=== PATIENT | male | born 1940 | race Caucasian/White ===

== ENCOUNTER → 2020-01-23 09:13 | Outpatient (BNVA) | payer MEDICARE, MEDICAID, SELFPAY | PROVIDERS: PCP Internal Medicine; Referring Provider Internal Medicine; Visit Provider Hospitalist | DX: J44.9 Chronic obstructive pulmonary disease, unspecified (principal); J96.11 Chronic respiratory failure with hypoxia; Z79.899 Other long term (current) drug therapy | CPT/HCPCS: 99214 ==

== ENCOUNTER 2020-01-27 10:12 | Outpatient (REF) | payer MEDICARE, MEDICAID, SELFPAY ==
[2020-01-27 11:28] LABS: MANUAL DIFF FLAG NO
[2020-01-27 11:49] LABS: Basophils Percent Auto 0.4 % (0-2); Eosinophils Absolute Auto 0.1 X10*3/uL (0.0-0.4); Eosinophils Percent Auto 2.2 % (0-4); Hematocrit 43.7 % (42-52); Hemoglobin 14.1 g/dl (14.0-18.0); Imm Gran Abs Auto 0.01 X10*3/uL (0.00-0.03); Imm Gran Pct Auto 0.2 % (0.0-0.4); Lymphocytes Absolute Auto 1.4 X10*3/uL (1.2-4.9); Lymphocytes Percent Auto 31.7 % (20-40); Mean Corpuscular HGB Conc 32.3 g/dl (31.0-36.0); Mean Corpuscular Hemoglobin 30.3 pg (27.0-33.0); Mean Corpuscular Volume 93.8 fL (80-98); Mean Platelet Volume 9.8 fL (9.4-12.4); Monocytes Absolute Auto 0.4 X10*3/uL (0.1-1.2); Monocytes Percent Auto 8.8 % (2-11); Neutrophils Absolute Auto 2.6 X10*3/uL (2.0-8.3); Neutrophils Percent Auto 56.7 % (45-73); Platelet Count 148 X10*3/uL (160-400); Red Blood Count 4.66 X10*6/uL (4.60-5.80); Red Cell Distribution Width 13.1 % (11.0-16.0); White Blood Count 4.5 X10*3/uL (4.8-10.8)
[2020-01-27 11:58] LABS: Glucose Urine UA NEG (NEG); Leukocyte Esterase Urine NEG (NEG); Nitrite Urine NEG (NEG); Specific Gravity - Urine 1.025 (1.005-1.025); Urine Blood NEG (NEG); Urine Ketones NEG (NEG); Urine Protein NEG (NEG-TRACE)
[2020-01-27 12:02] LABS: Appearance Urine CLEAR; Color Urine YELLOW
[2020-01-27 12:05] LABS: Alanine Aminotransferase 20 U/L (0-40); Albumin Level 4.1 g/dL (3.5-5.0); Alkaline Phosphatase 68 U/L (39-117); Anion Gap 10 (12-20); Aspartate Amino Transferase 17 U/L (5-37); Bilirubin Total 0.9 mg/dL (0.0-1.0); Blood Urea Nitrogen 11 mg/dL (9-16); Calcium 8.7 mg/dL (8.4-10.2); Carbon Dioxide 26 mmol/L (22-29); Chloride 108 mmol/L (96-108); Cholesterol 137 mg/dL; Estimated Glomerular Filt Rate > 60; Glucose Fasting 100 mg/dL (60-99); HDL Cholesterol 44 mg/dL; LDL Cholesterol Calculated 65 mg/dl; Potassium 4.4 mmol/l (3.3-5.1); Sodium 140 mmol/L (135-145); Total Protein 6.2 g/dL (6.5-8.0); Triglycerides 141 mg/dL
[2020-01-27 12:14] LABS: TSH reflex Free T4 1.62 mIU/mL (0.32-4.0); Vitamin D 25-OH Total 28.6 ng/mL (>30)
[2020-01-27 12:38] LABS: RBC Urine 0 /HPF (0); Squamous Epithelial Cell Urine 1+ /LPF; WBC Urine 0-2 /HPF (0-4)
[2020-01-27 13:51] LABS: Folate 5.9 ng/mL (> or = 4.0); Vitamin B12 416 pg/mL (200-900)
== END 2020-01-27 10:13 | disposition home or self-care (01) ==
LOC: HO.LAB 10:12
PROVIDERS: Visit Provider Internal Medicine
DX: R73.01 Impaired fasting glucose (principal); E78.5 Hyperlipidemia, unspecified; I12.9 Hypertensive chronic kidney disease with stage 1 through stage 4 chronic kidney disease, or unspecified chronic kidney disease; N18.9 Chronic kidney disease, unspecified; I25.10 Atherosclerotic heart disease of native coronary artery without angina pectoris; E53.8 Deficiency of other specified B group vitamins; G62.9 Polyneuropathy, unspecified; K21.9 Gastro-esophageal reflux disease without esophagitis; E55.9 Vitamin D deficiency, unspecified; E66.9 Obesity, unspecified
CPT/HCPCS: 36415; 80053; 80061; 81003; 81015; 82306; 82607; 82746; 84443; 85025

== ENCOUNTER → 2020-01-29 13:51 | Outpatient (BNVA) | payer MEDICARE, MEDICAID, SELFPAY | PROVIDERS: PCP Internal Medicine; Referring Provider Internal Medicine; Visit Provider Surgery Vascular Surgery | DX: I71.4 Abdominal aortic aneurysm, without rupture (principal) | CPT/HCPCS: 99213 ==

== ENCOUNTER 2020-04-28 08:02 | Outpatient (REF) | payer MEDICARE, MEDICAID, SELFPAY ==
[2020-04-28 09:10] LABS: Hematocrit 43.8 % (42-52); Imm Gran Abs Auto 0.01 X10*3/uL (0.00-0.03); Imm Gran Pct Auto 0.2 % (0.0-0.4); MANUAL DIFF FLAG SCAN; PLT CLUMP 1; SCAN SMEAR FLAG 1
[2020-04-28 09:12] LABS: Basophils Percent Auto 0.2 % (0-2); Eosinophils Absolute Auto 0.2 X10*3/uL (0.0-0.4); Eosinophils Percent Auto 2.8 % (0-4); Hemoglobin 14.3 g/dl (14.0-18.0); Lymphocytes Absolute Auto 1.6 X10*3/uL (1.2-4.9); Lymphocytes Percent Auto 29.8 % (20-40); Mean Corpuscular HGB Conc 32.6 g/dl (31.0-36.0); Mean Corpuscular Hemoglobin 30.3 pg (27.0-33.0); Mean Corpuscular Volume 92.8 fL (80-98); Mean Platelet Volume 9.8 fL (9.4-12.4); Monocytes Absolute Auto 0.5 X10*3/uL (0.1-1.2); Monocytes Percent Auto 9.9 % (2-11); Neutrophils Absolute Auto 3.1 X10*3/uL (2.0-8.3); Neutrophils Percent Auto 57.1 % (45-73); Platelet Count 137 X10*3/uL (160-400); Red Blood Count 4.72 X10*6/uL (4.60-5.80); Red Cell Distribution Width 12.7 % (11.0-16.0); White Blood Count 5.4 X10*3/uL (4.8-10.8)
[2020-04-28 09:16] LABS: Glucose Urine UA NEG (NEG); Leukocyte Esterase Urine NEG (NEG); Nitrite Urine NEG (NEG); PH 5.5 (5.0-8.0); Specific Gravity - Urine 1.025 (1.005-1.025); Urine Blood NEG (NEG); Urine Ketones NEG (NEG); Urine Protein NEG (NEG-TRACE)
[2020-04-28 09:20] LABS: Appearance Urine CLEAR; Color Urine YELLOW
[2020-04-28 09:36] LABS: Alanine Aminotransferase 23 U/L (0-40); Albumin Level 4.1 g/dL (3.5-5.0); Alkaline Phosphatase 77 U/L (39-117); Anion Gap 13 (12-20); Aspartate Amino Transferase 16 U/L (5-37); Bilirubin Total 0.7 mg/dL (0.0-1.0); Blood Urea Nitrogen 13 mg/dL (9-16); Calcium 8.7 mg/dL (8.4-10.2); Carbon Dioxide 29 mmol/L (22-29); Chloride 107 mmol/L (96-108); Cholesterol 116 mg/dL; Estimated Glomerular Filt Rate > 60; Glucose Fasting 97 mg/dL (60-99); HDL Cholesterol 38 mg/dL; LDL Cholesterol Calculated 59 mg/dl; Potassium 4.5 mmol/l (3.3-5.1); Sodium 144 mmol/L (135-145); Total Protein 6.3 g/dL (6.5-8.0); Triglycerides 96 mg/dL
[2020-04-28 10:00] LABS: TSH reflex Free T4 1.63 mIU/mL (0.32-4.0); Vitamin D 25-OH Total 31.8 ng/mL (>30)
[2020-04-28 10:07] LABS: Folate 9.4 ng/mL (> or = 4.0); Vitamin B12 352 pg/mL (200-900)
== END 2020-04-28 08:03 | disposition home or self-care (01) ==
LOC: HO.LAB 08:02
PROVIDERS: PCP Internal Medicine; Visit Provider Internal Medicine
DX: I12.9 Hypertensive chronic kidney disease with stage 1 through stage 4 chronic kidney disease, or unspecified chronic kidney disease (principal); N18.2 Chronic kidney disease, stage 2 (mild); E78.00 Pure hypercholesterolemia, unspecified; R73.01 Impaired fasting glucose; I25.10 Atherosclerotic heart disease of native coronary artery without angina pectoris; E66.9 Obesity, unspecified; E53.8 Deficiency of other specified B group vitamins; K21.9 Gastro-esophageal reflux disease without esophagitis; E55.9 Vitamin D deficiency, unspecified
CPT/HCPCS: 36415; 80053; 80061; 81003; 82306; 82607; 82746; 84443; 85025

== ENCOUNTER 2020-05-17 10:28 | Day surgery (SDC) | payer MEDICARE, MEDICAID, SELFPAY ==
[2020-04-07 11:34] VITALS: BMI 32.4
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
[2020-05-17 11:01] VITALS: BP 141/82; PULSE 74; RESP 18; TEMP 36.8; O2SAT 97
[2020-05-17] MEDS: Lactated Ringers 1,000 ML 50 ML IVCONT (11:32)
[2020-05-17 13:40] VITALS: BP 101/73; PULSE 53; RESP 16; TEMP 36.2; O2SAT 97
--- NOTE | 2020-05-17 13:47 | PM.OP ---
Brief Operative Note Date of Service: 05/17/20 Pre-op diagnosis: Screening, History of colon polyps Post-op diagnosis: other (Colon polyps) Procedure: Colonoscopy to cecum with snare polypectomy and placement of Resolution clips Surgeon: Presley Bai Anesthesia: MAC Estimated blood loss (mL): 5.0 Pathology: other (A. Cecal polyp B. Ascending colon polyps C. Transverse colon polyps D. Polyps at 60cm) Condition: stable Disposition: PACU
[2020-05-17 13:55] VITALS: BP 126/72; PULSE 60; RESP 16; TEMP 36.2; O2SAT 96
--- NOTE | 2020-05-17 14:33 | OP_ITS ---
SURGEON: Presley Bai MD PREOPERATIVE DIAGNOSIS: POSTOPERATIVE DIAGNOSIS: PROCEDURE PERFORMED: Colonoscopy to the cecum with multiple snare polypectomies and placement of multiple resolution clips. Full consent has been obtained from him for this, including risks of bleeding and perforation. ESTIMATED BLOOD LOSS: COMPLICATIONS: ANESTHESIA: Monitored anesthesia care. ASSISTANTS: SPECIMENS: PREOPERATIVE DIAGNOSES: Colorectal cancer screening and personal history of colon polyps. POSTOPERATIVE DIAGNOSES: Colorectal cancer screening, personal history of colon polyps, colon polyps, diverticulosis, and internal hemorrhoids. DESCRIPTION OF PROCEDURE: The patient was placed in the left lateral decubitus position. The digital rectal exam revealed no abnormalities. The Olympus video pediatric colonoscope was entered into the rectum and advanced easily to the cecum. Once in the cecum, I did identify cecal pouch with appendiceal orifice and a normal-appearing ileocecal valve. The entire cecum was well visualized. In the cecum was an approximately 10 mm grossly adenomatous polyp which was snared and recovered by suction. Two clips were placed on the polypectomy site for hemostasis given that he had to go back on his aspirin therapy. There was good deployment and good hemostasis. The remainder of the cecum appeared normal. The scope was then slowly withdrawn assessing all mucosal surfaces carefully. Preparation was excellent after his two-day bowel prep. Multiple polyps were visualized in the ascending colon, transverse colon, and at 60 cm. These were all between 10 and 12 mm in size and appeared to be grossly adenomatous as well. These were all snared and recovered by suction. All the polypectomy sites appeared clean, without any sign of residual polyp nor bleeding; however, I did place resolution clips on all but two of them in the transverse colon. There was good deployment and good hemostasis. The other two polypectomy sites, I did not place clip on also appeared very good without any residual polyp nor bleeding. There were other polyps of approximately 5 mm in diameter in the sigmoid colon, descending colon, and ascending colon that were not removed given the length of today's procedure. There was a moderate amount of sigmoid diverticulosis. In the rectum, scope was retroflexed visualizing internal hemorrhoids, but no other pathology. The rectal mucosa appeared normal. The scope was straightened and withdrawn from the patient. He tolerated the procedure well and was returned to recovery area in stable condition. IMPRESSION: 1. Multiple colon polyps, status post snare polypectomy and placement of resolution clips. 2. Diverticulosis. 3. Internal hemorrhoids. PLAN: The results of the pathology will be checked. I would theoretically recommend another colonoscopy within 1-2 years, although he is approaching age 82 and we would need to take his clinical condition to account. He was advised to resume his aspirin within the next 24-48 hours. He will see me in the interim on a p.r.n. basis. This has been discussed with his family. MD MADI Miles/TAVO / [phone]
== END 2020-05-17 14:15 | disposition home or self-care (01) ==
PROVIDERS: PCP Internal Medicine; Visit Provider Internal Medicine
PROC: 0DJD8ZZ Inspection of Lower Intestinal Tract, Via Natural or Artificial Opening Endoscopic (ICD-10-PCS; CPT 45378; principal; 2020-05-17 12:20)
DX: Z12.11 Encounter for screening for malignant neoplasm of colon (principal); Z86.010 Personal history of colon polyps; D12.0 Benign neoplasm of cecum; D12.2 Benign neoplasm of ascending colon; D12.3 Benign neoplasm of transverse colon; D12.4 Benign neoplasm of descending colon; K57.30 Diverticulosis of large intestine without perforation or abscess without bleeding; K64.8 Other hemorrhoids; K21.9 Gastro-esophageal reflux disease without esophagitis; I12.9 Hypertensive chronic kidney disease with stage 1 through stage 4 chronic kidney disease, or unspecified chronic kidney disease; N18.9 Chronic kidney disease, unspecified; G62.9 Polyneuropathy, unspecified; J44.9 Chronic obstructive pulmonary disease, unspecified; I25.10 Atherosclerotic heart disease of native coronary artery without angina pectoris; Z98.61 Coronary angioplasty status; E55.9 Vitamin D deficiency, unspecified; E53.8 Deficiency of other specified B group vitamins; R73.01 Impaired fasting glucose; Z79.82 Long term (current) use of aspirin; Z79.51 Long term (current) use of inhaled steroids; Z79.899 Other long term (current) drug therapy; Z87.891 Personal history of nicotine dependence; Z88.8 Allergy status to other drugs, medicaments and biological substances; Z88.1 Allergy status to other antibiotic agents
CPT/HCPCS: 45385; 88305; J3010

== ENCOUNTER → 2020-07-19 09:37 | Outpatient (BNVA) | payer MEDICARE, MEDICAID, SELFPAY | PROVIDERS: PCP Internal Medicine; Visit Provider Hospitalist | DX: K21.9 Gastro-esophageal reflux disease without esophagitis (principal); J96.11 Chronic respiratory failure with hypoxia; J41.1 Mucopurulent chronic bronchitis | CPT/HCPCS: 99212 ==

== ENCOUNTER 2020-07-26 11:54 | Outpatient (REF) | payer MEDICARE, MEDICAID, SELFPAY ==
--- NOTE | ~2020-07-26 | XR_ITS ---
EXAMINATION: XR CHEST CLINICAL INFORMATION: Mucopurulent chronic bronchitis COMPARISON: Chest 12/12/2018 TECHNIQUE: 2 views of the chest were obtained. FINDINGS: The lungs are hyperinflated but clear. The heart size and pulmonary vascularity is normal. No gross bony abnormality seen. XR/XR chest 2V IMPRESSION: Unremarkable chest exam.
[2020-07-26 15:39] LABS: Eosinophils Absolute Auto 0.1 X10*3/uL (0.0-0.4); Hemoglobin 13.8 g/dl (14.0-18.0); MANUAL DIFF FLAG SCAN; PLT CLUMP 1; Red Cell Distribution Width 13.2 % (11.0-16.0); SCAN SMEAR FLAG 1
[2020-07-26 15:41] LABS: Basophils Percent Auto 0.4 % (0-2); Eosinophils Percent Auto 2.5 % (0-4); Hematocrit 42.5 % (42-52); Imm Gran Abs Auto 0.01 X10*3/uL (0.00-0.03); Imm Gran Pct Auto 0.2 % (0.0-0.4); Lymphocytes Absolute Auto 1.8 X10*3/uL (1.2-4.9); Lymphocytes Percent Auto 35.4 % (20-40); Mean Corpuscular HGB Conc 32.5 g/dl (31.0-36.0); Mean Corpuscular Hemoglobin 31.2 pg (27.0-33.0); Mean Corpuscular Volume 95.9 fL (80-98); Mean Platelet Volume 10.9 fL (9.4-12.4); Monocytes Absolute Auto 0.5 X10*3/uL (0.1-1.2); Monocytes Percent Auto 9.7 % (2-11); Neutrophils Absolute Auto 2.7 X10*3/uL (2.0-8.3); Neutrophils Percent Auto 51.8 % (45-73); Platelet Count 119 X10*3/uL (160-400); Red Blood Count 4.43 X10*6/uL (4.60-5.80); White Blood Count 5.1 X10*3/uL (4.8-10.8)
[2020-07-26 16:02] LABS: Alanine Aminotransferase 23 U/L (0-40); Albumin Level 4.2 g/dL (3.5-5.0); Alkaline Phosphatase 72 U/L (39-117); Anion Gap 12 (12-20); Aspartate Amino Transferase 16 U/L (5-37); Bilirubin Total 0.9 mg/dL (0.0-1.0); Blood Urea Nitrogen 12 mg/dL (9-16); Calcium 8.7 mg/dL (8.4-10.2); Carbon Dioxide 30 mmol/L (22-29); Chloride 107 mmol/L (96-108); Cholesterol 129 mg/dL; Estimated Glomerular Filt Rate > 60; Glucose Fasting 90 mg/dL (60-99); HDL Cholesterol 44 mg/dL; LDL Cholesterol Calculated 53 mg/dl; Potassium 4.5 mmol/L (3.3-5.1); Sodium 144 mmol/L (135-145); Total Protein 6.6 g/dL (6.5-8.0); Triglycerides 163 mg/dL
[2020-07-26 16:24] LABS: Glucose Urine UA NEG (NEG); Leukocyte Esterase Urine NEG (NEG); Nitrite Urine NEG (NEG); PH 5.5 (5.0-8.0); Specific Gravity - Urine >= 1.030 (1.005-1.025); Urine Blood TRACE (NEG); Urine Ketones NEG (NEG); Urine Protein NEG (NEG-TRACE)
[2020-07-26 16:26] LABS: SLIDE REVIEW VERIFIED; TSH reflex Free T4 2.21 uIU/mL (0.32-4.0); Vitamin D 25-OH Total 31.3 ng/mL (>30)
[2020-07-26 16:27] LABS: Erythrocyte Sedimentation Rate 3 MM/HR (0-15)
[2020-07-26 16:30] LABS: Appearance Urine CLEAR; Color Urine YELLOW
[2020-07-26 16:39] LABS: Folate 9.7 ng/mL (> or = 4.0); Vitamin B12 497 pg/mL (200-900)
[2020-07-26 17:03] LABS: RBC Urine 0-2 /HPF (0); Squamous Epithelial Cell Urine 1+ /LPF; WBC Urine 0 /HPF (0-4)
[2020-07-27 11:12] LABS: Immunoglobulin E 18 kU/L (<OR=114)
[2020-07-27 14:21] LABS: IgA 210 mg/dL (70-320); IgG 918 mg/dL (600-1540); IgM 65 mg/dL (50-300)
== END 2020-07-26 11:55 | disposition home or self-care (01) ==
LOC: HO.XRAY 11:54
PROVIDERS: Absent Provider Internal Medicine; PCP Internal Medicine; Visit Provider Hospitalist
DX: J41.1 Mucopurulent chronic bronchitis (principal); E55.9 Vitamin D deficiency, unspecified; E53.8 Deficiency of other specified B group vitamins; G31.84 Mild cognitive impairment of uncertain or unknown etiology; G62.9 Polyneuropathy, unspecified; E66.9 Obesity, unspecified; E78.00 Pure hypercholesterolemia, unspecified; R73.01 Impaired fasting glucose; I10 Essential (primary) hypertension
CPT/HCPCS: 36415; 71046; 80053; 80061; 81001; 82306; 82607; 82746; 82784; 82785; 84443; 85025; 85652

== ENCOUNTER 2020-09-10 08:57 | Outpatient (REF) | payer MEDICARE, MEDICAID, SELFPAY ==
[2020-09-10 11:00] LABS: Prostate Specific Antigen 1.76 ng/mL (<0.05-4.0)
== END 2020-09-10 08:58 | disposition home or self-care (01) ==
LOC: HO.LAB 08:57
PROVIDERS: PCP Internal Medicine; Visit Provider Urology
DX: R35.1 Nocturia (principal); Z12.5 Encounter for screening for malignant neoplasm of prostate
CPT/HCPCS: 36415; 84153

== ENCOUNTER → 2020-09-14 13:37 | Outpatient (BNVA) | payer MEDICARE, MEDICAID, SELFPAY | PROVIDERS: PCP Internal Medicine; Visit Provider Urology | DX: Z13.89 Encounter for screening for other disorder (principal) | CPT/HCPCS: 99212 ==

== ENCOUNTER 2020-09-21 13:59 | Outpatient (REF) | payer MEDICARE, MEDICAID, SELFPAY ==
--- NOTE | ~2020-09-21 | US_ITS ---
EXAMINATION: US VENOUS ULTRASOUND WITH DOPPLER LOWER EXTREMITY, LEFT CLINICAL INFORMATION: Pain COMPARISON: None TECHNIQUE: Ultrasound of the deep veins is performed from the hip to the calf with compression sonography and color and pulse Doppler assessment. Spectral analysis with color-flow imaging is performed. FINDINGS: There is normal venous compression and respiratory variation and augmented flow. The visualized common femoral vein, superficial femoral vein, profunda femoral vein, popliteal vein, and the trifurcation region shows no evidence of deep venous thrombosis. There is no popliteal fossa cyst. US/US venous duplex LE LT IMPRESSION: No DVT demonstrated in the left lower extremity.
== END 2020-09-21 14:00 | disposition home or self-care (01) ==
LOC: HO.US 13:59
PROVIDERS: PCP Internal Medicine; Visit Provider Internal Medicine
DX: J41.1 Mucopurulent chronic bronchitis (principal); J96.11 Chronic respiratory failure with hypoxia; M79.605 Pain in left leg; M79.89 Other specified soft tissue disorders; K21.9 Gastro-esophageal reflux disease without esophagitis; Z79.899 Other long term (current) drug therapy; Z99.81 Dependence on supplemental oxygen
CPT/HCPCS: 93971; 99212

== ENCOUNTER 2020-10-11 14:09 | Outpatient (REF) | payer MEDICARE, MEDICAID, SELFPAY ==
--- NOTE | ~2020-10-11 | US_ITS ---
EXAMINATION: US RETROPERITONEAL LIMITED (AORTA) CLINICAL INFORMATION: Abdominal aortic aneurysm without rupture. COMPARISON: Abdominal aorta ultrasounds dated 11/05/2019 and 10/08/2018 TECHNIQUE: Girard-scale, color Doppler and spectral Doppler evaluation of the abdominal aorta. FINDINGS: The measurements of the aorta in maximum AP and transverse dimensions respectively are as follows: Proximal: 3.4 x 2.8 cm. Mid: 2.6 x 2.6 cm. Distal: 3.2 x 3.3 cm. PSV: 71.6 cm/sec The measurements of the common iliac arteries in maximum dimensions are as follows: Right: AP: 2.0 cm. TRV: 1.3 cm. Left: AP: 1.7 cm. TRV: 1.4 cm. US/US abdominal aortic aneurysm IMPRESSION: Aneurysmal dilatation of distal abdominal aorta measuring 3.2 x 3.3 cm. On previous ultrasound 11/05/2019, it measured 2.6 x 3.1 cm.
== END 2020-10-11 14:10 | disposition home or self-care (01) ==
LOC: HO.US 14:09
PROVIDERS: Visit Provider Surgery Vascular Surgery
DX: I71.4 Abdominal aortic aneurysm, without rupture (principal)
CPT/HCPCS: 76706

== ENCOUNTER → 2020-10-14 10:38 | Outpatient (BNVA) | payer MEDICARE, MEDICAID, SELFPAY | PROVIDERS: PCP Internal Medicine; Visit Provider Surgery Vascular Surgery | DX: I71.4 Abdominal aortic aneurysm, without rupture (principal); M79.605 Pain in left leg; M79.89 Other specified soft tissue disorders | CPT/HCPCS: 99212 ==

== ENCOUNTER 2020-10-29 06:04 | Outpatient (REF) | payer MEDICARE, MEDICAID, SELFPAY ==
[2020-10-29 06:43] LABS: MANUAL DIFF FLAG NO
[2020-10-29 06:50] LABS: Basophils Percent Auto 0.6 % (0-2); Eosinophils Absolute Auto 0.2 X10*3/uL (0.0-0.4); Eosinophils Percent Auto 3.9 % (0-4); Hematocrit 45.5 % (42-52); Hemoglobin 14.8 g/dl (14.0-18.0); Imm Gran Abs Auto 0.01 X10*3/uL (0.00-0.03); Imm Gran Pct Auto 0.2 % (0.0-0.4); Lymphocytes Percent Auto 41.1 % (20-40); Mean Corpuscular HGB Conc 32.5 g/dl (31.0-36.0); Mean Corpuscular Hemoglobin 30.8 pg (27.0-33.0); Mean Corpuscular Volume 94.8 fL (80-98); Mean Platelet Volume 9.7 fL (9.4-12.4); Monocytes Absolute Auto 0.5 X10*3/uL (0.1-1.2); Monocytes Percent Auto 9.8 % (2-11); Neutrophils Absolute Auto 2.2 X10*3/uL (2.0-8.3); Neutrophils Percent Auto 44.4 % (45-73); Platelet Count 141 X10*3/uL (160-400); White Blood Count 4.9 X10*3/uL (4.8-10.8)
[2020-10-29 07:35] LABS: Erythrocyte Sedimentation Rate 2 MM/HR (0-15)
[2020-11-01 13:06] LABS: Immunoglobulin G Subclass 1 478 mg/dL (382-929); Immunoglobulin G Subclass 2 185 mg/dL (241-700); Immunoglobulin G Subclass 3 69 mg/dL (22-178); Immunoglobulin G Subclass 4 7.6 mg/dL (4-86); Immunoglobulin G Total 758 mg/dL (600-1540)
[2020-11-02 06:46] LABS: Immunoglobulin E 21 kU/L (<OR=114)
== END 2020-10-29 06:05 | disposition home or self-care (01) ==
LOC: HO.LAB 06:04
PROVIDERS: Hospitalist; Visit Provider Internal Medicine
DX: J41.1 Mucopurulent chronic bronchitis (principal)
CPT/HCPCS: 36415; 82784; 82785; 85025; 85652

== ENCOUNTER → 2020-11-04 14:14 | Outpatient (BNVA) | payer MEDICARE, MEDICAID, SELFPAY | PROVIDERS: PCP Internal Medicine; Referring Provider Internal Medicine; Visit Provider Internal Medicine Cardiovascular Disease | DX: I10 Essential (primary) hypertension (principal); I25.10 Atherosclerotic heart disease of native coronary artery without angina pectoris; Z79.899 Other long term (current) drug therapy | CPT/HCPCS: 93005; 99212 ==

== ENCOUNTER → 2020-12-24 09:49 | Outpatient (BNVA) | payer MEDICARE, MEDICAID, SELFPAY | PROVIDERS: PCP Internal Medicine; Visit Provider Hospitalist | DX: J41.1 Mucopurulent chronic bronchitis (principal); J96.11 Chronic respiratory failure with hypoxia; K21.9 Gastro-esophageal reflux disease without esophagitis | CPT/HCPCS: 99212 ==

== ENCOUNTER 2020-12-30 06:02 | Day surgery (SDC) | payer MEDICARE, MEDICAID, SELFPAY ==
[2020-12-29 09:38] VITALS: BMI 31.6
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
[2020-12-30] VITALS (11 sets, daily range): BP systolic 97–122; BP diastolic 48–76; PULSE 58–70; RESP 16–22; TEMP 36.3–36.5; O2SAT 93–98; BMI 33.3
[2020-12-30] MEDS: Lactated Ringers 1,000 ML 50 ML IVCONT (07:10)
--- NOTE | 2020-12-30 07:27 | PC.NURSE ---
patient extremely anxious and repetitive. patient states he took his oxycodone around 2am/3am. awaiting for to sign consent
--- NOTE | 2020-12-30 07:56 | MHC.SHP ---
Pre-Procedural Eval Section A Date of Service: 12/30/20 The patient is an INPATIENT: No Changes since office visit: Yes Patient answered all questions; No Cold of Flu in the past 2 weeks, No New Medical Problems and No Changes in Medication Section B Chief Complaint: brochitis Allergies: Allergies Allergy/AdvReac Type Severity Reaction Status Date / Time celecoxib [From Celebrex] Allergy Severe Redness Verified 12/24/20 10:09 ciprofloxacin Allergy Intermediate Itching Verified 12/24/20 10:09 clonazepam [From Klonopin] Allergy Intermediate Flushing Verified 12/24/20 10:09 ibuprofen [Ibuprofen] Allergy Intermediate ITCHING Verified 12/24/20 10:09 roflumilast [From Daliresp] AdvReac Severe GI and Verified 12/24/20 10:09 mood changes bupropion [From WELLBUTRIN] AdvReac Intermediate CONFUSION Verified 12/24/20 10:09 gabapentin [GABAPENTIN] AdvReac Intermediate CONFUSION Verified 12/24/20 10:09 tramadol [From ULTRAM] AdvReac Intermediate CONFUSION Verified 12/24/20 10:09 levofloxacin [From LEVAQUIN] AdvReac Mild ITCHY, Verified 12/24/20 10:09 BURNING Plan I have reviewed the history and physical and performed a pertinent physical examination on my patient. No changes have occurred unless specified.
--- NOTE | 2020-12-30 10:08 | P.BOP_ITS ---
Brief Operative Note Date of Service: 12/30/20 Pre-op diagnosis: cough Post-op diagnosis: other (Bronchitis, bronchomalecia) Procedure: bronchoscopy with BAL, washings and brushings Implants: Surgeon: Kings Kaiser MD Anesthesia: GLMA Was an Oil Field Technician used for this Procedure?: No Estimated blood loss (mL): 0 Pathology: none sent Condition: stable Disposition: same day
--- NOTE | 2020-12-30 12:32 | OP_ITS ---
SURGEON: Kings Kaiser MD PREOPERATIVE DIAGNOSIS: Cough. POSTOPERATIVE DIAGNOSIS: PROCEDURE PERFORMED: ESTIMATED BLOOD LOSS: COMPLICATIONS: ANESTHESIA: LMA. ASSISTANTS: SPECIMENS: POSTOPERATIVE DIAGNOSES: Bronchitis with suppurative airways and bronchomalacia. CONSENT: Consent was obtained from the patient. Risks and benefits were discussed. The patient gave informed consent to undergo the procedure. DESCRIPTION OF PROCEDURE: After the patient was adequately sedated and LMA in place, the flexible digital bronchoscope was inserted to the level of the larynx. The vocal cords moved symmetrically to the midline. The larynx was inflamed minimally. Vocal cords were intact without any lesions. After instilling lidocaine, the bronchoscope then passed the vocal cords to the level of the trachea. 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 After instilling additional lidocaine, the bronchoscope was then navigated to the entire tracheobronchial tree that was examined to the subsegmental level. The patient had significant evidence of bronchomalacia. There was also moderate to severe mucoid secretions that were difficult to suction primarily in the distal trachea and also in the right lung. Bronchial washings were used to try to clear the mucus, although I had to remove the bronchoscope multiple times to clear the suction channel, because of the clogging with thick tenacious secretions. Therapeutic suctioning was provided. Bronchoscope was navigated to the right middle lobe, where a bronchoalveolar lavage was done with 50 mL of normal saline, recovering only around 10 mL due to significant bronchomalacia. Specimen sent for cell count and differential. Also, a microscopic brush was introduced into the right middle lobe and sent for microbiology evaluations. Bronchial washings were collected bilaterally. Again, therapeutic suctioning was provided throughout the airways. The patient did have friable mucosa throughout, left more than right, little oozing with blood, but just minimal. The patient had good hemostasis. No endobronchial lesions or masses noted. Therefore, no biopsy warranted. The bronchoscope was then removed. The total endoscopic time approximately 12 minutes. The patient tolerated the procedure well. Vital signs were stable throughout the procedure. INTERPRETATION: 1. BAL from the right middle lobe. 2. Micro brush from the right middle lobe. 3. Bronchial washings bilaterally. Kings Kaiser MD MR/MODL / [id number]
[2020-12-30 14:23] LABS: RBC Bronchial Washing 0 MM*3; WBC Bronchial Washing 0 MM*3
== END 2020-12-30 10:48 | disposition home or self-care (01) ==
PROVIDERS: PCP Internal Medicine; Visit Provider Hospitalist
PROC: 0BJ08ZZ Inspection of Tracheobronchial Tree, Via Natural or Artificial Opening Endoscopic (ICD-10-PCS; CPT 31622; principal; 2020-12-30 08:00)
DX: J41.1 Mucopurulent chronic bronchitis (principal); J39.8 Other specified diseases of upper respiratory tract; J98.09 Other diseases of bronchus, not elsewhere classified
CPT/HCPCS: 31623; 31624; 87071; 87102; 87107; 87116; 87205; 88112; 89051; J0171; J1100; J2250; J2405; J3010

== ENCOUNTER → 2021-01-13 09:07 | Outpatient (BNVA) | payer MEDICARE, MEDICAID, SELFPAY | PROVIDERS: PCP Internal Medicine; Visit Provider Hospitalist | DX: J96.11 Chronic respiratory failure with hypoxia (principal); J41.1 Mucopurulent chronic bronchitis; J98.09 Other diseases of bronchus, not elsewhere classified; K21.9 Gastro-esophageal reflux disease without esophagitis | CPT/HCPCS: 99212 ==

== ENCOUNTER 2021-02-23 10:26 | Emergency (ER) | payer MEDICARE, MEDICAID, SELFPAY ==
[2021-02-23] VITALS (7 sets, daily range): BP systolic 86–125; BP diastolic 51–71; PULSE 54–72; RESP 13–20; TEMP 36.6–36.8; O2SAT 93–98; BMI 31.8
--- NOTE | 2021-02-23 | ECG_ITS ---
Test Reason : chest pain Blood Pressure : / mmHG Vent. Rate : 063 BPM Atrial Rate : 063 BPM P-R Int : 152 ms QRS Dur : 086 ms QT Int : 402 ms P-R-T Axes : 057 031 036 degrees QTc Int : 411 ms Normal sinus rhythm with sinus arrhythmia RSR' or QR pattern in V1 suggests right ventricular conduction delay Nonspecific ST abnormality Abnormal ECG When compared with ECG of 18-MAY-2019 07:32, Premature atrial complexes are no longer Present Referred By: Generic ED Physician Electronically Signed By:DONNA DAMIAN MD
--- NOTE | ~2021-02-23 | XR_ITS ---
EXAMINATION: XR CHEST CLINICAL INFORMATION: Chest pain COMPARISON: July 26, 2020 and February 26, 2019 TECHNIQUE: AP portable view of the chest was obtained. FINDINGS: No significant abnormality is noted involving the heart, lungs, mediastinum, bony thorax or soft tissues. XR/XR chest 1V IMPRESSION: No acute disease.
--- NOTE | ~2021-02-23 | CT_ITS ---
E EXAMINATION: CT ANGIOGRAM OF THE CHEST WITH CONTRAST (CT PULMONARY ANGIOGRAM FOR PE) CLINICAL INFORMATION: Chest pain. COMPARISON: CXR from 02/23/2021. Chest CT from 08/19/2017. TECHNIQUE: Prior to contrast administration, noncontrast localization images were obtained. Subsequently, multidetector volumetric imaging was performed from the thoracic inlet to below the diaphragms following the administration of 65 mL Omnipaque 350 intravenous contrast. No contrast reaction reported. Sagittal, coronal, and MIP oblique sagittal reformatted images were obtained on the CT workstation, uploaded to PACS, and reviewed. This CT examination was performed using dose optimization techniques as appropriate, variously including the following: *Automated exposure control *Adjustment of mA and/or kV according to patient size (this includes techniques or standardized protocols for targeted exams where dose is matched to indication/reason for exam; i.e. extremities or head) *Use of iterative reconstruction technique DLP: Total exam dose-length product 436 mGy-cm FINDINGS: LUNGS AND PLEURA: The inward bowing of the membranous/posterior wall of the trachea suggests that images were acquired during expiration. Chronic moderate centrilobular emphysema is present. There are paraseptal emphysematous changes, as well. No acute pulmonary edema or focal consolidation. The bronchial morales are diffusely thickened. Mild subsegmental atelectasis is noted in paramediastinal regions of the right middle lobe and inferior lingula. A small noncalcified nodule in the lateral left lower lobe that measures up to 0.5 cm is stable compared to 08/19/2017, consistent with a benign nodule (image 332, series 8). No new lung nodule or mass. QUALITY OF STUDY/CONTRAST BOLUS: Satisfactory. CARDIOVASCULAR: No embolic filling defects in the main, lobar or segmental pulmonary arteries. Pulmonary artery trunk is 3 cm, which is in the normal size range. However, there is chronic, mild dilatation of the right and left pulmonary arteries. This is equivocal for pulmonary arterial hypertension. The heart size is normal. Mild atherosclerotic calcification of coronary arteries. No pericardial effusion. Mild thoracic aorta atherosclerosis without aneurysm or dissection. MEDIASTINUM/LOWER NECK: The esophagus and thyroid gland are unremarkable. No mediastinal mass. No pneumomediastinum. LYMPHATICS: No pathologic sized axillary, hilar or mediastinal lymph nodes. UPPER ABDOMEN: No contrast reflux into the IVC. Adrenal glands are normal. No acute findings in the visualized upper abdomen. There is a metallic clip of the hepatic flexure of the colon. OSSEOUS STRUCTURES: No acute or suspicious osseous abnormality. Old healed fractures of right lateral ninth and 10th ribs. CT/CT angio chest PE protocol IMPRESSION: * No evidence of pulmonary embolism. * Moderate pulmonary emphysema and diffusely thickened bronchial morales, which could be a manifestation of asthma or bronchitis. No pneumonia. * A small nodule in the left lower lobe is stable compared to 08/17/2017, consistent with a benign nodule.
[2021-02-23 11:25] LABS: MANUAL DIFF FLAG NO
[2021-02-23 11:30] LABS: Basophils Percent Auto 0.7 % (0-2); Eosinophils Absolute Auto 0.2 X10*3/uL (0.0-0.4); Hematocrit 41.5 % (42.0-52.0); Hemoglobin 13.6 g/dl (14.0-18.0); Imm Gran Abs Auto 0.01 X10*3/uL (0.00-0.03); Imm Gran Pct Auto 0.2 % (0.0-0.4); Lymphocytes Absolute Auto 1.3 X10*3/uL (1.2-4.9); Lymphocytes Percent Auto 29.8 % (20-40); Mean Corpuscular HGB Conc 32.8 g/dl (31.0-36.0); Mean Corpuscular Hemoglobin 30.9 pg (27.0-33.0); Mean Corpuscular Volume 94.3 fL (80.0-98.0); Mean Platelet Volume 9.4 fL (9.4-12.4); Monocytes Absolute Auto 0.4 X10*3/uL (0.1-1.2); Monocytes Percent Auto 9.8 % (2-11); Neutrophils Absolute Auto 2.5 x10*3/uL (2.0-8.3); Neutrophils Percent Auto 55.5 % (45-73); Platelet Count 119 X10*3/uL (160-400); Red Cell Distribution Width 12.8 % (11.0-16.0); White Blood Count 4.5 X10*3/uL (4.8-10.8)
[2021-02-23 11:41] LABS: Anion Gap 11 (12-20); Blood Urea Nitrogen 12 mg/dL (9-16); Calcium 8.4 mg/dL (8.4-10.2); Carbon Dioxide 25 mmol/L (22-29); Chloride 109 mmol/L (96-108); Creatinine Clr Calc Pharmacy 89.3; Estimated Glomerular Filt Rate > 60; Glucose Random 103 mg/dL (60-115); Potassium 4.3 mmol/L (3.3-5.1); Sodium 141 mmol/L (135-145)
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
[2021-02-23 11:48] LABS: Troponin-I High Sensitivity < 3.5 ng/L (<3.5-35.0)
[2021-02-23] MEDS: 0.9 % Sodium Chloride 500 ML IV (12:48)
[2021-02-23 14:01] LABS: Troponin-I High Sensitivity < 3.5 ng/L (<3.5-35.0)
[2021-02-23] MEDS: iohexoL 350 MG/ML 100 ML INFUS..BTL 65 ML IV (14:19)
== END 2021-02-23 15:21 | disposition home or self-care (01) ==
PROVIDERS: Emergency Provider Emergency Medicine; PCP Internal Medicine
DX: R07.9 Chest pain, unspecified (principal); I12.9 Hypertensive chronic kidney disease with stage 1 through stage 4 chronic kidney disease, or unspecified chronic kidney disease; N18.9 Chronic kidney disease, unspecified; I25.10 Atherosclerotic heart disease of native coronary artery without angina pectoris; J44.9 Chronic obstructive pulmonary disease, unspecified; Z99.81 Dependence on supplemental oxygen
CPT/HCPCS: 36415; 71045; 71275; 80048; 84484; 85025; 93005; 96360; 99283; 99284; Q9967

== ENCOUNTER 2021-03-08 08:27 | Outpatient (REF) | payer MEDICARE, MEDICAID, SELFPAY ==
[2021-03-08 10:44] LABS: Prostate Specific Antigen 1.56 ng/mL (<0.05-4.0)
== END 2021-03-08 08:28 | disposition home or self-care (01) ==
LOC: HO.10HDL 08:27
PROVIDERS: Visit Provider Urology
DX: Z12.5 Encounter for screening for malignant neoplasm of prostate (principal); N40.1 Benign prostatic hyperplasia with lower urinary tract symptoms; N13.8 Other obstructive and reflux uropathy
CPT/HCPCS: 36415; 84153

== ENCOUNTER → 2021-03-18 10:10 | Outpatient (BNVA) | payer MEDICARE, MEDICAID, SELFPAY | PROVIDERS: PCP Internal Medicine; Visit Provider Urology | DX: N40.1 Benign prostatic hyperplasia with lower urinary tract symptoms (principal); N13.8 Other obstructive and reflux uropathy | CPT/HCPCS: 99212 ==

== ENCOUNTER 2021-03-23 05:52 | Outpatient (REF) | payer MEDICARE, MEDICAID, SELFPAY ==
[2021-03-23 06:10] LABS: MANUAL DIFF FLAG NO
[2021-03-23 07:16] LABS: Appearance Urine CLEAR; Color Urine YELLOW; Glucose Urine UA NEG (NEG); Leukocyte Esterase Urine NEG (NEG); Nitrite Urine NEG (NEG); PH 5.5 (5.0-8.0); Specific Gravity - Urine >= 1.030 (1.005-1.025); Urine Blood NEG (NEG); Urine Ketones NEG (NEG); Urine Protein NEG (NEG-TRACE)
[2021-03-23 07:17] LABS: Basophils Percent Auto 0.3 % (0-2); Eosinophils Absolute Auto 0.2 X10*3/uL (0.0-0.4); Eosinophils Percent Auto 2.5 % (0-4); Hematocrit 45.2 % (42.0-52.0); Hemoglobin 14.3 g/dl (14.0-18.0); Imm Gran Abs Auto 0.03 X10*3/uL (0.00-0.03); Imm Gran Pct Auto 0.5 % (0.0-0.4); Lymphocytes Absolute Auto 1.8 X10*3/uL (1.2-4.9); Lymphocytes Percent Auto 29.3 % (20-40); Mean Corpuscular HGB Conc 31.6 g/dl (31.0-36.0); Mean Corpuscular Hemoglobin 30.2 pg (27.0-33.0); Mean Corpuscular Volume 95.6 fL (80.0-98.0); Monocytes Absolute Auto 0.6 X10*3/uL (0.1-1.2); Monocytes Percent Auto 9.8 % (2-11); Neutrophils Absolute Auto 3.5 x10*3/uL (2.0-8.3); Neutrophils Percent Auto 57.6 % (45-73); Red Blood Count 4.73 X10*6/uL (4.60-5.80); Red Cell Distribution Width 12.8 % (11.0-16.0)
[2021-03-23 07:28] LABS: Estimated Average Glucose 123 mg/dL; Hemoglobin A1c % 5.9 %
[2021-03-23 07:43] LABS: Platelet Count 149 X10*3/uL (160-400)
[2021-03-23 07:46] LABS: Alanine Aminotransferase 22 U/L (0-40); Albumin Level 4.2 g/dL (3.5-5.0); Alkaline Phosphatase 71 U/L (39-117); Anion Gap 13 (12-20); Aspartate Amino Transferase 19 U/L (5-37); Blood Urea Nitrogen 15 mg/dL (9-16); Calcium 9.4 mg/dL (8.4-10.2); Carbon Dioxide 27 mmol/L (22-29); Chloride 108 mmol/L (96-108); Cholesterol 132 mg/dL; Estimated Glomerular Filt Rate > 60; Glucose Fasting 98 mg/dL (60-99); HDL Cholesterol 42 mg/dL; LDL Cholesterol Calculated 68 mg/dl; Potassium 4.9 mmol/L (3.3-5.1); Sodium 143 mmol/L (135-145); Total Protein 6.8 g/dL (6.5-8.0); Triglycerides 113 mg/dL
[2021-03-23 08:10] LABS: TSH reflex Free T4 2.84 uIU/mL (0.32-4.0); Vitamin D 25-OH Total 29.8 ng/mL (>30)
[2021-03-23 08:17] LABS: Folate 11.4 ng/mL (> or = 4.0); Vitamin B12 360 pg/mL (200-900)
== END 2021-03-23 05:53 | disposition home or self-care (01) ==
LOC: HO.LAB 05:52
PROVIDERS: PCP Internal Medicine; Visit Provider Internal Medicine
DX: I10 Essential (primary) hypertension (principal); E55.9 Vitamin D deficiency, unspecified; E78.00 Pure hypercholesterolemia, unspecified; E53.8 Deficiency of other specified B group vitamins; R73.01 Impaired fasting glucose
CPT/HCPCS: 36415; 80053; 80061; 81003; 82306; 82607; 82746; 83036; 84443; 85025

== ENCOUNTER → 2021-05-18 10:21 | Outpatient (BNVA) | payer MEDICARE, MEDICAID, SELFPAY | PROVIDERS: PCP Internal Medicine; Visit Provider Hospitalist | DX: J96.11 Chronic respiratory failure with hypoxia (principal); J41.1 Mucopurulent chronic bronchitis; J98.09 Other diseases of bronchus, not elsewhere classified; K21.9 Gastro-esophageal reflux disease without esophagitis | CPT/HCPCS: 99212 ==

== ENCOUNTER 2021-06-27 12:02 | Outpatient (REF) | payer MEDICARE, MEDICAID, SELFPAY ==
[2021-06-27 12:23] LABS: MANUAL DIFF FLAG NO
[2021-06-27 13:02] LABS: Basophils Percent Auto 0.7 % (0-2); Eosinophils Absolute Auto 0.2 X10*3/uL (0.0-0.4); Eosinophils Percent Auto 3.9 % (0-4); Hematocrit 43.7 % (42.0-52.0); Hemoglobin 14.3 g/dl (14.0-18.0); Imm Gran Abs Auto 0.02 X10*3/uL (0.00-0.03); Imm Gran Pct Auto 0.3 % (0.0-0.4); Lymphocytes Absolute Auto 1.9 X10*3/uL (1.2-4.9); Lymphocytes Percent Auto 30.1 % (20-40); Mean Corpuscular HGB Conc 32.7 g/dl (31.0-36.0); Mean Corpuscular Hemoglobin 31.1 pg (27.0-33.0); Mean Platelet Volume 9.8 fL (9.4-12.4); Monocytes Absolute Auto 0.6 X10*3/uL (0.1-1.2); Monocytes Percent Auto 9.4 % (2-11); Neutrophils Absolute Auto 3.4 x10*3/uL (2.0-8.3); Neutrophils Percent Auto 55.6 % (45-73); Platelet Count 143 X10*3/uL (160-400); White Blood Count 6.2 X10*3/uL (4.8-10.8)
[2021-06-27 13:03] LABS: Alanine Aminotransferase 22 U/L (0-40); Alkaline Phosphatase 70 U/L (39-117); Anion Gap 10 (12-20); Aspartate Amino Transferase 19 U/L (5-37); Blood Urea Nitrogen 14 mg/dL (9-16); Carbon Dioxide 30 mmol/L (22-29); Chloride 108 mmol/L (96-108); Cholesterol 129 mg/dL; Estimated Glomerular Filt Rate > 60; Glucose Fasting 98 mg/dL (60-99); HDL Cholesterol 36 mg/dL; LDL Cholesterol Calculated 58 mg/dl; Potassium 4.9 mmol/L (3.3-5.1); Sodium 143 mmol/L (135-145); Total Protein 6.4 g/dL (6.5-8.0); Triglycerides 179 mg/dL
[2021-06-27 13:25] LABS: TSH reflex Free T4 1.28 uIU/mL (0.32-4.0); Vitamin D 25-OH Total 30.8 ng/mL (>30)
[2021-06-27 13:31] LABS: Appearance Urine CLEAR; Color Urine DK YELLOW; Glucose Urine UA NEG (NEG); Leukocyte Esterase Urine NEG (NEG); Nitrite Urine NEG (NEG); PH 5.5 (5.0-8.0); Specific Gravity - Urine >= 1.030 (1.005-1.025); Urine Blood NEG (NEG); Urine Ketones NEG (NEG); Urine Protein TRACE MG/DL (NEG-TRACE)
[2021-06-27 13:46] LABS: Estimated Average Glucose 123 mg/dL; Folate 8.6 ng/mL (> or = 4.0); Hemoglobin A1C 151.9429 umol/L; Hemoglobin A1c % 5.9 %; Vitamin B12 454 pg/mL (200-900)
== END 2021-06-27 12:03 | disposition home or self-care (01) ==
LOC: HO.LAB 12:02
PROVIDERS: PCP Internal Medicine; Visit Provider Internal Medicine
DX: E55.9 Vitamin D deficiency, unspecified (principal); R73.01 Impaired fasting glucose; E78.00 Pure hypercholesterolemia, unspecified; E53.8 Deficiency of other specified B group vitamins; I10 Essential (primary) hypertension
CPT/HCPCS: 36415; 80053; 80061; 81003; 82306; 82607; 82746; 83036; 84443; 85025

== ENCOUNTER → 2021-08-17 10:28 | Outpatient (BNVA) | payer MEDICARE, MEDICAID, SELFPAY | PROVIDERS: PCP Internal Medicine; Visit Provider Hospitalist | DX: J96.11 Chronic respiratory failure with hypoxia (principal); J41.1 Mucopurulent chronic bronchitis; J98.09 Other diseases of bronchus, not elsewhere classified; K21.9 Gastro-esophageal reflux disease without esophagitis | CPT/HCPCS: 99212 ==

== ENCOUNTER 2021-09-29 | Outpatient (REF) | payer MEDICARE, MEDICAID, SELFPAY | END 2021-09-29 00:01 | disposition home or self-care (01) | LOC: HO.LAB | PROVIDERS: Visit Provider Internal Medicine | DX: Z13.89 Encounter for screening for other disorder (principal) ==

== ENCOUNTER 2021-10-06 13:59 | Outpatient (REF) | payer MEDICARE, MEDICAID, SELFPAY ==
[2021-10-06 14:26] LABS: MANUAL DIFF FLAG NO
[2021-10-06 14:34] LABS: Basophils Percent Auto 0.8 % (0-2); Eosinophils Absolute Auto 0.2 X10*3/uL (0.0-0.4); Eosinophils Percent Auto 4.3 % (0-4); Hematocrit 41.7 % (42.0-52.0); Hemoglobin 13.5 g/dl (14.0-18.0); Imm Gran Abs Auto 0.01 X10*3/uL (0.00-0.03); Imm Gran Pct Auto 0.2 % (0.0-0.4); Lymphocytes Absolute Auto 1.8 X10*3/uL (1.2-4.9); Lymphocytes Percent Auto 35.6 % (20-40); Mean Corpuscular HGB Conc 32.4 g/dl (31.0-36.0); Mean Corpuscular Hemoglobin 31.3 pg (27.0-33.0); Mean Corpuscular Volume 96.5 fL (80.0-98.0); Mean Platelet Volume 9.6 fL (9.4-12.4); Monocytes Absolute Auto 0.4 X10*3/uL (0.1-1.2); Monocytes Percent Auto 8.4 % (2-11); Neutrophils Absolute Auto 2.6 x10*3/uL (2.0-8.3); Neutrophils Percent Auto 50.7 % (45-73); Platelet Count 129 X10*3/uL (160-400); Red Blood Count 4.32 X10*6/uL (4.60-5.80); Red Cell Distribution Width 12.8 % (11.0-16.0); White Blood Count 5.1 X10*3/uL (4.8-10.8)
[2021-10-06 14:41] LABS: Estimated Average Glucose 120 mg/dL; Hemoglobin A1c % 5.8 %
[2021-10-06 14:52] LABS: Alanine Aminotransferase 28 U/L (0-40); Albumin Level 3.9 g/dL (3.5-5.0); Alkaline Phosphatase 70 U/L (39-117); Anion Gap 11 (12-20); Aspartate Amino Transferase 21 U/L (5-37); Bilirubin Total 0.7 mg/dL (0.0-1.0); Blood Urea Nitrogen 15 mg/dL (9-16); Calcium 8.5 mg/dL (8.4-10.2); Carbon Dioxide 27 mmol/L (22-29); Chloride 109 mmol/L (96-108); Cholesterol 128 mg/dL; Estimated Glomerular Filt Rate > 60; Glucose Fasting 138 mg/dL (60-99); HDL Cholesterol 33 mg/dL; LDL Cholesterol Calculated 60 mg/dl; Potassium 4.4 mmol/L (3.3-5.1); Sodium 143 mmol/L (135-145); Total Protein 6.3 g/dL (6.5-8.0); Triglycerides 176 mg/dL
[2021-10-06 15:15] LABS: TSH reflex Free T4 2.39 uIU/mL (0.32-4.0); Vitamin D 25-OH Total 26.5 ng/mL (>30)
[2021-10-06 15:57] LABS: Appearance Urine CLEAR; Color Urine DK YELLOW; Glucose Urine UA NEG (NEG); Leukocyte Esterase Urine NEG (NEG); Nitrite Urine NEG (NEG); PH 5.5 (5.0-8.0); Specific Gravity - Urine >= 1.030 (1.005-1.025); Urine Blood NEG (NEG); Urine Ketones 5 MG/DL (NEG); Urine Protein NEG (NEG-TRACE)
== END 2021-10-06 14:00 | disposition home or self-care (01) ==
LOC: HO.LAB 13:59
PROVIDERS: PCP Internal Medicine; Visit Provider Internal Medicine
DX: I10 Essential (primary) hypertension (principal); E55.9 Vitamin D deficiency, unspecified; E78.00 Pure hypercholesterolemia, unspecified; R73.01 Impaired fasting glucose
CPT/HCPCS: 36415; 80053; 80061; 81003; 82306; 83036; 84443; 85025

== ENCOUNTER 2021-10-26 11:52 | Emergency (ER) | payer MEDICARE, MEDICAID, SELFPAY ==
--- NOTE | ~2021-10-26 | CT_ITS ---
EXAMINATION: CT CERVICAL SPINE WITHOUT CONTRAST CLINICAL INFORMATION: Pain COMPARISON: Previous cervical spine x-ray November 2010. TECHNIQUE: Axial images through the cervical spine without contrast. Sagittal and coronal reconstructions on the technologist's workstation were performed. This CT examination was performed using dose optimization techniques as appropriate, variously including the following: *Automated exposure control *Adjustment of mA and/or kV according to patient size (this includes techniques or standardized protocols for targeted exams where dose is matched to indication/reason for exam; i.e. extremities or head) *Use of iterative reconstruction technique DLP: 570 mGy-cm FINDINGS: There is curvature of the mid cervical spine to the right and lower cervical and upper thoracic spine to the left. There is mild 3 mm retrolisthesis of C6 with respect to C5 and C7. Bone alignment is otherwise normal. There is multilevel degenerative spondylosis and degenerative disc disease from C3-C4 to C6-C7. There is bilateral multilevel facet arthritis. At C2-C3 there is no disc herniation, protrusion or bulge. There is left-sided neural foraminal narrowing and lateral recess from facet osteophyte. At C3-C4 there is calcified disc bony osteophyte complex. No disc herniation. There is bilateral lateral recess and neural foraminal narrowing from bony osteophyte, right greater than left. At C4-C5 there is a left paracentral disc bony osteophyte complex. There is bilateral lateral recess and neural foraminal narrowing from combination of disc bony osteophyte complex and facet arthritis. At C5-C6 there is mild disc bulge. There is mild bilateral lateral recess and neural foraminal narrowing from facet osteophyte. At C6-C7 there is central right paracentral disc bulge/calcified disc osteophyte complex. There is mild right-sided lateral recess and neural foraminal narrowing from disc bony osteophyte complex. At C7-T1 there is no disc herniation, protrusion or bulge. Spinal canal, lateral recesses and neural foramen are patent. Prevertebral soft tissues are normal. Emphysematous changes at the lung apices. CT/CT cervical spine wo con IMPRESSION: Multilevel degenerative changes, greatest at C2-C3, C3-C4 and C4-C5. Fleischner guidelines were followed.
[2021-10-26 12:12] VITALS: BP 137/74; PULSE 59; RESP 18; TEMP 36.8; O2SAT 94; BMI 33.0
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
[2021-10-26 14:35] VITALS: BP 133/80; PULSE 58; RESP 18; TEMP 36.8; O2SAT 96
[2021-10-26 15:43] VITALS: BP 148/84; PULSE 62; RESP 16; TEMP 36.8; O2SAT 98
[2021-10-26] MEDS: oxyCODONE HCl Immed Release 15 MG TABLET 30 MG PO (16:08)
== END 2021-10-26 16:12 | disposition home or self-care (01) ==
PROVIDERS: Emergency Provider Emergency Medicine; PCP Internal Medicine
DX: M54.2 Cervicalgia (principal); I12.9 Hypertensive chronic kidney disease with stage 1 through stage 4 chronic kidney disease, or unspecified chronic kidney disease; N18.9 Chronic kidney disease, unspecified; E66.9 Obesity, unspecified; Z68.33 Body mass index [BMI] 33.0-33.9, adult; Z79.891 Long term (current) use of opiate analgesic; Z79.82 Long term (current) use of aspirin; Z79.899 Other long term (current) drug therapy; Z79.02 Long term (current) use of antithrombotics/antiplatelets
CPT/HCPCS: 72125; 99284

== ENCOUNTER → 2021-11-03 13:35 | Outpatient (BNVA) | payer MEDICARE, MEDICAID, SELFPAY | PROVIDERS: PCP Internal Medicine; Referring Provider Internal Medicine; Visit Provider Internal Medicine Cardiovascular Disease | DX: R00.2 Palpitations (principal); I25.10 Atherosclerotic heart disease of native coronary artery without angina pectoris; I10 Essential (primary) hypertension; Z79.899 Other long term (current) drug therapy | CPT/HCPCS: 93005; 99212 ==

== ENCOUNTER → 2021-11-07 06:52 | Outpatient (REF) | payer MEDICARE, MEDICAID, SELFPAY ==
--- NOTE | 2021-11-07 10:10 | HM_ITS ---
Conclusion: 1. Patient was monitored for total period of 1 day and 3 hours 2. Baseline rhythm was normal sinus rhythm with average heart of 59 beats per minute 3. No significant pauses noted 4. Occasional ectopy noted 5. No patient reported events MTDD
== END ==
LOC: HO.CARD 06:52
PROVIDERS: PCP Internal Medicine; Visit Provider Internal Medicine Cardiovascular Disease
DX: R00.2 Palpitations (principal)
CPT/HCPCS: 93246

== ENCOUNTER 2021-11-11 13:37 | Outpatient (REF) | payer MEDICARE, MEDICAID, SELFPAY ==
--- NOTE | ~2021-11-11 | US_ITS ---
EXAMINATION: US RETROPERITONEAL LIMITED (AORTA) CLINICAL INFORMATION: Abdominal aortic aneurysm without rupture. COMPARISON: Ultrasound aorta 10/11/2020 and 11/05/2019. TECHNIQUE: Girard-scale, color Doppler and spectral Doppler evaluation of the abdominal aorta. FINDINGS: The measurements of the aorta in maximum AP and transverse dimensions respectively are as follows: Proximal: 2.6 x 2.6 cm. Mid: 2.5 x 2.8 cm. Distal: 3.2 x 3.2 cm. PSV: 74 cm/s. The measurements of the common iliac arteries in maximum AP and TRV dimensions are as follows: Right Common Iliac Artery: 1.2 x 1.4 cm. Left Common Iliac Artery: 1.2 x 1.7 cm. US/US abdominal aortic aneurysm IMPRESSION: The distal abdominal aorta measures up to 3.2 x 3.2 cm. This is stable from the comparison on 10/11/2020. Stable dilatation of the left common iliac artery up to 1.7 cm.
== END 2021-11-11 13:38 | disposition home or self-care (01) ==
LOC: HO.US 13:37
PROVIDERS: Visit Provider Surgery Vascular Surgery
DX: I71.4 Abdominal aortic aneurysm, without rupture (principal)
CPT/HCPCS: 76706

== ENCOUNTER → 2021-12-06 09:38 | Outpatient (BNVA) | payer MEDICARE, MEDICAID, SELFPAY | PROVIDERS: PCP Internal Medicine; Visit Provider Surgery Vascular Surgery | DX: I71.4 Abdominal aortic aneurysm, without rupture (principal); M79.604 Pain in right leg; M79.605 Pain in left leg | CPT/HCPCS: 99212 ==

== ENCOUNTER → 2021-12-12 08:56 | Outpatient (BNVA) | payer MEDICARE, MEDICAID, SELFPAY | PROVIDERS: PCP Internal Medicine; Visit Provider Nurse Practitioner Family | DX: M47.816 Spondylosis without myelopathy or radiculopathy, lumbar region (principal); M79.605 Pain in left leg; M79.604 Pain in right leg; M25.512 Pain in left shoulder; M25.511 Pain in right shoulder; M54.16 Radiculopathy, lumbar region; R20.8 Other disturbances of skin sensation; T40.2X5A Adverse effect of other opioids, initial encounter; M48.061 Spinal stenosis, lumbar region without neurogenic claudication; M51.36 Other intervertebral disc degeneration, lumbar region; M47.892 Other spondylosis, cervical region; G89.29 Other chronic pain; Z91.81 History of falling | CPT/HCPCS: 99202 ==

== ENCOUNTER 2022-01-26 07:14 | Outpatient (REF) | payer MEDICARE, MEDICAID, SELFPAY ==
--- NOTE | ~2022-01-26 | XR_ITS ---
EXAMINATION: XR LUMBOSACRAL SPINE WITH OBLIQUES CLINICAL INFORMATION: Spondylosis without myelopathy or radiculopathy. COMPARISON: None TECHNIQUE: AP, both oblique, and lateral views of the lumbar spine. Lateral view of the lumbosacral junction. FINDINGS: There is normal lumbar lordosis. The vertebral heights, alignment and disc heights are normal. There is loss of L5-S1 disc height. Rest the disc heights are normal. There is no pars defect or listhesis on oblique views. No visible acute fracture, dislocation or subluxation seen. No aggressive lytic or sclerotic process seen. The paravertebral soft tissues are normal. XR/XR lumbar spine 6V w bending IMPRESSION: Mild degenerative disc changes L5-S1 disc level. No visible acute fracture, dislocation or lytic process seen.
[2022-01-26 07:28] LABS: MANUAL DIFF FLAG NO
[2022-01-26 07:54] LABS: Estimated Average Glucose 120 mg/dL; Hemoglobin A1c % 5.8 %
[2022-01-26 08:11] LABS: Alanine Aminotransferase 28 U/L (0-40); Albumin Level 4.2 g/dL (3.5-5.0); Alkaline Phosphatase 76 U/L (39-117); Anion Gap 15 (12-20); Aspartate Amino Transferase 23 U/L (5-37); Bilirubin Total 0.7 mg/dL (0.0-1.0); Blood Urea Nitrogen 10 mg/dL (9-16); Calcium 9.2 mg/dL (8.4-10.2); Carbon Dioxide 26 mmol/L (22-29); Chloride 107 mmol/L (96-108); Cholesterol 153 mg/dL; Estimated Glomerular Filt Rate > 60; Glucose Fasting 102 mg/dL (60-99); HDL Cholesterol 34 mg/dL; LDL Cholesterol Calculated 55 mg/dl; Potassium 4.4 mmol/L (3.3-5.1); Sodium 144 mmol/L (135-145); Total Protein 6.8 g/dL (6.5-8.0); Triglycerides 320 mg/dL
[2022-01-26 08:30] LABS: Appearance Urine Clear; Color Urine Yellow; Glucose Urine UA Negative (Negative); Leukocyte Esterase Urine Negative (Negative); Nitrite Urine Negative (Negative); Urine Blood Negative (Negative); Urine Ketones Negative (Negative); Urine Protein Negative (Neg-Trace)
[2022-01-26 08:34] LABS: TSH reflex Free T4 1.79 uIU/mL (0.32-4.0)
[2022-01-26 09:08] LABS: Creatinine Urine 174.23 mg/dL; Microalbum/Creatinine Ratio Ur 17.2 ug/mg cr
[2022-01-26 12:26] LABS: Basophils Percent Auto 0.4 % (0-2); Eosinophils Absolute Auto 0.2 X10*3/uL (0.0-0.4); Eosinophils Percent Auto 2.7 % (0-4); Hemoglobin 15.5 g/dl (14.0-18.0); Imm Gran Abs Auto 0.01 X10*3/uL (0.00-0.03); Imm Gran Pct Auto 0.2 % (0.0-0.4); Lymphocytes Absolute Auto 2.1 X10*3/uL (1.2-4.9); Lymphocytes Percent Auto 37.6 % (20-40); Mean Corpuscular HGB Conc 33.7 g/dl (31.0-36.0); Mean Platelet Volume 9.2 fL (9.4-12.4); Monocytes Absolute Auto 0.5 X10*3/uL (0.1-1.2); Monocytes Percent Auto 8.5 % (2-11); Neutrophils Absolute Auto 2.8 x10*3/uL (2.0-8.3); Neutrophils Percent Auto 50.6 % (45-73); Platelet Count 141 X10*3/uL (160-400); Red Cell Distribution Width 13.2 % (11.0-16.0); White Blood Count 5.5 X10*3/uL (4.8-10.8)
== END 2022-01-26 07:15 | disposition home or self-care (01) ==
LOC: HO.LAB 07:14
PROVIDERS: Absent Provider Nurse Practitioner Family; PCP Internal Medicine; Visit Provider Internal Medicine
DX: M47.26 Other spondylosis with radiculopathy, lumbar region (principal); M79.604 Pain in right leg; M79.605 Pain in left leg; E55.9 Vitamin D deficiency, unspecified; I10 Essential (primary) hypertension; E78.00 Pure hypercholesterolemia, unspecified; E11.9 Type 2 diabetes mellitus without complications
CPT/HCPCS: 36415; 72114; 80053; 80061; 81003; 82043; 82306; 83036; 84443; 85025

== ENCOUNTER → 2022-02-17 09:40 | Outpatient (BNVA) | payer MEDICARE, MEDICAID, SELFPAY | PROVIDERS: PCP Internal Medicine; Visit Provider Hospitalist | DX: J96.11 Chronic respiratory failure with hypoxia (principal); J41.1 Mucopurulent chronic bronchitis; J98.09 Other diseases of bronchus, not elsewhere classified; K21.9 Gastro-esophageal reflux disease without esophagitis | CPT/HCPCS: 99212 ==

== ENCOUNTER 2022-02-24 08:26 | Outpatient (REF) | payer MEDICARE, MEDICAID, SELFPAY ==
[2022-02-24 09:26] LABS: COVID-19 Test Negative (Negative); IDNOW Serial# 16C4AD1C
== END 2022-02-24 08:27 | disposition home or self-care (01) ==
LOC: HO.LAB 08:26
PROVIDERS: Visit Provider Internal Medicine
DX: Z20.822 Contact with and (suspected) exposure to COVID-19 (principal)
CPT/HCPCS: 87635; C9803

== ENCOUNTER → 2022-03-17 08:19 | Outpatient (BNVA) | payer MEDICARE, MEDICAID, SELFPAY | PROVIDERS: PCP Internal Medicine; Visit Provider Urology | DX: N40.1 Benign prostatic hyperplasia with lower urinary tract symptoms (principal); N13.8 Other obstructive and reflux uropathy | CPT/HCPCS: 51798; 99212 ==

== ENCOUNTER 2022-03-17 08:55 | Outpatient (REF) | payer MEDICARE, MEDICAID, SELFPAY | END 2022-03-17 08:56 | disposition home or self-care (01) | LOC: HO.10HDL 08:55 | PROVIDERS: Visit Provider Urology | DX: Z13.89 Encounter for screening for other disorder (principal) | CPT/HCPCS: 36415; 84402; 84403 ==

== ENCOUNTER 2022-04-05 11:33 | Outpatient (REF) | payer MEDICARE, MEDICAID, SELFPAY ==
[2022-04-14 14:02] LABS: Testosterone, Free 17.8 pg/mL (30.0-135.0); Testosterone, Total 237 ng/dL (250-1100)
== END 2022-04-05 11:34 | disposition home or self-care (01) ==
LOC: HO.LAB 11:33
PROVIDERS: Urology; PCP Internal Medicine; Visit Provider Psychiatry & Neurology Neurology
DX: E11.69 Type 2 diabetes mellitus with other specified complication (principal); N52.1 Erectile dysfunction due to diseases classified elsewhere; R20.8 Other disturbances of skin sensation; T40.2X5A Adverse effect of other opioids, initial encounter
CPT/HCPCS: 36415; 84402; 84403

== ENCOUNTER 2022-04-11 08:37 | Outpatient (REF) | payer MEDICARE, MEDICAID, SELFPAY ==
[2022-04-11 09:04] LABS: COVID-19 Test Positive (Negative); IDNOW Serial# 16C4AD1C
== END 2022-04-11 08:38 | disposition home or self-care (01) ==
LOC: HO.LAB 08:37
PROVIDERS: Visit Provider Internal Medicine
DX: Z20.822 Contact with and (suspected) exposure to COVID-19 (principal)
CPT/HCPCS: 87635; C9803

== ENCOUNTER 2022-04-18 07:58 | Emergency (ER) | payer MEDICARE, MEDICAID, SELFPAY ==
--- NOTE | ~2022-04-18 | XR_ITS ---
EXAMINATION: XR CHEST CLINICAL INFORMATION: Dyspnea COMPARISON: Chest radiographs 02/23/2021, 07/26/2020 TECHNIQUE: 2 frontal views and a lateral projection of the chest are obtained for 3 views. FINDINGS: There is mild hyperinflation similar to prior studies. No pneumothorax, airspace consolidation, groundglass opacity, or effusion. Heart is within normal size. The vascularity is normal. Chronic mild blunting left lateral costophrenic sulcus is again seen with no effusion. Posterior costophrenic sulcus. The hilar and mediastinal contours and bony structures are stable. XR/XR chest 2V IMPRESSION: Mild hyperinflation. No acute intrathoracic disease.
--- NOTE | ~2022-04-18 | CT_ITS ---
EXAMINATION: CT ANGIOGRAM OF THE CHEST WITH CONTRAST (CT PULMONARY ANGIOGRAM FOR PE) CLINICAL INFORMATION: Reason for Exam COVID positive. Elevated D-dimer, SOB COMPARISON: Chest radiograph from 04/18/2022. Chest CT from 02/23/2021. TECHNIQUE: Prior to contrast administration, noncontrast localization images were obtained. Subsequently, multidetector volumetric imaging was performed from the thoracic inlet to below the diaphragms following the administration of 65 mL Omnipaque 350 intravenous contrast. No contrast reaction reported. Sagittal, coronal, and MIP oblique sagittal reformatted images were obtained on the CT workstation, uploaded to PACS, and reviewed. This CT examination was performed using dose optimization techniques as appropriate, variously including the following: *Automated exposure control *Adjustment of mA and/or kV according to patient size (this includes techniques or standardized protocols for targeted exams where dose is matched to indication/reason for exam; i.e. extremities or head) *Use of iterative reconstruction technique DLP: Total exam dose-length product 362 mGy-cm FINDINGS: LUNGS AND PLEURA: Moderate centrilobular emphysema. Bronchial morales are chronically thickened. No acute pulmonary abnormality compared to chest CT from 02/23/2021. No consolidation, pleural effusion or pneumothorax. A subcentimeter sized noncalcified nodule in the lateral left lower lobe is unchanged compared to 08/19/2017 and 02/23/2021 (image 309, series 6). Secretions are present within multiple bilateral lower lobe and middle lobe bronchi. QUALITY OF STUDY/CONTRAST BOLUS: Satisfactory. CARDIOVASCULAR: The pulmonary arteries are normal in size. No embolic filling defects are identified within the main, lobar or segmental vessels. The heart size is normal. No pericardial effusion. Three-vessel coronary artery atherosclerotic calcification is present. Mild atherosclerosis of the thoracic aorta without aneurysm or dissection. MEDIASTINUM/LOWER NECK: No mediastinal mass. The esophagus and thyroid gland are unremarkable. LYMPHATICS: No pathologic sized axillary, hilar or mediastinal lymph nodes. UPPER ABDOMEN: Adrenal glands are normal. Moderately atrophied pancreas. No acute abnormalities in the visualized upper abdomen. OSSEOUS STRUCTURES: No acute or suspicious osseous abnormality. CT/CT angio chest PE protocol IMPRESSION: * No evidence of pulmonary embolism. * Moderate centrilobular emphysema, chronically thickened bronchial morales, and scattered endobronchial secretions which could be a manifestation of bronchitis. No pneumonia. * No new lung nodule or mass. A stable subcentimeter sized nodule is present in the lateral left lower lobe. Due to long-term stability, no chest CT follow-up is recommended. Fleischner Society guidelines are followed.
[2022-04-18 08:14] VITALS: BP 168/63; PULSE 70; RESP 24; TEMP 36.4; O2SAT 92; BMI 33.0
--- NOTE | 2022-04-18 08:20 | ECG_ITS ---
Test Reason : SOB Blood Pressure : / mmHG Vent. Rate : 070 BPM Atrial Rate : 070 BPM P-R Int : 162 ms QRS Dur : 094 ms QT Int : 408 ms P-R-T Axes : 064 033 036 degrees QTc Int : 440 ms Sinus rhythm with Premature atrial complexes Otherwise normal ECG When compared with ECG of 23-FEB-2021 10:47, Premature atrial complexes are now Present Referred By: Generic ED Physician Electronically Signed By:HUI GRAY
[2022-04-18 08:45] LABS: MANUAL DIFF FLAG NO
[2022-04-18 08:46] LABS: Basophils Percent Auto 0.6 % (0-2); Eosinophils Absolute Auto 0.2 X10*3/uL (0.0-0.4); Eosinophils Percent Auto 5.9 % (0-4); Hematocrit 41.5 % (42.0-52.0); Hemoglobin 13.8 g/dl (14.0-18.0); Imm Gran Abs Auto 0.01 X10*3/uL (0.00-0.03); Imm Gran Pct Auto 0.3 % (0.0-0.4); Lymphocytes Absolute Auto 0.8 X10*3/uL (1.2-4.9); Lymphocytes Percent Auto 23.6 % (20-40); Mean Corpuscular HGB Conc 33.3 g/dl (31.0-36.0); Mean Corpuscular Hemoglobin 31.3 pg (27.0-33.0); Mean Corpuscular Volume 94.1 fL (80.0-98.0); Mean Platelet Volume 9.3 fL (9.4-12.4); Monocytes Absolute Auto 0.3 X10*3/uL (0.1-1.2); Monocytes Percent Auto 8.4 % (2-11); Neutrophils Absolute Auto 2.2 x10*3/uL (2.0-8.3); Neutrophils Percent Auto 61.2 % (45-73); Platelet Count 165 X10*3/uL (160-400); Red Blood Count 4.41 X10*6/uL (4.60-5.80); White Blood Count 3.6 X10*3/uL (4.8-10.8)
[2022-04-18 09:08] LABS: Alanine Aminotransferase 17 U/L (0-40); Albumin Level 3.9 g/dL (3.5-5.0); Alkaline Phosphatase 75 U/L (39-117); Anion Gap 10 (12-20); Aspartate Amino Transferase 21 U/L (5-37); Bilirubin Direct 0.3 mg/dL (0.0-0.5); Bilirubin Total 0.9 mg/dL (0.0-1.0); Blood Urea Nitrogen 6 mg/dL (9-16); Calcium 8.9 mg/dL (8.4-10.2); Carbon Dioxide 25 mmol/L (22-29); Chloride 110 mmol/L (96-108); Creatinine Clr Calc Pharmacy 106.7; Estimated Glomerular Filt Rate > 60; Glucose Random 109 mg/dL (60-115); Lipase 18 U/L (8-78); Potassium 3.8 mmol/L (3.3-5.1); Sodium 141 mmol/L (135-145); Total Protein 6.2 g/dL (6.5-8.0)
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
[2022-04-18 09:17] LABS: Troponin-I High Sensitivity 3.7 ng/L (<3.5-35.0)
[2022-04-18 09:23] LABS: Influenza A PCR NEGATIVE (Negative); Influenza B PCR NEGATIVE (Negative); Resp Syncy Virus RNA Qual PCR NEGATIVE (Negative); SARS COV2 PCR INHOUSE POSITIVE (Negative)
[2022-04-18 09:55] LABS: INTERNATIONAL NORM RATIO 1.1 (0.9-1.1); Prothrombin Time 12.4 SEC (10.0-13.1)
[2022-04-18 09:58] VITALS: PULSE 68; RESP 20; O2SAT 91
[2022-04-18 09:58] LABS: D Dimer High Sensitivity 424 NG/ML
[2022-04-18] MEDS: Albuterol/Iprat 2.5/0.5MG 3 ML AMPUL.NEB INHALE (09:58)
[2022-04-18 10:14] LABS: C Reactive Protein 0.64 mg/dL (< or = 0.50); Lactate Dehydrogenase 190 U/L (118-273); Magnesium 1.8 mg/dL (1.6-2.6)
--- NOTE | 2022-04-18 10:28 | PC.NURSE ---
patient a&ox3, iv inserted, labs drawn, updraft given, pt speaking in full sentences, to radiology for ct
[2022-04-18 10:30] LABS: Ferritin 108 ng/mL (20-250)
[2022-04-18 10:31] LABS: Procalcitonin 0.02 ng/mL
[2022-04-18] MEDS: iohexoL 350 MG/ML 100 ML INFUS..BTL 65 ML IV (10:42)
[2022-04-18 10:51] LABS: Lactic Acid 2.8 mmol/L (0.5-2.0)
[2022-04-18] MEDS: 0.9 % Sodium Chloride 500 ML 999 ML IV (11:09)
[2022-04-18 11:19] VITALS: BP 111/72; PULSE 65; RESP 16; O2SAT 98
--- NOTE | 2022-04-18 11:45 | PC.NURSE ---
patient ambulated by tech and his O2 sat remained at 97%.
[2022-04-18 12:20] LABS: Reflex Lactate? Lactic Acid Added
[2022-04-18] MEDS: predniSONE 20 MG TABLET 60 MG PO (12:20)
--- NOTE | 2022-04-18 12:23 | PC.NURSE ---
pt medicated per order, labs drawn
[2022-04-18 12:46] LABS: ~Lactic Acid-LAB USE ONLY 0.9 mmol/L (0.5-2.0)
== END 2022-04-18 12:56 | disposition home or self-care (01) ==
PROVIDERS: Nurse Practitioner Family; Emergency Provider Emergency Medicine; PCP Internal Medicine
DX: U07.1 COVID-19 (principal); I10 Essential (primary) hypertension; E78.5 Hyperlipidemia, unspecified; Z87.891 Personal history of nicotine dependence
CPT/HCPCS: 0241U; 36415; 71046; 71275; 80048; 80076; 82550; 82728; 83605; 83615; 83690; 83735; 84145; 84484; 85025; 85379; 85610; 86140; 87040; 93005; 94640; 96360; 99284; 99285; Q9967

== ENCOUNTER → 2022-04-19 13:15 | Outpatient (BNVA) | payer MEDICARE, MEDICAID, SELFPAY | PROVIDERS: PCP Internal Medicine; Visit Provider Urology | DX: E29.1 Testicular hypofunction (principal) | CPT/HCPCS: Q3014 ==

== ENCOUNTER 2022-04-27 12:36 | Outpatient (REF) | payer MEDICARE, MEDICAID, SELFPAY ==
[2022-04-27 13:07] LABS: COVID-19 Test Negative (Negative); IDNOW Serial# 9DB6401D
== END 2022-04-27 12:37 | disposition home or self-care (01) ==
LOC: HO.LAB 12:36
PROVIDERS: Visit Provider Internal Medicine
DX: Z20.822 Contact with and (suspected) exposure to COVID-19 (principal)
CPT/HCPCS: 87635; C9803

== ENCOUNTER 2022-05-13 10:35 | Outpatient (REF) | payer MEDICARE, MEDICAID, SELFPAY ==
[2022-05-13 10:48] LABS: MANUAL DIFF FLAG NO
[2022-05-13 11:31] LABS: Appearance Urine Clear; Color Urine Dark Yellow; Glucose Urine UA Negative (Negative); Leukocyte Esterase Urine Negative (Negative); Nitrite Urine Negative (Negative); PH 5.5 (5.0-9.0); Specific Gravity - Urine 1.025 (1.005-1.025); Urine Blood Negative (Negative); Urine Ketones Negative (Negative); Urine Protein Negative (Neg-Trace)
[2022-05-13 11:43] LABS: Estimated Average Glucose 117 mg/dL; Hemoglobin A1c % 5.7 %
[2022-05-13 11:50] LABS: Creatinine Urine 179.87 mg/dL
[2022-05-13 11:59] LABS: Alanine Aminotransferase 14 U/L (0-40); Albumin Level 3.9 g/dL (3.5-5.0); Alkaline Phosphatase 71 U/L (39-117); Anion Gap 12 (12-20); Aspartate Amino Transferase 16 U/L (5-37); Bilirubin Total 0.7 mg/dL (0.0-1.0); Blood Urea Nitrogen 10 mg/dL (9-16); Calcium 8.8 mg/dL (8.4-10.2); Carbon Dioxide 25 mmol/L (22-29); Chloride 110 mmol/L (96-108); Cholesterol 110 mg/dL; Estimated Glomerular Filt Rate > 60; Glucose Fasting 112 mg/dL (60-99); HDL Cholesterol 40 mg/dL; LDL Cholesterol Calculated 57 mg/dl; Potassium 3.8 mmol/L (3.3-5.1); Sodium 143 mmol/L (135-145); Total Protein 6.2 g/dL (6.5-8.0); Triglycerides 65 mg/dL
[2022-05-13 12:15] LABS: TSH reflex Free T4 0.77 uIU/mL (0.32-4.0); Vitamin D 25-OH Total 35.1 ng/mL (>30)
[2022-05-13 12:21] LABS: Basophils Percent Auto 0.2 % (0-2); Eosinophils Percent Auto 0.7 % (0-4); Hematocrit 41.3 % (42.0-52.0); Hemoglobin 13.3 g/dl (14.0-18.0); Imm Gran Abs Auto 0.01 X10*3/uL (0.00-0.03); Imm Gran Pct Auto 0.2 % (0.0-0.4); Lymphocytes Percent Auto 17.5 % (20-40); Mean Corpuscular HGB Conc 32.2 g/dl (31.0-36.0); Mean Corpuscular Hemoglobin 30.7 pg (27.0-33.0); Mean Corpuscular Volume 95.4 fL (80.0-98.0); Mean Platelet Volume 10.1 fL (9.4-12.4); Monocytes Absolute Auto 0.5 X10*3/uL (0.1-1.2); Monocytes Percent Auto 8.1 % (2-11); Neutrophils Absolute Auto 4.2 x10*3/uL (2.0-8.3); Neutrophils Percent Auto 73.3 % (45-73); Platelet Count 140 X10*3/uL (160-400); Red Blood Count 4.33 X10*6/uL (4.60-5.80); Red Cell Distribution Width 13.8 % (11.0-16.0); White Blood Count 5.7 X10*3/uL (4.8-10.8)
== END 2022-05-13 10:36 | disposition home or self-care (01) ==
LOC: HO.LAB 10:35
PROVIDERS: PCP Internal Medicine; Visit Provider Internal Medicine
DX: I10 Essential (primary) hypertension (principal); E78.00 Pure hypercholesterolemia, unspecified; E55.9 Vitamin D deficiency, unspecified; R30.0 Dysuria; E11.9 Type 2 diabetes mellitus without complications
CPT/HCPCS: 36415; 80053; 80061; 81003; 82043; 82306; 83036; 84443; 85025

== ENCOUNTER 2022-05-17 06:12 | Outpatient (REF) | payer MEDICARE, MEDICAID, SELFPAY ==
--- NOTE | ~2022-05-17 | XR_ITS ---
EXAMINATION: XR CHEST CLINICAL INFORMATION: Respiratory disorder. COMPARISON: CT scan of 04/18/2022 and chest x-ray of 04/18/2022. TECHNIQUE: 2 views of the chest were obtained. FINDINGS: There is some chronic pleuroparenchymal scarring present bilaterally left greater than right. There are prominent pericardial fat pads present without new acute parenchymal disease being appreciated. Heart normal size. No evidence of pulmonary edema. No pneumothorax. XR/XR chest 2V IMPRESSION: No acute disease.
== END 2022-05-17 06:13 | disposition home or self-care (01) ==
LOC: HO.XRAY 06:12
PROVIDERS: PCP Internal Medicine; Visit Provider Internal Medicine
DX: J98.8 Other specified respiratory disorders (principal); R06.00 Dyspnea, unspecified
CPT/HCPCS: 71046

== ENCOUNTER → 2022-06-16 09:48 | Outpatient (BNVA) | payer MEDICARE, MEDICAID, SELFPAY | PROVIDERS: PCP Internal Medicine; Visit Provider Hospitalist | DX: J96.11 Chronic respiratory failure with hypoxia (principal); J44.0 Chronic obstructive pulmonary disease with (acute) lower respiratory infection; J98.09 Other diseases of bronchus, not elsewhere classified; K21.9 Gastro-esophageal reflux disease without esophagitis | CPT/HCPCS: 94640; 99212 ==

== ENCOUNTER 2022-06-19 09:36 | Outpatient (REF) | payer MEDICARE, MEDICAID, SELFPAY | END 2022-06-19 09:37 | disposition home or self-care (01) | LOC: HO.LNP 09:36 | PROVIDERS: Visit Provider Hospitalist | DX: J41.1 Mucopurulent chronic bronchitis (principal) | CPT/HCPCS: 87070; 87205 ==

== ENCOUNTER 2022-06-29 11:22 | Outpatient (REF) | payer MEDICARE, MEDICAID, SELFPAY ==
[2022-06-29 12:14] LABS: COVID-19 Test Negative (Negative); IDNOW Serial# BCCEAD1C
== END 2022-06-29 11:23 | disposition home or self-care (01) ==
LOC: HO.LAB 11:22
PROVIDERS: Visit Provider Internal Medicine
DX: Z20.822 Contact with and (suspected) exposure to COVID-19 (principal)
CPT/HCPCS: 87635; C9803

== ENCOUNTER 2022-08-17 09:29 | Outpatient (REF) | payer MEDICARE, MEDICAID, SELFPAY ==
[2022-08-17 09:51] LABS: MANUAL DIFF FLAG NO
[2022-08-17 10:28] LABS: Basophils Percent Auto 0.6 % (0-2); Eosinophils Absolute Auto 0.2 X10*3/uL (0.0-0.4); Eosinophils Percent Auto 3.1 % (0-4); Hematocrit 46.9 % (42.0-52.0); Hemoglobin 15.4 g/dl (14.0-18.0); Imm Gran Abs Auto 0.01 X10*3/uL (0.00-0.03); Imm Gran Pct Auto 0.2 % (0.0-0.4); Lymphocytes Absolute Auto 1.4 X10*3/uL (1.2-4.9); Lymphocytes Percent Auto 27.8 % (20-40); Mean Corpuscular HGB Conc 32.8 g/dl (31.0-36.0); Mean Corpuscular Volume 94.4 fL (80.0-98.0); Mean Platelet Volume 10.1 fL (9.4-12.4); Monocytes Absolute Auto 0.4 X10*3/uL (0.1-1.2); Monocytes Percent Auto 8.4 % (2-11); Neutrophils Absolute Auto 2.9 x10*3/uL (2.0-8.3); Neutrophils Percent Auto 59.9 % (45-73); Platelet Count 145 X10*3/uL (160-400); Red Blood Count 4.97 X10*6/uL (4.60-5.80); Red Cell Distribution Width 13.2 % (11.0-16.0); White Blood Count 4.9 X10*3/uL (4.8-10.8)
[2022-08-17 10:36] LABS: Estimated Average Glucose 120 mg/dL; Hemoglobin A1c % 5.8 %
[2022-08-17 11:17] LABS: Alanine Aminotransferase 19 U/L (0-40); Albumin Level 3.9 g/dL (3.5-5.0); Alkaline Phosphatase 79 U/L (39-117); Anion Gap 11 (12-20); Aspartate Amino Transferase 18 U/L (5-37); Bilirubin Total 0.9 mg/dL (0.0-1.0); Blood Urea Nitrogen 9 mg/dL (9-16); Calcium 9.2 mg/dL (8.4-10.2); Carbon Dioxide 29 mmol/L (22-29); Chloride 107 mmol/L (96-108); Cholesterol 135 mg/dL; Estimated Glomerular Filt Rate > 60; Glucose Fasting 92 mg/dL (60-99); HDL Cholesterol 36 mg/dL; LDL Cholesterol Calculated 74 mg/dl; Potassium 4.3 mmol/L (3.3-5.1); Sodium 143 mmol/L (135-145); Total Protein 6.4 g/dL (6.5-8.0); Triglycerides 125 mg/dL
[2022-08-17 11:38] LABS: TSH reflex Free T4 1.74 uIU/mL (0.32-4.0)
[2022-08-23 19:22] LABS: Testosterone, Free 55.2 pg/mL (30.0-135.0); Testosterone, Total 476 ng/dL (250-1100)
== END 2022-08-17 09:30 | disposition home or self-care (01) ==
LOC: HO.LAB 09:29
PROVIDERS: Urology; PCP Internal Medicine; Visit Provider Internal Medicine
DX: R73.01 Impaired fasting glucose (principal); E55.9 Vitamin D deficiency, unspecified; E29.1 Testicular hypofunction; I10 Essential (primary) hypertension
CPT/HCPCS: 36415; 80053; 80061; 82306; 83036; 84402; 84403; 84443; 85025

== ENCOUNTER 2022-08-25 | Outpatient (REF) | payer MEDICARE, MEDICAID, SELFPAY ==
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
== END 2022-08-25 00:01 ==
LOC: CF
PROVIDERS: PCP Internal Medicine; Visit Provider Hospitalist
DX: J96.11 Chronic respiratory failure with hypoxia (principal); J44.0 Chronic obstructive pulmonary disease with (acute) lower respiratory infection; K21.9 Gastro-esophageal reflux disease without esophagitis; J98.09 Other diseases of bronchus, not elsewhere classified; Z86.010 Personal history of colon polyps
CPT/HCPCS: 94618; 99212

== ENCOUNTER → 2022-09-13 12:55 | Outpatient (BNVA) | payer MEDICARE, MEDICAID, SELFPAY | PROVIDERS: PCP Internal Medicine; Visit Provider Urology | DX: N40.1 Benign prostatic hyperplasia with lower urinary tract symptoms (principal); N13.8 Other obstructive and reflux uropathy; Z79.899 Other long term (current) drug therapy | CPT/HCPCS: Q3014 ==

== ENCOUNTER 2022-11-09 13:19 | Outpatient (AMB) | payer MEDICARE, MEDICAID, SELFPAY ==
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
[2022-11-09 13:30] VITALS: BP 120/72; PULSE 64; BMI 25.5
== END 2022-11-09 14:03 | disposition home or self-care (01) ==
PROVIDERS: Visit Provider Internal Medicine Cardiovascular Disease
DX: I25.10 Atherosclerotic heart disease of native coronary artery without angina pectoris (principal); I49.1 Atrial premature depolarization
CPT/HCPCS: 93010; 99214

== ENCOUNTER → 2022-11-09 13:19 | Outpatient (BNVA) | payer MEDICARE, MEDICAID, SELFPAY | PROVIDERS: Visit Provider Internal Medicine Cardiovascular Disease | DX: I25.10 Atherosclerotic heart disease of native coronary artery without angina pectoris (principal); I49.1 Atrial premature depolarization | CPT/HCPCS: 93005; 99212 ==

== ENCOUNTER 2022-11-25 15:50 | Inpatient (IN) | payer MEDICARE, MEDICAID, SELFPAY ==
--- NOTE | ~2022-11-25 | XR_ITS ---
EXAMINATION: XR CHEST CLINICAL INFORMATION: Pain. COMPARISON: Chest radiograph 05/17/2022. TECHNIQUE: 2 views of the chest were obtained. FINDINGS: Increased interstitial prominence with new subtle bibasilar airspace opacities, greater on the medial right lower lung. Trace amount of bilateral pleural fluid. No pneumothorax. Stable appearance of the cardiomediastinal silhouette. Thoracic spondylosis. No acute osseous findings. XR/XR chest 2V IMPRESSION: Increased interstitial prominence with new subtle bibasilar airspace opacities, greater on the right. Findings are suggestive of an atypical/viral infection with early infiltrates in the right greater than left lower lungs. Some degree of pulmonary edema could be present. Trace amount of bilateral pleural fluid is noted.
--- NOTE | ~2022-11-25 | CT_ITS ---
EXAMINATION: CT ABDOMEN AND PELVIS WITHOUT CONTRAST CLINICAL INFORMATION: Right flank pain COMPARISON: CT 05/18/2019. Chest CTA 04/18/2022 TECHNIQUE: Multidetector volumetric imaging was performed from the superior aspect of the liver through the pubic symphysis. Sagittal and coronal reformatted images were obtained on the technologist's workstation. This CT examination was performed using dose optimization techniques as appropriate, variously including the following: *Automated exposure control *Adjustment of mA and/or kV according to patient size (this includes techniques or standardized protocols for targeted exams where dose is matched to indication/reason for exam; i.e. extremities or head) *Use of iterative reconstruction technique DLP: 586 mGy-cm FINDINGS: LUNG BASES: Coarse reticular markings in the right lower lobe and the inferomedial right middle lobe which were not present previously and may represent atypical pneumonia. LIVER, GALLBLADDER, AND BILIARY TREE: The liver is normal in size, shape, and attenuation. No focal hepatic lesion or biliary ductal dilatation is present. The gallbladder is unremarkable with no evidence of radiopaque gallstones, gallbladder wall thickening, or obvious pericholecystic inflammatory changes. PANCREAS: Unremarkable. Fatty atrophied in the region of the head and body. SPLEEN: Unremarkable. ADRENAL GLANDS: Unremarkable. KIDNEYS AND URETERS: The kidneys are normal in size, shape, and attenuation. No hydronephrosis, hydroureter, or calculi seen. No perinephric stranding. BLADDER: Unremarkable. GASTROINTESTINAL TRACT: The small and large bowel are unremarkable. The appendix is not identified and may be absent. ABDOMINAL WALL: No significant hernia is appreciated. LYMPH NODES: Normal. 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 This has increased in size since 05/18/2019, previously measuring 3.3 cm in diameter. Recommend followup every 2 years. Reference: J Am Kai Radiol 2013; 10 (10): 789-794. PELVIC VISCERA: Unremarkable. OSSEOUS STRUCTURES: Unremarkable. CT/CT abdomen pelvis wo IV con IMPRESSION: 1. No urinary tract calculi or hydronephrosis. 2. Coarse reticular markings in the right lower lobe and right middle lobe were not present previously and may represent atypical pneumonia. 3. 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 Recommend followup every 2 years. Fleischner guidelines were followed.
[2022-11-25 15:54] VITALS: BP 121/80; PULSE 104; RESP 26; TEMP 38.8; O2SAT 91; BMI 25.1
--- NOTE | 2022-11-25 15:54 | ECG_ITS ---
Test Reason : PAIN, SOB Blood Pressure : / mmHG Vent. Rate : 084 BPM Atrial Rate : 084 BPM P-R Int : 152 ms QRS Dur : 086 ms QT Int : 354 ms P-R-T Axes : 072 047 046 degrees QTc Int : 418 ms Sinus rhythm with marked sinus arrhythmia Otherwise normal ECG When compared with ECG of 18-APR-2022 08:40, Premature atrial complexes are no longer Present Referred By: Ross Garland Electronically Signed By:Antony Blackburn
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
[2022-11-25 16:45] LABS: MANUAL DIFF FLAG NO
[2022-11-25 16:46] LABS: Basophils Percent Auto 0.3 % (0-2); Eosinophils Percent Auto 0.4 % (0-4); Hematocrit 43.6 % (42.0-52.0); Hemoglobin 14.4 g/dl (14.0-18.0); Imm Gran Abs Auto 0.05 X10*3/uL (0.00-0.03); Imm Gran Pct Auto 0.5 % (0.0-0.4); Lymphocytes Absolute Auto 0.8 X10*3/uL (1.2-4.9); Lymphocytes Percent Auto 8.1 % (20-40); Mean Platelet Volume 9.5 fL (9.4-12.4); Monocytes Absolute Auto 0.7 X10*3/uL (0.1-1.2); Monocytes Percent Auto 7.2 % (2-11); Neutrophils Absolute Auto 8.5 x10*3/uL (2.0-8.3); Neutrophils Percent Auto 83.5 % (45-73); Platelet Count 142 X10*3/uL (160-400); Red Blood Count 4.64 X10*6/uL (4.60-5.80); Red Cell Distribution Width 13.4 % (11.0-16.0); White Blood Count 10.1 X10*3/uL (4.8-10.8)
[2022-11-25] MEDS: 0.9 % Sodium Chloride 1,000 ML 250 ML IV (16:49)
[2022-11-25] MEDS: cefTRIAXone sodium 1 GM in 0.9 % Sodium Chloride 50 ML IV (16:53)
[2022-11-25 17:01] LABS: Lactic Acid 1.7 mmol/L (0.5-2.0)
[2022-11-25 17:03] LABS: COVID-19 Test Negative (Negative); IDNOW Serial# 08D9AD1C; IDNOW Serial# BCCEAD1C; Influenza A Negative (Negative); Influenza B2 Negative (Negative)
[2022-11-25 17:10] LABS: B Type Natriuretic Peptide 74 pg/mL (<100)
[2022-11-25 17:12] LABS: Troponin-I High Sensitivity 3.9 ng/L (<3.5-35.0)
[2022-11-25 17:21] LABS: Alanine Aminotransferase 38 U/L (0-40); Albumin Level 3.9 g/dL (3.5-5.0); Alkaline Phosphatase 81 U/L (39-117); Anion Gap 14 (12-20); Aspartate Amino Transferase 38 U/L (5-37); Bilirubin Total 1.4 mg/dL (0.0-1.0); Blood Urea Nitrogen 10 mg/dL (9-16); Calcium 9.3 mg/dL (8.4-10.2); Carbon Dioxide 23 mmol/L (22-29); Chloride 105 mmol/L (96-108); Creatinine Clr Calc Pharmacy 83.9; Estimated Glomerular Filt Rate > 60; Glucose Random 115 mg/dL (60-115); Lipase 5 U/L (8-78); Potassium 4.2 mmol/L (3.3-5.1); Sodium 138 mmol/L (135-145); Total Protein 7.2 g/dL (6.5-8.0)
[2022-11-25 17:39] LABS: INTERNATIONAL NORM RATIO 1.1 (0.9-1.1); Prothrombin Time 13.8 SEC (11.1-13.3)
[2022-11-25 17:41] LABS: Partial Thromboplastin Time 36.4 SEC (26.0-36.4)
[2022-11-25] MEDS: oxyCODONE HCl Immed Release 5 MG TABLET PO (18:03)
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
--- NOTE | 2022-11-25 18:24 | PHA.MEDREC ---
Pharmacy Consult ? Medication Reconciliation Pharmacy has completed the medication reconciliation. Reviewed med rec done by nursing, jimmie Starkey for clarification regarding escitalopram, ezetimibe, flonase, and duoneb.
[2022-11-25 18:34] VITALS: BP 129/64; PULSE 74; RESP 22; O2SAT 97
--- NOTE | 2022-11-25 19:08 | PHA.MEDREC ---
Pharmacy Consult ? Medication Reconciliation Pharmacy has completed the medication reconciliation. Spoke to patient and patient's (An - [phone]) to confirm meds.
[2022-11-25] MEDS: Doxycycline Hyclate 100 MG in 0.9 % Sodium Chloride 250 ML 166.67 MG IV (20:00)
--- NOTE | 2022-11-25 20:12 | PC.NURSE ---
pt resting comfortably on stretcher at this time, respirations even and unlabored, skin pwd, alert and oriented x4. Pt on 4L to maintain O2 of 93%. Antibiotics now hanging, fluids finishing. Pt medicated per MAR
--- NOTE | 2022-11-25 20:13 | PC.NURSE ---
pt has two IVs, 22 in LW and 20 in RW both patent
[2022-11-25] MEDS: Albuterol/Iprat 2.5/0.5MG 3 ML AMPUL.NEB INHALE (20:19)
[2022-11-25] MEDS: Enoxaparin Sodium 40 MG/0.4 ML SYRINGE SUBCUT (20:21)
[2022-11-25] MEDS: guaiFENesin LA 600 MG TAB.ER.12H PO (20:22)
[2022-11-25 20:23] VITALS: PULSE 80; RESP 20; O2SAT 93
[2022-11-25] MEDS: oxyCODONE HCl Immed Release 5 MG TABLET 20 MG PO (21:46)
[2022-11-25] MEDS: Azithromycin 500 MG in 0.9 % Sodium Chloride 250 ML 125 MG IV (21:47)
[2022-11-25 22:12] VITALS: RESP 19
--- NOTE | 2022-11-25 22:19 | PC.NURSE ---
pt provided with sandwich, gingerale and more water. Pt sat on edge of bed and walked around room with this RN for comfort. Pt now laying back in bed, offers no complaints, continue plan of care for admission
[2022-11-26] MEDS: 0.9 % Sodium Chloride Flush 3 ML SYRINGE IVFLUSH ×4 (00:47→19:32)
[2022-11-26 00:50] LABS: Appearance Urine Clear; Color Urine Dark Yellow; Glucose Urine UA Negative (Negative); Leukocyte Esterase Urine Negative (Negative); Nitrite Urine Negative (Negative); Specific Gravity - Urine 1.015 (1.005-1.025); Urine Blood Negative (Negative); Urine Ketones Negative (Negative); Urine Protein Trace mg/dL (Neg-Trace)
[2022-11-26 01:13] LABS: Bacteria Urine None Seen (None Seen); Hyaline Casts Urine 0-2 /LPF (0-2); Squamous Epithelial Cell Urine 0-2 /HPF (0-2); WBC Urine 0-5 /HPF (0-5)
[2022-11-26] MEDS: Benzonatate 100 MG CAPSULE PO ×2 (01:17→08:10)
[2022-11-26 05:52] VITALS: BP 134/59; PULSE 63; RESP 17; TEMP 36.7; O2SAT 97
[2022-11-26 06:09] LABS: MANUAL DIFF FLAG NO
--- NOTE | 2022-11-26 06:21 | PC.NURSE ---
Pt seen in ED overflow, awaiting bed assignment. Assumed care of patient at 00:15, 11/26. A&Ox4. Pleasant, calm and cooperative. Continues on 4L nc with spo2 maintained 93% and above. Breathing is even and unlabored without distress. Pt denies sob and chest pain. +Occassional hacking productive cough. Given prn tessalon nitza as ordered with some effect. Not yet due for prn robitussen. Urine labs sent as ordered. Bed alarm on and safety measures in place.
[2022-11-26 06:27] LABS: Anion Gap 11 (12-20); Blood Urea Nitrogen 11 mg/dL (9-16); Calcium 8.6 mg/dL (8.4-10.2); Carbon Dioxide 25 mmol/L (22-29); Chloride 108 mmol/L (96-108); Creatinine Clr Calc Pharmacy 88.5; Estimated Glomerular Filt Rate > 60; Glucose Random 101 mg/dL (60-115); Potassium 3.9 mmol/L (3.3-5.1); Sodium 140 mmol/L (135-145)
[2022-11-26 06:47] LABS: Basophils Percent Auto 0.3 % (0-2); Eosinophils Absolute Auto 0.1 X10*3/uL (0.0-0.4); Eosinophils Percent Auto 0.8 % (0-4); Hematocrit 38.7 % (42.0-52.0); Hemoglobin 12.6 g/dl (14.0-18.0); Imm Gran Abs Auto 0.06 X10*3/uL (0.00-0.03); Imm Gran Pct Auto 0.7 % (0.0-0.4); Lymphocytes Absolute Auto 0.8 X10*3/uL (1.2-4.9); Lymphocytes Percent Auto 9.1 % (20-40); Mean Corpuscular HGB Conc 32.6 g/dl (31.0-36.0); Mean Corpuscular Hemoglobin 30.9 pg (27.0-33.0); Mean Corpuscular Volume 94.9 fL (80.0-98.0); Mean Platelet Volume 10.1 fL (9.4-12.4); Monocytes Absolute Auto 0.8 X10*3/uL (0.1-1.2); Neutrophils Absolute Auto 7.3 x10*3/uL (2.0-8.3); Neutrophils Percent Auto 80.1 % (45-73); Platelet Count 126 X10*3/uL (160-400); Red Blood Count 4.08 X10*6/uL (4.60-5.80); Red Cell Distribution Width 13.3 % (11.0-16.0)
[2022-11-26] MEDS: Albuterol/Iprat 2.5/0.5MG 3 ML AMPUL.NEB INHALE ×2 (07:54→18:50)
[2022-11-26 07:56] VITALS: PULSE 63; RESP 18; O2SAT 97
[2022-11-26] MEDS: guaiFENesin LA 600 MG TAB.ER.12H PO ×2 (08:10→20:44)
[2022-11-26] MEDS: oxyCODONE HCl Immed Release 5 MG TABLET 20 MG PO ×3 (08:10→19:33)
[2022-11-26] MEDS: Acetaminophen 325 MG TABLET 650 MG PO ×3 (08:10→19:32)
[2022-11-26] MEDS: Tamsulosin HCL 0.4 MG CAPSULE 0.8 MG PO (08:54)
[2022-11-26] MEDS: Aspirin Enteric Coated 81 MG TABLET.DR PO (08:54)
[2022-11-26] MEDS: Atorvastatin Calcium 80 MG TABLET PO (08:54)
[2022-11-26] MEDS: Omeprazole 20 MG CAPSULE.DR PO (08:54)
[2022-11-26] MEDS: Metoprolol Succinate ER 100 MG TAB.ER.24H PO (09:24)
[2022-11-26] MEDS: Isosorbide Mononitrate 60 MG TAB.ER.24H PO (09:24)
[2022-11-26] MEDS: Ezetimibe 10 MG TABLET PO (09:30)
[2022-11-26 09:40] LABS: Adenovirus PCR Not Detected (Not Detect.); Bordetella parapertussis PCR Not Detected (Not Detect.); Bordetella pertussis PCR Not Detected (Not Detect.); Chlamydia pneumoniae PCR Not Detected (Not Detect.); Coronavirus 229E PCR Not Detected (Not Detect.); Coronavirus HKU1 PCR Not Detected (Not Detect.); Coronavirus NL63 PCR Not Detected (Not Detect.); Coronavirus OC43 PCR Not Detected (Not Detect.); Human metapneumovirus PCR Not Detected (Not Detect.); Influenza A PCR Not Detected (Not Detect.); Influenza B PCR Not Detected (Not Detect.); Mycoplasma pneumoniae PCR Not Detected (Not Detect.); Parainfluenza 1 PCR Not Detected (Not Detect.); Parainfluenza 2 PCR Not Detected (Not Detect.); Parainfluenza 3 PCR Not Detected (Not Detect.); Parainfluenza 4 PCR Not Detected (Not Detect.); RSV PCR Not Detected (Not Detect.); Rhino/Enterovirus PCR Not Detected (Not Detect.); SARS-CoV-2 PCR Not Detected (Not Detect.)
[2022-11-26 12:04] VITALS: BP 90/54; PULSE 60; RESP 16; TEMP 36.6; O2SAT 97
--- NOTE | 2022-11-26 13:46 | HO.PM.IMPN ---
Subjective Subjective Date of Service: 11/26/22 Interval History: Feels better today still on O2 supplement feels chills but no fever Coughing with mucus cultures pending Review of Systems Review of Systems: Yes all other systems are reviewed and are negative Physical Exam Vital Signs: Vital Signs: Last Vital Signs Temp 97.9 F 11/26/22 12:04 Pulse 60 11/26/22 12:04 Resp 16 11/26/22 12:04 BP 90/54 L 11/26/22 12:04 Pulse Ox 97 11/26/22 12:04 O2 Del Method Nasal Cannula 11/26/22 05:52 O2 Flow Rate 2 11/26/22 12:04 BMI result Body Mass Index 25.1 Const: Other: Constitutional : Awake, interactive Neck : Normal inspection, Supple Cardiovascular : RRR, no JVP, no lower extremity edema Respiratory : good bilateral air entry, bilateral basal fine crackles, bilateral wheezes , on O2 supplement Gastrointestinal: soft, lax, Normal bowel sounds, Non tender Skin : Warm, Dry Neurological : Alert & oriented x3, No focal deficit Objective Data Active Medications Acetaminophen (Acetaminophen 325 Mg Tablet) 650 mg PO Q6H PRN PRN Reason: Pain, Mild (Pain Scale 1-3) Last Admin: 11/26/22 13:18 Dose: 650 mg Documented By: LINO Albuterol Sulfate (Albuterol Sulfate (0.083%) 2.5 Mg/3 Ml Vial.Neb) 2.5 mg INHALE Q4H PRN PRN Reason: Shortness of Breath/Wheezing Albuterol/Ipratropium (Albuterol/Iprat 2.5/0.5mg 3 Ml Ampul.Neb) 3 ml INHALE RQ4H WHILE AWAKE [facility] Last Admin: 11/26/22 12:11 Dose: Not Given Documented By: OMEGA Non-Admin Reason: Patient Refused Aspirin (Aspirin Enteric Coated 81 Mg Tablet.) 81 mg PO Q48H [facility] Last Admin: 11/26/22 08:54 Dose: 81 mg Documented By: LINO Atorvastatin Calcium (Atorvastatin Calcium 80 Mg Tablet) 80 mg PO DAILY [facility] Last Admin: 11/26/22 08:54 Dose: 80 mg Documented By: LINO Benzonatate (Benzonatate 100 Mg Capsule) 100 mg PO TID PRN PRN Reason: Cough Last Admin: 11/26/22 08:10 Dose: 100 mg Documented By: LINO Diazepam (Diazepam 5 Mg Tablet) 5 mg PO TID PRN PRN Reason: anxiety/restlessness Ezetimibe (Ezetimibe 10 Mg Tablet) 10 mg PO DAILY [facility] Enoxaparin Sodium (Enoxaparin Sodium 40 Mg/0.4 Ml Syringe) 40 mg SUBCUT Q24H [facility] Last Admin: 11/25/22 20:21 Dose: 40 mg Documented By: ESTUARDO Fluticasone Propionate (Fluticasone Propionate Nasal 16 Gm [place]) 1 spray NOSTRIL-B DAILY PRN PRN Reason: allergy symptoms Guaifenesin (Guaifenesin La 600 Mg Tab.Er.12h) 600 mg PO BID [facility] Last Admin: 11/26/22 08:10 Dose: 600 mg Documented By: LINO Azithromycin 500 mg/ Sodium (Chloride) 250 mls @ 125 mls/hr IV Q24H [facility] Last Infusion: 11/26/22 00:38 Dose: 0 mls/hr Documented By: CHRISTOPHER Ceftriaxone Sodium 1 gm/ (Sodium Chloride) 50 mls @ 100 mls/hr IV Q24H [facility] Isosorbide Mononitrate (Isosorbide Mononitrate 60 Mg Tab.Er.24h) 60 mg PO DAILY [facility]; Protocol Last Admin: 11/26/22 09:24 Dose: 60 mg Documented By: LINO Loratadine (Loratadine 10 Mg Tablet) 10 mg PO DAILY PRN PRN Reason: allergy symptoms Metoprolol Succinate (Metoprolol Succinate Er 100 Mg Tab.Er.24h) 100 mg PO DAILY [facility]; Protocol Last Admin: 11/26/22 09:24 Dose: 100 mg Documented By: LINO Omeprazole (Omeprazole 20 Mg Capsule.Dr) 20 mg PO DAILY@0630 [facility] Last Admin: 11/26/22 08:54 Dose: 20 mg Documented By: LINO Ondansetron HCl (Ondansetron Hcl 4 Mg/2 Ml Vial) 4 mg IVPUSH Q8H PRN PRN Reason: Nausea and Vomiting Oxycodone HCl (Oxycodone Hcl Immed Release 5 Mg Tablet) 20 mg PO Q6H PRN PRN Reason: Pain, Severe (Pain Scale 7-10) Last Admin: 11/26/22 13:18 Dose: 20 mg Documented By: LINO Pharmacy Consult (Consult Rx Perform Med Rec) 1 each MISCELLANE ONCE PRN PRN Reason: Consult order Sodium Chloride (0.9 % Sodium Chloride Flush 3 Ml Syringe) 3 ml IVFLUSH QSHIFT [facility] Last Admin: 11/26/22 09:24 Dose: 3 ml Documented By: LINO Tamsulosin HCl (Tamsulosin Hcl 0.4 Mg Capsule) 0.8 mg PO DAILY [facility] Last Admin: 11/26/22 08:54 Dose: 0.8 mg Documented By: LINO Labs 11/26/22 05:42 11/26/22 05:42 Labs: Laboratory Results - last 24 hr 11/25/22 11/25/22 11/25/22 16:39 16:39 16:39 MCV MCH MCHC RDW Plt Count MPV Immature Gran % (Auto) Neut % (Auto) Lymph % (Auto) [place] % (Auto) Eos % (Auto) Baso % (Auto) Lymph # (Auto) [place] # (Auto) Eos # (Auto) Baso # (Auto) Abs Immat Gran (auto) Absolute Neuts (auto) Absolute Nucleated RBC Nucleated RBC % (auto) PT INR APTT Anion Gap Estim Creat Clear Calc Estimated GFR Random Glucose Lactic Acid 1.7 Calcium Total Bilirubin AST ALT Alkaline Phosphatase B-Natriuretic Peptide Total Protein Albumin Lipase Urine Color Urine Appearance Urine pH Ur Specific [place] Urine Protein Urine Glucose (UA) Urine Ketones Urine Blood Urine Nitrite Ur Leukocyte Esterase Urine RBC Urine WBC Ur Squamous Epith Cells Urine Bacteria Hyaline Casts Respiratory Panel [place] Adenovirus (Rapid PCR) B.pert (TEM-PCR) B.parapertussis DNA PCR C. pneumoniae DNA (PCR) Coronavirus OC43 (PCR) Coronavirus HKU1 (PCR) Coronavirus 229E (PCR) COVID-19 ([place]) Negative COVID-19 Clin Com See Note Coronavirus NL63 (PCR) Human Metapneumovir PCR Influenza Type A ([facility]) Negative Influenza A (RT-PCR) Influenza Type B ([place]) Negative Influenza B (RT-PCR) Influenza A & B Note See Note M. pneumoniae (PCR) Parainfluenza 1 (PCR) Parainfluenza 2 (PCR) Parainfluenza 3 (PCR) Parainfluenza 4 (PCR) RSV (PCR) Entero/Rhino (PCR) SARS-CoV-2 RNA (RT-PCR) 11/25/22 11/25/22 11/25/22 16:40 16:40 16:40 MCV 94.0 MCH 31.0 MCHC 33.0 RDW 13.4 Plt Count 142 L MPV 9.5 Immature Gran % (Auto) 0.5 H Neut % (Auto) 83.5 H Lymph % (Auto) 8.1 L Perkins % (Auto) 7.2 Eos % (Auto) 0.4 Baso % (Auto) 0.3 Lymph # (Auto) 0.8 L [place] # (Auto) 0.7 Eos # (Auto) 0.0 Baso # (Auto) 0.0 Abs Immat Gran (auto) 0.05 H Absolute Neuts (auto) 8.5 H Absolute Nucleated RBC 0.000 Nucleated RBC % (auto) 0.0 PT INR APTT Anion Gap 14 Estim Creat Clear Calc 83.9 Estimated GFR > 60 Random Glucose 115 Lactic Acid Calcium 9.3 Total Bilirubin 1.4 H AST 38 H ALT 38 Alkaline Phosphatase 81 B-Natriuretic Peptide 74 Total Protein 7.2 Albumin 3.9 Lipase 5 L Urine Color Urine Appearance Urine pH Ur Specific [place] Urine Protein Urine Glucose (UA) Urine Ketones Urine Blood Urine Nitrite Ur Leukocyte Esterase Urine RBC Urine WBC Ur Squamous Epith Cells Urine Bacteria Hyaline Casts Respiratory Panel [place] Adenovirus (Rapid PCR) B.pert (TEM-PCR) B.parapertussis DNA PCR C. pneumoniae DNA (PCR) Coronavirus OC43 (PCR) Coronavirus HKU1 (PCR) Coronavirus 229E (PCR) COVID-19 ([place]) COVID-19 Clin Com Coronavirus NL63 (PCR) Human Metapneumovir PCR Influenza Type A ([place]) Influenza A (RT-PCR) Influenza Type B ([place]) Influenza B (RT-PCR) Influenza A & B Note M. pneumoniae (PCR) Parainfluenza 1 (PCR) Parainfluenza 2 (PCR) Parainfluenza 3 (PCR) Parainfluenza 4 (PCR) RSV (PCR) Entero/Rhino (PCR) SARS-CoV-2 RNA (RT-PCR) 11/25/22 11/25/22 11/26/22 16:40 18:40 00:41 MCV MCH MCHC RDW Plt Count MPV Immature Gran % (Auto) Neut % (Auto) Lymph % (Auto) [place] % (Auto) Eos % (Auto) Baso % (Auto) Lymph # (Auto) [place] # (Auto) Eos # (Auto) Baso # (Auto) Abs Immat Gran (auto) Absolute Neuts (auto) Absolute Nucleated RBC Nucleated RBC % (auto) PT 13.8 H INR 1.1 APTT 36.4 Anion Gap Estim Creat Clear Calc Estimated GFR Random Glucose Lactic Acid Calcium Total Bilirubin AST ALT Alkaline Phosphatase B-Natriuretic Peptide Total Protein Albumin Lipase Urine Color Dark Yellow Urine Appearance Clear Urine pH 6.0 Ur Specific [place] 1.015 Urine Protein Trace Urine Glucose (UA) Negative Urine Ketones Negative Urine Blood Negative Urine Nitrite Negative Ur Leukocyte Esterase Negative Urine RBC 3-5 H Urine WBC 0-5 Ur Squamous Epith Cells 0-2 Urine Bacteria None Seen Hyaline Casts 0-2 Respiratory Panel [place] See Note Adenovirus (Rapid PCR) Not Detected B.pert (TEM-PCR) Not Detected B.parapertussis DNA PCR Not Detected C. pneumoniae DNA (PCR) Not Detected Coronavirus OC43 (PCR) Not Detected Coronavirus HKU1 (PCR) Not Detected Coronavirus 229E (PCR) Not Detected COVID-19 ([place]) COVID-19 Clin Com Coronavirus NL63 (PCR) Not Detected Human Metapneumovir PCR Not Detected Influenza Type A ([place]) Influenza A (RT-PCR) Not Detected Influenza Type B ([place]) Influenza B (RT-PCR) Not Detected Influenza A & B Note M. pneumoniae (PCR) Not Detected Parainfluenza 1 (PCR) Not Detected Parainfluenza 2 (PCR) Not Detected Parainfluenza 3 (PCR) Not Detected Parainfluenza 4 (PCR) Not Detected RSV (PCR) Not Detected Entero/Rhino (PCR) Not Detected SARS-CoV-2 RNA (RT-PCR) Not Detected 11/26/22 11/26/22 05:42 05:42 MCV 94.9 MCH 30.9 MCHC 32.6 RDW 13.3 Plt Count 126 L MPV 10.1 Immature Gran % (Auto) 0.7 H Neut % (Auto) 80.1 H Lymph % (Auto) 9.1 L [place] % (Auto) 9.0 Eos % (Auto) 0.8 Baso % (Auto) 0.3 Lymph # (Auto) 0.8 L [place] # (Auto) 0.8 Eos # (Auto) 0.1 Baso # (Auto) 0.0 Abs Immat Gran (auto) 0.06 H Absolute Neuts (auto) 7.3 Absolute Nucleated RBC 0.000 Nucleated RBC % (auto) 0.0 PT INR APTT Anion Gap 11 L Estim Creat Clear Calc 88.5 Estimated GFR > 60 Random Glucose 101 Lactic Acid Calcium 8.6 D Total Bilirubin AST ALT Alkaline Phosphatase B-Natriuretic Peptide Total Protein Albumin Lipase Urine Color Urine Appearance Urine pH Ur Specific [place] Urine Protein Urine Glucose (UA) Urine Ketones Urine Blood Urine Nitrite Ur Leukocyte Esterase Urine RBC Urine WBC Ur Squamous Epith Cells Urine Bacteria Hyaline Casts Respiratory Panel [place] Adenovirus (Rapid PCR) B.pert (TEM-PCR) B.parapertussis DNA PCR C. pneumoniae DNA (PCR) Coronavirus OC43 (PCR) Coronavirus HKU1 (PCR) Coronavirus 229E (PCR) COVID-19 ([place]) COVID-19 Clin Com Coronavirus NL63 (PCR) Human Metapneumovir PCR Influenza Type A ([place]) Influenza A (RT-PCR) Influenza Type B ([place]) Influenza B (RT-PCR) Influenza A & B Note M. pneumoniae (PCR) Parainfluenza 1 (PCR) Parainfluenza 2 (PCR) Parainfluenza 3 (PCR) Parainfluenza 4 (PCR) RSV (PCR) Entero/Rhino (PCR) SARS-CoV-2 RNA (RT-PCR) Assessment and Plan (1) Acute respiratory failure with hypoxia: Status: Acute (2) Pneumonia: Status: Acute (3) COPD exacerbation: Status: Acute (4) Sepsis: Status: Acute Plan An 84 years old lady with PMH of ESRD on HD TTS, HTN, PVC w IVC filter, bedbound among others who presents to the hospital for increased lethargy and SOB. Hypoxic respiratory failure in state of Sepsis 2/2 Pneumonia negative respiratory panel pending cultures Start antibiotics of Azithromycin and Ceftriaxone wean O2 down as tolerated cough medicine COPD w exacerbation Duonebs Hold on steroid with sepsis now Smoker Nicotine patch advised to quit CAD continue ASA, statin, Isosorbide and Metoprolol Chronic pain continue Oxycodone prn BPH Tamsulosin DVT PPx Lovenox Thje patient will likely need overnight hospital stay to treat sepsis pending final cultures and clinical improvement Time Spent With Patient Time: Total time managing care of this patient today ____ minutes. Quality Stroke Does the patient have a stroke diagnosis?: No VTE Prior VTE?: No VTE Risk Level:: Medical - moderate - high VTE Device Contraindication: Treatment Not Indicated VTE Drug Contraindication: N/A - Med Ordered
[2022-11-26 15:26] VITALS: BP 86/54; PULSE 60; RESP 20; TEMP 36; O2SAT 96
[2022-11-26] MEDS: cefTRIAXone sodium 1 GM in 0.9 % Sodium Chloride 50 ML IV (16:40)
[2022-11-26] MEDS: Azithromycin 500 MG in 0.9 % Sodium Chloride 250 ML 125 MG IV (18:14)
[2022-11-26 18:52] VITALS: PULSE 70; RESP 20; O2SAT 94
[2022-11-26 19:27] VITALS: BP 91/53; PULSE 76; RESP 16; TEMP 36.5; O2SAT 92
[2022-11-26] MEDS: Enoxaparin Sodium 40 MG/0.4 ML SYRINGE SUBCUT (20:45)
[2022-11-26] MEDS: diazePAM 5 MG TABLET PO (22:34)
[2022-11-27 06:28] LABS: Hematocrit 39.7 % (42.0-52.0); Hemoglobin 12.9 g/dl (14.0-18.0); Mean Corpuscular HGB Conc 32.5 g/dl (31.0-36.0); Mean Corpuscular Hemoglobin 30.9 pg (27.0-33.0); Mean Corpuscular Volume 95.2 fL (80.0-98.0); Mean Platelet Volume 9.7 fL (9.4-12.4); Platelet Count 144 X10*3/uL (160-400); Red Blood Count 4.17 X10*6/uL (4.60-5.80); Red Cell Distribution Width 13.2 % (11.0-16.0); White Blood Count 7.1 X10*3/uL (4.8-10.8)
[2022-11-27 07:19] VITALS: BP 141/72; PULSE 74; RESP 18; TEMP 36.6; O2SAT 97
[2022-11-27] MEDS: Ezetimibe 10 MG TABLET PO (08:27)
[2022-11-27] MEDS: Atorvastatin Calcium 80 MG TABLET PO (08:27)
[2022-11-27] MEDS: guaiFENesin LA 600 MG TAB.ER.12H PO ×2 (08:27→20:06)
[2022-11-27] MEDS: Isosorbide Mononitrate 60 MG TAB.ER.24H PO (08:27)
[2022-11-27] MEDS: Metoprolol Succinate ER 100 MG TAB.ER.24H PO (08:27)
[2022-11-27] MEDS: Tamsulosin HCL 0.4 MG CAPSULE 0.8 MG PO (08:27)
[2022-11-27] MEDS: 0.9 % Sodium Chloride Flush 3 ML SYRINGE IVFLUSH ×2 (08:28→21:00)
[2022-11-27] MEDS: diazePAM 5 MG TABLET PO ×2 (08:37→21:00)
[2022-11-27 09:13] LABS: Anion Gap 13 (12-20); Blood Urea Nitrogen 9 mg/dL (9-16); Calcium 9.4 mg/dL (8.4-10.2); Carbon Dioxide 26 mmol/L (22-29); Chloride 106 mmol/L (96-108); Creatinine Clr Calc Pharmacy 81.8; Estimated Glomerular Filt Rate > 60; Glucose Random 104 mg/dL (60-115); Potassium 4.3 mmol/L (3.3-5.1); Sodium 141 mmol/L (135-145)
[2022-11-27] MEDS: Acetaminophen 325 MG TABLET 650 MG PO ×3 (10:38→22:15)
[2022-11-27] MEDS: oxyCODONE HCl Immed Release 5 MG TABLET 20 MG PO ×3 (11:16→22:15)
[2022-11-27 12:51] VITALS: PULSE 101; O2SAT 95
--- NOTE | 2022-11-27 13:10 | HO.PM.IMPN ---
Subjective Subjective Date of Service: 11/27/22 Interval History: Feels better today on O2 supplement no fever or chills Coughing with thin mucus cultures pending Review of Systems Review of Systems: Yes all other systems are reviewed and are negative Physical Exam Vital Signs: Vital Signs: Last Vital Signs Temp 97.8 F 11/27/22 07:19 Pulse 74 11/27/22 07:19 Resp 18 11/27/22 07:19 BP 141/72 H 11/27/22 07:19 Pulse Ox 97 11/27/22 07:19 O2 Del Method Room Air 11/27/22 07:19 O2 Flow Rate 4 11/26/22 19:27 BMI result Body Mass Index 25.1 Const: Other: Constitutional : Awake, interactive Neck : Normal inspection, Supple Cardiovascular : RRR, no JVP, no lower extremity edema Respiratory : good bilateral air entry, bilateral basal fine crackles, no more wheezes , on O2 supplement Gastrointestinal: soft, lax, Normal bowel sounds, Non tender Skin : Warm, Dry Neurological : Alert & oriented x3, No focal deficit Objective Data Active Medications Acetaminophen (Acetaminophen 325 Mg Tablet) 650 mg PO Q6H PRN PRN Reason: Pain, Mild (Pain Scale 1-3) Last Admin: 11/27/22 10:38 Dose: 650 mg Documented By: ROBERTO Albuterol Sulfate (Albuterol Sulfate (0.083%) 2.5 Mg/3 Ml Vial.Neb) 2.5 mg INHALE Q4H PRN PRN Reason: Shortness of Breath/Wheezing Albuterol/Ipratropium (Albuterol/Iprat 2.5/0.5mg 3 Ml Ampul.Neb) 3 ml INHALE RQ4H WHILE AWAKE [facility] Last Admin: 11/27/22 12:20 Dose: Not Given Documented By: OMEGA Non-Admin Reason: Patient Refused Aspirin (Aspirin Enteric Coated 81 Mg Tablet.) 81 mg PO Q48H [facility] Last Admin: 11/26/22 08:54 Dose: 81 mg Documented By: LINO Atorvastatin Calcium (Atorvastatin Calcium 80 Mg Tablet) 80 mg PO DAILY [facility] Last Admin: 11/27/22 08:27 Dose: 80 mg Documented By: ROBERTO Benzonatate (Benzonatate 100 Mg Capsule) 100 mg PO TID PRN PRN Reason: Cough Last Admin: 11/26/22 08:10 Dose: 100 mg Documented By: LINO Diazepam (Diazepam 5 Mg Tablet) 5 mg PO TID PRN PRN Reason: anxiety/restlessness Last Admin: 11/27/22 08:37 Dose: 5 mg Documented By: ROBERTO Ezetimibe (Ezetimibe 10 Mg Tablet) 10 mg PO DAILY [facility] Last Admin: 11/27/22 08:27 Dose: 10 mg Documented By: ROBERTO Enoxaparin Sodium (Enoxaparin Sodium 40 Mg/0.4 Ml Syringe) 40 mg SUBCUT Q24H [facility] Last Admin: 11/26/22 20:45 Dose: 40 mg Documented By: ZANE Fluticasone Propionate (Fluticasone Propionate Nasal 16 Gm [place]) 1 spray NOSTRIL-B DAILY PRN PRN Reason: allergy symptoms Guaifenesin (Guaifenesin La 600 Mg Tab.Er.12h) 600 mg PO BID [facility] Last Admin: 11/27/22 08:27 Dose: 600 mg Documented By: ROBERTO Azithromycin 500 mg/ Sodium (Chloride) 250 mls @ 125 mls/hr IV Q24H [facility] Last Infusion: 11/26/22 20:39 Dose: 0 mls/hr Documented By: ZANE Ceftriaxone Sodium 1 gm/ (Sodium Chloride) 50 mls @ 100 mls/hr IV Q24H [facility] Last Infusion: 11/26/22 17:11 Dose: 0 mls/hr Documented By: LINO Isosorbide Mononitrate (Isosorbide Mononitrate 60 Mg Tab.Er.24h) 60 mg PO DAILY [facility]; Protocol Last Admin: 11/27/22 08:27 Dose: 60 mg Documented By: ROBERTO Loratadine (Loratadine 10 Mg Tablet) 10 mg PO DAILY PRN PRN Reason: allergy symptoms Metoprolol Succinate (Metoprolol Succinate Er 100 Mg Tab.Er.24h) 100 mg PO DAILY [facility]; Protocol Last Admin: 11/27/22 08:27 Dose: 100 mg Documented By: ROBERTO Omeprazole (Omeprazole 20 Mg Capsule.Dr) 20 mg PO DAILY@0630 [facility] Last Admin: 11/27/22 05:45 Dose: Not Given Documented By: ZANE Non-Admin Reason: Patient Refused Ondansetron HCl (Ondansetron Hcl 4 Mg/2 Ml Vial) 4 mg IVPUSH Q8H PRN PRN Reason: Nausea and Vomiting Oxycodone HCl (Oxycodone Hcl Immed Release 5 Mg Tablet) 20 mg PO Q6H PRN PRN Reason: Pain, Severe (Pain Scale 7-10) Last Admin: 11/27/22 11:16 Dose: 20 mg Documented By: ROBERTO Pharmacy Consult (Consult Rx Perform Med Rec) 1 each MISCELLANE ONCE PRN PRN Reason: Consult order Sodium Chloride (0.9 % Sodium Chloride Flush 3 Ml Syringe) 3 ml IVFLUSH QSHIFT [facility] Last Admin: 11/27/22 08:28 Dose: 3 ml Documented By: ROBERTO Tamsulosin HCl (Tamsulosin Hcl 0.4 Mg Capsule) 0.8 mg PO DAILY [facility] Last Admin: 11/27/22 08:27 Dose: 0.8 mg Documented By: ROBERTO Labs 11/27/22 06:11 11/27/22 06:11 Labs: Laboratory Results - last 24 hr 11/27/22 11/27/22 06:11 06:11 MCV 95.2 MCH 30.9 MCHC 32.5 RDW 13.2 Plt Count 144 L MPV 9.7 Absolute Nucleated RBC 0.000 Nucleated RBC % (auto) 0.0 Anion Gap 13 Estim Creat Clear Calc 81.8 Estimated GFR > 60 Random Glucose 104 Calcium 9.4 D Microbiology Microbiology Results: Microbiology 11/25/22 16:40 Blood Culture - Preliminary Blood - Venous No growth after 24 hours. 11/25/22 16:40 Blood Culture - Preliminary Blood - Venous No growth after 24 hours. Assessment and Plan (1) Acute respiratory failure with hypoxia: Status: Acute (2) Sepsis: Status: Acute (3) Pneumonia: Status: Acute (4) COPD exacerbation: Status: Acute Plan An 84 years old lady with PMH of ESRD on HD TTS, HTN, PVC w IVC filter, bedbound among others who presents to the hospital for increased lethargy and SOB. Hypoxic respiratory failure in state of Sepsis 2/2 Pneumonia negative respiratory panel pending cultures Continue Azithromycin and Ceftriaxone wean O2 down as tolerated cough medicine COPD w exacerbation improving Duonebs Smoker Nicotine patch advised to quit CAD continue ASA, statin, Isosorbide and Metoprolol Chronic pain continue Oxycodone prn BPH Tamsulosin DVT PPx Lovenox Thje patient will likely need overnight hospital stay to treat sepsis pending final cultures and clinical improvement Time Spent With Patient Time: Total time managing care of this patient today ____ minutes. Quality Stroke Does the patient have a stroke diagnosis?: No VTE Prior VTE?: No VTE Risk Level:: Medical - moderate - high VTE Device Contraindication: Treatment Not Indicated VTE Drug Contraindication: N/A - Med Ordered
[2022-11-27] MEDS: cefTRIAXone sodium 1 GM in 0.9 % Sodium Chloride 50 ML IV (15:04)
--- NOTE | 2022-11-27 15:37 | MHC.CM.PN ---
IMM 11/27/22 Lives with ex-. He is independent with ADLs. He uses a cane for unsteady gait. A HCP is onfile. PT rec STR. Preferences obtained and referrals sent. Patient received a bed offer from [address] [place] [address]. The patient has been notified that he has a bed tomorrow at [facility]. BLS transport will be provided.
[2022-11-27 15:42] VITALS: BP 98/58; PULSE 62; RESP 19; TEMP 36.6; O2SAT 97
[2022-11-27 16:35] VITALS: PULSE 66; RESP 18; O2SAT 93
[2022-11-27] MEDS: Albuterol/Iprat 2.5/0.5MG 3 ML AMPUL.NEB INHALE ×2 (16:35→19:07)
[2022-11-27] MEDS: Azithromycin 500 MG in 0.9 % Sodium Chloride 250 ML 125 MG IV (18:20)
[2022-11-27 19:07] VITALS: PULSE 88; RESP 18; O2SAT 94
[2022-11-27 19:57] VITALS: BP 118/57; PULSE 67; RESP 20; TEMP 36; O2SAT 93
[2022-11-27] MEDS: Enoxaparin Sodium 40 MG/0.4 ML SYRINGE SUBCUT (20:06)
[2022-11-28 03:20] VITALS: BP 112/55; PULSE 65; RESP 18; TEMP 36.3; O2SAT 96
[2022-11-28] MEDS: Omeprazole 20 MG CAPSULE.DR PO (05:45)
[2022-11-28] MEDS: oxyCODONE HCl Immed Release 5 MG TABLET 20 MG PO ×2 (05:45→14:32)
[2022-11-28] MEDS: Acetaminophen 325 MG TABLET 650 MG PO ×2 (05:45→14:32)
[2022-11-28 06:25] LABS: Hematocrit 38.6 % (42.0-52.0); Hemoglobin 12.8 g/dl (14.0-18.0); Mean Corpuscular HGB Conc 33.2 g/dl (31.0-36.0); Mean Corpuscular Hemoglobin 31.1 pg (27.0-33.0); Mean Corpuscular Volume 93.7 fL (80.0-98.0); Mean Platelet Volume 9.6 fL (9.4-12.4); Platelet Count 158 X10*3/uL (160-400); Red Blood Count 4.12 X10*6/uL (4.60-5.80); Red Cell Distribution Width 13.1 % (11.0-16.0); White Blood Count 5.8 X10*3/uL (4.8-10.8)
[2022-11-28 06:38] LABS: Anion Gap 12 (12-20); Blood Urea Nitrogen 9 mg/dL (9-16); Calcium 9.1 mg/dL (8.4-10.2); Carbon Dioxide 27 mmol/L (22-29); Chloride 109 mmol/L (96-108); Estimated Glomerular Filt Rate > 60; Glucose Random 88 mg/dL (60-115); Potassium 3.7 mmol/L (3.3-5.1); Sodium 144 mmol/L (135-145)
[2022-11-28 07:29] VITALS: BP 133/71; PULSE 66; RESP 18; TEMP 36.3; O2SAT 94
[2022-11-28] MEDS: Albuterol/Iprat 2.5/0.5MG 3 ML AMPUL.NEB INHALE (08:00)
[2022-11-28 08:03] VITALS: PULSE 91; RESP 18; O2SAT 96
[2022-11-28] MEDS: guaiFENesin LA 600 MG TAB.ER.12H PO (08:22)
[2022-11-28] MEDS: Metoprolol Succinate ER 100 MG TAB.ER.24H PO (08:22)
[2022-11-28] MEDS: Atorvastatin Calcium 80 MG TABLET PO (08:22)
[2022-11-28] MEDS: Isosorbide Mononitrate 60 MG TAB.ER.24H PO (08:22)
[2022-11-28] MEDS: diazePAM 5 MG TABLET PO (08:22)
[2022-11-28] MEDS: Aspirin Enteric Coated 81 MG TABLET.DR PO (08:22)
[2022-11-28] MEDS: Tamsulosin HCL 0.4 MG CAPSULE 0.8 MG PO (08:22)
[2022-11-28] MEDS: 0.9 % Sodium Chloride Flush 3 ML SYRINGE IVFLUSH (08:23)
[2022-11-28] MEDS: Ezetimibe 10 MG TABLET PO (08:23)
[2022-11-28] MEDS: Furosemide 20 MG/2 ML VIAL IVPUSH (11:16)
--- NOTE | 2022-11-28 12:25 | PM.DS ---
DS: Providers Provider Date of Service: 11/28/22 Date of admission: 11/25/22 18:12 Primary care physician: Tai Cavazos MD DS: Diagnosis Discharge Diagnosis (1) Acute respiratory failure with hypoxia: Status: Acute (2) Sepsis: Status: Acute (3) Pneumonia: Status: Acute (4) COPD exacerbation: Status: Acute (5) Acute delirium: Status: Acute DS: Summary Hospital Course Hospital Course: Admission note HPI An 82 years old male with PMH of CAD, COPD, smoker, HTN, CKD II among others who presents to the hospital with few days of cough, fever and weakness. The patient reports he was doing fairly ok until few days ago when he started to cough. he has been smoking for the last few months. Reports fever and chills with greenish sputum. No chest pain, palpitations,? nausea, vomiting, diarrhea or urinary symptoms. Noted to be hypoxic droppin to mid 80s on RA with sepsis. admitted for further treatment as CXR showing possible infection. Hospital course Hypoxic respiratory failure in state of Sepsis 2/2 Pneumonia. with negative respiratory panel and blood cultures. Treated with Azithromycin and Ceftriaxone with good responsed over the course of hospital stay. wean O2 down as tolerated. continue cough medicine. COPD. placed on Duonebs with significant improvement of wheezes. to continue at time of discharge Smoker. started on Nicotine patch.advised to quit Acute delerium. Likely a result of hospital stay, pain medications and being on Diazepam. can be easily reoriented. cut down Oxy to 20 mg prn and Diazepam to 5 mg prn which both are home medications and can not be stopped abruptly. will continue to improve with increased physical activity. Continue antibiotics as prescribed Cough medication as needed Continue nebulizer for 1 more week Decrease Valium to 5 mg as needed Wean down Oxygen as tolerated Continue physical therapy at facility Time Spent with Patient Time attestation: Total time managing care of this patient today ____ minutes. Discharge coordination time: Greater than 30 minutes Quality: Safe Use of Opioids Does Pt have an Active Cancer Diagnosis on the Problem List?: No Quality: Stroke Does the patient have a stroke diagnosis?: No Physical Exam Vital Signs: Vital Signs: Last Vital Signs Temp 97.3 F 11/28/22 07:29 Pulse 91 11/28/22 08:03 Resp 18 11/28/22 08:03 BP 133/71 11/28/22 07:29 Pulse Ox 94 11/28/22 07:29 O2 Del Method Nasal Cannula 11/28/22 07:29 O2 Flow Rate 2 11/28/22 07:29 BMI result Body Mass Index 25.1 Const: Other: Constitutional : Awake, interactive Neck : Normal inspection, Supple Cardiovascular : RRR, no JVP, no lower extremity edema Respiratory : good bilateral air entry, minimal bilateral basal fine crackles, no more wheezes , on O2 supplement Gastrointestinal: soft, lax, Normal bowel sounds, Non tender Skin : Warm, Dry Neurological : Alert & oriented x3, No focal deficit DS: Data Data Completed and Pending Labs on day of discharge: Laboratory Results - last 24 hr 11/28/22 11/28/22 05:59 05:59 WBC 5.8 RBC 4.12 L Hgb 12.8 L Hct 38.6 L MCV 93.7 MCH 31.1 MCHC 33.2 RDW 13.1 Plt Count 158 L MPV 9.6 Absolute Nucleated RBC 0.000 Nucleated RBC % (auto) 0.0 Sodium 144 Potassium 3.7 Chloride 109 H Carbon Dioxide 27 Anion Gap 12 BUN 9 Creatinine 0.76 Estim Creat Clear Calc 85.0 Estimated GFR > 60 Random Glucose 88 Calcium 9.1 Preliminary micro results at discharge 11/25/22 16:40 Blood Culture - Preliminary Blood - Venous No growth after 48 hours. 11/25/22 16:40 Blood Culture - Preliminary Blood - Venous No growth after 48 hours. Imaging Chest x-ray: Radiologist's impression: ITS Impressions Abdomen/Pelvis CT 11/25/22 17:18 IMPRESSION: 1. No urinary tract calculi or hydronephrosis. 2. Coarse reticular markings in the right lower lobe and right middle lobe were not present previously and may represent atypical pneumonia. 3. 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 Recommend followup every 2 years. Fleischner guidelines were followed. Chest X-Ray 11/25/22 17:19 IMPRESSION: Increased interstitial prominence with new subtle bibasilar airspace opacities, greater on the right. Findings are suggestive of an atypical/viral infection with early infiltrates in the right greater than left lower lungs. Some degree of pulmonary edema could be present. Trace amount of bilateral pleural fluid is noted. Discharge Plan Discharge Anticipated Discharge Date/Time: 11/28/22 12:07 Patient Disposition: Xfer SNF Discharge Diagnosis: Pneumonia COPD Delerium Referrals: [facility] & [facility] [Outside] - 1 Week Tai Cavazos MD [Primary Care Provider] - 1 Week Discharge Medications: New ipratropium-albuterol 0.5 mg-3 mg(2.5 mg base)/3 mL Solution For Nebulization 3 ml inhalation RQ4H WHILE AWAKE 7 Days Qty: 90 0RF guaifenesin [Mucinex] 600 mg Tablet Extended Release 12hr 600 mg PO BID Qty: 14 0RF benzonatate 100 mg Capsule 100 mg PO TID PRN (Reason: Cough) Qty: 20 0RF azithromycin 500 mg tablet 500 mg PO DAILY 5 Days Qty: 5 0RF cefuroxime axetil 500 mg tablet 500 mg PO BID Qty: 10 0RF Continued atorvastatin 80 mg tablet 80 mg PO DAILY Qty: 90 3RF ezetimibe 10 mg tablet 10 mg PO DAILY Qty: 90 1RF metoprolol succinate 100 mg tablet extended release 24 hr 100 mg PO DAILY Qty: 90 1RF isosorbide mononitrate 60 mg tablet extended release 24 hr 60 mg PO DAILY Qty: 90 2RF albuterol sulfate [Ventolin HFA] 90 mcg/actuation HFA aerosol inhaler 2 puff PO Q6H PRN (Reason: for dyspnea) Qty: 18 11RF oxycodone 30 mg tablet 30 mg PO Q6H PRN (Reason: pain) 28 Days Qty: 112 0RF azithromycin 250 mg tablet 250 mg PO MOWEFR@0900 testosterone 1 % (50 mg/5 gram) gel in packet 1 packet topical Q OTHER DAY cholecalciferol (vitamin D3) [Vitamin D3] 50 mcg (2,000 unit) Tablet 50 mcg PO DAILY omeprazole 20 mg capsule,delayed release(DR/EC) 20 mg PO DAILY@0630 fluticasone propionate 50 mcg/actuation spray,suspension 1 spray intranasal DAILY PRN (Reason: allergy symptoms) cetirizine 10 mg tablet 10 mg PO DAILY PRN (Reason: allergy symptoms) 90 Days Qty: 90 3RF loratadine 10 mg tablet 10 mg PO DAILY PRN (Reason: allergy symptoms) 90 Days Qty: 90 3RF aspirin [Adult Low Dose Aspirin] 81 mg tablet,delayed release (DR/EC) 81 mg PO Q OTHER DAY ipratropium-albuterol 0.5 mg-3 mg(2.5 mg base)/3 mL solution for nebulization 3 ml inhalation BID 30 Days Qty: 180 11RF (DME) nebulizers Misc See Rx Instructions .Route Rx Instructions: As directed tamsulosin 0.4 mg capsule 0.8 mg PO DAILY 90 Days Qty: 180 5RF Changed diazepam 10 mg tablet 5 mg PO TID PRN (Reason: Anxiety) 90 Days Qty: 270 0RF Discharge Orders: Discharge Order (Routine); Ordered 11/28/22 Ordered By: Federica Mejia Diet: Advance to usual diet Activity on Discharge: As tolerated Stand Alone Forms: Patient Portal Discharge page Care Plan Goals: Read below Health Concerns: Read below Plan of Treatment: Read below Assessment: Continue antibiotics as prescribed Cough medication as needed Continue nebulizer for 1 more week Decrease Valium to 5 mg as needed Wean down Oxygen as tolerated Continue physical therapy at facility
--- NOTE | 2022-11-28 12:45 | MHC.CM.PN ---
IMM 11/27/22 Patient is discharged to [facility] today. He will transport via BLS. Pick time 5pm. Patients notified of dc to [facility] this afternoon.
[2022-11-28 14:13] VITALS: PULSE 100; O2SAT 90
[2022-11-28] MEDS: cefTRIAXone sodium 1 GM in 0.9 % Sodium Chloride 50 ML IV (15:02)
[2022-11-28 15:42] VITALS: BP 112/63; PULSE 71; RESP 20; TEMP 36.3; O2SAT 95
== END 2022-11-28 17:50 | disposition skilled nursing facility (03) | DRG 871 ==
LOC: HO.ED 18:09 → HO.EDOVER 18:22 → HO.S3 11-26 10:43
PROVIDERS: Physician Assistant; Admitting Provider Student in an Organized Health Care Education/Training Program; Emergency Provider Emergency Medicine; PCP Internal Medicine; Visit Provider Student in an Organized Health Care Education/Training Program
DX: A41.9 Sepsis, unspecified organism (principal); J18.9 Pneumonia, unspecified organism; J96.01 Acute respiratory failure with hypoxia; J44.0 Chronic obstructive pulmonary disease with (acute) lower respiratory infection; J44.1 Chronic obstructive pulmonary disease with (acute) exacerbation; F05 Delirium due to known physiological condition; I12.9 Hypertensive chronic kidney disease with stage 1 through stage 4 chronic kidney disease, or unspecified chronic kidney disease; N18.2 Chronic kidney disease, stage 2 (mild); N40.0 Benign prostatic hyperplasia without lower urinary tract symptoms; G89.29 Other chronic pain; F17.210 Nicotine dependence, cigarettes, uncomplicated; Z20.822 Contact with and (suspected) exposure to COVID-19; I25.10 Atherosclerotic heart disease of native coronary artery without angina pectoris; Z71.6 Tobacco abuse counseling; Z79.82 Long term (current) use of aspirin; Z79.51 Long term (current) use of inhaled steroids; Z79.899 Other long term (current) drug therapy
CPT/HCPCS: 36415; 71046; 74176; 80048; 80053; 81001; 83605; 83690; 83880; 84484; 85025; 85027; 85610; 85730; 87040; 87502; 87633; 87635; 93005; 94640; 97116; 97162; 99285; J0456; J0696; J1650; J1940

== ENCOUNTER → 2022-11-25 15:54 | Outpatient (BNV) | payer MEDICARE, MEDICAID, SELFPAY | PROVIDERS: Admitting Provider Student in an Organized Health Care Education/Training Program; Emergency Provider Emergency Medicine; PCP Internal Medicine; Visit Provider Internal Medicine Cardiovascular Disease | DX: R06.02 Shortness of breath (principal) | CPT/HCPCS: 93010 ==

== ENCOUNTER → 2022-11-25 18:12 | Outpatient (BNV) | payer MEDICARE, MEDICAID, SELFPAY | PROVIDERS: Admitting Provider Student in an Organized Health Care Education/Training Program; Emergency Provider Emergency Medicine; PCP Internal Medicine; Visit Provider Student in an Organized Health Care Education/Training Program | DX: A41.9 Sepsis, unspecified organism (principal); J96.01 Acute respiratory failure with hypoxia; J44.1 Chronic obstructive pulmonary disease with (acute) exacerbation; J18.9 Pneumonia, unspecified organism; R41.0 Disorientation, unspecified | CPT/HCPCS: 99223; 99233; 99239 ==

== ENCOUNTER 2022-11-29 05:40 | Outpatient (REF) | payer MEDICARE, MEDICAID, SELFPAY ==
[2022-11-29 05:42] LABS: MANUAL DIFF FLAG NO
[2022-11-29 05:57] LABS: Basophils Percent Auto 0.4 % (0-2); Eosinophils Absolute Auto 0.2 X10*3/uL (0.0-0.4); Eosinophils Percent Auto 2.2 % (0-4); Hematocrit 37.9 % (42.0-52.0); Hemoglobin 12.9 g/dl (14.0-18.0); Imm Gran Abs Auto 0.03 X10*3/uL (0.00-0.03); Imm Gran Pct Auto 0.4 % (0.0-0.4); Lymphocytes Absolute Auto 0.9 X10*3/uL (1.2-4.9); Lymphocytes Percent Auto 12.9 % (20-40); Mean Corpuscular Hemoglobin 31.5 pg (27.0-33.0); Mean Corpuscular Volume 92.4 fL (80.0-98.0); Mean Platelet Volume 9.5 fL (9.4-12.4); Monocytes Absolute Auto 0.8 X10*3/uL (0.1-1.2); Monocytes Percent Auto 10.7 % (2-11); Neutrophils Absolute Auto 5.3 x10*3/uL (2.0-8.3); Neutrophils Percent Auto 73.4 % (45-73); Platelet Count 187 X10*3/uL (160-400); White Blood Count 7.2 X10*3/uL (4.8-10.8)
[2022-11-29 06:16] LABS: Alanine Aminotransferase 50 U/L (0-40); Albumin Level 3.3 g/dL (3.5-5.0); Alkaline Phosphatase 85 U/L (39-117); Anion Gap 13 (12-20); Aspartate Amino Transferase 37 U/L (5-37); Bilirubin Total 0.6 mg/dL (0.0-1.0); Blood Urea Nitrogen 8 mg/dL (9-16); Calcium 9.1 mg/dL (8.4-10.2); Carbon Dioxide 26 mmol/L (22-29); Chloride 108 mmol/L (96-108); Estimated Glomerular Filt Rate > 60; Glucose Random 107 mg/dL (60-115); Potassium 3.7 mmol/L (3.3-5.1); Sodium 143 mmol/L (135-145); Total Protein 6.3 g/dL (6.5-8.0)
== END 2022-11-29 05:41 | disposition home or self-care (01) ==
LOC: HO.MMNH1L 05:40
PROVIDERS: Visit Provider Family Medicine
DX: J44.9 Chronic obstructive pulmonary disease, unspecified (principal)
CPT/HCPCS: 36415; 80053; 85025

== ENCOUNTER 2022-11-30 11:56 | Outpatient (AMB) | payer MEDICARE, MEDICAID, SELFPAY ==
[2022-11-30 11:57] VITALS: BP 120/78; PULSE 92; O2SAT 94; BMI 24.0
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
== END 2022-11-30 12:54 | disposition home or self-care (01) ==
PROVIDERS: PCP Internal Medicine; Visit Provider Internal Medicine
DX: J96.01 Acute respiratory failure with hypoxia (principal); J44.0 Chronic obstructive pulmonary disease with (acute) lower respiratory infection; N18.2 Chronic kidney disease, stage 2 (mild); K21.9 Gastro-esophageal reflux disease without esophagitis; I25.10 Atherosclerotic heart disease of native coronary artery without angina pectoris; E78.00 Pure hypercholesterolemia, unspecified; I12.9 Hypertensive chronic kidney disease with stage 1 through stage 4 chronic kidney disease, or unspecified chronic kidney disease; R73.01 Impaired fasting glucose; E53.8 Deficiency of other specified B group vitamins; I71.40 Abdominal aortic aneurysm, without rupture, unspecified; E55.9 Vitamin D deficiency, unspecified; M51.36 Other intervertebral disc degeneration, lumbar region
CPT/HCPCS: 99214

== ENCOUNTER 2022-12-26 08:23 | Emergency (ER) | payer MEDICARE, MEDICAID, SELFPAY ==
[2022-12-26 08:30] VITALS: BP 122/92; PULSE 70; RESP 16; TEMP 36.6; O2SAT 95; BMI 24.6
[2022-12-26 08:46] LABS: MANUAL DIFF FLAG NO
[2022-12-26 08:48] LABS: Basophils Percent Auto 0.4 % (0-2); Eosinophils Absolute Auto 0.1 X10*3/uL (0.0-0.4); Eosinophils Percent Auto 1.7 % (0-4); Hematocrit 46.8 % (42.0-52.0); Hemoglobin 15.8 g/dl (14.0-18.0); Imm Gran Abs Auto 0.01 X10*3/uL (0.00-0.03); Imm Gran Pct Auto 0.1 % (0.0-0.4); Lymphocytes Absolute Auto 1.4 X10*3/uL (1.2-4.9); Lymphocytes Percent Auto 20.2 % (20-40); Mean Corpuscular HGB Conc 33.8 g/dl (31.0-36.0); Mean Corpuscular Hemoglobin 31.7 pg (27.0-33.0); Mean Corpuscular Volume 93.8 fL (80.0-98.0); Monocytes Absolute Auto 0.5 X10*3/uL (0.1-1.2); Monocytes Percent Auto 7.2 % (2-11); Neutrophils Absolute Auto 4.9 x10*3/uL (2.0-8.3); Neutrophils Percent Auto 70.4 % (45-73); Red Blood Count 4.99 X10*6/uL (4.60-5.80); Red Cell Distribution Width 13.7 % (11.0-16.0); White Blood Count 6.9 X10*3/uL (4.8-10.8)
[2022-12-26 09:04] LABS: Alanine Aminotransferase 21 U/L (0-40); Albumin Level 4.2 g/dL (3.5-5.0); Alkaline Phosphatase 79 U/L (39-117); Anion Gap 13 (12-20); Aspartate Amino Transferase 22 U/L (5-37); Blood Urea Nitrogen 7 mg/dL (9-16); Calcium 9.5 mg/dL (8.4-10.2); Carbon Dioxide 21 mmol/L (22-29); Chloride 111 mmol/L (96-108); Creatinine Clr Calc Pharmacy 80.4; Estimated Glomerular Filt Rate > 60; Glucose Random 104 mg/dL (60-115); Potassium 3.5 mmol/L (3.3-5.1); Sodium 141 mmol/L (135-145); Total Protein 6.9 g/dL (6.5-8.0)
[2022-12-26 09:13] LABS: Mean Platelet Volume 9.6 fL (9.4-12.4); Platelet Count 114 X10*3/uL (160-400)
[2022-12-26 10:36] VITALS: BP 127/67; PULSE 61; RESP 16; TEMP 36.6; O2SAT 97
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
[2022-12-26 11:56] LABS: OBS Int Ctl Valid YES; OBS1 NEGATIVE (NEGATIVE)
== END 2022-12-26 12:38 | disposition home or self-care (01) ==
PROVIDERS: Physician Assistant; Emergency Provider Emergency Medicine; PCP Internal Medicine
DX: K62.5 Hemorrhage of anus and rectum (principal); R19.7 Diarrhea, unspecified; I12.9 Hypertensive chronic kidney disease with stage 1 through stage 4 chronic kidney disease, or unspecified chronic kidney disease; N18.9 Chronic kidney disease, unspecified; E78.00 Pure hypercholesterolemia, unspecified; F17.210 Nicotine dependence, cigarettes, uncomplicated; Z79.899 Other long term (current) drug therapy
CPT/HCPCS: 36415; 80053; 82272; 85025; 99283

== ENCOUNTER 2022-12-29 10:53 | Outpatient (AMB) | payer MEDICARE, MEDICAID, SELFPAY ==
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
[2022-12-29 11:14] VITALS: BP 100/60; PULSE 61; O2SAT 95; BMI 23.6
[2022-12-29 13:22] VITALS: PULSE 74; O2SAT 97
== END 2022-12-29 11:41 | disposition home or self-care (01) ==
PROVIDERS: PCP Internal Medicine; Visit Provider Hospitalist
DX: J96.10 Chronic respiratory failure, unspecified whether with hypoxia or hypercapnia (principal)
CPT/HCPCS: 94618; 99214

== ENCOUNTER → 2022-12-29 10:53 | Outpatient (BNVA) | payer MEDICARE, MEDICAID, SELFPAY | PROVIDERS: PCP Internal Medicine; Visit Provider Hospitalist | DX: J96.11 Chronic respiratory failure with hypoxia (principal); J44.0 Chronic obstructive pulmonary disease with (acute) lower respiratory infection; J98.09 Other diseases of bronchus, not elsewhere classified; R26.81 Unsteadiness on feet; K21.9 Gastro-esophageal reflux disease without esophagitis | CPT/HCPCS: 94618; 99212 ==

== ENCOUNTER 2023-01-06 11:09 | Outpatient (REF) | payer MEDICARE, MEDICAID, SELFPAY ==
[2023-01-06 13:27] LABS: Leukocytes Stool Qualitative NEGATIVE (NEGATIVE)
[2023-01-12 21:53] LABS: Calprotectin, Fecal 81 mcg/g
== END 2023-01-06 11:10 | disposition home or self-care (01) ==
LOC: HO.LNP 11:09
PROVIDERS: Visit Provider Internal Medicine
DX: R19.7 Diarrhea, unspecified (principal)
CPT/HCPCS: 83993; 89055

== ENCOUNTER 2023-03-13 08:54 | Emergency (ER) | payer MEDICARE, MEDICAID, SELFPAY ==
[2023-03-13] VITALS (8 sets, daily range): BP systolic 84–117; BP diastolic 54–67; PULSE 49–65; RESP 10–22; TEMP 36.3–36.7; O2SAT 92–96; BMI 24.3
--- NOTE | ~2023-03-13 | CT_ITS ---
EXAMINATION: CT CHEST WITHOUT CONTRAST CLINICAL INFORMATION: Cough. Weight loss. History of smoking. COMPARISON: Chest CTs dating between April 18, 2022 and June 09, 2008. TECHNIQUE: Multidetector volumetric CT imaging of the chest was done. Axial MIP volume rendering provided. Sagittal and coronal reformatted images were obtained. This CT examination was performed using dose optimization techniques as appropriate, variously including the following: *Automated exposure control *Adjustment of mA and/or kV according to patient size (this includes techniques or standardized protocols for targeted exams where dose is matched to indication/reason for exam; i.e. extremities or head) *Use of iterative reconstruction technique DLP: 264 mGy-cm FINDINGS: LUNGS: No new or suspicious lung nodule identified. Approximately 0.9 cm left lower lobe lung nodule (image 40, series 5) appears unchanged over more than 2 years, therefore benign. No further dedicated follow up imaging of this nodule is indicated, per Fleischner Society guidelines. Mild chronic interstitial fibrotic changes, similar compared with most recent prior study dated April 18, 2022. Mild to moderate emphysema, similar compared with most recent prior. MEDIASTINUM: No evidence of adenopathy by size criteria. Heart normal in size. No pericardial effusion. CORONARY ARTERY CALCIFICATION: Moderate. PLEURA: There is no pleural effusion. No pleural mass or thickening. AXILLA: No lymphadenopathy by size criteria. UPPER ABDOMEN: Unremarkable. OSSEOUS STRUCTURES: No lytic or sclerotic bony lesion identified. Old, healed right anterolateral rib fractures. CT/CT chest wo IV con IMPRESSION: No evidence of malignancy.
--- NOTE | 2023-03-13 08:57 | ECG_ITS ---
Test Reason : SOB Blood Pressure : / mmHG Vent. Rate : 051 BPM Atrial Rate : 000 BPM P-R Int : 000 ms QRS Dur : 090 ms QT Int : 442 ms P-R-T Axes : 000 047 062 degrees QTc Int : 407 ms Sinus bradycardia with Sinus Arrhythmia Abnormal ECG When compared with ECG of 25-NOV-2022 16:18, Vent. rate has decreased BY 33 BPM Referred By: Aisha Brenner Electronically Signed By:DONNA DAMIAN MD
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
[2023-03-13] MEDS: Albuterol Sulfate 2.5 MG, Albuterol/Iprat 2.5/0.5MG 3 ML 3 ML INHALE (09:34)
--- NOTE | 2023-03-13 09:40 | PC.NURSE ---
pt is alert and oriented but also appears to be forgetful this rn needs to repeat things multiple times because the pt will ask a question then few minutes later will ask the same question, skin pwd, respirations even and unlabored, but ls junky and wheezing through out, pt reports for about two weeks not feeling right-junky cough/runny nose/feeling generally weak/sob and in the last year lost about 60lbs. vs stable at this time and sinus guerline on the monitor
[2023-03-13] MEDS: methylPREDNISolone Sod Succ 125 MG/2 ML VIAL 60 MG IVPUSH (09:43)
[2023-03-13 09:45] LABS: MANUAL DIFF FLAG NO
[2023-03-13 09:50] LABS: VBG Base Excess 2.4 mmol/L; VBG HCO3 28 mmol/L (22-26); VBG pCO2 50 mmHg; VBG pH 7.36 (7.32-7.43); VBG pO2 27 mmHg
[2023-03-13 09:51] LABS: Basophils Percent Auto 0.6 % (0-2); Eosinophils Absolute Auto 0.1 X10*3/uL (0.0-0.4); Eosinophils Percent Auto 1.4 % (0-4); Hematocrit 46.8 % (42.0-52.0); Hemoglobin 15.5 g/dl (14.0-18.0); Imm Gran Abs Auto 0.02 X10*3/uL (0.00-0.03); Imm Gran Pct Auto 0.4 % (0.0-0.4); Lymphocytes Absolute Auto 1.2 X10*3/uL (1.2-4.9); Lymphocytes Percent Auto 24.7 % (20-40); Mean Corpuscular HGB Conc 33.1 g/dl (31.0-36.0); Mean Corpuscular Hemoglobin 31.6 pg (27.0-33.0); Mean Corpuscular Volume 95.5 fL (80.0-98.0); Mean Platelet Volume 9.8 fL (9.4-12.4); Monocytes Absolute Auto 0.4 X10*3/uL (0.1-1.2); Neutrophils Absolute Auto 3.3 x10*3/uL (2.0-8.3); Neutrophils Percent Auto 64.9 % (45-73); Platelet Count 143 X10*3/uL (160-400); Red Cell Distribution Width 13.7 % (11.0-16.0)
[2023-03-13 09:53] LABS: Venous Blood Gas Refer to POC result
[2023-03-13 10:02] LABS: Lactic Acid 1.7 mmol/L (0.5-2.0)
[2023-03-13 10:05] LABS: B Type Natriuretic Peptide 68 pg/mL (<100)
[2023-03-13] MEDS: cefTRIAXone sodium 1 GM in 0.9 % Sodium Chloride 50 ML IV (10:06)
[2023-03-13 10:08] LABS: Troponin-I High Sensitivity < 2.7 ng/L (<3.5-35.0)
[2023-03-13 10:08] LABS: Alanine Aminotransferase 40 U/L (0-40); Albumin Level 4.3 g/dL (3.5-5.0); Alkaline Phosphatase 69 U/L (39-117); Anion Gap 13 (12-20); Aspartate Amino Transferase 32 U/L (5-37); Bilirubin Direct 0.3 mg/dL (0.0-0.5); Blood Urea Nitrogen 11 mg/dL (9-16); Calcium 9.4 mg/dL (8.4-10.2); Carbon Dioxide 28 mmol/L (22-29); Chloride 108 mmol/L (96-108); Creatinine Clr Calc Pharmacy 77.4; Estimated Glomerular Filt Rate > 60; Glucose Random 106 mg/dL (60-115); Lipase 12 U/L (8-78); Magnesium 2.1 mg/dL (1.6-2.6); Potassium 4.5 mmol/L (3.3-5.1); Sodium 144 mmol/L (135-145); Total Protein 7.3 g/dL (6.5-8.0)
[2023-03-13] MEDS: Azithromycin 500 MG in 0.9 % Sodium Chloride 250 ML 125 MG IV (10:46)
--- NOTE | 2023-03-13 11:55 | PC.NURSE ---
assumed care of pt at 1100, pt resting quietly, vss, denies any pain/sob. pt pending CT scan/lab results. no new orders at this time.
[2023-03-13 11:57] LABS: Procalcitonin 0.02 ng/mL
[2023-03-13 11:58] LABS: Influenza A PCR NEGATIVE (Negative); Influenza B PCR NEGATIVE (Negative); Resp Syncy Virus RNA Qual PCR NEGATIVE (Negative); SARS COV2 PCR INHOUSE NEGATIVE (Negative)
[2023-03-13] MEDS: Albuterol Sulfate 5 MG, Albuterol Sulfate (0.083%) 2.5 MG 7.5 MG INHALE (13:58)
--- NOTE | 2023-03-13 15:07 | PC.NURSE ---
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
--- NOTE | 2023-03-13 15:21 | PC.NURSE ---
pt requests molly Amaro completing discharge paperwork- IV removed
== END 2023-03-13 15:26 | disposition home or self-care (01) ==
PROVIDERS: Emergency Provider Emergency Medicine; PCP Internal Medicine
DX: J41.1 Mucopurulent chronic bronchitis (principal); Z20.822 Contact with and (suspected) exposure to COVID-19; Z20.828 Contact with and (suspected) exposure to other viral communicable diseases; R06.09 Other forms of dyspnea; I12.9 Hypertensive chronic kidney disease with stage 1 through stage 4 chronic kidney disease, or unspecified chronic kidney disease; N18.9 Chronic kidney disease, unspecified; E78.00 Pure hypercholesterolemia, unspecified; F17.210 Nicotine dependence, cigarettes, uncomplicated; J96.10 Chronic respiratory failure, unspecified whether with hypoxia or hypercapnia; Z99.81 Dependence on supplemental oxygen; Z79.02 Long term (current) use of antithrombotics/antiplatelets; Z79.899 Other long term (current) drug therapy
CPT/HCPCS: 0241U; 36415; 71250; 80048; 80076; 82803; 83605; 83690; 83735; 83880; 84145; 84484; 85025; 87040; 93005; 94640; 96365; 96366; 96367; 96375; 99285; J0456; J0696; J2930

== ENCOUNTER 2023-03-16 10:38 | Outpatient (AMB) | payer MEDICARE, MEDICAID, SELFPAY ==
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
== END 2023-03-16 11:22 | disposition home or self-care (01) ==
PROVIDERS: Visit Provider Urology
DX: N40.1 Benign prostatic hyperplasia with lower urinary tract symptoms (principal); N13.8 Other obstructive and reflux uropathy; N52.9 Male erectile dysfunction, unspecified
CPT/HCPCS: 99213

== ENCOUNTER → 2023-03-16 10:38 | Outpatient (BNVA) | payer MEDICARE, MEDICAID, SELFPAY | PROVIDERS: Visit Provider Urology | DX: N40.1 Benign prostatic hyperplasia with lower urinary tract symptoms (principal); N13.8 Other obstructive and reflux uropathy; N52.9 Male erectile dysfunction, unspecified | CPT/HCPCS: 51798; 99212 ==

== ENCOUNTER 2023-03-25 08:50 | Emergency (ER) | payer MEDICARE, MEDICAID, SELFPAY ==
--- NOTE | ~2023-03-25 | CT_ITS ---
EXAMINATION: CT HEAD WITHOUT CONTRAST CT CERVICAL SPINE WITHOUT CONTRAST CLINICAL INFORMATION: Neck pain. Cracking sounds. Weakness. COMPARISON: CT cervical spine 10/27/2019. TECHNIQUE: Production Dispatcher images were obtained. CT imaging of the head and cervical spine was performed without contrast. Data was reformatted into multiplanar images at the acquisition workstation. This CT examination was performed using dose optimization techniques as appropriate, including one or more of the following: Automated exposure control, iterative reconstruction, and adjustment of technique factors (mA and/or kVp) according to patient size (this includes techniques or standardized protocols for targeted exams where dose is matched to indication/reason for exam). Fleischner Society criteria for the followup of incidental pulmonary nodules was implemented if appropriate. DLP: 1156 mGy-cm. FINDINGS: Head: There are chronic changes of a left craniotomy. There is an arachnoid cyst located at the anterior margin of the left middle cranial fossa that extends up into the left sylvian fissure. Otherwise no abnormal extra-axial collection. No acute intracranial hemorrhage. No intracranial mass effect or midline shift. No hydrocephalus. Scattered nonspecific foci of hypoattenuation are visualized within the periventricular white matter most likely represent a chronic manifestation of small vessel ischemia. Girard-white matter differentiation is otherwise preserved and there is no evidence of acute territorial infarct. The skull base is intact. Trace mastoid tip effusions. No active paranasal sinus disease. Globes and orbits are grossly symmetric. Cervical spine: There is nonspecific reversal of the cervical lordosis. Slight anterolisthesis of C3 on C4 and C5 on C6 related to facet degenerative changes at these levels. There is loss of intervertebral disc height with associated sclerotic degenerative endplate changes and hypertrophic disc osteophyte spurring at multiple levels. Bridging bone fuses the C4 and C5 vertebral segments. Canal patency is not well assessed on this examination due to inherent limitations of CT without intrathecal contrast. There is at least moderate canal stenosis at multiple levels. Uncovertebral joint spurring in conjunction with facet degenerative change causes varying degrees of neuroforaminal encroachment multiple levels within cervical spine. Visualized soft tissues of the neck are normal. There is centrilobular emphysema at the apices of both lungs. CT/CT head/brain wo IV con IMPRESSION: Head: There are chronic changes of a left craniotomy. There is an arachnoid cyst located at the anterior margin of the left middle cranial fossa that extends up into the left Sylvian fissure. Otherwise no acute intracranial finding. Specifically no evidence of acute territorial infarct or hemorrhage. Cervical Spine: There is advanced multilevel degenerative spondylosis of the cervical spine with at least moderate canal stenosis at multiple levels. If there are clinical symptoms of compressive myelopathy then a dedicated cervical spine MRI can be obtained for better anatomic characterization of the cord and canal.
--- NOTE | ~2023-03-25 | XR_ITS ---
EXAMINATION: XR CHEST CLINICAL INFORMATION: Weakness, fatigue and tachypnea COMPARISON: Previous chest x-ray November [address] February 2023 TECHNIQUE: Frontal view of the chest was obtained. FINDINGS: The cardiac and mediastinal contours are stable. Well-inflated lungs suggestive of COPD. The lungs are clear. No pleural effusion or pneumothorax. Degenerative changes of the spine. Old right lower rib fractures. XR/XR chest 1V IMPRESSION: No evidence for acute disease in the chest. Well-inflated lungs suggestive of COPD.
[2023-03-25 08:51] VITALS: BP 138/71; PULSE 55; RESP 16; TEMP 36.4; O2SAT 96; BMI 23.0
--- NOTE | 2023-03-25 08:54 | ECG_ITS ---
Test Reason : weakness Blood Pressure : / mmHG Vent. Rate : 054 BPM Atrial Rate : 054 BPM P-R Int : 172 ms QRS Dur : 084 ms QT Int : 412 ms P-R-T Axes : 066 047 056 degrees QTc Int : 390 ms Sinus bradycardia with marked sinus arrhythmia Otherwise normal ECG When compared with ECG of 13-MAR-2023 10:12, No significant change was found Referred By: Generic ED Physician Electronically Signed By:Antony Blackburn
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
[2023-03-25 09:35] LABS: MANUAL DIFF FLAG NO
[2023-03-25 09:38] LABS: Basophils Percent Auto 0.3 % (0-2); Eosinophils Absolute Auto 0.1 X10*3/uL (0.0-0.4); Eosinophils Percent Auto 2.1 % (0-4); Hematocrit 43.5 % (42.0-52.0); Hemoglobin 14.5 g/dl (14.0-18.0); Imm Gran Abs Auto 0.01 X10*3/uL (0.00-0.03); Imm Gran Pct Auto 0.2 % (0.0-0.4); Lymphocytes Absolute Auto 1.5 X10*3/uL (1.2-4.9); Lymphocytes Percent Auto 23.2 % (20-40); Mean Corpuscular HGB Conc 33.3 g/dl (31.0-36.0); Mean Corpuscular Hemoglobin 31.8 pg (27.0-33.0); Mean Corpuscular Volume 95.4 fL (80.0-98.0); Mean Platelet Volume 9.6 fL (9.4-12.4); Monocytes Absolute Auto 0.6 X10*3/uL (0.1-1.2); Neutrophils Absolute Auto 4.3 x10*3/uL (2.0-8.3); Neutrophils Percent Auto 65.2 % (45-73); Platelet Count 112 X10*3/uL (160-400); Red Blood Count 4.56 X10*6/uL (4.60-5.80); Red Cell Distribution Width 13.4 % (11.0-16.0); White Blood Count 6.6 X10*3/uL (4.8-10.8)
[2023-03-25 09:50] LABS: Alanine Aminotransferase 79 U/L (0-40); Albumin Level 3.7 g/dL (3.5-5.0); Alkaline Phosphatase 61 U/L (39-117); Anion Gap 12 (12-20); Aspartate Amino Transferase 43 U/L (5-37); Bilirubin Total 0.5 mg/dL (0.0-1.0); Blood Urea Nitrogen 12 mg/dL (9-16); Calcium 8.8 mg/dL (8.4-10.2); Carbon Dioxide 27 mmol/L (22-29); Chloride 109 mmol/L (96-108); Creatinine Clr Calc Pharmacy 78.9; Estimated Glomerular Filt Rate > 60; Glucose Random 96 mg/dL (60-115); Potassium 4.6 mmol/L (3.3-5.1); Sodium 143 mmol/L (135-145); Total Protein 6.2 g/dL (6.5-8.0)
[2023-03-25 09:58] LABS: Troponin-I High Sensitivity < 2.7 ng/L (<3.5-35.0)
[2023-03-25 10:21] LABS: Influenza A PCR NEGATIVE (Negative); Influenza B PCR NEGATIVE (Negative); Resp Syncy Virus RNA Qual PCR NEGATIVE (Negative); SARS COV2 PCR INHOUSE NEGATIVE (Negative)
[2023-03-25 12:25] LABS: Appearance Urine Clear; Color Urine Yellow; Glucose Urine UA Negative (Negative); Leukocyte Esterase Urine Negative (Negative); Nitrite Urine Negative (Negative); Specific Gravity - Urine 1.015 (1.005-1.025); Urine Blood Negative (Negative); Urine Ketones Negative (Negative); Urine Protein Negative (Neg-Trace)
[2023-03-25 12:44] VITALS: BP 113/55; PULSE 54; RESP 16; TEMP 36.7; O2SAT 96
== END 2023-03-25 12:50 | disposition home or self-care (01) ==
PROVIDERS: Physician Assistant Medical; Emergency Provider Emergency Medicine Emergency Medical Services; PCP Internal Medicine
DX: M47.892 Other spondylosis, cervical region (principal); R53.1 Weakness; Z20.822 Contact with and (suspected) exposure to COVID-19; Z20.828 Contact with and (suspected) exposure to other viral communicable diseases; M54.2 Cervicalgia; I10 Essential (primary) hypertension; E78.00 Pure hypercholesterolemia, unspecified; J44.9 Chronic obstructive pulmonary disease, unspecified; F17.210 Nicotine dependence, cigarettes, uncomplicated; Z79.899 Other long term (current) drug therapy; Z79.02 Long term (current) use of antithrombotics/antiplatelets; Z79.82 Long term (current) use of aspirin
CPT/HCPCS: 0241U; 36415; 70450; 71045; 72125; 80053; 81003; 84484; 85025; 93005; 99284

== ENCOUNTER → 2023-03-25 08:54 | Outpatient (BNV) | payer MEDICARE, MEDICAID, SELFPAY | PROVIDERS: Emergency Provider Emergency Medicine Emergency Medical Services; PCP Internal Medicine; Visit Provider Internal Medicine Cardiovascular Disease | DX: R00.1 Bradycardia, unspecified (principal) | CPT/HCPCS: 93010 ==

== ENCOUNTER 2023-04-06 14:57 | Outpatient (AMB) | payer MEDICARE, MEDICAID, SELFPAY ==
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
[2023-04-06 15:00] VITALS: BP 88/58; BMI 23.4
[2023-04-06 15:20] VITALS: BP 110/60
== END 2023-04-06 15:51 | disposition home or self-care (01) ==
PROVIDERS: PCP Internal Medicine; Visit Provider Internal Medicine
DX: J44.0 Chronic obstructive pulmonary disease with (acute) lower respiratory infection (principal); I25.10 Atherosclerotic heart disease of native coronary artery without angina pectoris; I10 Essential (primary) hypertension; M47.892 Other spondylosis, cervical region; Z23 Encounter for immunization
CPT/HCPCS: 90471; 90686; 99214

== ENCOUNTER 2023-05-11 09:43 | Outpatient (AMB) | payer MEDICARE, MEDICAID, SELFPAY ==
[2023-05-11 09:49] VITALS: BP 118/60; PULSE 62; O2SAT 95; BMI 23.2
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
== END 2023-05-11 10:14 | disposition home or self-care (01) ==
PROVIDERS: PCP Internal Medicine; Visit Provider Hospitalist
DX: J96.11 Chronic respiratory failure with hypoxia (principal); J44.0 Chronic obstructive pulmonary disease with (acute) lower respiratory infection; K21.9 Gastro-esophageal reflux disease without esophagitis; J98.09 Other diseases of bronchus, not elsewhere classified; R26.81 Unsteadiness on feet
CPT/HCPCS: 99214

== ENCOUNTER → 2023-05-11 09:43 | Outpatient (BNVA) | payer MEDICARE, MEDICAID, SELFPAY | PROVIDERS: PCP Internal Medicine; Visit Provider Hospitalist | DX: J44.0 Chronic obstructive pulmonary disease with (acute) lower respiratory infection (principal); J96.11 Chronic respiratory failure with hypoxia; J98.09 Other diseases of bronchus, not elsewhere classified; K21.9 Gastro-esophageal reflux disease without esophagitis; R26.81 Unsteadiness on feet; F17.210 Nicotine dependence, cigarettes, uncomplicated; Z99.81 Dependence on supplemental oxygen | CPT/HCPCS: 99212 ==

== ENCOUNTER 2023-07-13 14:35 | Outpatient (AMB) | payer MEDICARE, MEDICAID, SELFPAY ==
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
[2023-07-13 14:40] VITALS: BP 110/50; PULSE 79; O2SAT 93; BMI 23.7
== END 2023-07-13 15:28 | disposition home or self-care (01) ==
PROVIDERS: PCP Internal Medicine; Visit Provider Internal Medicine
DX: J44.0 Chronic obstructive pulmonary disease with (acute) lower respiratory infection (principal); I71.40 Abdominal aortic aneurysm, without rupture, unspecified; I25.10 Atherosclerotic heart disease of native coronary artery without angina pectoris; E78.00 Pure hypercholesterolemia, unspecified; I10 Essential (primary) hypertension; R73.01 Impaired fasting glucose; E53.8 Deficiency of other specified B group vitamins; M51.36 Other intervertebral disc degeneration, lumbar region; M47.892 Other spondylosis, cervical region; K21.9 Gastro-esophageal reflux disease without esophagitis; J30.9 Allergic rhinitis, unspecified; E55.9 Vitamin D deficiency, unspecified
CPT/HCPCS: 99214

== ENCOUNTER 2023-08-10 12:17 | Observation (INO) | payer MEDICARE, MEDICAID, SELFPAY ==
[2023-08-10] VITALS (9 sets, daily range): BP systolic 91–118; BP diastolic 42–68; PULSE 50–60; RESP 12–18; TEMP 36.6; O2SAT 95–97; BMI 23.4
--- NOTE | ~2023-08-10 | XR_ITS ---
EXAMINATION: XR CHEST CLINICAL INFORMATION: Fall. COMPARISON: Chest x-ray March 25, 2023 TECHNIQUE: 2 views of the chest were obtained. FINDINGS: Lungs are clear. No pulmonary vascular congestion. There is no pleural effusion. The heart size is normal. The cardiac and mediastinal contours are normal. . There are multilevel degenerative changes of dorsal spine. XR/XR chest 2V IMPRESSION: Unremarkable examination.
--- NOTE | ~2023-08-10 | CT_ITS ---
EXAMINATION: CT HEAD WITHOUT CONTRAST CT CERVICAL SPINE WITHOUT CONTRAST CLINICAL INFORMATION: Head strike. Loss of consciousness. Pain. COMPARISON: CT head March 25, 2023 TECHNIQUE: Imaging was performed from the skull base to vertex without intravenous administration of contrast. In addition, helical noncontrast CT imaging was acquired through the cervical spine and source images were reviewed along with axial reconstructions and sagittal and coronal MPRs. [This CT examination was performed using dose optimization techniques as appropriate, variously including the following: *Automated exposure control *Adjustment of mA and/or kV according to patient size (this includes techniques or standardized protocols for targeted exams where dose is matched to indication/reason for exam; i.e. extremities or head) *Use of iterative reconstruction technique] DLP: 1086 mGy-cm FINDINGS: HEAD: Stable chronic changes of left temporal parietal craniotomy. Stable left sided arachnoid cyst in the anterior left middle cranial fossa. No acute intracranial abnormality. No intracranial mass, hemorrhage, or midline shift is visualized. No extra-axial collection. There is generalized global volume loss. There is moderate prominence of the ventricles and the sulci . There is mild hypodensity of the periventricular white matter due to chronic small vessel ischemic disease. There are vascular calcifications of the internal carotid arteries bilaterally. The paranasal sinuses and mastoid air cells are well aerated. CERVICAL SPINE: There is no evidence of acute cervical spine fracture. Vertebral bodies remain normal in height. There is advanced multilevel degenerative spondylosis of the cervical spine with disc height narrowing and endplate spurs and facet joint arthrosis. Partial bony fusion of the vertebral bodies at the C4-C5 disc level. Osteosclerosis and subchondral endplate bone erosions C5-C6 and facet joint arthrosis. There is a a minimal anterolisthesis of C5 on C6 due to the degenerative change. Marked disc height narrowing at C6-C7. No pre- or paravertebral soft tissue abnormality is identified. Advanced emphysematous changes of the upper lobes of both lungs CT/CT cervical spine wo IV con IMPRESSION: 1. No acute intracranial pathology. 2. No CT evidence of acute cervical spine fracture or traumatic subluxation.
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
--- NOTE | 2023-08-10 12:25 | ECG_ITS ---
Test Reason : syncope Blood Pressure : / mmHG Vent. Rate : 054 BPM Atrial Rate : 054 BPM P-R Int : 148 ms QRS Dur : 088 ms QT Int : 420 ms P-R-T Axes : 061 062 055 degrees QTc Int : 398 ms Sinus bradycardia with marked sinus arrhythmia Otherwise normal ECG When compared with ECG of 25-MAR-2023 09:02, No significant change was found Referred By: Megan Ross Electronically Signed By:DEBRA BERGMAN MD
--- NOTE | 2023-08-10 12:40 | PC.NURSE ---
Labs drawn/sent and IV established in triage.
[2023-08-10 12:41] LABS: MANUAL DIFF FLAG NO
[2023-08-10 12:44] LABS: Basophils Percent Auto 0.5 % (0-2); Eosinophils Percent Auto 0.5 % (0-4); Hematocrit 45.7 % (42.0-52.0); Hemoglobin 15.4 g/dl (14.0-18.0); Imm Gran Abs Auto 0.01 X10*3/uL (0.00-0.03); Imm Gran Pct Auto 0.2 % (0.0-0.4); Lymphocytes Absolute Auto 0.9 X10*3/uL (1.2-4.9); Lymphocytes Percent Auto 13.5 % (20-40); Mean Corpuscular HGB Conc 33.7 g/dl (31.0-36.0); Mean Corpuscular Volume 97.9 fL (80.0-98.0); Mean Platelet Volume 9.3 fL (9.4-12.4); Monocytes Absolute Auto 0.2 X10*3/uL (0.1-1.2); Monocytes Percent Auto 3.6 % (2-11); Neutrophils Absolute Auto 5.4 x10*3/uL (2.0-8.3); Neutrophils Percent Auto 81.7 % (45-73); Platelet Count 122 X10*3/uL (160-400); Red Blood Count 4.67 X10*6/uL (4.60-5.80); Red Cell Distribution Width 13.4 % (11.0-16.0); White Blood Count 6.6 X10*3/uL (4.8-10.8)
[2023-08-10 12:48] LABS: INTERNATIONAL NORM RATIO 0.9 (0.9-1.1); Prothrombin Time 11.3 SEC (11.1-13.3)
[2023-08-10 12:51] LABS: Partial Thromboplastin Time 34.5 SEC (26.0-36.8)
[2023-08-10 12:58] LABS: Alanine Aminotransferase 31 U/L (0-40); Albumin Level 4.1 g/dL (3.5-5.0); Alkaline Phosphatase 65 U/L (39-117); Anion Gap 12 (12-20); Aspartate Amino Transferase 20 U/L (5-37); Blood Urea Nitrogen 15 mg/dL (9-16); Calcium 9.3 mg/dL (8.4-10.2); Carbon Dioxide 30 mmol/L (22-29); Chloride 107 mmol/L (96-108); Creatinine Clr Calc Pharmacy 68.2; Estimated Glomerular Filt Rate > 60; Glucose Random 102 mg/dL (60-115); Magnesium 2.1 mg/dL (1.6-2.6); Potassium 4.3 mmol/L (3.3-5.1); Sodium 145 mmol/L (135-145)
[2023-08-10 13:05] LABS: Troponin-I High Sensitivity < 2.7 ng/L (<3.5-35.0)
[2023-08-10 13:58] LABS: Lipase 13 U/L (8-78)
[2023-08-10 15:04] LABS: Influenza A PCR NEGATIVE (Negative); Influenza B PCR NEGATIVE (Negative); Resp Syncy Virus RNA Qual PCR NEGATIVE (Negative); SARS COV2 PCR INHOUSE NEGATIVE (Negative)
[2023-08-10] MEDS: oxyCODONE HCl Immed Release 5 MG TABLET 20 MG PO ×2 (15:29→20:00)
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
--- NOTE | 2023-08-10 17:28 | PHA.MEDREC ---
Pharmacy Consult ? Medication Reconciliation Pharmacy has completed the medication reconciliation, utilized recent claims hx and spoke to patient and his partner at bedside, both confirmed medications on list, did mention that there was supposed to be clarification on metoprolol because his heart rate is really low and asked to not give it to him.
--- NOTE | 2023-08-10 17:33 | PC.NURSE ---
pt alert, oriented. currently has no complaints. initially presented to ED sp fall during the night while going to the bathroom. pt unsure of how he fell, and reports LOC. in ED, pt has periods of bradycardia into the 40s. denies dizziness, sob, weakness. reports chronic pain which he takes oxycodone for with relief.
[2023-08-10] MEDS: Azithromycin 500 MG TABLET PO (17:49)
[2023-08-10] MEDS: Albuterol/Iprat 2.5/0.5MG 3 ML AMPUL.NEB INHALE (19:16)
[2023-08-10] MEDS: diazePAM 5 MG TABLET PO (20:00)
[2023-08-11] VITALS (8 sets, daily range): BP systolic 99–152; BP diastolic 60–73; PULSE 53–70; RESP 16–18; TEMP 36.2–36.6; O2SAT 95–99; BMI 22.9
[2023-08-11 06:23] LABS: Hematocrit 42.5 % (42.0-52.0); Hemoglobin 14.1 g/dl (14.0-18.0); Mean Corpuscular HGB Conc 33.2 g/dl (31.0-36.0); Mean Corpuscular Hemoglobin 32.4 pg (27.0-33.0); Mean Corpuscular Volume 97.7 fL (80.0-98.0); Mean Platelet Volume 9.5 fL (9.4-12.4); Platelet Count 108 X10*3/uL (160-400); Red Blood Count 4.35 X10*6/uL (4.60-5.80); Red Cell Distribution Width 13.4 % (11.0-16.0); White Blood Count 6.9 X10*3/uL (4.8-10.8)
[2023-08-11 06:33] LABS: Alanine Aminotransferase 26 U/L (0-40); Albumin Level 3.8 g/dL (3.5-5.0); Alkaline Phosphatase 57 U/L (39-117); Anion Gap 12 (12-20); Aspartate Amino Transferase 17 U/L (5-37); Bilirubin Direct 0.2 mg/dL (0.0-0.5); Bilirubin Total 0.4 mg/dL (0.0-1.0); Blood Urea Nitrogen 15 mg/dL (9-16); Calcium 8.9 mg/dL (8.4-10.2); Carbon Dioxide 30 mmol/L (22-29); Chloride 107 mmol/L (96-108); Creatinine Clr Calc Pharmacy 72.9; Estimated Glomerular Filt Rate > 60; Glucose Fasting 117 mg/dL (60-99); Magnesium 1.9 mg/dL (1.6-2.6); Potassium 3.7 mmol/L (3.3-5.1); Sodium 145 mmol/L (135-145); Total Protein 6.2 g/dL (6.5-8.0)
[2023-08-11] MEDS: Albuterol/Iprat 2.5/0.5MG 3 ML AMPUL.NEB INHALE (07:26)
--- NOTE | 2023-08-11 08:40 | MHC.CM.PN ---
[facility]LIN 08/11/23, EMR REVIEWED, PT ADMITTED W/SYNCOPE. CM MET W/PT AT BEDSIDE, PT A&O X3, PT REPORTS HE LIVES W/, HE HAS A CANE AND WALKER AT HOME HOWEVER USES NEEDED, PT DENIES HAVING ANY HOME SERVICES AND HE AND DO ALL THE COOOKING/CLEANING. PT REPORTS GOAL OF DC IS TO [place] SOON POSSIBLE HE IS ANXIOUS TO GET HOME. PT VERIFIES PCP IS DR. ROBB AND HCP IS LILIAM REDDY AND COPY HAS BEEN REQUESTED.
[2023-08-11] MEDS: Atorvastatin Calcium 80 MG TABLET PO (09:11)
[2023-08-11] MEDS: predniSONE 10 MG TABLET PO (09:11)
[2023-08-11] MEDS: Enoxaparin Sodium 40 MG/0.4 ML SYRINGE SUBCUT (09:11)
[2023-08-11] MEDS: Ezetimibe 10 MG TABLET PO (09:11)
[2023-08-11] MEDS: Cholecalciferol (Vitamin D3) 25 MCG TABLET 50 MCG PO (09:11)
[2023-08-11] MEDS: 0.9 % Sodium Chloride Flush 3 ML SYRINGE IVFLUSH (09:14)
--- NOTE | 2023-08-11 10:14 | HO.PM.IMPN ---
Subjective Subjective Date of Service: 08/11/23 Interval History: increased confusion, no complaints Physical Exam Vital Signs: Vital Signs: Last Vital Signs Temp 97.2 F 08/11/23 08:00 Pulse 69 08/11/23 09:20 Resp 16 08/11/23 08:00 BP 100/60 08/11/23 09:20 Pulse Ox 99 08/11/23 08:00 O2 Del Method Room Air 08/11/23 08:00 BMI result Body Mass Index 22.9 confused, oriented to person and place, agitatied at times, lungs clear Objective Data Active Medications Acetaminophen (Acetaminophen 325 Mg Tablet) 650 mg PO Q6H PRN PRN Reason: Pain, Mild (Pain Scale 1-3) Albuterol Sulfate (Albuterol Sulfate 90 Mcg 8 Gm Inhaler) 2 puff INHALE RQ6H PRN PRN Reason: for dyspnea Albuterol/Ipratropium (Albuterol/Iprat 2.5/0.5mg 3 Ml Ampul.Neb) 3 ml INHALE BID [facility] Last Admin: 08/11/23 07:26 Dose: 3 ml Documented By: SADE Atorvastatin Calcium (Atorvastatin Calcium 80 Mg Tablet) 80 mg PO DAILY [facility] Last Admin: 08/11/23 09:11 Dose: 80 mg Documented By: ALEXI Azithromycin (Azithromycin 500 Mg Tablet) 500 mg PO MOWEFR [facility] Last Admin: 08/10/23 17:49 Dose: 500 mg Documented By: ADOLFO Diazepam (Diazepam 5 Mg Tablet) 5 mg PO TID PRN PRN Reason: Anxiety Last Admin: 08/10/23 20:00 Dose: 5 mg Documented By: LILLY Ezetimibe (Ezetimibe 10 Mg Tablet) 10 mg PO DAILY [facility] Last Admin: 08/11/23 09:11 Dose: 10 mg Documented By: ALEXI Enoxaparin Sodium (Enoxaparin Sodium 40 Mg/0.4 Ml Syringe) 40 mg SUBCUT Q24H [facility] Last Admin: 08/11/23 09:11 Dose: 40 mg Documented By: ALEXI Fluticasone Propionate (Fluticasone Propionate Nasal 16 Gm [place]) 1 spray NOSTRIL-B DAILY PRN PRN Reason: allergy symptoms Oxycodone HCl (Oxycodone Hcl Immed Release 5 Mg Tablet) 20 mg PO TID PRN PRN Reason: mpain Last Admin: 08/10/23 20:00 Dose: 20 mg Documented By: LILLY Prednisone (Prednisone 10 Mg Tablet) 10 mg PO DAILY [facility] Last Admin: 08/11/23 09:11 Dose: 10 mg Documented By: ALEXI Sodium Chloride (0.9 % Sodium Chloride Flush 3 Ml Syringe) 3 ml IVFLUSH QSHIFT [facility] Last Admin: 08/11/23 09:14 Dose: 3 ml Documented By: ALEXI Vitamin D (Cholecalciferol (Vitamin D3) 25 Mcg Tablet) 50 mcg PO DAILY [facility] Last Admin: 08/11/23 09:11 Dose: 50 mcg Documented By: ALEXI Labs 08/11/23 06:07 08/11/23 06:07 Labs: Laboratory Results - last 24 hr 08/10/23 08/10/23 08/10/23 12:36 12:37 14:19 MCV 97.9 MCH 33.0 MCHC 33.7 RDW 13.4 Plt Count 122 L MPV 9.3 L Immature Gran % (Auto) 0.2 Neut % (Auto) 81.7 H Lymph % (Auto) 13.5 L [place] % (Auto) 3.6 Eos % (Auto) 0.5 Baso % (Auto) 0.5 Lymph # (Auto) 0.9 L [place] # (Auto) 0.2 Eos # (Auto) 0.0 Baso # (Auto) 0.0 Abs Immat Gran (auto) 0.01 Absolute Neuts (auto) 5.4 Absolute Nucleated RBC 0.000 Nucleated RBC % (auto) 0.0 PT 11.3 INR 0.9 APTT 34.5 Anion Gap 12 Estim Creat Clear Calc 68.2 Estimated GFR > 60 Random Glucose 102 Fasting Glucose Calcium 9.3 Magnesium 2.1 Total Bilirubin 1.0 Direct Bilirubin AST 20 ALT 31 Alkaline Phosphatase 65 Troponin I High Sens < 2.7 Total Protein 7.0 Albumin 4.1 Lipase 13 Influenza Type A (PCR) NEGATIVE Influenza Type B (PCR) NEGATIVE RSV RNA Qual (PCR) NEGATIVE SARS-CoV-2 RNA (RT-PCR) NEGATIVE 08/11/23 06:07 MCV 97.7 MCH 32.4 MCHC 33.2 RDW 13.4 Plt Count 108 L MPV 9.5 Immature Gran % (Auto) Neut % (Auto) Lymph % (Auto) [place] % (Auto) Eos % (Auto) Baso % (Auto) Lymph # (Auto) [place] # (Auto) Eos # (Auto) Baso # (Auto) Abs Immat Gran (auto) Absolute Neuts (auto) Absolute Nucleated RBC 0.000 Nucleated RBC % (auto) 0.0 PT INR APTT Anion Gap 12 Estim Creat Clear Calc 72.9 Estimated GFR > 60 Random Glucose Fasting Glucose 117 H Calcium 8.9 Magnesium 1.9 Total Bilirubin 0.4 Direct Bilirubin 0.2 AST 17 ALT 26 Alkaline Phosphatase 57 Troponin I High Sens Total Protein 6.2 L Albumin 3.8 Lipase Influenza Type A (PCR) Influenza Type B (PCR) RSV RNA Qual (PCR) SARS-CoV-2 RNA (RT-PCR) Assessment and Plan (1) Syncope: Status: Acute Plan 82M PMH COPD, htn, distal AA, CAD (occluded RCA), presented with syncope Syncope Likely combination of micturition syncope in the setting of BPH and relative hypotension due to medications no events on tele holding bp meds orthostatic negative suspect underlying unspecified dementia now with [facility] hospital delerium sitter for safety Hypertension history with current relative hypotension Hold meds for now, titrate back on as-needed COPD Stable, follows with Dr. Kaiser as outpatient Continue inhalers, prednisone Coronary disease Continue statin DVT prophylaxis with Lovenox Full Code reason for continued hospitalization:safe dispo Quality Stroke Does the patient have a stroke diagnosis?: No VTE Prior VTE?: No VTE Risk Level:: Medical - moderate - high VTE Device Contraindication: Treatment Not Indicated VTE Drug Contraindication: N/A - Med Ordered
[2023-08-11] MEDS: oxyCODONE HCl Immed Release 5 MG TABLET 20 MG PO (10:36)
--- NOTE | 2023-08-11 10:55 | P.DS_ITS ---
DS: Providers Provider Date of Service: 08/11/23 Date of admission: 08/10/23 16:29 Primary care physician: Tai Cavazos MD DS: Diagnosis Discharge Diagnosis (1) Syncope: Status: Acute DS: Summary Hospital Course Hospital Course: from initial hpi: 82M PMH COPD, htn, distal AA, CAD (occluded RCA), presented with syncope. Patient has poor memory of the event but reports stenting in bathroom getting ready to urinate, having trouble getting urine stream and then reports full loss of consciousness and hitting his head on the bathtub. His found him and drove him to the hospital. Trauma workup was negative. EKG showed sinus Joselo arrhythmia in the 50s. Patient is on metoprolol 100 mg daily for hypertension. Blood pressure was also in the low 90s. Patient also reports 20 kg unintentional weight loss in last 1 year, within that time has had negative CT chest and CT abdomen. hospital course: Patient was observed for syncope. This was likely due to micturition syncope in the setting of BPH and relative hypotension due to medications. Patient had no events while on telemetry. His orthostatic vital signs were negative. His blood pressure medications of metoprolol 100 mg and Imdur 60 mg have been held and blood pressures have remained low normal. Will continue to hold blood pressure medications and follow up outpatient. Course was complicated by acute hospital delirium. After discussion with patient's significant other, patient likely with moderate underlying unspecified dementia. For COPD patient was continued on his prednisone and inhalers and should follow up with Dr. Kaiser as outpatient. For coronary artery disease was continued on statin. For unintentional weight loss he should follow up with primary care physician for age-appropriate cancer screening. Time Attestation Discharge Coordination Time (in mins): 35 Quality: Safe Use of Opioids Does Pt have an Active Cancer Diagnosis on the Problem List?: No Quality: Stroke Does the patient have a stroke diagnosis?: No Physical Exam Vital Signs: Vital Signs: Last Vital Signs Temp 97.2 F 08/11/23 08:00 Pulse 69 08/11/23 09:20 Resp 16 08/11/23 08:00 BP 100/60 08/11/23 09:20 Pulse Ox 99 08/11/23 08:00 O2 Del Method Room Air 08/11/23 08:00 BMI result Body Mass Index 22.9 General: AO X 3, no acute distress Resp: CTA bilateral, no accessory muscles used CVS: S1,S2,RRR GI: soft, non tender, non distended Neuro: motor grossly intact, alert DS: Data Data Completed and Pending Labs on day of discharge: Laboratory Results - last 24 hr 08/10/23 08/10/23 08/10/23 12:36 12:37 14:19 WBC 6.6 RBC 4.67 Hgb 15.4 Hct 45.7 MCV 97.9 MCH 33.0 MCHC 33.7 RDW 13.4 Plt Count 122 L MPV 9.3 L Immature Gran % (Auto) 0.2 Neut % (Auto) 81.7 H Lymph % (Auto) 13.5 L [place] % (Auto) 3.6 Eos % (Auto) 0.5 Baso % (Auto) 0.5 Lymph # (Auto) 0.9 L [place] # (Auto) 0.2 Eos # (Auto) 0.0 Baso # (Auto) 0.0 Abs Immat Gran (auto) 0.01 Absolute Neuts (auto) 5.4 Absolute Nucleated RBC 0.000 Nucleated RBC % (auto) 0.0 PT 11.3 INR 0.9 APTT 34.5 Sodium 145 Potassium 4.3 Chloride 107 Carbon Dioxide 30 H Anion Gap 12 BUN 15 Creatinine 0.92 Estim Creat Clear Calc 68.2 Estimated GFR > 60 Random Glucose 102 Fasting Glucose Calcium 9.3 Magnesium 2.1 Total Bilirubin 1.0 Direct Bilirubin AST 20 ALT 31 Alkaline Phosphatase 65 Troponin I High Sens < 2.7 Total Protein 7.0 Albumin 4.1 Lipase 13 Influenza Type A (PCR) NEGATIVE Influenza Type B (PCR) NEGATIVE RSV RNA Qual (PCR) NEGATIVE SARS-CoV-2 RNA (RT-PCR) NEGATIVE 08/11/23 06:07 WBC 6.9 RBC 4.35 L Hgb 14.1 Hct 42.5 MCV 97.7 MCH 32.4 MCHC 33.2 RDW 13.4 Plt Count 108 L MPV 9.5 Immature Gran % (Auto) Neut % (Auto) Lymph % (Auto) [place] % (Auto) Eos % (Auto) Baso % (Auto) Lymph # (Auto) [place] # (Auto) Eos # (Auto) Baso # (Auto) Abs Immat Gran (auto) Absolute Neuts (auto) Absolute Nucleated RBC 0.000 Nucleated RBC % (auto) 0.0 PT INR APTT Sodium 145 Potassium 3.7 Chloride 107 Carbon Dioxide 30 H Anion Gap 12 BUN 15 Creatinine 0.85 Estim Creat Clear Calc 72.9 Estimated GFR > 60 Random Glucose Fasting Glucose 117 H Calcium 8.9 Magnesium 1.9 Total Bilirubin 0.4 Direct Bilirubin 0.2 AST 17 ALT 26 Alkaline Phosphatase 57 Troponin I High Sens Total Protein 6.2 L Albumin 3.8 Lipase Influenza Type A (PCR) Influenza Type B (PCR) RSV RNA Qual (PCR) SARS-CoV-2 RNA (RT-PCR) Discharge Plan Discharge Anticipated Discharge Date/Time: 08/11/23 10:53 Patient Disposition: Home, Self-Care Discharge Diagnosis: syncope Referrals: Tai Cavazos MD [Primary Care Provider] - 1 Week Discharge Medications: Continued albuterol sulfate [Ventolin HFA] 90 mcg/actuation HFA aerosol inhaler 2 puff PO Q6H PRN (Reason: for dyspnea) Qty: 18 11RF ezetimibe 10 mg tablet 10 mg PO DAILY Qty: 90 1RF budesonide 0.5 mg/2 mL suspension for nebulization 0.5 mg inhalation BID Qty: 360 3RF cholecalciferol (vitamin D3) 50 mcg (2,000 unit) capsule 50 mcg PO DAILY Qty: 90 3RF fluticasone propionate 50 mcg/actuation spray,suspension 1 spray intranasal DAILY PRN (Reason: allergy symptoms) Qty: 16 1RF oxycodone 20 mg tablet 20 mg PO TID PRN (Reason: pain) 28 Days Qty: 84 0RF Rx Instructions: Partial Fill upon patient request diazepam 5 mg tablet 5 mg PO TID PRN (Reason: Anxiety) 28 Days Qty: 84 0RF Rx Instructions: Take ONLY NEEDED for anxiety azithromycin 500 mg tablet 500 mg PO WEFR Rx Instructions: Sunday, Sunday, Sunday atorvastatin 80 mg tablet 80 mg PO DAILY Qty: 90 3RF prednisone 10 mg tablet 10 mg PO DAILY 30 Days Qty: 30 3RF ipratropium-albuterol 0.5 mg-3 mg(2.5 mg base)/3 mL solution for nebulization 3 ml inhalation BID 30 Days Qty: 180 11RF (DME) nebulizers Misc See Rx Instructions .Route Rx Instructions: As directed Discontinued isosorbide mononitrate 60 mg tablet extended release 24 hr 60 mg PO DAILY Qty: 90 2RF metoprolol succinate 100 mg tablet extended release 24 hr 100 mg PO DAILY Qty: 90 1RF Discharge Orders: Discharge Order (Routine); Ordered 08/11/23 Ordered By: Rigo Todd Diet: Advance to usual diet Activity on Discharge: As tolerated Stand Alone Forms: Patient Portal Discharge page Print Language: Croatian Care Plan Goals: avoid syncopal events Health Concerns: sycnope, unintentional weight loss Plan of Treatment: hold off on bp meds for now, monitor bp, follow up pcp. avoid straining while urinating age appropriate cancer screening Assessment: see above
== END 2023-08-11 11:59 | disposition home or self-care (01) ==
LOC: HO.ED 15:56 → HO.EDOVER 16:48 → HO.S3 08-11 01:08
PROVIDERS: Physician Assistant Medical; Admitting Provider Internal Medicine; Emergency Provider Emergency Medicine; PCP Internal Medicine; Visit Provider Internal Medicine
DX: R55 Syncope and collapse (principal); S06.9X9A Unspecified intracranial injury with loss of consciousness of unspecified duration, initial encounter; W18.39XA Other fall on same level, initial encounter; Y93.89 Activity, other specified; Y92.091 Bathroom in other non-institutional residence as the place of occurrence of the external cause; Y99.9 Unspecified external cause status; I95.9 Hypotension, unspecified; R41.0 Disorientation, unspecified; R00.1 Bradycardia, unspecified; R63.4 Abnormal weight loss; Z68.22 Body mass index [BMI] 22.0-22.9, adult; I12.9 Hypertensive chronic kidney disease with stage 1 through stage 4 chronic kidney disease, or unspecified chronic kidney disease; N18.9 Chronic kidney disease, unspecified; J44.9 Chronic obstructive pulmonary disease, unspecified; I25.10 Atherosclerotic heart disease of native coronary artery without angina pectoris; M54.2 Cervicalgia; N40.0 Benign prostatic hyperplasia without lower urinary tract symptoms; Z03.818 Encounter for observation for suspected exposure to other biological agents ruled out
CPT/HCPCS: 0241U; 36415; 70450; 71046; 72125; 80048; 80053; 80076; 83690; 83735; 84484; 85025; 85027; 85610; 85730; 93005; 94640; 96372; 99221; 99285; J1650

== ENCOUNTER → 2023-08-10 12:25 | Outpatient (BNV) | payer MEDICARE, MEDICAID, SELFPAY | PROVIDERS: Emergency Provider Emergency Medicine; PCP Internal Medicine; Visit Provider Internal Medicine Cardiovascular Disease | DX: R55 Syncope and collapse (principal) | CPT/HCPCS: 93010 ==

== ENCOUNTER → 2023-08-10 16:29 | Outpatient (BNV) | payer MEDICARE, MEDICAID, SELFPAY | PROVIDERS: Admitting Provider Internal Medicine; Emergency Provider Emergency Medicine; PCP Internal Medicine; Visit Provider Internal Medicine | DX: R55 Syncope and collapse (principal) | CPT/HCPCS: 99223; 99239; 99499 ==

== ENCOUNTER 2023-08-27 15:01 | Outpatient (AMB) | payer MEDICARE, SELFPAY ==
[2023-08-27 15:02] VITALS: BP 162/90; PULSE 65; O2SAT 98; BMI 21.9
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
== END 2023-08-27 16:19 | disposition home or self-care (01) ==
PROVIDERS: PCP Internal Medicine; Visit Provider Internal Medicine
DX: R55 Syncope and collapse (principal); J44.0 Chronic obstructive pulmonary disease with (acute) lower respiratory infection; I71.40 Abdominal aortic aneurysm, without rupture, unspecified; I25.10 Atherosclerotic heart disease of native coronary artery without angina pectoris; E78.00 Pure hypercholesterolemia, unspecified; I10 Essential (primary) hypertension; M51.36 Other intervertebral disc degeneration, lumbar region; M47.892 Other spondylosis, cervical region; J30.9 Allergic rhinitis, unspecified; E53.8 Deficiency of other specified B group vitamins; E55.9 Vitamin D deficiency, unspecified; K59.00 Constipation, unspecified
CPT/HCPCS: 99214

== ENCOUNTER 2023-08-28 07:05 | Outpatient (REF) | payer MEDICARE, SELFPAY ==
[2023-08-28 07:24] LABS: MANUAL DIFF FLAG NO
[2023-08-28 08:01] LABS: Basophils Percent Auto 0.3 % (0-2); Eosinophils Absolute Auto 0.1 X10*3/uL (0.0-0.4); Eosinophils Percent Auto 1.7 % (0-4); Hematocrit 47.1 % (42.0-52.0); Hemoglobin 15.9 g/dl (14.0-18.0); Imm Gran Abs Auto 0.02 X10*3/uL (0.00-0.03); Imm Gran Pct Auto 0.3 % (0.0-0.4); Lymphocytes Absolute Auto 2.3 X10*3/uL (1.2-4.9); Lymphocytes Percent Auto 35.8 % (20-40); Mean Corpuscular HGB Conc 33.8 g/dl (31.0-36.0); Mean Corpuscular Hemoglobin 32.7 pg (27.0-33.0); Mean Corpuscular Volume 96.9 fL (80.0-98.0); Mean Platelet Volume 9.7 fL (9.4-12.4); Monocytes Absolute Auto 0.5 X10*3/uL (0.1-1.2); Monocytes Percent Auto 7.8 % (2-11); Neutrophils Absolute Auto 3.5 x10*3/uL (2.0-8.3); Neutrophils Percent Auto 54.1 % (45-73); Platelet Count 153 X10*3/uL (160-400); Red Blood Count 4.86 X10*6/uL (4.60-5.80); Red Cell Distribution Width 13.3 % (11.0-16.0); White Blood Count 6.4 X10*3/uL (4.8-10.8)
[2023-08-28 08:08] LABS: Estimated Average Glucose 114 mg/dL; Hemoglobin A1C 149.2091 umol/L; Hemoglobin A1c % 5.6 % (<6.0)
[2023-08-28 08:41] LABS: Alanine Aminotransferase 26 U/L (0-40); Albumin Level 4.1 g/dL (3.5-5.0); Alkaline Phosphatase 65 U/L (39-117); Anion Gap 14 (12-20); Aspartate Amino Transferase 22 U/L (5-37); Bilirubin Total 0.7 mg/dL (0.0-1.0); Blood Urea Nitrogen 14 mg/dL (9-16); C Reactive Protein < 0.10 mg/dL (< or = 0.50); Calcium 9.9 mg/dL (8.4-10.2); Carbon Dioxide 27 mmol/L (22-29); Chloride 109 mmol/L (96-108); Cholesterol 122 mg/dL (<200); Estimated Glomerular Filt Rate > 60; Glucose Fasting 89 mg/dL (60-99); HDL Cholesterol 60 mg/dL (>40); LDL Cholesterol Calculated 43 mg/dL (<100); Magnesium 1.9 mg/dL (1.6-2.6); Potassium 4.4 mmol/L (3.3-5.1); Sodium 146 mmol/L (135-145); Total Protein 6.6 g/dL (6.5-8.0); Triglycerides 98 mg/dL (<150)
[2023-08-28 08:55] LABS: Erythrocyte Sedimentation Rate 2 MM/HR (0-15)
[2023-08-28 09:01] LABS: TSH reflex Free T4 2.23 uIU/mL (0.32-4.0); Vitamin D 25-OH Total 35.5 ng/mL (>30)
[2023-08-28 09:05] LABS: Folate 6.6 ng/mL (> or = 4.0); Vitamin B12 421 pg/mL (200-900)
[2023-08-28 09:33] LABS: Appearance Urine Clear; Color Urine Yellow; Glucose Urine UA Negative (Negative); Leukocyte Esterase Urine Negative (Negative); Nitrite Urine Negative (Negative); PH 5.5 (5.0-9.0); Specific Gravity - Urine 1.025 (1.005-1.025); UMIC TRIGGER UACC YES; Urine Blood Trace (Negative); Urine Ketones Negative (Negative); Urine Protein Negative (Neg-Trace)
[2023-08-28 09:35] LABS: Bacteria Urine None Seen (None Seen); Hyaline Casts Urine 0-2 /LPF (0-2); Squamous Epithelial Cell Urine 0-2 /HPF (0-2); WBC Urine 0-5 /HPF (0-5)
== END 2023-08-28 07:06 | disposition home or self-care (01) ==
LOC: HO.LAB 07:05
PROVIDERS: PCP Internal Medicine; Visit Provider Internal Medicine
DX: E78.00 Pure hypercholesterolemia, unspecified (principal); E55.9 Vitamin D deficiency, unspecified; R63.4 Abnormal weight loss; E53.8 Deficiency of other specified B group vitamins; R73.9 Hyperglycemia, unspecified; M79.7 Fibromyalgia; D64.9 Anemia, unspecified; R30.0 Dysuria; I10 Essential (primary) hypertension
CPT/HCPCS: 36415; 80053; 80061; 81001; 82306; 82607; 82746; 83036; 83735; 84443; 85025; 85652; 86140

== ENCOUNTER 2023-09-25 16:02 | Emergency (ER) | payer MEDICARE, SELFPAY ==
--- NOTE | ~2023-09-25 | XR_ITS ---
EXAMINATION: XR CHEST CLINICAL INFORMATION: Difficulty breathing COMPARISON: 08/10/2023 TECHNIQUE: 2 views of the chest were obtained. FINDINGS: Heart size is normal. Prominent pulmonary arteries suggesting pulmonary hypertension. The lungs are markedly hyperinflated with flattening of the diaphragms compatible with COPD. No infiltrates, effusions or lung masses are seen. XR/XR chest 2V IMPRESSION: COPD and pulmonary hypertension. No acute intrathoracic disease.
--- NOTE | 2023-09-25 16:35 | ECG_ITS ---
Test Reason : SOB Blood Pressure : / mmHG Vent. Rate : 072 BPM Atrial Rate : 072 BPM P-R Int : 120 ms QRS Dur : 084 ms QT Int : 378 ms P-R-T Axes : 075 059 064 degrees QTc Int : 413 ms Normal sinus rhythm Normal ECG When compared with ECG of 10-AUG-2023 12:33, No significant change was found Referred By: Michelle Carter Electronically Signed By:HUI GRAY
[2023-09-25 16:56] VITALS: BP 111/61; PULSE 73; RESP 16; TEMP 36.6; O2SAT 98; BMI 23.7
[2023-09-25 18:05] VITALS: PULSE 74; RESP 12; O2SAT 96
[2023-09-25] MEDS: Albuterol/Iprat 2.5/0.5MG 3 ML AMPUL.NEB INHALE (18:05)
[2023-09-25 18:10] LABS: MANUAL DIFF FLAG NO
[2023-09-25] MEDS: methylPREDNISolone Sod Succ 125 MG/2 ML VIAL 60 MG IVPUSH (18:12)
[2023-09-25] MEDS: cefTRIAXone sodium 1 GM in 0.9 % Sodium Chloride 50 ML IV (18:14)
[2023-09-25 18:22] LABS: Basophils Percent Auto 0.3 % (0-2); Eosinophils Percent Auto 0.1 % (0-4); Hematocrit 44.7 % (42.0-52.0); Hemoglobin 15.4 g/dl (14.0-18.0); Imm Gran Abs Auto 0.04 X10*3/uL (0.00-0.03); Imm Gran Pct Auto 0.4 % (0.0-0.4); Lymphocytes Absolute Auto 1.1 X10*3/uL (1.2-4.9); Lymphocytes Percent Auto 11.4 % (20-40); Mean Corpuscular HGB Conc 34.5 g/dl (31.0-36.0); Mean Corpuscular Hemoglobin 33.4 pg (27.0-33.0); Mean Platelet Volume 9.4 fL (9.4-12.4); Monocytes Absolute Auto 0.7 X10*3/uL (0.1-1.2); Monocytes Percent Auto 7.4 % (2-11); Neutrophils Absolute Auto 7.9 x10*3/uL (2.0-8.3); Neutrophils Percent Auto 80.4 % (45-73); Platelet Count 143 X10*3/uL (160-400); Red Blood Count 4.61 X10*6/uL (4.60-5.80); Red Cell Distribution Width 13.3 % (11.0-16.0); White Blood Count 9.8 X10*3/uL (4.8-10.8)
[2023-09-25 18:28] LABS: Alanine Aminotransferase 21 U/L (0-40); Albumin Level 3.9 g/dL (3.5-5.0); Alkaline Phosphatase 59 U/L (39-117); Anion Gap 10 (12-20); Aspartate Amino Transferase 15 U/L (5-37); Bilirubin Total 0.5 mg/dL (0.0-1.0); Blood Urea Nitrogen 12 mg/dL (9-16); Calcium 9.2 mg/dL (8.4-10.2); Carbon Dioxide 29 mmol/L (22-29); Chloride 109 mmol/L (96-108); Estimated Glomerular Filt Rate > 60; Glucose Random 103 mg/dL (60-115); Lipase 17 U/L (8-78); Magnesium 2.1 mg/dL (1.6-2.6); Potassium 4.1 mmol/L (3.3-5.1); Sodium 144 mmol/L (135-145); Total Protein 6.3 g/dL (6.5-8.0)
[2023-09-25 18:29] LABS: Prothrombin Time 11.8 SEC (11.1-13.3)
[2023-09-25 18:31] VITALS: BP 121/71; PULSE 73; RESP 16; TEMP 36.6; O2SAT 97
[2023-09-25 18:34] LABS: B Type Natriuretic Peptide 16 pg/mL (<100)
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
[2023-09-25 18:49] LABS: Troponin-I High Sensitivity < 2.7 ng/L (<3.5-35.0)
[2023-09-25 19:24] LABS: Influenza A PCR NEGATIVE (Negative); Influenza B PCR NEGATIVE (Negative); Resp Syncy Virus RNA Qual PCR NEGATIVE (Negative); SARS COV2 PCR INHOUSE NEGATIVE (Negative)
[2023-09-25] MEDS: diazePAM 5 MG TABLET PO (19:37)
--- NOTE | 2023-09-25 20:17 | PC.NURSE ---
pt requesting to leave, provider aware. agreed to stay for a little longer. awaiting CXR
[2023-09-25] MEDS: oxyCODONE HCl Immed Release 5 MG TABLET 20 MG PO (20:33)
[2023-09-25 21:43] VITALS: BP 115/56; PULSE 78; RESP 21; TEMP 36.6; O2SAT 95
[2023-09-25 22:01] VITALS: BP 115/56; PULSE 78; RESP 21; TEMP 36.6; O2SAT 95
== END 2023-09-25 22:02 | disposition home or self-care (01) ==
PROVIDERS: Physician Assistant Medical; Emergency Provider Internal Medicine; PCP Internal Medicine
DX: J44.1 Chronic obstructive pulmonary disease with (acute) exacerbation (principal); R06.02 Shortness of breath; R53.1 Weakness; Z03.818 Encounter for observation for suspected exposure to other biological agents ruled out; Z79.899 Other long term (current) drug therapy
CPT/HCPCS: 0241U; 36415; 71046; 80053; 83690; 83735; 83880; 84484; 85025; 85610; 93005; 94640; 96365; 96375; 99284; 99285; J0696; J2919

== ENCOUNTER → 2023-09-25 16:35 | Outpatient (BNV) | payer MEDICARE, SELFPAY | PROVIDERS: Emergency Provider Internal Medicine; PCP Internal Medicine; Visit Provider Internal Medicine | DX: R06.02 Shortness of breath (principal) | CPT/HCPCS: 93010 ==

== ENCOUNTER 2023-09-27 14:35 | Outpatient (AMB) | payer MEDICARE, SELFPAY ==
[2023-09-27 14:47] VITALS: PULSE 83; O2SAT 96; BMI 23.3
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
== END 2023-09-27 15:10 | disposition home or self-care (01) ==
PROVIDERS: PCP Internal Medicine; Visit Provider Hospitalist
DX: J96.11 Chronic respiratory failure with hypoxia (principal); J44.0 Chronic obstructive pulmonary disease with (acute) lower respiratory infection; K21.9 Gastro-esophageal reflux disease without esophagitis; J98.09 Other diseases of bronchus, not elsewhere classified; R26.81 Unsteadiness on feet
CPT/HCPCS: 99214

== ENCOUNTER → 2023-09-27 14:35 | Outpatient (BNVA) | payer MEDICARE, SELFPAY | PROVIDERS: PCP Internal Medicine; Visit Provider Hospitalist | DX: J96.11 Chronic respiratory failure with hypoxia (principal); J44.0 Chronic obstructive pulmonary disease with (acute) lower respiratory infection; K21.9 Gastro-esophageal reflux disease without esophagitis; J98.09 Other diseases of bronchus, not elsewhere classified; R26.81 Unsteadiness on feet; Z99.81 Dependence on supplemental oxygen | CPT/HCPCS: 99212 ==

== ENCOUNTER 2023-10-16 14:32 | Outpatient (AMB) | payer MEDICARE, SELFPAY ==
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
[2023-10-16 14:36] VITALS: BP 120/76; PULSE 91; O2SAT 96; BMI 21.8
== END 2023-10-16 15:19 | disposition home or self-care (01) ==
PROVIDERS: PCP Internal Medicine; Visit Provider Internal Medicine
DX: J44.0 Chronic obstructive pulmonary disease with (acute) lower respiratory infection (principal); I71.40 Abdominal aortic aneurysm, without rupture, unspecified; I25.10 Atherosclerotic heart disease of native coronary artery without angina pectoris; E78.00 Pure hypercholesterolemia, unspecified; I10 Essential (primary) hypertension; R73.01 Impaired fasting glucose; E53.8 Deficiency of other specified B group vitamins; M51.36 Other intervertebral disc degeneration, lumbar region; M47.892 Other spondylosis, cervical region; K21.9 Gastro-esophageal reflux disease without esophagitis; J30.9 Allergic rhinitis, unspecified; E55.9 Vitamin D deficiency, unspecified
CPT/HCPCS: 99214; G2211

== ENCOUNTER 2023-11-13 10:36 | Outpatient (AMB) | payer MEDICARE, SELFPAY ==
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
[2023-11-13 10:40] VITALS: BP 120/58; PULSE 88; BMI 22.1
== END 2023-11-13 11:03 | disposition home or self-care (01) ==
PROVIDERS: PCP Internal Medicine; Visit Provider Internal Medicine Cardiovascular Disease
DX: I25.10 Atherosclerotic heart disease of native coronary artery without angina pectoris (principal); I49.1 Atrial premature depolarization
CPT/HCPCS: 99214

== ENCOUNTER → 2023-11-13 10:36 | Outpatient (BNVA) | payer MEDICARE, SELFPAY | PROVIDERS: PCP Internal Medicine; Visit Provider Internal Medicine Cardiovascular Disease | DX: I25.10 Atherosclerotic heart disease of native coronary artery without angina pectoris (principal); I49.1 Atrial premature depolarization | CPT/HCPCS: 99212 ==

== ENCOUNTER 2023-11-28 10:12 | Outpatient (REF) | payer MEDICARE, SELFPAY ==
[2023-11-28 10:37] LABS: MANUAL DIFF FLAG NO
[2023-11-28 10:47] LABS: Basophils Percent Auto 0.4 % (0-2); Eosinophils Percent Auto 0.3 % (0-4); Hematocrit 49.6 % (42.0-52.0); Hemoglobin 17.4 g/dl (14.0-18.0); Imm Gran Abs Auto 0.05 X10*3/uL (0.00-0.03); Imm Gran Pct Auto 0.5 % (0.0-0.4); Lymphocytes Absolute Auto 0.8 X10*3/uL (1.2-4.9); Lymphocytes Percent Auto 8.5 % (20-40); Mean Corpuscular HGB Conc 35.1 g/dl (31.0-36.0); Mean Corpuscular Hemoglobin 33.3 pg (27.0-33.0); Mean Corpuscular Volume 94.8 fL (80.0-98.0); Mean Platelet Volume 9.2 fL (9.4-12.4); Monocytes Absolute Auto 0.5 X10*3/uL (0.1-1.2); Monocytes Percent Auto 4.6 % (2-11); Neutrophils Absolute Auto 8.3 x10*3/uL (2.0-8.3); Neutrophils Percent Auto 85.7 % (45-73); Platelet Count 158 X10*3/uL (160-400); Red Blood Count 5.23 X10*6/uL (4.60-5.80); Red Cell Distribution Width 13.3 % (11.0-16.0); White Blood Count 9.7 X10*3/uL (4.8-10.8)
[2023-11-28 11:29] LABS: Anion Gap 13 (12-20); Blood Urea Nitrogen 16 mg/dL (9-16); Calcium 9.6 mg/dL (8.4-10.2); Carbon Dioxide 23 mmol/L (22-29); Chloride 108 mmol/L (96-108); Estimated Glomerular Filt Rate > 60; Glucose Random 122 mg/dL (60-115); Potassium 3.8 mmol/L (3.3-5.1); Sodium 140 mmol/L (135-145)
[2023-11-28 11:32] LABS: Erythrocyte Sedimentation Rate 3 MM/HR (0-15)
[2023-11-28 11:48] LABS: TSH reflex Free T4 0.86 uIU/mL (0.32-4.0)
== END 2023-11-28 10:13 | disposition home or self-care (01) ==
LOC: HO.LAB 10:12
PROVIDERS: PCP Internal Medicine; Visit Provider Psychiatry & Neurology Neurology
DX: G31.84 Mild cognitive impairment of uncertain or unknown etiology (principal)
CPT/HCPCS: 36415; 80048; 84443; 85025; 85652

== ENCOUNTER 2024-01-29 14:12 | Outpatient (AMB) | payer MEDICARE, SELFPAY ==
[2024-01-29 14:15] VITALS: BP 110/80; PULSE 94; O2SAT 95; BMI 22.9
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
== END 2024-01-29 15:16 | disposition home or self-care (01) ==
PROVIDERS: PCP Internal Medicine; Visit Provider Internal Medicine
DX: Z23 Encounter for immunization (principal)

== ENCOUNTER → 2024-01-29 14:12 | Outpatient (BNVA) | payer MEDICARE, SELFPAY | PROVIDERS: PCP Internal Medicine; Visit Provider Internal Medicine | DX: J44.0 Chronic obstructive pulmonary disease with (acute) lower respiratory infection (principal); I25.10 Atherosclerotic heart disease of native coronary artery without angina pectoris; E78.00 Pure hypercholesterolemia, unspecified; I10 Essential (primary) hypertension; R73.01 Impaired fasting glucose; E53.8 Deficiency of other specified B group vitamins; I71.40 Abdominal aortic aneurysm, without rupture, unspecified; M51.360 Other intervertebral disc degeneration, lumbar region with discogenic back pain only; M47.892 Other spondylosis, cervical region; K21.9 Gastro-esophageal reflux disease without esophagitis; J30.9 Allergic rhinitis, unspecified; E55.9 Vitamin D deficiency, unspecified; G62.9 Polyneuropathy, unspecified; G47.62 Sleep related leg cramps; K59.00 Constipation, unspecified; G31.84 Mild cognitive impairment of uncertain or unknown etiology; F41.9 Anxiety disorder, unspecified; N40.1 Benign prostatic hyperplasia with lower urinary tract symptoms; N13.8 Other obstructive and reflux uropathy; F17.200 Nicotine dependence, unspecified, uncomplicated; Z71.6 Tobacco abuse counseling | CPT/HCPCS: 90471; 99212 ==

== ENCOUNTER 2024-03-18 10:42 | Outpatient (AMB) | payer MEDICARE, SELFPAY ==
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
--- OUTSIDE RECORDS SUMMARY | 2024-03-25 12:44 | XMS_ITS ---
Author Organization [facility] Address [address] [place] [address] Care Team Providers Care Admissions Clerk Name Role Phone Dirk FINN, [place] Primary Care Provider Unava ilable Presley Bai Unavailable [phone] REASON FOR VISIT Patient presents today for diarrhea Encounters Encounter Location Date Provider Diagnosis [facility] [address] [place] [address] 01/30/2023 Presley Bai PLAN OF TREATMENT No Information
--- OUTSIDE RECORDS SUMMARY | 2024-03-25 12:44 | XMS_ITS ---
Author Organization [facility] Address [address] [place] [id number] Care Team Providers Care Auto Body Repair Teacher Name Role Phone Dirk FINN, [place] Primary Care Provider Unava ilable Presley Bai Unavailable [phone] REASON FOR VISIT give him a call PROBLEMS Problem Type ICD Code Onset Dates Problem Status W/U Status Risk SNOMED Code Notes Problem Diarrhea of presumed infectious origin (R19.7) Active confirmed 23283102 Encounters Encounter Location Date Provider Diagnosis [facility] [address] [place] [phone] 12/26/2022 Presley Bai Diarrhea of presumed infectious origin R19.7 ASSESSMENTS Encounter Date Diagnosis Assessment Notes Treatment Notes Treatment Clinical Notes 12/26/2022 Diarrhea of presumed infectious origin (ICD-10 - R19.7) PLAN OF TREATMENT Pending Test Test Name Order Date STOOL WBC 12/26/2022 C DIFFICILE RFLX PCR 12/26/2022 Calprotectin, Fecal 12/26/2022 GI PANEL 12/26/2022
--- OUTSIDE RECORDS SUMMARY | 2024-03-25 12:44 | XMS_ITS | Patient Health Record ---
Author Organization [facility] Address [address] [place] [address] Care Team Providers Care Cnc Service Engineer Name Role Phone Dirk FINN, [place] Primary Care Provider Presley Miguel [phone] ALLERGIES Allergen (clinical drug ingredient) Drug/Non Drug Allergy documented on EMR Reaction Allergy Type Onset Date Status Motrin Unknown Drug Allergy Active celecoxib Celebrex Unknown Drug Allergy Active REASON FOR REFERRAL No Information MEDICATIONS Medication SIG (Take, Route, Frequency, Duration) Notes Start Date End Date Status Metoprolol Succinate ER 50 MG TAKE 1 TABLET BY MOUTH EVERY DAY Oral for 90 Active Atorvastatin Calcium 80 MG TAKE 1 TABLET BY MOUTH EVERY DAY Oral for 90 Active Vitamin D3 2000 UNIT TAKE ONE CAPSULE BY MOUTH EVERY DAY Oral for 90 Active Fenofibrate 160 MG TAKE 1 TABLET EVERY DAY WITH FOOD Oral for 90 Not-Taking Ezetimibe 10 MG TAKE 1 TABLET BY NETTIE TH EVERY DAY Oral for 90 Active [facility] D3 2000 UNIT TAKE ONE CAPSULE BY MOUTH EVERY DAY Oral for 30 Not-Taking Tylenol PRN Active Symbicort 80-4.5 MCG/ACT TAKE 2 PUFFS TW ICE A DAY Inhalation for 30 Active Spiriva HandiHaler 18 MCG INHALE THE CON TENTS OF 1 CAPSULE VIA HANDIHALER ONCE DAILY Inhalation for 90 Active Nitroglycerin Not-Ta katie oxyCODONE HCl 30 MG (Schedule II Drug) TAKE 1 TABLET BY MOUTH EVERY 6 HOURS NEEDED FOR PAIN Oral for 28 Active Aspirin 81 MG 1 tablet Orally Once a day Active diazePAM 10 MG (Schedule IV Drug) TAKE 1 TABLET BY MOUTH 3 TIMES A DAY NEEDED Oral for 30 Active Omeprazole 20 MG TAKE ONE CAPSULE BY MOUTH EVERY DAY Oral for 90 Active Isosorbide Mononitrate ER 60 MG TAKE 1 TABLET BY MOUTH EVERY DAY Oral for 90 Active IMMUNIZATIONS Vaccine Route Administration Date Status Comme nts Influenza Unknown 12/15/2016 Administered Influenza Unknown 02/14/2019 Administered Influenza Unknown 01/20/2020 Administered Influenza Unknown 02/14/2022 Administered SOCIAL HISTORY Tobacco Use: Social History Observation Description Date Details (start date - stop date) Former Smoker NA - NA Sex Assigned At : Social History Observation Description Sex Assigned At Unknown Tobacco Use/Smoking Question Answer Notes Patient is a former smoker How long has it been since you last smoked? 6-12 months PROBLEMS Problem Type ICD Code Onset Dates Problem Status W/U Status Risk SNOMED Code Notes Problem Encounter for screening for malignant neoplasm of colon (Z12.11) Active confirmed 073419197 Problem History of adenomatous polyp of colon (Z86.010) Active confirmed 339570401 Problem Long-term use of aspirin therapy (Z79.82) Active confirmed 359645389 Problem Constipation, unspecified constipation type (K59.00) Active confirmed 68018944 Problem Diarrhea of presumed infectious origin (R19.7) Active confirmed 21102035 PLAN OF TREATMENT Pending Test Test Name Order Date STOOL WBC 12/26/2022 C DIFFICILE RFLX PCR 12/26/2022 Calprotectin, Fecal 12/26/2022 GI PANEL 12/26/2022 Future Test Test Name Order Date COLONOSCOPY 02/13/2012 COLONOSCOPY 07/05/2017 COLONOSCOPY 02/03/2020 COLONOSCOPY 03/01/2022 Insurance Providers Payer Name Payer Address Payer Phone Subscriber Number Group Number Insured Name Patient Relationship to Insured Coverage Start Date Coverage End Date MEDICARE OF [place] [address] [place]BERT [id number] [phone] [id number] KAREN CASTELLON Self - patient is the insured MEDICAID OF [facility] [address] [place] [address] [id number] KAREN CASTELLON Self - patient is the insured MEDICAL (GENERAL) HISTORY Medical History History ICD Code Tubular adenomas removed in 09/2006; multiple tubular adenomas removed in 2011--he has had previous colonoscopies while living in [place] as well. Colonoscopy 03/2018 with removal of 3 1cm or greater tubular adenomas from cecum and sigmoid colon, but the prep was suboptimal Asthma/COPD Elevated cholesterol HTN Denies OK,DM,CVA,renal disease CAD with a stent placed in approx. 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 Diana barrios Colonoscopy in May revealed multiple tubular adenomas that were removed. He did a 2 day prep for that procedure and the preparation was excellent. Surgical History Surgery Date(Month/Year) Cerebral aneurysm treated surgically in approx. 2000 Appy with Laparotomy in [facility] in Left knee replacement in 2008 Cataracts surgery Hemorrhoids TURP 05/2017 Skin cancer on toe as above Prostate surgery
--- OUTSIDE RECORDS SUMMARY | 2024-03-25 12:44 | XMS_ITS ---
Author Organization [facility] Address [address] [place] [address] Care Team Providers Care Resume Specialist Name Role Phone Dirk FINN, [place] Primary Care Provider Unava ilable Presley Bai Unavailable [phone] REASON FOR VISIT cancel appt Encounters Encounter Location Date Provider Diagnosis [facility] [address] [place] [address] 01/29/2023 Presley Bai PLAN OF TREATMENT No Information
--- OUTSIDE RECORDS SUMMARY | 2024-03-25 12:45 | XMS_ITS | Data Portability ---
Author Organization [facility] [employer] [facility], Main Office Address [address], [address] [place] [address] Care Team Providers Care Branch Assistant Name Role Phone MARIANNE LINDSAY 1ST FLOOR OTHER [phone] [place] Primary Care Provider Assessment Encounter Date Assessment Date Assessment LastModified by Organization Details LastModified Time 09/07/2017 09/07/2017 09/03/17 WBC 8.4, Hgb 13.3, Hct 36.2, Na 145, K 4.1, BUN 16, Hydroelectric Mechanic 0.87 [email or web address] Not available 09/07/2017 19:28:05 09/14/2017 09/14/2017 09/10/17 WBC 7, Hgb 12, Hct 35.5, Na 142, K 3.9, BUN 15, Hydroelectric Mechanic 0.85 [email or web address] Not available 09/14/2017 07:29:55 Plan of Treatment Reminders Order Date Submit Date Provider Last Modified By Organization Details Last Modified Time Details Appointments None record ed. Lab None record ed. Referral None record ed. Procedures None record ed. Surgeries None record ed. Imaging None record ed. Medication Orders None record ed. Patient TargetsNo targets recorded. Patient InstructionsNo instructions recorded. Reason for Referral None Reported. Problems Name Problem SNOMED Code Status Onset Date Resolution Date Notes Provider Name and Address Organization Details Recorded Time Benign prostatic hyperplasi a 019155922 Active 2022 ELEN BALTAZAR NP [address] [facility], [address], [place], [address], [facility] [employer] 3 11:48:23 Chronic obstructiv e pulmonary disease 21754792 Active 2017 on home 02 2L when ambulation UNRULYTIERA HAIDER [address] [facility], [address], [place], [address], [facility] 8 15:16:30 Multiple nodules of lung 862567031 Active 2017 TIERA THOMAS [address], [address], [place], [address], [facility] 8 15:15:09 Coronary arterioscl erosis 51321135 Active 2017 post stent TIERA THOMAS [address], [address], [place], [address], [facility] 8 15:17:09 Essential hypertensi on 68981758 Active [address], [address], [place], [address], [facility] 8 15:17:25 Dyslipidem ia 748112370 Active 2017 TIERA THOMAS [address], [place], [address], [facility] 8 15:17:34 Anxiety 78839736 Active 2017 TIERA THOMAS [address], [place], [address], [facility] 8 15:17:56 History of aortic aneurysm 277873217 Active 2017 [address], [address], [place], [address], [facility] 8 15:18:06 Seizure disorder 310002550 Active 2017 not on medication s TIERA THOMAS [address], [address], [place], [address], [facility] 8 15:18:25 Aneurysm 119055590 Active 2017 brain s/p clipping TIERA THOMAS [address], [address], [place], [address], [facility] 8 15:19:45 Chronic low back pain 065562293 Active 2017 TIERA THOMAS [address], [address], [place], [address], [facility] 8 15:19:57 Acute-on-c hronic respirator y failure 98312559 Active 2017 TIERA THOMAS [address], [address], [place], [address], [facility] 8 15:20:36 Myocardial infarction 90453537 Active 2017 TIERA THOMAS [address], [address], [place], [address], [facility] 8 15:30:39 Gastroesop hageal reflux disease 553357741 Active 2017 TIERA THOMAS [address], [address], [place], [address], [facility] 8 16:04:55 Asthenia 92001766 Active 2017 Chyna Arrieta MD [address], [address], [place], [address], [facility] 8 12:22:23 Acute confusion 477154330 Active 2017 Chyna Arrieta MD [address], [address], [place], [address], [facility] 8 12:27:59 Right flank pain 106926094 Active 2017 Chyna Arrieta MD [address] [facility], [address], [place], [address], [facility] 8 12:37:36 Dementia 72364430 Active 2017 Duy Robles MD [address], [address], [place], [address], [facility] 8 11:47:33 Problem Notes None recorded. Medical Equipment None Reported. Allergies Allergen ID Allergen Name Allergen Category Reaction Reaction Severity Criticality Documentation Date Start Date Code Code System Note Provider Name and Address Organization Details Recorded Time 62062 bupropion Not available Not available Not available Not available 08/27/2017 96081 RxNorm UNRULY OGDEN, STAFF DEVELOPMENT MANAGER [address], [place], [address], [facility] [employer] 8 15:11:40 12278 celecoxib medicatio n Not available Not available Not available 08/27/2017 32925 7 RxNorm UNRULY OGDEN, STAFF DEVELOPMENT MANAGER [address] [facility], [address], [place], [address], [facility] [employer] [facility] 8 15:11:52 37483 gabapenti n medicatio n Not available Not available Not available 08/27/2017 68567 RxNorm UNRULY OGDEN, STAFF DEVELOPMENT MANAGER [address] [facility], [address], [place], [address], [facility] 8 15:12:01 63902 levofloxa bouchra medicatio n Not available Not available Not available 08/27/2017 40220 RxNorm UNRULY OGDEN, [facility] [address] [facility], [address], [place], [address], [facility] 8 15:12:10 25306 tramadol medicatio n Not available Not available Not available 08/27/2017 18468 RxNorm UNRULY OGDEN, STAFF DEVELOPMENT MANAGER [address] [facility], [address], [place], [address], [facility] 8 15:12:24 38485 ibuprofen medicatio n Not available Not available Not available 08/27/2017 5640 RxNorm UNRULY OGDEN, [facility] [address] [facility], [address], [place], [address], [facility] 8 15:23:40 Medications Name Sig Start Date Stop Date Status Note LastModified by Organization Details LastModified Time oxycodone 10 mg tablet Take 3 tablets every 6 hours by oral route as needed. 023 active Not Available Not Available Not Avai lable Vitals Date Recorded Body height Body mass index (BMI) Body weight Heart rate Respiratory rate Body temperature Oxygen saturation Oxygen saturation in Arterial blood by Pulse oximetry Inhaled oxygen flow rate Systolic blood pressure Diastolic blood pressure Provider Name and Address Organization Details Last Updated DateTime 3 185.42 cm 23.7 kg/m2 87572.6 3 g 74 /min 18 /min 98.4 [degF] 92 % 92 % 2 L/min 116 mm[Hg] 68 mm[Hg] ELEN BALTAZAR NP [address] [facility], [address], [place], [address], [facility] 3 11:10:35 Date Recorded Body temperature Oxygen saturation Oxygen saturation in Arterial blood by Pulse oximetry Heart rate Respiratory rate Systolic blood pressure Diastolic blood pressure Provider Name and Address Organization Details Last Updated DateTime 8 97.4 [degF] 96 % 96 % 81 /min 20 /min 131 mm[Hg] 74 mm[Hg] TIERA THOMAS [address] [facility], [address], [place], [address], [facility] 8 19:24:41 Date Recorded Heart rate Respiratory rate Body temperature Oxygen saturation Oxygen saturation in Arterial blood by Pulse oximetry Inhaled oxygen flow rate Systolic blood pressure Diastolic blood pressure Provider Name and Address Organization Details Last Updated DateTime 8 76 /min 20 /min 97.5 [degF] 96 % 96 % 2 L/min 116 mm[Hg] 66 mm[Hg] Chyna Arrieta MD [address] [facility], [address], [place], [address], [facility] 8 11:30:17 Date Recorded Oxygen saturation Oxygen saturation in Arterial blood by Pulse oximetry Heart rate Respiratory rate Body temperature Systolic blood pressure Diastolic blood pressure Provider Name and Address Organization Details Last Updated DateTime 8 97 % 97 % 69 /min 18 /min 97.7 [degF] 119 mm[Hg] 87 mm[Hg] TIERA THOMAS [address] [facility], [address], [place], [address], [facility] 8 08:03:45 Social History Question Answer Notes LastModified by Organizat ion Details LastModified Time Tobacco Smoking Status Former Smoker quit one year ago TIERA THOMAS [address] [facility], [address], [place], [address], [facility] 08/27/2017 15:54:22 Do You Have An Advance Directive? Yes Information not available 11/29/2022 What Is Your Level Of Alcohol Consumption? None Information not available 08/27/2017 How Much Tobacco Do You Chew? None Information not available 08/27/2017 What Is Your Code Status? Full Code Information not available 11/29/2022 How Many Days In The Past Year Have You Had A Heavy Drinking Consumption (4+ Female, 5+ Male)? 0 Information not available 08/28/2017 Do You Have A Medical Power Of Mental Health Technician? Yes Information not available 08/28/2017 What Was The Date Of Your Most Recent Tobacco Screening? 11/29/2022 Information not available 11/29/2022 Has Tobacco Cessation Counseling Been Provided? No Information not available 08/27/2017 Sex: Unknown Functional Status None recorded. Mental Status None recorded. Family History Nothing Reported Notes:Mother with COPD and A AA- at 73, father at 93 yo-substance abuse, 3 younger brothers of drug ODs. Medical History No medical history recorded. Immunizations Vaccine Type Date Status Provider Name and Address Organization Details Recorded Time DTaP, unspecified formulation 03/22/2019 completed Y[place]enia Robertson [facility] 07/11/2023 15:52:11 Tdap 05/17/2010 completed Yecenia Robertson [facility] 07/11/2023 15:52:30 Pneumococcal conjugate PCV 13 02/14/2019 completed Y[place]enia Robertson [facility] 07/11/2023 15:56:45 pneumococcal polysaccharide PPV23 01/17/2017 completed Y[place]enia Robertson [facility] 07/11/2023 16:01:58 influenza, unspecified formulation 02/01/2022 completed Y[place]enia Robertson [facility] 07/11/2023 16:03:07 influenza, unspecified formulation 04/06/2023 completed Y[place]enia Robertson [facility] 07/11/2023 16:03:23 SARS-COV-2 (COVID-19) vaccine, UNSPECIFIED 08/12/2020 completed Y[place]enia Robertson [facility] 07/11/2023 16:03:38 SARS-COV-2 (COVID-19) vaccine, UNSPECIFIED 09/02/2020 completed Y[place]enia Robertson [facility] 07/11/2023 16:03:46 SARS-COV-2 (COVID-19) vaccine, UNSPECIFIED 05/23/2021 [facility] 16:03:54 Past Encounters Encounter ID Performer Location Encounter Start Date Encounter Closed Date Diagnosis/Indication Diagnosis SNOMED-CT Code Diagnosis ICD10 Code [id number] TIERA THOMAS [address] [address] 08/27/2017 15:00:12 09/09/2017 19:53:20 Yjuza-ae-lzxdmyu respiratory failure 74147857 J96.21 Chronic ob structive pulmonary disease 29719047 J41.8 Essential hypertension 42910932 I10 Dyslipidemia 186877354 E 78.4 Chronic low back pain 27 4543063 M54.5 Coronary arteriosclerosis 82003393 I25.10 Multiple n odules of lung 241556541 R91.8 Anxiety 09601817 F41.1 Gastroesop hageal reflux disease 577526328 K21.9 Acute confusion 27715971 0 R41.0 [id number] Chyna Arrieta MD [address] [address] 08/28/2017 09:58:23 09/10/2017 10:14:44 Hthrx-cq-dddrkox respiratory failure 19533895 J96.21 Acute confusion 92938078 0 R44.1 Chronic ob structive pulmonary disease 49327175 J41.8 Essential hypertension 77319003 I10 Dyslipidemia 619309917 E 78.4 Chronic low back pain 27 3935501 M54.5 Coronary arteriosclerosis 63410299 I25.10 Multiple n odules of lung 880818715 R91.8 Anxiety 91894817 F41.1 Gastroesop hageal reflux disease 540112456 K21.9 Asthenia 94851465 R53.1 Fall W18.39XA Right flank pain 3262020 09 R10.11 [id number] TIERA THOMAS [address] [address] 09/07/2017 19:24:05 09/11/2017 10:42:44 Acute confusion 044723114 R41.0 Chronic low back pain 27 4600372 M54.5 Anxiety 04015656 F41.1 [id number] Chyna Arrieta MD [address] [address] 09/11/2017 11:26:09 09/19/2017 11:37:04 Chronic obstructive pulmonary disease 51184704 J41.8 Multiple n odules of lung 051510139 R91.8 Right flank pain 1758495 09 R10.11 [id number] Duy Robles MD [address] [address] 09/12/2017 11:40:31 09/19/2017 11:51:02 Chronic obstructive pulmonary disease 06278108 J41.1 Dementia 78165460 F02.80 Multiple n odules of lung 489472745 R91.8 [id number] TIERA THOMAS [address] [address] 09/14/2017 07:24:11 09/19/2017 12:29:06 Uicil-rh-fdwsatx respiratory failure 67740857 J96.21 Acute confusion 98299317 0 R41.0 Chronic ob structive pulmonary disease 73283393 J41.8 Essential hypertension 26527861 I10 Dyslipidemia 805363200 E 78.4 Chronic low back pain 27 7353246 M54.5 Coronary arteriosclerosis 23346850 I25.10 Multiple n odules of lung 041762176 R91.8 Anxiety 53460001 F41.1 Gastroesop hageal reflux disease 125593199 K21.9 [id number] ELEN BALTAZAR NP [address] [address] 11/29/2022 10:51:49 12/06/2022 08:28:29 Iaelx-rn-ahzhqyh respiratory failure 89279693 J96.20 Chronic ob structive pulmonary disease 18614383 J44.9 Acute confusion 04414801 0 R41.0 Essential hypertension 83509919 I10 Dyslipidemia 437446108 E 78.5 Chronic low back pain 27 3340844 M54.50 Coronary arteriosclerosis 67329942 I25.10 Multiple n odules of lung 613160271 R91.8 Anxiety 82509891 F41.1 Gastroesop hageal reflux disease 020331459 K21.9 Benign pro static hyperplasia 109053350 N40.0 Health Concerns Section Related Observation LastModified by Organization Detai ls LastModified Time None Recorded Concern Status LastModified by Organization Details LastModified Time None Recorded Advance Directives Directive Y: Payers Encounter Date Sequence Insurance Name Policy Number Policy Paz Covered Member ID Paz Member ID Guarantor Name 09/07/2017 2 [place] [employer] [place] [id number] [employer] [place] 09/07/2017 1 [place] [employer] Confucianism K [place] [id number] [employer] [place] 09/11/2017 2 [place] [employer] [id number] Conf[employer]ism [place] 09/11/2017 1 [place] [employer] Confucianism K [place] [id number] Confuc[employer]ism [place] 09/12/2017 2 [place] [id number] Confucianism [place] 09/12/2017 1 [place] [employer] Confucianism K [place] [id number] Conf[employer]ism [place] 09/14/2017 2 [place] [id number] Conf[employer] [place] 09/14/2017 1 [place] [place] Confucianism [place] [id number] [employer] [place] 11/29/2022 2 [place] [id number] [employer] [place] 11/29/2022 1 [place] [employer] [place] Confucianism [place] [id number] [employer] [place] Notes Date Note Type Note Provider Name and Address Organization Details Recorded Time 09/07/2017 text/html A 76 year old ma le being seen for acute rounding visit. Staff has no concerns at this time. Patient has no complaints. He is hoping to go home Sunday. TIERA THOMAS [address] [facility], [address], [place], [address], [facility] 09/07/2017 19:35:02 09/11/2017 text/html I am seeing this 76 yo man at his request. He is here for rehab after a pneumonia. He says his SOB is improving, but still worse than baseline, at baseline he only needed O2 at hs. Also Raising less sputum and sputum is boy's adviser colored. His primary concern is continued right flank pain that he says 30 mg of oxycodone doesn't touch. This is longstanding and has been worked up in past with no answers. He says it feels like it's inside, can't press on it. His SO is present and states he is a little confused at baseline, but is definitely worse than baseline still.His PMH includes anxiety, chronic back pain, COPD, dyslipidemia, seizure disorder (no meds and no seizures x 10 yrs), CAD-PCI with stent, HTN, brain aneurysm-craniotom y for clipping in, aortic aneurysms, and hx of VA. Chyna Arrieta MD [address] [place] [address], [address], [place], [address], [facility] 09/11/2017 12:15:00 09/12/2017 text/html Asked to eval patient for multiple issues. Patient initially admit after treatment for copd exacerbation and pneumonia with significant deconditioning. Patient and question discharge. Patient on O2 at baseline ambulated approx 500 feet today with walker. Prior CT scan showed pulmonary nodules and has f/u with pulmonary for question repeat scan. otherwise stable at baseline Duy Robles MD [address] [facility], [address], [place], [address], [facility] 09/12/2017 11:49:28 09/14/2017 text/html A 76 year old [place] sanchez being seen for a discharge summary. Patient has participated in therapy and progressed nicely. He has no concerns about going home and is ready. Staff has no concerns about his discharge. TIERA THOMAS [address] [facility], [address], [place], [address], [facility] 09/14/2017 08:04:54 11/29/2022 text/html seen today for initial intake visit-82 yom admitted to for rehab after presenting to the hospital 11/25 with fever, cough, sob, he has been smoking the last few months, cxr probable pna, tx with azithromycin and rocephin and cough med. He had some acute delirium in the hospital likely from oxycodone and valium, both were decreased to 20 mg and 5 mg. CAOx3 siting up in bed, but then ambulatinng in the PT gym with contact guard and walker, he is having difficulty following directions with pt and leaving AMA ELEN BALTAZAR, ISMAEL [address] [facility], [address], [place], [address], [facility] [employer] 11/29/2022 15:45:36
== END 2024-03-18 12:12 | disposition home or self-care (01) ==
PROVIDERS: PCP Internal Medicine; Visit Provider Urology
DX: N52.9 Male erectile dysfunction, unspecified (principal); N40.1 Benign prostatic hyperplasia with lower urinary tract symptoms; N13.8 Other obstructive and reflux uropathy; N18.2 Chronic kidney disease, stage 2 (mild)
CPT/HCPCS: 99214

== ENCOUNTER → 2024-03-18 10:42 | Outpatient (BNVA) | payer MEDICARE, SELFPAY | PROVIDERS: PCP Internal Medicine; Visit Provider Urology | DX: N52.9 Male erectile dysfunction, unspecified (principal); N40.1 Benign prostatic hyperplasia with lower urinary tract symptoms; N13.8 Other obstructive and reflux uropathy; N18.2 Chronic kidney disease, stage 2 (mild); Z79.891 Long term (current) use of opiate analgesic | CPT/HCPCS: 51798; 99212 ==

== ENCOUNTER 2024-03-22 10:51 | Outpatient (REF) | payer MEDICARE, MEDICAID, SELFPAY ==
--- NOTE | ~2024-03-22 | MR_ITS ---
EXAMINATION: MR BRAIN WITHOUT CONTRAST CLINICAL INFORMATION: Memory loss. Mild cognitive impairment. COMPARISON: CT head from 08/10/2023. TECHNIQUE: MRI of the brain was obtained using routine sequences without contrast. FINDINGS: Prior left temporal craniotomy. There is an arachnoid cyst in the anterior aspect of the left middle cranial fossa, measuring up to 5 x 3.4 x 4.3 cm. No focal restricted diffusion is demonstrated to suggest acute or subacute cerebral ischemia. No evidence of acute or chronic hemorrhagic products on heme-sensitive imaging. Scattered periventricular and deep white matter T2 FLAIR hyperintensities consistent with mild to moderate underlying microangiopathy. Proportional prominence of the ventricles and sulcal spaces without evidence of obstructive hydrocephalus. No abnormal mass effect. No midline shift. Normal appearance of the pituitary gland. Normal positioning of the cerebellar tonsils. Normal arterial and venous vascular flow voids are present. Normal, homogeneous marrow signal. Mild mucosal thickening of the paranasal sinuses. Small bilateral mastoid effusions. MR/MR head/brain wo con IMPRESSION: 1. No acute intracranial abnormalities. 2. Mild to moderate underlying microangiopathy and generalized cerebral volume loss. 3. Arachnoid cyst in the anterior aspect of the left middle cranial fossa. Electronically signed by: Abner Pierce DO 03/23/2024 02:01 PM EST
--- OUTSIDE RECORDS SUMMARY | 2024-03-26 11:47 | XMS_ITS ---
Author Organization [facility] Address [address] [place] [address] Care Team Providers Care Art Editor Name Role Phone Dirk FINN, [place] Primary Care Provider Unava ilable Presley Bai Unavailable [phone] REASON FOR VISIT give him a call PROBLEMS Problem Type ICD Code Onset Dates Problem Status W/U Status Risk SNOMED Code Notes Problem Diarrhea of presumed infectious origin (R19.7) Active confirmed 63613660 Encounters Encounter Location Date Provider Diagnosis [facility] [address] [place] [address] 12/26/2022 Presley Bai Diarrhea of presumed infectious origin R19.7 ASSESSMENTS Encounter Date Diagnosis Assessment Notes Treatment Notes Treatment Clinical Notes 12/26/2022 Diarrhea of presumed infectious origin (ICD-10 - R19.7) PLAN OF TREATMENT Pending Test Test Name Order Date STOOL WBC 12/26/2022 C DIFFICILE RFLX PCR 12/26/2022 Calprotectin, Fecal 12/26/2022 GI PANEL 12/26/2022
--- OUTSIDE RECORDS SUMMARY | 2024-03-26 11:47 | XMS_ITS ---
Author Organization [facility] Address [address] [place] [address] Care Team Providers Care Geomorphologist Name Role Phone Dirk FINN, [place] Primary Care Provider Unava ilable Presley Bai Unavailable [phone] REASON FOR VISIT cancel appt Encounters Encounter Location Date Provider Diagnosis [facility] [address] [place] [address] 01/29/2023 Presley Bai PLAN OF TREATMENT No Information
--- OUTSIDE RECORDS SUMMARY | 2024-03-26 11:47 | XMS_ITS ---
Author Organization [facility] Address [address] [place] [address] Care Team Providers Care Machine Coremaker Name Role Phone Dirk FINN, [place] Primary Care Provider Unava ilable Presley Bai Unavailable [phone] REASON FOR VISIT Patient presents today for diarrhea Encounters Encounter Location Date Provider Diagnosis [facility] [address] [place] [address] 01/30/2023 Presley Bai PLAN OF TREATMENT No Information
--- OUTSIDE RECORDS SUMMARY | 2024-03-26 11:48 | XMS_ITS | Patient Health Record ---
Author Organization [facility] Address [address] [place] [address] Care Team Providers Care Balance Truer Name Role Phone Dirk FINN, Justin Primary Care Provider Presley Migule [phone] ALLERGIES Allergen (clinical drug ingredient) Drug/Non Drug [...] malignant neoplasm of colon (Z12.11) Active confirmed 486337382 Problem History of adenomatous polyp of colon (Z86.010) Active confirmed 084346744 Problem Long-term use of aspirin therapy (Z79.82) Active confirmed 786467998 Problem Constipation, unspecified constipation type (K59.00) Active confirmed 29369627 Problem Diarrhea of presumed infectious origin (R19.7) Active confirmed 40820376 PLAN OF TREATMENT Pending Test Test Name [...] OF [place] [address] [place] [address] [id number] KAREN CASTELLON Self - patient is the insured MEDICAID OF [facility] [address] [place] [address] [phone] [id number] KAREN CASTELLON Self - patient is the insured MEDICAL (GENERAL) HISTORY Medical History History ICD Code Tubular adenomas removed in 09/2006; multiple tubular adenomas removed in 2011--he has had previous colonoscopies while living in [place] as well. Colonoscopy 03/2018 with removal of 3 1cm or greater tubular adenomas from cecum and sigmoid colon, but the prep was suboptimal Asthma/COPD Elevated cholesterol HTN Denies DC,DM,CVA,renal disease CAD with a stent placed in [...] in approx. 2000 Appy with Laparotomy in [facility] in Left knee replacement in 2008 Cataracts surgery Hemorrhoids TURP 05/2017 Skin cancer on toe as above Prostate surgery
== END 2024-03-22 10:52 | disposition home or self-care (01) ==
LOC: HO.MRI 10:51
PROVIDERS: PCP Internal Medicine; Visit Provider Psychiatry & Neurology Neurology
DX: G31.84 Mild cognitive impairment of uncertain or unknown etiology (principal)
CPT/HCPCS: 70551

== ENCOUNTER 2024-06-16 07:09 | Outpatient (REF) | payer MEDICARE, MEDICAID, SELFPAY ==
--- OUTSIDE RECORDS SUMMARY | 2024-06-16 07:12 | XMS_ITS | Data Portability ---
Author Organization [facility], Main Office Address [address] [facility] [facility], [address] [place] [address] Care Team Providers Care Rehabilitation Therapy Aide Name Role Phone MARIANNE LINDSAY 1ST FLOOR OTHER [place] Primary Care Provider Assessment Encounter Date Assessment Date Assessment LastModified by Organization Details LastModified Time 09/07/2017 09/07/2017 09/03/17 WBC 8.4, Hgb 13.3, Hct 36.2, Na 145, K 4.1, BUN 16, [employer] Professional 0.87 [email or web address] Not available 09/07/2017 19:28:05 09/14/2017 09/14/2017 09/10/17 WBC 7, Hgb 12, Hct 35.5, Na 142, K 3.9, BUN 15, Epic Professional 0.85 [email or web address] Not available 09/14/2017 07:29:55 Plan [...] Details Recorded Time Benign prostatic hyperplasi a 545428479 Active 2022 ELEN BALTAZAR NP [address] [facility], [address], [place], [address], [facility] [employer] 3 11:48:23 Chronic obstructiv e pulmonary disease 18765062 Active 2017 on home 02 2L when ambulation UNRULYTIERA HAIDRE [address], [address], [place], [address], [place] [email or web address] 8 15:16:30 Multiple nodules of lung 398490817 Active 2017 TIERA THOMAS [address], [address], [place], [address], [email or web address] [facility] 8 15:15:09 Coronary arterioscl erosis 71319382 Active 2017 post stent TIERA THOMAS [address], [address], [place], [address], [email or web address] 8 15:17:09 Essential hypertensi on 43281580 Active [address], [place], [address], [email or web address] [facility] 8 15:17:25 Dyslipidem ia 478046730 Active 2017 TIERA THOMAS [address], [place], [address], [email or web address] 8 15:17:34 Anxiety 39633960 Active 2017 TIERA THOMAS [address], [place], [address], [facility] 8 15:17:56 History of aortic aneurysm 677495056 Active [address], [place], [address], [email or web address] 8 15:18:06 Seizure disorder 795491451 Active 2017 not on medication s TIERA THOMAS [address], [address], [place], [address], [email or web address] 8 15:18:25 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 TIERA THOMAS [address], [address], [place], [address], [email or web address] 8 15:19:45 Chronic low back pain 576023876 Active 2017 TIERA THOMAS [address], [address], [place], [address], [place] [email or web address] 8 15:19:57 Acute-on-c hronic respirator y failure 36294805 Active 2017 TIERA THOMAS [address], [address], [place], [address], [place] [email or web address] 8 15:20:36 Myocardial infarction 61356913 Active 2017 TIERA THOMAS [address], [address], [place], [address], [place] [email or web address] 8 15:30:39 Gastroesop hageal reflux disease 548693175 Active 2017 TIERA THOMAS [address], [address], [place], [address], [email or web address] 8 16:04:55 Asthenia 01225849 Active 2017 Chyna Arrieta MD [address], [address], [place], [address], [place] [email or web address] 8 12:22:23 Acute confusion 223752181 Active 2017 Chyna Arrieta MD [address], [address], [place], [address], [email or web address] 8 12:27:59 Right flank pain 367372092 Active 2017 Chyna Arrieta MD [address] [facility], [address], [place], [address], [email or web address] 8 12:37:36 Dementia 98320053 Active 2017 Duy Robles MD [address], [address], [place], [address], [email or web address] 8 11:47:33 Problem Notes None recorded. Medical Equipment None Reported. Allergies Allergen ID Allergen Name Allergen Category Reaction Reaction Severity Criticality Documentation Date Start Date Code Code System Note Provider Name and Address Organization Details Recorded Time 84705 bupropion Not available Not available Not available Not available 08/27/2017 45132 RxNorm Not Available Not Available Not Available 50942 celecoxib medicatio n Not available Not available Not available 08/27/2017 48758 7 RxNorm Not Available Not Available Not Available 31737 gabapenti n medicatio n Not available Not available Not available 08/27/2017 52064 RxNorm Not Available Not Available Not Available 40146 levofloxa bouchra medicatio n Not available Not available Not available 08/27/2017 42413 RxNorm Not Available Not Available Not Available 40336 tramadol medicatio n Not available Not available Not available 08/27/2017 40075 RxNorm Not Available Not Available Not Available 94993 ibuprofen medicatio n Not available Not available Not available 08/27/2017 5640 RxNorm Not Available Not Available Not Available Medications Name Sig Start Date Stop Date [...] Updated DateTime 3 185.42 cm 23.7 kg/m2 81435.6 3 g 74 /min 18 /min 98.4 [degF] 92 % 92 % 2 L/min 116 mm[Hg] 68 mm[Hg] ELEN BALTAZAR NP [address] [facility] [place], [address] , [facility] [employer] 3 11:10:35 Date Recorded Body temperature Oxygen saturation Oxygen saturation in Arterial blood by Pulse oximetry Heart rate Respiratory rate Systolic blood pressure Diastolic blood pressure Provider Name and Address Organization Details Last Updated DateTime 8 97.4 [degF] 96 % 96 % 81 /min 20 /min 131 mm[Hg] 74 mm[Hg] TIERA THOMAS [address] [facility], [facility] [place], [address], [facility] [employer] 8 19:24:41 Date Recorded Heart rate Respiratory rate Body temperature Oxygen saturation Oxygen saturation in Arterial blood by Pulse oximetry Inhaled oxygen flow rate Systolic blood pressure Diastolic blood pressure Provider Name and Address Organization Details Last Updated DateTime 8 76 /min 20 /min 97.5 [degF] 96 % 96 % 2 L/min 116 mm[Hg] 66 mm[Hg] Chyna Arrieta MD [address] [facility], [address], [place], [address], [email or web address] 8 11:30:17 Date Recorded Oxygen saturation Oxygen saturation in Arterial blood by Pulse oximetry Heart rate Respiratory rate Body temperature Systolic blood pressure Diastolic blood pressure Provider Name and Address Organization Details Last Updated DateTime 8 97 % 97 % 69 /min 18 /min 97.7 [degF] 119 mm[Hg] 87 mm[Hg] TIERA THOMAS [address] [facility], [address], [place], [address], [email or web address] 8 08:03:45 Social History Question Answer Notes LastModified by Organizat ion Details LastModified Time Tobacco Smoking Status Former Smoker quit one year ago TIERA THOMAS [address] [facility] [address] [facility], [address], [place], [address], [email or web address] 08/27/2017 15:54:22 Do You Have An [...] Do You Have A Medical Power Of [employer] [facility]? Yes Information not available 08/28/2017 What Was [...] history recorded. Immunizations Vaccine Type Date Status Note Provider Nam e and Address Organization Details Recorded Time DTaP, unspecified formulation 9 completed [facility] 07/11/2023 15:52:11 Tdap 1 completed [facility] 07/11/2023 15:52:30 Pneumococcal conjugate PCV 13 9 [facility] 07/11/2023 15:56:45 pneumococcal polysaccharide PPV23 7 completed [facility] 07/11/2023 16:01:58 influenza, unspecified formulation 2 [facility] 07/11/2023 16:03:07 influenza, unspecified formulation 3 completed [facility] 07/11/2023 16:03:23 SARS-COV-2 (COVID-19) vaccine, UNSPECIFIED 1 completed [facility] 07/11/2023 16:03:38 SARS-COV-2 (COVID-19) vaccine, UNSPECIFIED 1 completed [facility] 07/11/2023 16:03:46 SARS-COV-2 (COVID-19) vaccine, UNSPECIFIED 2 [facility] 07/11/2023 16:03:54 Past Encounters Encounter ID Performer Location Encounter Start Date Encounter Closed Date Diagnosis/Indication Diagnosis SNOMED-CT Code Diagnosis ICD10 Code Diagnosis Note [id number] TIERA THOMAS ANGÉLICA [address] [place] [address] [place] [address] 08/27/2017 15:00:12 09/09/2017 19:53:20 Qkshb-jh-ikujynk respiratory failure 10438049 J96.21 PT/OT eval and treataugme ntin 875 mg bid x 2 daysduoneb s q 4 while awakepredn isone tapermonit or respirator y status Chronic ob structive pulmonary disease 54873029 J41.8 duonebs q 4 while awakepredn isone tapersymbi delmi 2 puffs bidclariti n 10 mg qdcurrentl y on oxygenmoni tor respirator y status Essential hypertension 27194875 I10 imdur 60 mg qdmetoprol ol 50 mg qdmonitor b/p and labs Dyslipidemia 717419426 E 78.4 lipitor 80 mg qdtricor 145 mg qdzetia 10 mg qd monitor labs Chronic low back pain 27 4372400 M54.5 oxycodone 30 mg q 6 hrs prnmonitor for pain Coronary arteriosclerosis 89767838 I25.10 ASA 81 mg qdzetia, tricor and lipitor qdmonitor Multiple n odules of lung 455486919 R91.[address] of chest in 3 months Anxiety 05220866 F41.1 valium 10 mg q 8 hrs prnmonitor moodpsych eval prn Gastroesop hageal reflux disease 053024500 K21.9 prilosec 20 mg qdmonitor for symptom relief Acute confusion 51398011 0 R41.0 patient confusedse eing people walk by himdoesn't remember the hospital staygirlfr iend says he answers the phone at night when it doesn't ringwill check a u/a and c/swill check a r04-ekmyyf t states that he takes b12 shots twice a month because his cousin does?quest ion of dementiaps [facility] consult [id number] MD MARIANNE Duran [address] [place] [address] [place] [address] 08/28/2017 09:58:23 09/10/2017 10:14:44 Nygqq-sf-dmxzxzz respiratory failure 53327845 J96.21 Continue augmentin 875 mg bid x 1 more day, duonebs q 4 while awake, O2 titrated as needed, and prednisone taper. Still with sig sxs, will add mucinex, hypersal and acappella device. Recheck CXR if not improving in a couple of days. Will consult resp. tx, but may not be back this week. May need pulmonary consult. Seen by Dr. Peterson in hospital.m onitor respirator y status Acute confusion 10655437 0 R44.1 A&Ox3 right now. Very aware of seeing people who aren't there. Very specific hallucinat ion. No clear etiology, U/A neg and TSH/B12 nl. Head CTs have been unrevealin g. Unable to have MRI because of prior aneurysm clipping. Has f/u scheduled with neuro in October.Seen by [facility] today, recommends avoiding antipsycho tics because of cardiac hx. Will follow. Chronic ob structive pulmonary disease 58221072 J41.8 As above, also on symbicort 2 puffs bid and claritin 10 mg qdmonitor respirator y status Essential hypertension 79774932 I10 Stable on imdur 60 mg qd and metoprolol 50 mg qd.monitor b/p and labs Dyslipidemia 425148654 E 78.4 Continue lipitor 80 mg qd, tricor 145 mg qd and zetia 10 mg qd monitor labs as outpt. Chronic low back pain 27 9221976 M54.5 Continue oxycodone 30 mg q 6 hrs prn for now. Apparently doesn't take regularly at home. I wonder if this could be contributi ng to hallucinat ions. Follow for now.monito r for pain Coronary arteriosclerosis 02980570 I25.10 F/U with cardio prn. Meds as above, also ASA 81 mg qd. Multiple n odules of lung 446626535 R91.[address] of chest in 3 months Anxiety 14004210 F41.1 Continue valium 10 mg q 8 hrs prnmonitor mood, NEG following. Gastroesop hageal reflux disease 789942532 K21.9 Stable on prilosec 20 mg qd. No current sxs. Asthenia 34785412 R53.1 Very deconditio maria guadalupe, needs PT/OT for strengthen ing, mobility and safety. Fall W18.39XA Feels like he tripped while trying to straighten room. Was not using walker. Reminded to always use walker for now. No injuries Right flank pain 2105333 09 R10.11 long standing. Follow [id number] TIERA THOMAS [address] [facility] [place] [address] 09/07/2017 19:24:05 09/11/2017 10:42:44 Acute confusion 958048255 R41.0 patient remains confused at timestests have been negative so farmonitor for worsening symptomsps [facility] consult Chronic low back pain 27 2636243 M54.5 oxycodone 30 mg q 6 hrs prnmonitor for pain Anxiety 79020714 F41.1 valium 10 mg q 8 [place] [id number] Chyna Arrieta MD [facility] [address] [place] [address] [place] [address] 09/11/2017 11:26:09 09/19/2017 11:37:04 Chronic obstructive pulmonary disease 82983031 J41.8 Continue duonebs q 4 while awake, symbicort 2 puffs bid, claritin 10 mg qd, O2 titrated as needed, mucinex, hypersal and acappella device.Candice y slow improvemen t, will consult Dr. Peterson Multiple n odules of lung 958041318 R91.[address] Peterson, will ask him to assess whether follow up CT of chest needs to be done sooner than 3 months Right flank pain 7404112 09 R10.11 Long standing. Pt. says high dose oxy not helping, will add APAP 650 mg at each dose of oxy and see how that does. [id number] Duy Robles MD [facility] [address] [place] [address] 09/12/2017 11:40:31 09/19/2017 11:51:02 Chronic obstructive pulmonary disease 37491799 J41.1 now appears to have returned to baselineon O2 at baselinecl eared for discharge home with meds and services in place at this time Dementia 03522856 F02.80 patient with poor short term recallcurr ently alert and oriented x 3question mild underlying dementia developing to f/u with pcp Multiple n odules of lung 090564924 R91.8 f/u with pulmonary in placequest ion repeat CT scanmonito r pulmonary function [id number] TIERA THOMAS [address] [place] [address] 09/14/2017 07:24:11 09/19/2017 12:29:06 Pgwxg-vi-fknnuwb respiratory failure 72628914 J96.21 will send home with script for albuterol inhaler for prn dosinghe will talk with PCP about possibilit y of neb treatmentp rednisone taper-to complete 09/25/17con tinue with acapella device q 2 hrsfollow up with PCP Acute confusion 41448538 0 R41.0 confusion resolved currentlya lert and opalwi leonardo follow up with PCP Chronic ob structive pulmonary disease 88143545 J41.8 prednisone taper-to complete 09/25/17 symbicort 2 puffs bidclariti n 10 mg qdmucinex 1200 mg bidfollow up with PCP Essential hypertension 48783996 I10 imdur 60 mg qdmetoprol ol 50 mg qdfollow up with PCP Dyslipidemia 801477311 E 78.4 lipitor 80 mg qdtricor 145 mg qdzetia 10 mg qd follow up with PCP Chronic low back pain 27 1395540 M54.5 oxycodone 30 mg q 6 hrs prnfollow up with PCP Coronary arteriosclerosis 21487912 I25.10 ASA 81 mg qdzetia, tricor and lipitor qdfollow up with PCP Multiple n odules of lung 784107162 R91.[address] of chest in 3 monthsfoll ow up with PCP Anxiety 01481054 F41.1 valium 10 mg q 8 hrs prnfollow up with PCP Gastroesop hageal reflux disease 818960234 K21.9 prilosec 20 mg qdfollow up with PCP [id number] ISMAEL PINA [address] [place] [address] 11/29/2022 10:51:49 12/06/2022 08:28:29 Pkxlg-yt-ucqyhgg respiratory failure 98601353 J96.20 albuterol/ atrovent neb b0dyfrzxae x 600 mg bidbenzona adrian 100 mg tid prnazithro max 500 mg bid to 12/04azithr omax 250 mg daily MWF to 12/04cefuro kasia 500 mg bid to 12/04albute rol/atrove nt neb bidabluter ol inhaler q6hr prnpulmona ry consult Chronic ob structive pulmonary disease 18021051 J44.9 albuterol/ atrovent neb bidabluter ol inhaler q6hr prnalbuter ol/atroven t neb p4ucgpryzc asone 50 mcg daily prnloratad inbe 10 mg prncetiraz ine 10 mg prn Acute confusion 78534595 0 R41.0 confusion resolved currentlya lert and orientedde creased oxycodone and valium in hospital Essential hypertension 25930397 I10 imdur 60 mg qdmetoprol ol er 100 mg qdmonitor bp Dyslipidemia 211291849 E 78.5 lipitor 80 mg qdzetia 10 mg qd Chronic low back pain 27 0513770 M54.50 oxycodone 30 mg q 6 hrs prnfollow up with PCP Coronary arteriosclerosis 38270388 I25.10 ASA 81 mg qdzetia, lipitor qdfollow up with PCP Multiple n odules of lung 825528340 R91.[address] of chest-foll ow up with PCP Anxiety 71567105 F41.1 valium 5 mg q 8 hrs prnmonitor for increased confusion Gastroesop hageal reflux disease 832822462 K21.9 prilosec 20 mg qd Benign pro static hyperplasia 405189657 N40.0 flomax 0.8 mg hstestoste mathew 1% 50mg/5gm gel qodmonitor urine output Health Concerns Section Related Observation LastModified by Organization Detai ls LastModified Time None Recorded Concern Status LastModified by Organization Details LastModified Time None Recorded Advance Directives Directive Y: Payers Encounter Date Sequence Insurance Name Policy Number Policy Paz Covered Member ID Paz Member ID Guarantor Name 09/07/2017 2 [place] [facility] Mandaeism Tarrs [id number] Mandaeism Tarrs 09/07/2017 1 [place] [employer] Mandaeism K Tarrs [id number] Mandaeism Tarrs 09/11/2017 2 [place] Mandaeism Tarrs [id number] Mandaeism Tarrs 09/11/2017 1 [place] [employer] Mandaeism K Tarrs [id number] Mandaeism Tarrs 09/12/2017 2 [place] Mandaeism Tarrs [id number] Mandaeism Tarrs 09/12/2017 1 [place] [employer] Mandaeism K Tarrs [id number] Mandaeism Tarrs 09/14/2017 2 [place] Mandaeism Tarrs [id number] Mandaeism Tarrs 09/14/2017 1 [place] [employer] Mandaeism K Tarrs [id number] Yaron Franco 11/29/2022 2 [place] [facility] Yaron Franco [id number] Yaron Franco 11/29/2022 1 [place] [facility] Yaron Franco [id number] Yaron Franco Notes Date Note Type Note Provider Name and Address Organization Details Recorded Time 09/07/2017 text/html A 76 year old milagros le being seen for acute rounding visit. Staff has no concerns at this time. Patient has no complaints. He is hoping to go home Sunday. TIERA THOMAS [address] [facility] [address] [facility], [address], [place], [address], [email or web address] 09/07/2017 19:35:02 09/11/2017 text/html I am seeing this 76 yo man at his request. He is here for rehab after a pneumonia. He says his SOB is improving, but still worse than baseline, at baseline he only needed O2 at hs. Also Raising less sputum and sputum is manager urgent care colored. His primary concern is continued right [...] clipping in, aortic aneurysms, and hx of [place]. Chyna Arrieta MD [address] [facility], [address], [place], [address], [email or web address] 09/11/2017 12:15:00 09/12/2017 text/html Asked to eval patient for multiple issues. Patient initially admit after treatment for copd exacerbation and pneumonia with significant deconditioning. Patient and question discharge. Patient on O2 at baseline ambulated approx 500 feet today with walker. Prior CT scan showed pulmonary nodules and has f/u with pulmonary for question repeat scan. otherwise stable at baseline Duy Robles MD [address] [facility], [address], [place], [address], [email or web address] 09/12/2017 11:49:28 09/14/2017 text/html A 76 year old milagros sanchez being seen for a discharge summary. Patient has participated in therapy and progressed nicely. He has no concerns about going home and is ready. Staff has no concerns about his discharge. TIERA THOMAS [address] [facility], [address], [place], [address], [email or web address] 09/14/2017 08:04:54 11/29/2022 text/html seen today for [...] directions with pt and leaving AMA ELEN BALTAZAR NP [address] [facility], [address], [place], [address], [email or web address] 11/29/2022 15:45:36
--- OUTSIDE RECORDS SUMMARY | 2024-06-16 07:12 | XMS_ITS ---
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) ACTIVE 08/25/2017 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 - ICD-10-CM) ACTIVE 08/25/2017 SEPSIS, UNSPECIFIED ORGANISM (A41.9 - ICD-10-CM) ACTIV E 11/28/2022 MUSCLE WEAKNESS (GENERALIZED) (M62.81 - ICD-10-CM) ACT FREDDY 08/25/2017 CHRONIC OBSTRUCTIVE PULMONAR Y DISEASE, UNSPECIFIED (J44.9 - ICD-10-CM) ACTIVE 11/28/2022 DYSPHAGIA, UNSPECIFIED (R13.10 - ICD-10-CM) ACTIVE 08/25/2017 ABDOMINAL AORTIC ANEURYSM, W ITHOUT RUPTURE, UNSPECIFIED (I71.40 - ICD-10-CM) ACTIVE 11/28/2022 UNSPECIFIED ABNORMALITIES OF GAIT AND MOBILITY (R26.9 - ICD-10-CM) ACTIVE 08/25/2017 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 11/28/2022 WEAKNESS (R53.1 - ICD-10-CM) ACTIVE 08/25/2017 UNSPECIFIED OSTEOARTHRITIS, UNSPECIFIED SITE (M19.90 - ICD-10-CM) ACTIVE 11/28/2022 STREPTOCOCCUS PNEUMONIAE THE CAUSE OF DISEASES CLASSIFIED ELSEWHERE (B95.3 - ICD-10-CM) ACTIVE 08/25/2017 RADICULOPATHY, LUMBAR REGION (M54.16 - ICD-10-CM) ACTI VE 12/01/2022 HUMAN METAPNEUMOVIRUS THE CAUSE OF DISEASES CLASSIFIED ELSEWHERE (B97.81 - ICD-10-CM) ACTIVE 08/25/2017 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) ACTIVE 11/28/2022 OTHER NONSPECIFIC ABNORMAL F INDING OF LUNG FIELD (R91.8 - ICD-10-CM) ACTIVE 08/25/2017 DIFFICULTY IN WALKING, NOT E LSEWHERE CLASSIFIED (R26.2 - ICD-10-CM) ACTIVE 11/28/2022 OTHER CHEST PAIN (R07.89 - ICD-10-CM) ACTIVE 03/2018 ESSENTIAL (PRIMARY) HYPERTENSION (I10 - ICD-10-CM) ACT FREDDY 08/25/2017 ANXIETY DISORDER, UNSPECIFIED (F41.9 - ICD-10-CM) ACTI VE 08/25/2017 LOW BACK PAIN (M54.5 - ICD-10-CM) ACTIVE 018 ENCOUNTER FOR SCREENING FOR RESPIRATORY TUBERCULOSIS (Z11.1 - ICD-10-CM) ACTIVE 08/25/2017 CHRONIC OBSTRUCTIVE PULMONAR Y DISEASE, UNSPECIFIED (J44.9 - ICD-10-CM) ACTIVE 08/25/2017 Encounters Encounter Performer Performer Role Encounter Diagnoses Location Date Discharge - Home - [facility] 8 03:37 pm EDT - 8 10:00 am EDT Discharge - Discharged to home or self care - Home - Private home/apt. with no home health services [facility] 3 10:00 pm EDT - 3 01:02 pm EDT Immunizations Vaccine Date Influenza TB 2 Step [facility] Skin Test 09/02/2017 1 2:20 pm EDT TB 2 Step [place] Skin Test 09/02/2017 1 2:00 am EDT TB 2 Step [place] Skin Test 08/26/2017 0 8:45 am EDT PCV13 (Pneumococcal Conjugate)Vaccine Social History
[2024-06-16 07:26] LABS: MANUAL DIFF FLAG NO
[2024-06-16 07:44] LABS: Appearance Urine Clear; Color Urine Yellow; Glucose Urine UA Negative (Negative); Leukocyte Esterase Urine Negative (Negative); Nitrite Urine Negative (Negative); UMIC TRIGGER UACC YES; Urine Blood Small (1+) (Negative); Urine Ketones Negative (Negative); Urine Protein Negative (Neg-Trace)
[2024-06-16 07:46] LABS: Basophils Percent Auto 0.4 % (0-2); Eosinophils Absolute Auto 0.2 X10*3/uL (0.0-0.4); Eosinophils Percent Auto 2.2 % (0-4); Hematocrit 50.4 % (42.0-52.0); Hemoglobin 16.8 g/dl (14.0-18.0); Imm Gran Abs Auto 0.02 X10*3/uL (0.00-0.03); Imm Gran Pct Auto 0.3 % (0.0-0.4); Lymphocytes Absolute Auto 2.4 X10*3/uL (1.2-4.9); Lymphocytes Percent Auto 30.7 % (20-40); Mean Corpuscular HGB Conc 33.3 g/dl (31.0-36.0); Mean Corpuscular Hemoglobin 32.6 pg (27.0-33.0); Mean Corpuscular Volume 97.9 fL (80.0-98.0); Mean Platelet Volume 9.8 fL (9.4-12.4); Monocytes Absolute Auto 0.6 X10*3/uL (0.1-1.2); Monocytes Percent Auto 7.3 % (2-11); Neutrophils Absolute Auto 4.6 x10*3/uL (2.0-8.3); Neutrophils Percent Auto 59.1 % (45-73); Platelet Count 141 X10*3/uL (160-400); Red Blood Count 5.15 X10*6/uL (4.60-5.80); Red Cell Distribution Width 13.3 % (11.0-16.0); White Blood Count 7.8 X10*3/uL (4.8-10.8)
[2024-06-16 07:50] LABS: Estimated Average Glucose 111 mg/dL; Hemoglobin A1C 157.9612 umol/L; Hemoglobin A1c % 5.5 % (<6.0); Total Hemoglobin (HGBA1C) 4304.2819 umol/L
[2024-06-16 07:52] LABS: Bacteria Urine None Seen (None Seen); Hyaline Casts Urine 0-2 /LPF (0-2); RBC Urine 0-2 /HPF (0-2); Squamous Epithelial Cell Urine 0-2 /HPF (0-2); WBC Urine 0-5 /HPF (0-5)
[2024-06-16 08:21] LABS: Alanine Aminotransferase 52 U/L (0-40); Alkaline Phosphatase 71 U/L (39-117); Anion Gap 13 (12-20); Aspartate Amino Transferase 30 U/L (5-37); Bilirubin Total 0.6 mg/dL (0.0-1.0); Blood Urea Nitrogen 14 mg/dL (9-16); Calcium 9.3 mg/dL (8.4-10.2); Carbon Dioxide 27 mmol/L (22-29); Chloride 112 mmol/L (96-108); Cholesterol 137 mg/dL (<200); Estimated Glomerular Filt Rate > 60; Glucose Fasting 88 mg/dL (60-99); HDL Cholesterol 60 mg/dL (>40); LDL Cholesterol Calculated 53 mg/dL (<100); Sodium 148 mmol/L (135-145); Total Protein 6.9 g/dL (6.5-8.0); Triglycerides 123 mg/dL (<150)
[2024-06-16 08:45] LABS: Folate 7.7 ng/mL (> or = 4.0); Vitamin B12 373 pg/mL (200-900)
== END 2024-06-16 07:10 | disposition home or self-care (01) ==
LOC: HO.LAB 07:09
PROVIDERS: PCP Internal Medicine; Visit Provider Internal Medicine
DX: D64.9 Anemia, unspecified (principal); E78.00 Pure hypercholesterolemia, unspecified; R73.9 Hyperglycemia, unspecified; E53.8 Deficiency of other specified B group vitamins; E55.9 Vitamin D deficiency, unspecified
CPT/HCPCS: 36415; 80053; 80061; 81001; 82306; 82607; 82746; 83036; 84443; 85025

== ENCOUNTER 2024-07-25 10:57 | Outpatient (AMB) | payer MEDICARE, MEDICAID, SELFPAY ==
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
[2024-07-25 11:11] VITALS: BP 132/72; PULSE 92; TEMP 36.2; O2SAT 96; BMI 22.4
--- OUTSIDE RECORDS SUMMARY | 2024-07-25 11:54 | XMS_ITS | Data Portability ---
Author Organization [facility] Feedback-[employer] [facility], Main Office Address [address] [facility], [address] [place] [address] Care Team Providers Care Rn Case Manager Hospice Name Role Phone MARIANNE LINDSAY 1ST FLOOR OTHER [place] Primary Care Provider Assessment Encounter Date Assessment Date Assessment LastModified by Organization Details LastModified Time 09/07/2017 09/07/2017 09/03/17 WBC 8.4, Hgb 13.3, Hct 36.2, Na 145, K 4.1, BUN 16, Wireless Construction Manager 0.87 tkoloski Not available 09/07/2017 19:28:05 09/14/2017 09/14/2017 09/10/17 WBC 7, Hgb 12, Hct 35.5, Na 142, K 3.9, BUN 15, [employer] Construction Manager 0.85 tkoloski Not available 09/14/2017 07:29:55 Plan [...] Details Recorded Time Benign prostatic hyperplasi a 273728971 Active 2022 ELEN BALTAZAR NP [address] [facility], [address], [place], [address], [facility] [employer] 3 11:48:23 Chronic obstructiv e pulmonary disease 54723220 Active 2017 on home 02 2L when ambulation UNRULYTIERA HAIDER [address] [facility], [address], [place], [address], [place] [employer] 8 15:16:30 Multiple nodules of lung 821450892 Active 2017 TIERA THOMAS [address], [address], [place], [address], [facility] 8 15:15:09 Coronary arterioscl erosis 11775239 Active 2017 post stent TIERA THOMAS [address], [address], [place], [address], [facility] 8 15:17:09 Essential hypertensi on 28258380 Active [address], [place], [address], [facility] 8 15:17:25 Dyslipidem ia 412353871 Active 2017 TIERA THOMAS [address], [place], [address], [facility] 8 15:17:34 Anxiety 49391027 Active 2017 TIERA THOMAS [address], [place], [address], [facility] 8 15:17:56 History of aortic aneurysm 639038042 Active [address], [place], [address], [facility] 8 15:18:06 Seizure disorder 363158189 Active 2017 not on medication s TIERA THOMAS [address], [address], [place], [address], [facility] 8 15:18:25 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 TIERA THOMAS [address], [address], [place], [address], [facility] 8 15:19:45 Chronic low back pain 139224499 Active 2017 TIERA THOMAS [address], [address], [place], [address], [place] [facility] 8 15:19:57 Acute-on-c hronic respirator y failure 93426836 Active 2017 TIERA THOMAS [address], [address], [place], [address], [place] [facility] 8 15:20:36 Myocardial infarction 91272242 Active 2017 TIERA THOMAS [address], [address], [place], [address], [place] [facility] 8 15:30:39 Gastroesop hageal reflux disease 032380761 Active 2017 TIERA THOMAS [address], [address], [place], [address], [facility] 8 16:04:55 Asthenia 85806191 Active 2017 Chyna Arrieta MD [address], [address], [place], [address], [place] [facility] 8 12:22:23 Acute confusion 093595481 Active 2017 Chyna Arrieta MD [address], [address], [place], [address], [facility] 8 12:27:59 Right flank pain 407687778 Active 2017 Chyna Arrieta MD [address] [facility], [address], [place], [address], [facility] 8 12:37:36 Dementia 53697211 Active 2017 Duy Robles MD [address], [address], [place], [address], [facility] 8 11:47:33 Problem Notes None recorded. Medical Equipment None Reported. Allergies Allergen ID Allergen Name Allergen Category Reaction Reaction Severity Criticality Documentation Date Start Date Code Code System Note Provider Name and Address Organization Details Recorded Time 12719 bupropion Not available Not available Not available Not available 08/27/2017 40702 RxNorm Not Available Not Available Not Available 67148 celecoxib medicatio n Not available Not available Not available 08/27/2017 65733 7 RxNorm Not Available Not Available Not Available 00949 gabapenti n medicatio n Not available Not available Not available 08/27/2017 88395 RxNorm Not Available Not Available Not Available 98569 levofloxa obuchra medicatio n Not available Not available Not available 08/27/2017 58764 RxNorm Not Available Not Available Not Available 26452 tramadol medicatio n Not available Not available Not available 08/27/2017 23709 RxNorm Not Available Not Available Not Available 11696 ibuprofen medicatio n Not available Not available [...] Updated DateTime 3 185.42 cm 23.7 kg/m2 83035.6 3 g 74 /min 18 /min 98.4 [degF] 92 % 92 % 2 L/min 116 mm[Hg] 68 mm[Hg] ELEN BALTAZAR NP [address] [facility] [address], [place], [address] , [facility] [employer] 3 11:10:35 Date Recorded Body temperature Oxygen saturation Oxygen saturation in Arterial blood by Pulse oximetry Heart rate Respiratory rate Systolic blood pressure Diastolic blood pressure Provider Name and Address Organization Details Last Updated DateTime 8 97.4 [degF] 96 % 96 % 81 /min 20 /min 131 mm[Hg] 74 mm[Hg] TIERA THOMAS [address] [facility], [facility] [address], [place], [address], [facility] [employer] 8 19:24:41 Date Recorded Heart rate Respiratory rate Body temperature Oxygen saturation Oxygen saturation in Arterial blood by Pulse oximetry Inhaled oxygen flow rate Systolic blood pressure Diastolic blood pressure Provider Name and Address Organization Details Last Updated DateTime 8 76 /min 20 /min 97.5 [degF] 96 % 96 % 2 L/min 116 mm[Hg] 66 mm[Hg] Chyna Arrieta MD [address] [facility], [address], [place], [address], [facility] 8 11:30:17 Date Recorded Oxygen saturation Oxygen saturation in Arterial blood by Pulse oximetry Heart rate Respiratory rate Body temperature Systolic blood pressure Diastolic blood pressure Provider Name and Address Organization Details Last Updated DateTime 8 97 % 97 % 69 /min 18 /min 97.7 [degF] 119 mm[Hg] 87 mm[Hg] TIERA THOMAS [address] [facility], [address], [place], [address], [facility] 8 08:03:45 Social History Question Answer Notes LastModified by Organizat ion Details LastModified Time Tobacco Smoking Status Former Smoker quit one year ago TIERA THOMAS [address] [facility], [address], [place], [address], [facility] 08/27/2017 15:54:22 Do You Have An [...] Do You Have A Medical Power Of Xm1 Tank 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 Yes Information not available 08/28/2017 What Was [...] Recorded Time DTaP, unspecified formulation 9 completed [facility] 07/11/2023 15:52:11 Tdap 1 completed [facility] 07/11/2023 15:52:30 Pneumococcal conjugate PCV 13 9 [facility] 07/11/2023 15:56:45 pneumococcal polysaccharide PPV23 7 completed [facility] 07/11/2023 16:01:58 influenza, unspecified formulation 2 [facility] 07/11/2023 16:03:07 influenza, unspecified formulation 3 completed [facility] 07/11/2023 16:03:23 SARS-COV-2 (COVID-19) vaccine, UNSPECIFIED 1 completed [facility] 07/11/2023 16:03:38 SARS-COV-2 (COVID-19) vaccine, UNSPECIFIED 1 completed [facility] 07/11/2023 16:03:46 SARS-COV-2 (COVID-19) vaccine, UNSPECIFIED 2 [facility] 07/11/2023 16:03:54 Past Encounters Encounter ID Performer Location Encounter Start Date Encounter Closed Date Diagnosis/Indication Diagnosis SNOMED-CT Code Diagnosis ICD10 Code Diagnosis Note [id number] TIERA THOMAS ANGÉLICA [address] [place] [address] [place] [address] 08/27/2017 15:00:12 09/09/2017 19:53:20 Uphzb-ts-rsnjuvv respiratory failure 16404378 J96.21 PT/OT eval and treataugme ntin 875 mg bid x 2 daysduoneb s q 4 while awakepredn isone tapermonit or respirator y status Chronic ob structive pulmonary disease 97523334 J41.8 duonebs q 4 while awakepredn isone tapersymbi delmi 2 puffs bidclariti n 10 mg qdcurrentl y on oxygenmoni tor respirator y status Essential hypertension 09883936 I10 imdur 60 mg qdmetoprol ol 50 mg qdmonitor b/p and labs Dyslipidemia 948312795 E 78.4 lipitor 80 mg qdtricor 145 mg qdzetia 10 mg qd monitor labs Chronic low back pain 27 3603405 M54.5 oxycodone 30 mg q 6 hrs prnmonitor for pain Coronary arteriosclerosis 11390806 I25.10 ASA 81 mg qdzetia, tricor and lipitor qdmonitor Multiple n odules of lung 527439357 R91.[address] of chest in 3 months Anxiety 65903284 F41.1 valium 10 mg q 8 hrs prnmonitor moodpsych eval prn Gastroesop hageal reflux disease 862494307 K21.9 prilosec 20 mg qdmonitor for symptom relief Acute confusion 11615153 0 R41.0 patient confusedse eing people walk by himdoesn't remember the hospital staygirlfr iend says he answers the phone at night when it doesn't ringwill check a u/a and c/swill check a t81-fqnzdj t states that he takes b12 shots twice a month because his cousin does?quest ion of dementiaps [facility] consult [id number] MD MARIANNE Duran [address] [place] [address] [place] [address] 08/28/2017 09:58:23 09/10/2017 10:14:44 Xfwyt-cg-xqcnipf respiratory failure 12806648 J96.21 Continue augmentin 875 mg bid x [...] hospital.m onitor respirator y status Acute confusion 00936480 0 R44.1 A&Ox3 right now. Very aware [...] Will follow. Chronic ob structive pulmonary disease 79703020 J41.8 As above, also on symbicort 2 puffs bid and claritin 10 mg qdmonitor respirator y status Essential hypertension 17541260 I10 Stable on imdur 60 mg qd and metoprolol 50 mg qd.monitor b/p and labs Dyslipidemia 893302060 E 78.4 Continue lipitor 80 mg qd, tricor 145 mg qd and zetia 10 mg qd monitor labs as outpt. Chronic low back pain 27 6800848 M54.5 Continue oxycodone 30 mg q 6 hrs prn for now. Apparently doesn't take regularly at home. I wonder if this could be contributi ng to hallucinat ions. Follow for now.monito r for pain Coronary arteriosclerosis 76493832 I25.10 F/U with cardio prn. Meds as above, also ASA 81 mg qd. Multiple n odules of lung 482427370 R91.[address] of chest in 3 months Anxiety 27200831 F41.1 Continue valium 10 mg q 8 hrs prnmonitor mood, NEG following. Gastroesop hageal reflux disease 462080732 K21.9 Stable on prilosec 20 mg qd. No current sxs. Asthenia 75989456 R53.1 Very deconditio maria guadalupe, needs PT/OT for strengthen ing, mobility and safety. Fall W18.39XA Feels like he tripped while trying to straighten room. Was not using walker. Reminded to always use walker for now. No injuries Right flank pain 4572678 09 R10.11 long standing. Follow [id number] TIERA THOMAS [address] [facility] [place] [address] 09/07/2017 19:24:05 09/11/2017 10:42:44 Acute confusion 400421579 R41.0 patient remains confused at timestests have been negative so farmonitor for worsening symptomsps [facility] consult Chronic low back pain 27 2684775 M54.5 oxycodone 30 mg q 6 hrs prnmonitor for pain Anxiety 81764969 F41.1 valium 10 mg q 8 [place] [id number] Chyna Ar[facility]eta [facility] [address] [place] [address] [place] [address] 09/11/2017 11:26:09 09/19/2017 11:37:04 Chronic obstructive pulmonary disease 13737837 J41.8 Continue duonebs q 4 while awake, symbicort 2 puffs bid, claritin 10 mg qd, O2 titrated as needed, mucinex, hypersal and acappella device.Candice y slow improvemen t, will consult Dr. Peterson Multiple n odules of lung 596562859 R91.[address] Peterson, will ask him to assess whether follow up CT of chest needs to be done sooner than 3 months Right flank pain 7084216 09 R10.11 Long standing. Pt. says high dose oxy not helping, will add APAP 650 mg at each dose of oxy and see how that does. [id number] Duy Robles MD [facility] [address] [place] [address] 09/12/2017 11:40:31 09/19/2017 11:51:02 Chronic obstructive pulmonary disease 74186928 J41.1 now appears to have returned to baselineon O2 at baselinecl eared for discharge home with meds and services in place at this time Dementia 49089803 F02.80 patient with poor short term recallcurr ently alert and oriented x 3question mild underlying dementia developing to f/u with pcp Multiple n odules of lung 553308377 R91.8 f/u with pulmonary in placequest ion repeat CT scanmonito r pulmonary function [id number] TIERA THOMAS [address] [place] [address] 09/14/2017 07:24:11 09/19/2017 12:29:06 Qezyz-al-flugsoo respiratory failure 00427406 J96.21 will send home with script for albuterol inhaler for prn dosinghe will talk with PCP about possibilit y of neb treatmentp rednisone taper-to complete 09/25/17con tinue with acapella device q 2 hrsfollow up with PCP Acute confusion 94914118 0 R41.0 confusion resolved currentlya lert and opalwi leonardo follow up with PCP Chronic ob structive pulmonary disease 70262163 J41.8 prednisone taper-to complete 09/25/17 symbicort 2 puffs bidclariti n 10 mg qdmucinex 1200 mg bidfollow up with PCP Essential hypertension 19298277 I10 imdur 60 mg qdmetoprol ol 50 mg qdfollow up with PCP Dyslipidemia 403979829 E 78.4 lipitor 80 mg qdtricor 145 mg qdzetia 10 mg qd follow up with PCP Chronic low back pain 27 5103822 M54.5 oxycodone 30 mg q 6 hrs prnfollow up with PCP Coronary arteriosclerosis 94821390 I25.10 ASA 81 mg qdzetia, tricor and lipitor qdfollow up with PCP Multiple n odules of lung 473688237 R91.[address] of chest in 3 monthsfoll ow up with PCP Anxiety 15799908 F41.1 valium 10 mg q 8 hrs prnfollow up with PCP Gastroesop hageal reflux disease 282124847 K21.9 prilosec 20 mg qdfollow up with PCP [id number] ISMAEL PINA [address] [place] [address] 11/29/2022 10:51:49 12/06/2022 08:28:29 Vyqni-ct-yvpuesf respiratory failure 17960840 J96.20 albuterol/ atrovent neb w6rjvaaiqm x 600 mg bidbenzona adrian 100 mg tid prnazithro max 500 mg bid to 12/04azithr omax 250 mg daily MWF to 12/04cefuro kasia 500 mg bid to 12/04albute rol/atrove nt neb bidabluter ol inhaler q6hr prnpulmona ry consult Chronic ob structive pulmonary disease 13071625 J44.9 albuterol/ atrovent neb bidabluter ol inhaler q6hr prnalbuter ol/atroven t neb l4kcoyrvqt asone 50 mcg daily prnloratad inbe 10 mg prncetiraz ine 10 mg prn Acute confusion 95766366 0 R41.0 confusion resolved currentlya lert and orientedde creased oxycodone and valium in hospital Essential hypertension 37588074 I10 imdur 60 mg qdmetoprol ol er 100 mg qdmonitor bp Dyslipidemia 236952126 E 78.5 lipitor 80 mg qdzetia 10 mg qd Chronic low back pain 27 1596858 M54.50 oxycodone 30 mg q 6 hrs prnfollow up with PCP Coronary arteriosclerosis 04955283 I25.10 ASA 81 mg qdzetia, lipitor qdfollow up with PCP Multiple n odules of lung 853950695 R91.[address] of chest-foll ow up with PCP Anxiety 14977594 F41.1 valium 5 mg q 8 hrs prnmonitor for increased confusion Gastroesop hageal reflux disease 683585618 K21.9 prilosec 20 mg qd Benign pro static hyperplasia 297958118 N40.0 flomax 0.8 mg hstestoste mathew 1% 50mg/5gm gel qodmonitor urine output Health Concerns Section Related Observation LastModified by Organization Detai ls LastModified Time None Recorded Concern Status LastModified by Organization Details LastModified Time None Recorded Advance Directives Directive Y: Payers Encounter Date Sequence Insurance Name Policy Number Policy Paz Covered Member ID Paz Member ID Guarantor Name 09/07/2017 2 [place] [facility] [employer] [place] [id number] [employer] 09/07/2017 1 [place] [employer] K [place] [id number] [employer] 09/11/2017 2 [place] [facility] Confucianist Tok [id number] [employer] 09/11/2017 1 [place] [employer] Confucianist K Tok [id number] [employer] 09/12/2017 2 [place] [facility] Confucianist Tok [id number] [employer] 09/12/2017 1 [place] [employer] Confucianist K Tok [id number] [employer] 09/14/2017 2 [place] [facility] Yaron Franco [id number] Yaron Franco 09/14/2017 1 [place] [facility] [employer] Yaron Franco [id number] Yaron Franco 11/29/2022 2 [place] [facility] Yaron Franco [id number] Yaron Franco 11/29/2022 1 [place] [facility] [employer] Yaron Franco [id number] Yaron Franco Notes Date Note Type Note Provider Name and Address Organization Details Recorded Time 09/07/2017 text/html A 76 year old ma le being seen for acute rounding visit. Staff has no concerns at this time. Patient has no complaints. He is hoping to go home Sunday. TIERA THOMAS [address] [facility], [address], [place], [address], [employer] 09/07/2017 19:35:02 09/11/2017 text/html I am seeing this 76 yo man at his request. He is here for rehab after a pneumonia. He says his SOB is improving, but still worse than baseline, at baseline he only needed O2 at hs. Also Raising less sputum and sputum is puppy sitter colored. His primary concern is continued right [...] clipping in, aortic aneurysms, and hx of PA. Chyna Arrieta MD [address] [facility], [address], [place], [address], [facility] 09/11/2017 12:15:00 09/12/2017 text/html Asked to eval patient for multiple issues. Patient initially admit after treatment for copd exacerbation and pneumonia with significant deconditioning. Patient and question discharge. Patient on O2 at baseline ambulated approx 500 feet today with walker. Prior CT scan showed pulmonary nodules and has f/u with pulmonary for question repeat scan. otherwise stable at baseline Duy Robles MD [address] [facility], [address], [place], [address], [facility] [employer] 09/12/2017 11:49:28 09/14/2017 text/html A 76 year old milagros sanchez being seen for a discharge summary. Patient has participated in therapy and progressed nicely. He has no concerns about going home and is ready. Staff has no concerns about his discharge. TIERA THOMAS [address] [facility], [address], [place], [address], [facility] [employer] 09/14/2017 08:04:54 11/29/2022 text/html seen today for [...] and leaving AMA ELEN BALTAZAR NP [address] [facility], [address], [place], [address], [facility] [employer] 11/29/2022 15:45:36
--- OUTSIDE RECORDS SUMMARY | 2024-07-25 11:54 | XMS_ITS ---
Author Organization [facility] Care Team Providers Care Build And Deployment Engineer Name Role Phone Duy Robles Unavailable Unavailable Radha Tim Unavailable Unavailable Chyna Arrieta Unavailable Unavailable Allergies and adverse reactions Code CodeSystem Substance Reaction Severity StartDate Concern Status 96078 RXNORM Tramadol Unknown 08/25/2017 active 79384 RXNORM Levofloxacin Unknown 08/25/2017 active 62997 RXNORM Gabapentin Unknown 08/25/2017 active 981941 RXNORM Celecoxib Unknown 08/25/2017 active 44617 RXNORM Bupropion Unknown 08/25/2017 active Care Team Name Role Address Phone Organization Dates Duy Robles PCP [address], [address], [place] [facility] [place] - [place]/14/[place] Radha Tim Attending Physician [address] [address], [place], [address], [place] [facility] [place] - 09/14/2017 Chyna Arrieta Attending Physician [address], [address], [place] [facility] [place] - 09/14/2017 Immunizations Immunization Status Vaccine Details Vaccine Code CodeSystem Date Notes Influenza normal Influenza, split virus, trivalent, injectable, contains preservative 141 CVX created date: 08/27/2017 consent date: 08/27/2017 02/28/17 TB 2 Step Mantoux Skin Test completed tuberculin skin test; unspecified formulation lotNumber: [id number] expiry: 03/15/2018 Mfg: PAR [employer]s Given 0.1 ml Left Forearm intradermally Step 1 of Multi-step with next step required 98 CVX created date: 09/02/2017 consent date: 09/02/2017 administer ed date: 09/02/2017 TB 2 Step Mantoux Skin Test completed tuberculin skin test; unspecified formulation Given 0.1 ml Left Forearm intradermally Step 2 of Multi-step with next step required 98 CVX created date: 09/13/2017 consent date: 09/12/2017 administer ed date: 09/02/2017 Read by Ileana Aguirre RN/DALJIT TB 2 Step Mantoux Skin Test completed tuberculin skin test; unspecified formulation lotNumber: [id number] expiry: 03/15/2019 Mfg: PAR [id number] Given 0.1 ml Right Forearm intradermally Step 1 of Multi-step with next step required 98 CVX created date: 08/26/2017 consent date: 08/26/2017 administer ed date: 08/26/2017 PCV13 (Pneumococcal Conjugate)Vaccin e normal pneumococcal conjugate vaccine, 13 valent 133 CVX created date: 08/27/2017 consent date: 08/27/2017 10/08/16 Mental Status Section Date Assessment Total Score Description 11/29/2022 CAM 0 No delirium ind icated 09/14/2017 BIMS 13 cognitively int act CAM 0 No delirium ind icated PHQ-9 00 Problems Problem # Description Date of onset Resolved Date Code CodeSystem Concern Status 1 RADICULOPATHY, LUMBAR REGION 12/02/[address] active 2 ABDOMINAL AORTIC ANEURYSM, WITHOUT RUPTURE, UNSPECIFIED 11/29/[address] active 3 CHRONIC OBSTRUCTIVE PULMONARY DISEASE, UNSPECIFIED 11/29/[address] active 4 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/29/[address] active 5 DIFFICULTY IN WALKING, NOT ELSEWHERE CLASSIFIED 11/29/[address] active 6 MUSCLE WASTING AND ATROPHY, NOT ELSEWHERE CLASSIFIED, MULTIPLE SITES 11/29/[address] active 7 SEPSIS, UNSPECIFIED ORGANISM 11/29/[address] active 8 UNSPECIFIED OSTEOARTHRITIS, UNSPECIFIED SITE 11/29/[address] active 9 UNSPECIFIED PROTEIN-CALORIE MALNUTRITION 11/29/[address] active 10 ACUTE AND CHRONIC RESPIRATORY FAILURE WITH HYPOXIA 08/26/[id number] active 11 ANXIETY DISORDER, UNSPECIFIED 08/26/[address] active 12 CHRONIC OBSTRUCTIVE PULMONARY DISEASE WITH (ACUTE) EXACERBATION 08/26/[address] active 13 CHRONIC OBSTRUCTIVE PULMONARY DISEASE, UNSPECIFIED 08/26/[address] active 14 DYSPHAGIA, UNSPECIFIED 08/26/[address] active 15 ENCOUNTER FOR SCREENING FOR RESPIRATORY TUBERCULOSIS 08/26/[address] active 16 ESSENTIAL (PRIMARY) HYPERTENSION 08/26/[address] active 17 HUMAN METAPNEUMOVIRUS THE CAUSE OF DISEASES CLASSIFIED ELSEWHERE 08/26/[address] active 18 LOW BACK PAIN 08/26/[address] active 19 MUSCLE WEAKNESS (GENERALIZED) 08/26/[address] active 20 OTHER CHEST PAIN 08/26/[address] active 21 OTHER NONSPECIFIC ABNORMAL FINDING OF LUNG FIELD 08/26/[address] active 22 OTHER PNEUMONIA, UNSPECIFIED ORGANISM 08/26/[address] active 23 STREPTOCOCCUS PNEUMONIAE THE CAUSE OF DISEASES CLASSIFIED ELSEWHERE 08/26/[address] active 24 UNSPECIFIED ABNORMALITIES OF GAIT AND MOBILITY 08/26/[address] active 25 WEAKNESS 08/26/[address] active Reason for Referral No Reasons for Referral Entered Social History Social History Observation Description Start Date End Date Code Code System Current Smoking Status Tobacco smoking consumption unknown 627418340 SNOMED CT Sex Assigned At Male 1940 09435-9 [facility] Vital Signs Code Code System Vitals Name Values and Units Timing Information 9279-1 [facility] Respiratory Rate Value=18.0 Units=/m in 11/29/2022 8462-4 [facility] Blood Pressure-Diastolic Value=67 Un its=mmHg 11/29/2022 8480-6 [facility] Blood Pressure-Systolic Ybvhr=592 Un its=mmHg 11/29/2022 8310-5 [facility] Body Temperature Value=98.4 Units=?? F 11/29/2022 8867-4 [facility] Heart rate Value=78.0 Units=/min 62630-9 [facility] O2 % BldC Oximetry Value=96.0 Units= % 11/29/2022 29623-7 [facility] Pain Level Value=6.0 11/29/2022 8302-2 [facility] Height Value=6.0 Units=Inches 11/29/2022 63278-9 [facility] Weight Hseir=424.0 Units=Lbs
== END 2024-07-25 11:53 | disposition home or self-care (01) ==
PROVIDERS: PCP Internal Medicine; Visit Provider Internal Medicine
DX: J44.1 Chronic obstructive pulmonary disease with (acute) exacerbation (principal); I25.10 Atherosclerotic heart disease of native coronary artery without angina pectoris; I71.40 Abdominal aortic aneurysm, without rupture, unspecified; E78.00 Pure hypercholesterolemia, unspecified; I10 Essential (primary) hypertension; R73.01 Impaired fasting glucose; E53.8 Deficiency of other specified B group vitamins; M51.360 Other intervertebral disc degeneration, lumbar region with discogenic back pain only; M47.892 Other spondylosis, cervical region; K21.9 Gastro-esophageal reflux disease without esophagitis; J30.9 Allergic rhinitis, unspecified; E55.9 Vitamin D deficiency, unspecified

== ENCOUNTER → 2024-07-25 10:57 | Outpatient (BNVA) | payer MEDICARE, MEDICAID, SELFPAY | PROVIDERS: PCP Internal Medicine; Visit Provider Internal Medicine | DX: R06.02 Shortness of breath (principal); J44.1 Chronic obstructive pulmonary disease with (acute) exacerbation; R07.89 Other chest pain; E78.00 Pure hypercholesterolemia, unspecified; I10 Essential (primary) hypertension; R73.01 Impaired fasting glucose; E53.8 Deficiency of other specified B group vitamins; I71.40 Abdominal aortic aneurysm, without rupture, unspecified; M51.360 Other intervertebral disc degeneration, lumbar region with discogenic back pain only; M47.892 Other spondylosis, cervical region; K21.9 Gastro-esophageal reflux disease without esophagitis; J30.9 Allergic rhinitis, unspecified; E55.9 Vitamin D deficiency, unspecified; G62.9 Polyneuropathy, unspecified; G47.62 Sleep related leg cramps; K59.00 Constipation, unspecified; G31.84 Mild cognitive impairment of uncertain or unknown etiology; N40.1 Benign prostatic hyperplasia with lower urinary tract symptoms; N13.8 Other obstructive and reflux uropathy; F41.9 Anxiety disorder, unspecified; F17.210 Nicotine dependence, cigarettes, uncomplicated | CPT/HCPCS: 93005; 96127; 99212 ==

== ENCOUNTER 2024-07-30 10:37 | Outpatient (AMB) | payer MEDICARE, MEDICAID, SELFPAY ==
[2024-07-30 10:42] VITALS: BP 96/50; PULSE 79; O2SAT 97
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
[2024-07-30 11:17] VITALS: PULSE 78; O2SAT 94
--- OUTSIDE RECORDS SUMMARY | 2024-07-30 12:34 | XMS_ITS ---
Author Organization [facility] Care Team Providers Care Director Retirement Name Role Phone Duy Robles Unavailable Unavailable Radha Tim Unavailable Unavailable Chyna Arrieta Unavailable Unavailable Allergies and adverse reactions Code CodeSystem Substance Reaction Severity StartDate Concern Status 11351 RXNORM Tramadol Unknown 08/25/2017 active 33509 RXNORM Levofloxacin Unknown 08/25/2017 active 45373 RXNORM Gabapentin Unknown 08/25/2017 active 822022 RXNORM Celecoxib Unknown 08/25/2017 active 39118 RXNORM Bupropion Unknown 08/25/2017 active Care Team Name Role Address Phone Organization Dates Duy Robles PCP [address], [address], [place] (Office): : [facility] 08/25/2017 - 09/14/2017 Radha Tim Attending Physician [address] [address], [place], [address], [place] (Office): : [facility] 08/25/2017 - 09/14/2017 Chyna Arrieta Attending Physician [address], [address], [place] (Office): [facility] 08/25/2017 - 09/14/2017 Immunizations Immunization Status Vaccine Details Vaccine Code CodeSystem Date Notes Influenza normal Influenza, split virus, trivalent, injectable, contains preservative 141 CVX created date: 08/27/2017 consent date: 08/27/2017 02/28/17 TB 2 Step Mantoux Skin Test completed tuberculin skin test; unspecified formulation lotNumber: [id number] expiry: 03/15/2018 Mfg: [employer] Given 0.1 [...] completed tuberculin skin test; unspecified formulation lotNumber: [id number] expiry: 03/15/2019 Mfg: PAR [id number] Given 0.1 ml Right Forearm intradermally Step [...] Concern Status 1 RADICULOPATHY, LUMBAR REGION 12/02/[address] active 2 ABDOMINAL AORTIC ANEURYSM, WITHOUT RUPTURE, UNSPECIFIED 11/29/[address] active 3 CHRONIC OBSTRUCTIVE PULMONARY DISEASE, UNSPECIFIED 11/29/[address] active 4 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/29/[address] active 5 DIFFICULTY IN WALKING, NOT ELSEWHERE CLASSIFIED 11/29/[address] active 6 MUSCLE WASTING AND ATROPHY, NOT ELSEWHERE CLASSIFIED, MULTIPLE SITES 11/29/[address] active 7 SEPSIS, UNSPECIFIED ORGANISM 11/29/[address] active 8 UNSPECIFIED OSTEOARTHRITIS, UNSPECIFIED SITE 11/29/[address] active 9 UNSPECIFIED PROTEIN-CALORIE MALNUTRITION 11/29/[address] active 10 ACUTE AND CHRONIC RESPIRATORY FAILURE WITH HYPOXIA 08/26/[address] active 11 ANXIETY DISORDER, UNSPECIFIED 08/26/[address] active 12 CHRONIC OBSTRUCTIVE PULMONARY DISEASE WITH (ACUTE) EXACERBATION 08/26/[address] active 13 CHRONIC OBSTRUCTIVE PULMONARY DISEASE, UNSPECIFIED 08/26/[address] active 14 DYSPHAGIA, UNSPECIFIED 08/26/[address] active 15 ENCOUNTER FOR SCREENING FOR RESPIRATORY TUBERCULOSIS 08/26/[address] active 16 ESSENTIAL (PRIMARY) HYPERTENSION 08/26/[address] active 17 HUMAN METAPNEUMOVIRUS THE CAUSE OF DISEASES CLASSIFIED ELSEWHERE 08/26/[address] active 18 LOW BACK PAIN 08/26/[address] active 19 MUSCLE WEAKNESS (GENERALIZED) 08/26/[address] active 20 OTHER CHEST PAIN 08/26/[address] active 21 OTHER NONSPECIFIC ABNORMAL FINDING OF LUNG FIELD 08/26/[address] active 22 OTHER PNEUMONIA, UNSPECIFIED ORGANISM 08/26/[address] active 23 STREPTOCOCCUS PNEUMONIAE THE CAUSE OF DISEASES CLASSIFIED ELSEWHERE 08/26/[address] active 24 UNSPECIFIED ABNORMALITIES OF GAIT AND MOBILITY 08/26/[address] active 25 WEAKNESS 08/26/[address] active Reason for Referral No Reasons for Referral Entered Social History Social History Observation Description Start Date End Date Code Code System Current Smoking Status Tobacco smoking consumption unknown 292297381 SNOMED CT Sex Assigned At Male 1940 [address]10-5 [facility] Vital Signs Code Code System Vitals Name Values and Units Timing Information 9279-1 [facility] Respiratory Rate Value=18.0 Units=/m in 11/29/2022 8462-4 [facility] Blood Pressure-Diastolic Value=67 Un its=mmHg 11/29/2022 8480-6 [facility] Blood Pressure-Systolic Knnmd=455 Un its=mmHg 11/29/2022 8310-5 [facility] Body Temperature Value=98.4 Units=?? F 11/29/2022 8867-4 [facility] Heart rate Value=78.0 Units=/min 96608-2 [facility] O2 % BldC Oximetry Value=96.0 Units= % 11/29/2022 50540-8 [facility] Pain Level Value=6.0 11/29/2022 8302-2 [facility] Height Value=6.0 Units=Inches 11/29/2022 53676-9 [facility] Weight Hyxui=746.0 Units=Lbs
--- OUTSIDE RECORDS SUMMARY | 2024-07-30 12:34 | XMS_ITS | Data Portability ---
Author Organization [facility] [employer] [facility], Main Office Address [address] [facility] [facility], [address] [place] [address] Care Team Providers Care Supervisor Agricultural Education Name Role Phone MARIANNE LINDSAY 1ST FLOOR OTHER [phone] [place] Primary Care Provider Assessment Encounter Date Assessment Date Assessment LastModified by Organization Details LastModified Time 09/07/2017 09/07/2017 09/03/17 WBC 8.4, Hgb 13.3, Hct 36.2, Na 145, K 4.1, BUN 16, [employer] Physiotherapist 0.87 [email or web address] Not available 09/07/2017 19:28:05 09/14/2017 09/14/2017 09/10/17 WBC 7, Hgb 12, Hct 35.5, Na 142, K 3.9, BUN 15, Gerent[employer] Physiotherapist 0.85 [email or web address] Not available 09/14/2017 07:29:55 Plan [...] Details Recorded Time Benign prostatic hyperplasi a 531348664 Active 2022 ELEN BALTAZAR NP [address] [facility], [address], [place], [address], [facility] [employer] 3 11:48:23 Chronic obstructiv e pulmonary disease 06719833 Active 2017 on home 02 2L when ambulation UNRULYTIERA HAIDER [address] [facility], [address], [place], [address], [place] [facility] 8 15:16:30 Multiple nodules of lung 576262281 Active 2017 TIERA THOMAS [address], [address], [place], [address], [facility] 8 15:15:09 Coronary arterioscl erosis 93963733 Active 2017 post stent TIERA THOMAS [address], [address], [place], [address], [facility] 8 15:17:09 Essential hypertensi on 16630383 Active [address], [place], [address], [facility] 8 15:17:25 Dyslipidem ia 552757660 Active 2017 TIERA THOMAS [address], [place], [address], [facility] 8 15:17:34 Anxiety 21355012 Active 2017 TIERA THOMAS [address], [place], [address], 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 TIERA THOMAS [address], [address], [place], [address], [facility] 8 15:19:45 Chronic low back pain 437619507 Active 2017 TIERA THOMAS [address], [address], [place], [address], [place] [facility] 8 15:19:57 Acute-on-c hronic respirator y failure 10860398 Active 2017 TIERA THOMAS [address], [address], [place], [address], [place] [facility] 8 15:20:36 Myocardial infarction 62651071 Active 2017 TIERA THOMAS [address], [address], [place], [address], [place] [facility] 8 15:30:39 Gastroesop hageal reflux disease 033449357 Active 2017 TIERA THOMAS [address], [address], [place], [address], [facility] 8 16:04:55 Asthenia 24279828 Active 2017 Chyna Arrieta MD [address], [address], [place], [address], [place] [facility] 8 12:22:23 Acute confusion 671888349 Active 2017 Chyna Arrieta MD [address], [address], [place], [address], [facility] 8 12:27:59 Right flank pain 228688254 Active 2017 Chyna Arrieta MD [address] [facility], [address], [place], [address], [facility] 8 12:37:36 Dementia 64348161 Active 2017 Duy Robles MD [address], [address], [place], [address], [facility] 8 11:47:33 Problem Notes None recorded. Medical Equipment None Reported. Allergies Allergen ID Allergen Name Allergen Category Reaction Reaction Severity Criticality Documentation Date Start Date Code Code System Note Provider Name and Address Organization Details Recorded Time 34376 bupropion Not available Not available Not available Not available 08/27/2017 50119 RxNorm Not Available Not Available Not Available 74904 celecoxib medicatio n Not available Not available Not available 08/27/2017 35222 7 RxNorm Not Available Not Available Not Available 11987 gabapenti n medicatio n Not available Not available Not available 08/27/2017 91427 RxNorm Not Available Not Available Not Available 87210 levofloxa bouchra medicatio n Not available Not available Not available 08/27/2017 23431 RxNorm Not Available Not Available Not Available 03857 tramadol medicatio n Not available Not available Not available 08/27/2017 04940 RxNorm Not Available Not Available Not Available 56348 ibuprofen medicatio n Not available Not available [...] Updated DateTime 3 185.42 cm 23.7 kg/m2 64420.6 3 g 74 /min 18 /min 98.4 [degF] 92 % 92 % 2 L/min 116 mm[Hg] 68 mm[Hg] ELEN BALTAZAR NP [address] [facility] [place], [place], [address] , [facility] [employer] 3 11:10:35 Date Recorded Body temperature Oxygen saturation Oxygen saturation in Arterial blood by Pulse oximetry Heart rate Respiratory rate Systolic blood pressure Diastolic blood pressure Provider Name and Address Organization Details Last Updated DateTime 8 97.4 [degF] 96 % 96 % 81 /min 20 /min 131 mm[Hg] 74 mm[Hg] TIERA THOMAS [address] [facility], [facility] [place], [place], [address], [facility] [employer] 8 19:24:41 Date Recorded Heart rate Respiratory rate Body temperature Oxygen saturation Oxygen saturation in Arterial blood by Pulse oximetry Inhaled oxygen flow rate Systolic blood pressure Diastolic blood pressure Provider Name and Address Organization Details Last Updated DateTime 8 76 /min 20 /min 97.5 [degF] 96 % 96 % 2 L/min 116 mm[Hg] 66 mm[Hg] Chyna Arrieta MD [address] [facility], [address], [place], [address], [facility] 8 11:30:17 Date Recorded Oxygen saturation Oxygen saturation in Arterial blood by Pulse oximetry Heart rate Respiratory rate Body temperature Systolic blood pressure Diastolic blood pressure Provider Name and Address Organization Details Last Updated DateTime 8 97 % 97 % 69 /min 18 /min 97.7 [degF] 119 mm[Hg] 87 mm[Hg] TIERA THOMAS [address] [facility], [address], [place], [address], [facility] 8 08:03:45 Social History Question Answer Notes LastModified by Organizat ion Details LastModified Time Tobacco Smoking Status Former Smoker quit one year ago TIERA THOMAS [address] [facility], [address], [place], [address], [facility] 08/27/2017 15:54:22 Do You Have An [...] Do You Have A Medical Power Of Rib Matcher And Fitter? Yes Information not available 08/28/2017 What Was [...] Recorded Time DTaP, unspecified formulation 9 completed [facility] 07/11/2023 15:52:11 Tdap 1 completed [facility] 07/11/2023 15:52:30 Pneumococcal conjugate PCV 13 9 [facility] 07/11/2023 15:56:45 pneumococcal polysaccharide PPV23 7 completed [facility] 07/11/2023 16:01:58 influenza, unspecified formulation 2 [facility] 07/11/2023 16:03:07 influenza, unspecified formulation 3 completed [facility] 07/11/2023 16:03:23 SARS-COV-2 (COVID-19) vaccine, UNSPECIFIED 1 completed [facility] 07/11/2023 16:03:38 SARS-COV-2 (COVID-19) vaccine, UNSPECIFIED 1 completed [facility] 07/11/2023 16:03:46 SARS-COV-2 (COVID-19) vaccine, UNSPECIFIED 2 [facility] 07/11/2023 16:03:54 Past Encounters Encounter ID Performer Location Encounter Start Date Encounter Closed Date Diagnosis/Indication Diagnosis SNOMED-CT Code Diagnosis ICD10 Code Diagnosis Note [id number] ITERA THOMAS ANGÉLICA [address] [place] [address] [place] [address] 08/27/2017 15:00:12 09/09/2017 19:53:20 Erjso-kx-dyzpalm respiratory failure 27157799 J96.21 PT/OT eval and treataugme ntin 875 mg bid x 2 daysduoneb s q 4 while awakepredn isone tapermonit or respirator y status Chronic ob structive pulmonary disease 33046425 J41.8 duonebs q 4 while awakepredn isone tapersymbi delmi 2 puffs bidclariti n 10 mg qdcurrentl y on oxygenmoni tor respirator y status Essential hypertension 49748466 I10 imdur 60 mg qdmetoprol ol 50 mg qdmonitor b/p and labs Dyslipidemia 845438868 E 78.4 lipitor 80 mg qdtricor 145 mg qdzetia 10 mg qd monitor labs Chronic low back pain 27 0247170 M54.5 oxycodone 30 mg q 6 hrs prnmonitor for pain Coronary arteriosclerosis 37691249 I25.10 ASA 81 mg qdzetia, tricor and lipitor qdmonitor Multiple n odules of lung 939890386 R91.[address] of chest in 3 months Anxiety 62438438 F41.1 valium 10 mg q 8 hrs prnmonitor moodpsych eval prn Gastroesop hageal reflux disease 001188367 K21.9 prilosec 20 mg qdmonitor for symptom relief Acute confusion 01637895 0 R41.0 patient confusedse eing people walk by himdoesn't remember the hospital staygirlfr iend says he answers the phone at night when it doesn't ringwill check a u/a and c/swill check a l81-kovlcz t states that he takes b12 shots twice a month because his cousin does?quest ion of dementiaps [facility] consult [id number] MD MARIANNE Duran [address] [place] [address] [place] [address] 08/28/2017 09:58:23 09/10/2017 10:14:44 Blmuo-wl-wssgkgb respiratory failure 42685060 J96.21 Continue augmentin 875 mg bid x [...] hospital.m onitor respirator y status Acute confusion 02907227 0 R44.1 A&Ox3 right now. Very aware [...] Will follow. Chronic ob structive pulmonary disease 29651332 J41.8 As above, also on symbicort 2 puffs bid and claritin 10 mg qdmonitor respirator y status Essential hypertension 77607334 I10 Stable on imdur 60 mg qd and metoprolol 50 mg qd.monitor b/p and labs Dyslipidemia 702654392 E 78.4 Continue lipitor 80 mg qd, tricor 145 mg qd and zetia 10 mg qd monitor labs as outpt. Chronic low back pain 27 1660472 M54.5 Continue oxycodone 30 mg q 6 hrs prn for now. Apparently doesn't take regularly at home. I wonder if this could be contributi ng to hallucinat ions. Follow for now.monito r for pain Coronary arteriosclerosis 06629545 I25.10 F/U with cardio prn. Meds as above, also ASA 81 mg qd. Multiple n odules of lung 079166264 R91.[address] of chest in 3 months Anxiety 56395476 F41.1 Continue valium 10 mg q 8 hrs prnmonitor mood, NEG following. Gastroesop hageal reflux disease 969571223 K21.9 Stable on prilosec 20 mg qd. No current sxs. Asthenia 31957688 R53.1 Very deconditio maria guadalupe, needs PT/OT for strengthen ing, mobility and safety. Fall W18.39XA Feels like he tripped while trying to straighten room. Was not using walker. Reminded to always use walker for now. No injuries Right flank pain 8990066 09 R10.11 long standing. Follow [id number] TIEAR THOMAS [address] [facility] [place] [address] 09/07/2017 19:24:05 09/11/2017 10:42:44 Acute confusion 844277919 R41.0 patient remains confused at timestests have been negative so farmonitor for worsening symptomsps [facility] consult Chronic low back pain 27 8587975 M54.5 oxycodone 30 mg q 6 hrs prnmonitor for pain Anxiety 94948248 F41.1 valium 10 mg q 8 hrs [place] [id number] Chyna Arrieta MD [facility] [address] [place] [address] [place] [address] 09/11/2017 11:26:09 09/19/2017 11:37:04 Chronic obstructive pulmonary disease 11293027 J41.8 Continue duonebs q 4 while awake, symbicort 2 puffs bid, claritin 10 mg qd, O2 titrated as needed, mucinex, hypersal and acappella device.Candice y slow improvemen t, will consult Dr. Peterson Multiple n odules of lung 065020079 R91.[address] Peterson, will ask him to assess whether follow up CT of chest needs to be done sooner than 3 months Right flank pain 8148901 09 R10.11 Long standing. Pt. says high dose oxy not helping, will add APAP 650 mg at each dose of oxy and see how that does. [id number] Duy Robles MD [facility] [address] [place] [address] 09/12/2017 11:40:31 09/19/2017 11:51:02 Chronic obstructive pulmonary disease 89443959 J41.1 now appears to have returned to baselineon O2 at baselinecl eared for discharge home with meds and services in place at this time Dementia 92341529 F02.80 patient with poor short term recallcurr ently alert and oriented x 3question mild underlying dementia developing to f/u with pcp Multiple n odules of lung 479600002 R91.8 f/u with pulmonary in placequest ion repeat CT scanmonito r pulmonary function [id number] TIERA THOMAS [address] [place] [address] 09/14/2017 07:24:11 09/19/2017 12:29:06 Aryfz-yd-lewblhg respiratory failure 48624643 J96.21 will send home with script for albuterol inhaler for prn dosinghe will talk with PCP about possibilit y of neb treatmentp rednisone taper-to complete 09/25/17con tinue with acapella device q 2 hrsfollow up with PCP Acute confusion 04263493 0 R41.0 confusion resolved currentlya lert and opalwi leonardo follow up with PCP Chronic ob structive pulmonary disease 23673845 J41.8 prednisone taper-to complete 09/25/17 symbicort 2 puffs bidclariti n 10 mg qdmucinex 1200 mg bidfollow up with PCP Essential hypertension 09604131 I10 imdur 60 mg qdmetoprol ol 50 mg qdfollow up with PCP Dyslipidemia 937378636 E 78.4 lipitor 80 mg qdtricor 145 mg qdzetia 10 mg qd follow up with PCP Chronic low back pain 27 4585636 M54.5 oxycodone 30 mg q 6 hrs prnfollow up with PCP Coronary arteriosclerosis 87941198 I25.10 ASA 81 mg qdzetia, tricor and lipitor qdfollow up with PCP Multiple n odules of lung 080548960 R91.[address] of chest in 3 monthsfoll ow up with PCP Anxiety 79175588 F41.1 valium 10 mg q 8 hrs prnfollow up with PCP Gastroesop hageal reflux disease 556986030 K21.9 prilosec 20 mg qdfollow up with PCP [id number] ISMAEL PINA [address] [place] [address] 11/29/2022 10:51:49 12/06/2022 08:28:29 Owirt-qm-mohjdpk respiratory failure 24577268 J96.20 albuterol/ atrovent neb b7elolxnse x 600 mg bidbenzona adrian 100 mg tid prnazithro max 500 mg bid to 12/04azithr omax 250 mg daily MWF to 12/04cefuro kasia 500 mg bid to 12/04albute rol/atrove nt neb bidabluter ol inhaler q6hr prnpulmona ry consult Chronic ob structive pulmonary disease 74490536 J44.9 albuterol/ atrovent neb bidabluter ol inhaler q6hr prnalbuter ol/atroven t neb l0jpumyvgk asone 50 mcg daily prnloratad inbe 10 mg prncetiraz ine 10 mg prn Acute confusion 80313582 0 R41.0 confusion resolved currentlya lert and orientedde creased oxycodone and valium in hospital Essential hypertension 52654740 I10 imdur 60 mg qdmetoprol ol er 100 mg qdmonitor bp Dyslipidemia 365895522 E 78.5 lipitor 80 mg qdzetia 10 mg qd Chronic low back pain 27 9639521 M54.50 oxycodone 30 mg q 6 hrs prnfollow up with PCP Coronary arteriosclerosis 81403640 I25.10 ASA 81 mg qdzetia, lipitor qdfollow up with PCP Multiple n odules of lung 191515123 R91.[address] of chest-foll ow up with PCP Anxiety 49767789 F41.1 valium 5 mg q 8 hrs prnmonitor for increased confusion Gastroesop hageal reflux disease 863554309 K21.9 prilosec 20 mg qd Benign pro static hyperplasia 409323169 N40.0 flomax 0.8 mg hstestoste mathew 1% 50mg/5gm gel qodmonitor urine output Health Concerns Section Related Observation LastModified by Organization Detai ls LastModified Time None Recorded Concern Status LastModified by Organization Details LastModified Time None Recorded Advance Directives Directive Y: Payers Encounter Date Sequence Insurance Name Policy Number Policy Paz Covered Member ID Paz Member ID Guarantor Name 09/07/2017 2 [place] [facility] [employer] [id number] [employer] 09/07/2017 1 [place] [employer] K [place] [id number] [employer] 09/11/2017 2 [place] [facility] [employer] [id number] [employer] 09/11/2017 1 [place] [employer] Religious K [place] [id number] [employer] 09/12/2017 2 [place] [facility] [employer] [id number] [employer] 09/12/2017 1 [place] [employer] Religious K [place] [id number] [employer] 09/14/2017 2 [place] [facility] Yaron Franco [id number] Yaron Franco 09/14/2017 1 [place] [facility] [employer] Yaron Franco [id number] Yaron Franco 11/29/2022 2 [place] [facility] Yaron Franco [id number] Yaron Franco 11/29/2022 1 [place] [facility] [employer] Yaron Franco [id number] Yaron Franco Notes Date Note Type Note Provider Name and Address Organization Details Recorded Time 09/07/2017 text/html A 76 year old ma le being seen for acute rounding visit. Staff has no concerns at this time. Patient has no complaints. He is hoping to go home Sunday. TIERA THOMAS [address] [facility], [address], [place], [address], [facility] 09/07/2017 19:35:02 09/11/2017 text/html I am seeing this 76 yo man at his request. He is here for rehab after a pneumonia. He says his SOB is improving, but still worse than baseline, at baseline he only needed O2 at hs. 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 His primary concern is continued right [...] clipping in, aortic aneurysms, and hx of MS. Chyna Arrieta MD [address] [facility], [address], [place], [address], [facility] 09/11/2017 12:15:00 09/12/2017 text/html Asked to [...] stable at baseline Duy Robles MD [address] [facility], [address], [place], [address], [facility] [employer] 09/12/2017 11:49:28 09/14/2017 text/html A 76 year old milagros sanchez being seen for a discharge summary. Patient has participated in therapy and progressed nicely. He has no concerns about going home and is ready. Staff has no concerns about his discharge. TIERA THOMAS [address] [facility], [address], [place], [address], [facility] [employer] 09/14/2017 08:04:54 11/29/2022 text/html seen today for [...] and leaving AMA ELEN BALTAZAR NP [address] [facility], [address], [place], [address], [facility] [employer] 11/29/2022 15:45:36
== END 2024-07-30 11:20 | disposition home or self-care (01) ==
LOC: HO.HPS 10:37
PROVIDERS: PCP Internal Medicine; Visit Provider Hospitalist
DX: J96.11 Chronic respiratory failure with hypoxia (principal); J44.0 Chronic obstructive pulmonary disease with (acute) lower respiratory infection; K21.9 Gastro-esophageal reflux disease without esophagitis; J98.09 Other diseases of bronchus, not elsewhere classified
CPT/HCPCS: 94618; 99214; G2211

== ENCOUNTER → 2024-07-30 10:37 | Outpatient (BNVA) | payer MEDICARE, MEDICAID, SELFPAY | PROVIDERS: PCP Internal Medicine; Visit Provider Hospitalist | DX: J96.11 Chronic respiratory failure with hypoxia (principal); J44.0 Chronic obstructive pulmonary disease with (acute) lower respiratory infection; J98.09 Other diseases of bronchus, not elsewhere classified; K21.9 Gastro-esophageal reflux disease without esophagitis | CPT/HCPCS: 94618; 99212 ==

== ENCOUNTER 2024-11-02 12:11 | Emergency (ER) | payer MEDICARE, MEDICAID, SELFPAY ==
[2024-11-02 12:25] VITALS: BP 105/73; PULSE 96; RESP 18; TEMP 36.6; O2SAT 95; BMI 21.5
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
[2024-11-02 13:01] LABS: MANUAL DIFF FLAG NO
[2024-11-02 13:07] LABS: Hematocrit 46.4 % (42.0-52.0); Hemoglobin 15.8 g/dl (14.0-18.0); Imm Gran Abs Auto 0.01 X10*3/uL (0.00-0.03); Imm Gran Pct Auto 0.2 % (0.0-0.4); Lymphocytes Absolute Auto 1.4 X10*3/uL (1.2-4.9); Mean Corpuscular HGB Conc 34.1 g/dl (31.0-36.0); Mean Corpuscular Hemoglobin 32.6 pg (27.0-33.0); Mean Corpuscular Volume 95.9 fL (80.0-98.0); NRBC Abs Auto 0.000 X10*3/uL (0.0-0.012); NRBC Pct Auto 0.0 /100WBC (0.0-0.2); Platelet Count 132 X10*3/uL (160-400); Red Blood Count 4.84 X10*6/uL (4.60-5.80); White Blood Count 5.4 X10*3/uL (4.8-10.8)
[2024-11-02 13:24] LABS: Alanine Aminotransferase 45 U/L (0-40); Albumin Level 4.0 g/dL (3.5-5.0); Alkaline Phosphatase 78 U/L (39-117); Anion Gap 12 (12-20); Aspartate Amino Transferase 32 U/L (5-37); Blood Urea Nitrogen 12 mg/dL (9-16); Calcium 9.1 mg/dL (8.4-10.2); Carbon Dioxide 26 mmol/L (22-29); Chloride 114 mmol/L (96-108); Creatinine Clr Calc Pharmacy 74.3; Estimated Glomerular Filt Rate > 60; Magnesium 2.1 mg/dL (1.6-2.6); Potassium 4.0 mmol/L (3.3-5.1); Sodium 148 mmol/L (135-145); Total Protein 6.3 g/dL (6.5-8.0)
[2024-11-02 13:41] LABS: Resp Syncy Virus RNA Qual PCR NEGATIVE (Negative); SARS COV2 PCR INHOUSE NEGATIVE (Negative)
[2024-11-02 14:36] VITALS: BP 107/66; PULSE 81; RESP 14; TEMP 36.2; O2SAT 98
[2024-11-02 14:40] VITALS: BP 107/66; PULSE 81; RESP 14; TEMP 36.2; O2SAT 98
--- NOTE | 2024-11-02 14:40 | PC.NURSE ---
patient continuously requesting to leave despite work up being completed. provider notified/aware. pt still requesting to leave. pt left w/o completing tx.
[2024-11-02 14:55] LABS: Appearance Urine Clear; Glucose Urine UA Negative (Negative); PH 5.5 (5.0-9.0); Specific Gravity - Urine >= 1.030 (1.005-1.025); UMIC TRIGGER UACC YES
[2024-11-02 16:15] LABS: Cannabinoid Screen Urine Not Detected (Not Detect)
== END 2024-11-02 14:40 | disposition left against medical advice (07) ==
PROVIDERS: Nurse Practitioner Family; Emergency Provider Emergency Medicine; PCP Internal Medicine
DX: F11.23 Opioid dependence with withdrawal (principal); M79.10 Myalgia, unspecified site; R19.7 Diarrhea, unspecified; I10 Essential (primary) hypertension; F17.210 Nicotine dependence, cigarettes, uncomplicated; I25.10 Atherosclerotic heart disease of native coronary artery without angina pectoris; Z79.899 Other long term (current) drug therapy; Z51.81 Encounter for therapeutic drug level monitoring; Z03.818 Encounter for observation for suspected exposure to other biological agents ruled out
CPT/HCPCS: 80048; 80076; 80307; 81001; 83735; 85025; 87637; 99283

== ENCOUNTER 2024-11-13 13:13 | Outpatient (AMB) | payer MEDICARE, MEDICAID, SELFPAY ==
[2024-11-13 13:22] VITALS: BP 120/80; PULSE 78; BMI 21.5
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
== END 2024-11-13 13:44 | disposition home or self-care (01) ==
LOC: HO.HCS 13:13
PROVIDERS: PCP Internal Medicine; Visit Provider Internal Medicine Cardiovascular Disease
DX: I25.10 Atherosclerotic heart disease of native coronary artery without angina pectoris (principal)
CPT/HCPCS: 93010; 99214; G2211

== ENCOUNTER → 2024-11-13 13:13 | Outpatient (BNVA) | payer MEDICARE, SELFPAY | PROVIDERS: PCP Internal Medicine; Visit Provider Internal Medicine Cardiovascular Disease | DX: I25.10 Atherosclerotic heart disease of native coronary artery without angina pectoris (principal) | CPT/HCPCS: 93005; 99212 ==

== ENCOUNTER 2024-12-02 17:59 | Inpatient (IN) | payer MEDICARE, OTHER, SELFPAY ==
--- NOTE | ~2024-12-02 | CT_ITS ---
CLINICAL HISTORY: unexplained weight loss CT abdomen and pelvis with contrast Comparison: CT/REG/SR - CT ABDOMEN PELVIS WITHOUT IV CONTRAST - 11/25/22 17:01 EDT Findings: The lung bases are clear. Unremarkable gallbladder and solid organs. No urolithiasis. No bowel obstruction, pneumoperitoneum, or pneumatosis. moderate to large colonic stool burden. Pelvic contents unremarkable. Infrarenal abdominal aortic fusiform aneurysm measuring 3.8 cm in diameter. No acute fracture. IMPRESSION: No acute findings. Moderate to large colonic stool burden may represent constipation. Infrarenal abdominal aortic fusiform aneurysm measuring 3.8 cm in diameter, slightly increased in the interval, previously 3.6 cm on 11/25/2022. This document has been electronically signed by: Yamini Cho MD on 12/02/2024 21:39:23
--- NOTE | ~2024-12-02 | CT_ITS ---
CLINICAL HISTORY: dyspnea, weight loss CT chest without contrast Comparison: CR/IA/SR - XR CHEST 2 VIEWS - 09/25/23 17:[address]/IA/SR - CT CHEST WITHOUT IV CONTRAST - 03/13/23 11:05 EST Findings: The heart size is normal. The visualized thyroid and mediastinum are unremarkable. No consolidation or effusion. moderate to severe upper lobe predominant centrilobular emphysema. The visualized upper abdomen is unremarkable. The bones are intact. IMPRESSION: 1. No acute disease within the chest. 2. Moderate to severe upper lobe predominant centrilobular emphysema. This document has been electronically signed by: Yamini Cho MD on 12/02/2024 20:28:06
[2024-12-02 18:08] VITALS: BP 115/72; PULSE 77; O2SAT 100
[2024-12-02 18:11] VITALS: BP 119/73; PULSE 74; RESP 20; TEMP 36.8; O2SAT 98; BMI 24.4
--- NOTE | 2024-12-02 18:14 | ECG_ITS ---
Test Reason : DYSPENA Blood Pressure : */* mmHG Vent. Rate : 76 BPM Atrial Rate : 76 BPM P-R Int : 136 ms QRS Dur : 90 ms QT Int : 386 ms P-R-T Axes : 6 48 55 degrees QTcB Int : 434 ms Normal sinus rhythm Normal ECG When compared with ECG of 25-Sep-2023 16:45, No significant change was found Referred By: Aisha Brenner Electronically Signed By: DEBRA BERGMAN MD
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
[2024-12-02 18:30] VITALS: PULSE 72; RESP 16; O2SAT 99
[2024-12-02] MEDS: Albuterol/Iprat 2.5/0.5MG 3 ML AMPUL.NEB INHALE (18:30)
[2024-12-02] MEDS: Magnesium Sulfate/H2O 2 GM/50 ML PIGGYBACK IV (18:35)
[2024-12-02 18:44] LABS: MANUAL DIFF FLAG NO
[2024-12-02 18:49] LABS: Venous Blood Gas Refer to POC result
[2024-12-02 18:50] LABS: VBG HCO3 24 mmol/L (22-26); VBG O2 % Saturation 88.0 %
[2024-12-02] MEDS: Lactated Ringers 1,000 ML 999 ML IV (18:57)
[2024-12-02 19:05] LABS: B Type Natriuretic Peptide 26 pg/mL (<100)
[2024-12-02 19:06] LABS: Alanine Aminotransferase 22 U/L (0-40); Albumin Level 3.7 g/dL (3.5-5.0); Alkaline Phosphatase 63 U/L (39-117); Anion Gap 13 (12-20); Aspartate Amino Transferase 27 U/L (5-37); Blood Urea Nitrogen 15 mg/dL (9-16); Calcium 8.3 mg/dL (8.4-10.2); Carbon Dioxide 25 mmol/L (22-29); Chloride 112 mmol/L (96-108); Creatinine Clr Calc Pharmacy 85.6; Estimated Glomerular Filt Rate > 60; Lipase 14 U/L (8-78); Magnesium 1.9 mg/dL (1.6-2.6); Potassium 4.1 mmol/L (3.3-5.1); Sodium 146 mmol/L (135-145); Total Protein 5.9 g/dL (6.5-8.0)
[2024-12-02 19:07] LABS: Troponin-I High Sensitivity 2.7 ng/L (<3.5-35.0)
[2024-12-02 19:10] LABS: Hematocrit 41.4 % (42.0-52.0); Hemoglobin 13.7 g/dl (14.0-18.0); Imm Gran Abs Auto 0.02 X10*3/uL (0.00-0.03); Imm Gran Pct Auto 0.3 % (0.0-0.4); Lymphocytes Absolute Auto 0.9 X10*3/uL (1.2-4.9); Mean Corpuscular HGB Conc 33.1 g/dl (31.0-36.0); Mean Corpuscular Hemoglobin 32.5 pg (27.0-33.0); Mean Corpuscular Volume 98.1 fL (80.0-98.0); NRBC Abs Auto 0.000 X10*3/uL (0.0-0.012); NRBC Pct Auto 0.0 /100WBC (0.0-0.2); Platelet Count 123 X10*3/uL (160-400); Red Blood Count 4.22 X10*6/uL (4.60-5.80); White Blood Count 6.5 X10*3/uL (4.8-10.8)
[2024-12-02 19:18] LABS: Resp Syncy Virus RNA Qual PCR NEGATIVE (Negative); SARS COV2 PCR INHOUSE NEGATIVE (Negative)
[2024-12-02 19:21] LABS: Procalcitonin 0.02 ng/mL
[2024-12-02 20:04] VITALS: BP 126/66; PULSE 72; RESP 16; O2SAT 100
--- NOTE | 2024-12-02 20:05 | PC.NURSE ---
pt becoming increasingly agitated/anxious. attempting to get OOB w/o assistance/demanding that he needs to leave. provider called bedside for assistance. pt agreeable to staying in the hospital to get medically evaluated/be admitted. pt willinly took medication via PO. effectiveness pending. otherwise vss and up to date. nsr on the rail grinder. on 2L via NC. lights dimmed to promote comfort. call munoz placed within reach.
[2024-12-02] MEDS: iohexoL 350 MG/ML 100 ML INFUS..BTL IV (20:35)
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
[2024-12-02 23:32] VITALS: BP 113/78; PULSE 76; RESP 18; O2SAT 97
[2024-12-02] MEDS: 0.9 % Sodium Chloride Flush 3 ML SYRINGE IVFLUSH (23:41)
[2024-12-03] VITALS (15 sets, daily range): BP systolic 99–124; BP diastolic 55–74; PULSE 71–105; RESP 14–26; TEMP 36.8–37; O2SAT 94–98
[2024-12-03 01:23] LABS: Appearance Urine Clear; Glucose Urine UA 250 mg/dL (Negative); PH 7.0 (5.0-9.0); Specific Gravity - Urine >= 1.030 (1.005-1.025)
[2024-12-03 04:57] LABS: Imm Gran Abs Auto 0.02 X10*3/uL (0.00-0.03); Imm Gran Pct Auto 0.4 % (0.0-0.4); Mean Corpuscular Hemoglobin 32.6 pg (27.0-33.0); NRBC Abs Auto 0.000 X10*3/uL (0.0-0.012); NRBC Pct Auto 0.0 /100WBC (0.0-0.2); PLT CLUMP 1; SCAN SMEAR FLAG 1
[2024-12-03 04:59] LABS: Hematocrit 40.7 % (42.0-52.0); Hemoglobin 13.8 g/dl (14.0-18.0); Lymphocytes Absolute Auto 0.4 X10*3/uL (1.2-4.9); Mean Corpuscular HGB Conc 33.9 g/dl (31.0-36.0); Mean Corpuscular Volume 96.2 fL (80.0-98.0); Red Blood Count 4.23 X10*6/uL (4.60-5.80)
[2024-12-03 05:03] LABS: MANUAL DIFF FLAG NO; Platelet Count 127 X10*3/uL (160-400); White Blood Count 5.4 X10*3/uL (4.8-10.8)
[2024-12-03] MEDS: oxyCODONE HCl Immed Release 5 MG TABLET 20 MG PO ×2 (05:04→14:05)
[2024-12-03 05:16] LABS: Anion Gap 12 (12-20); Blood Urea Nitrogen 16 mg/dL (9-16); Calcium 8.4 mg/dL (8.4-10.2); Carbon Dioxide 23 mmol/L (22-29); Chloride 111 mmol/L (96-108); Creatinine Clr Calc Pharmacy 96.1; Estimated Glomerular Filt Rate > 60; Potassium 3.9 mmol/L (3.3-5.1); Sodium 142 mmol/L (135-145)
[2024-12-03 07:35] LABS: Hemoglobin A1C 136.2119 umol/L; Total Hemoglobin (HGBA1C) 3616.0673 umol/L
[2024-12-03] MEDS: Albuterol/Iprat 2.5/0.5MG 3 ML AMPUL.NEB INHALE ×4 (07:40→19:53)
--- NOTE | 2024-12-03 08:01 | PHA.MEDREC ---
Pharmacy Consult ? Medication Reconciliation Pharmacy has completed the medication reconciliation. Spoke to patient at bedside, he recognized most of his meds but was unsure of Donepazil but states his handles his meds. Has consistent fill history for it, so confirmed with claims.
[2024-12-03] MEDS: 0.9 % Sodium Chloride Flush 3 ML SYRINGE IVFLUSH ×2 (08:58→16:30)
--- NOTE | 2024-12-03 10:07 | PC.NURSE ---
tigered Dr. Lorenzo for oxycodone 20mg he has at home prescription for. He will check for home prescription.
[2024-12-03] MEDS: Aspirin Enteric Coated 81 MG TABLET.DR PO (10:42)
--- NOTE | 2024-12-03 10:59 | MHC.CM.PN ---
Attempted to meet with patient in regards to discharge planning. Nursing care currently being provided. Will attempt to meet again.
--- NOTE | 2024-12-03 13:48 | MHC.CM.PN ---
Met with patient in regards to discharge planning. Patient lives with his sig other, An, ambulates independently and has home oxygen through [employer]. PCP verified. Copy of HCP verified to be on file. Patient feels he will be able to safely return home when medically stable. IMM explained and signed. An will transport patient home when medically stable. Patient stated he feels would like to be d/c'd home today. T/W will notify Dr Lorenzo. Continue to monitor for d/c needs.
--- NOTE | 2024-12-03 14:00 | PC.NURSE ---
Pt requesting oxycodone 20mg for 9/10 pain. Administered PRN 20mg oxycodone PO per request. Care ongoing.
--- NOTE | 2024-12-03 16:26 | P.PNIM_ITS ---
Subjective Subjective Date of Service: 12/03/24 Interval History: No acute issues overnight. States breathing improved since admission Review of Systems Denies chest pain Admit admits shortness of breath with minimal exertion Denies nausea vomiting diarrhea Denies fever chills Physical Exam 2 Vital Signs: Vital Signs: Last Vital Signs Temp 98.3 F 12/02/24 18:11 Pulse 86 12/03/24 16:01 Resp 18 12/03/24 16:01 BP 111/58 L 12/03/24 14:07 Pulse Ox 98 12/03/24 14:07 O2 Del Method Nasal Cannula 12/03/24 14:07 O2 Flow Rate 2 12/03/24 14:07 Oxygen Flow Rate 2 12/02/24 18:11 BMI result Body Mass Index 24.4 Const: Other: Awake alert no acute distress Resp: Other: Diminished at bases with scattered expiratory wheezes Cardio: Other: No S4; positive S1-S2; no S3 murmurs rubs or gallops GI: Other: Soft nontender nondistended normoactive bowel sounds Extrem: Other: No edema bilaterally Objective Data Active Medications Acetaminophen (Acetaminophen 325 Mg Tablet) 650 mg PO Q6H PRN PRN Reason: Pain, Mild 1-3,fever,headache Albuterol/Ipratropium (Albuterol/Iprat 2.5/0.5mg 3 Ml Ampul.Neb) 3 ml INHALE Q4H PRN PRN Reason: Shortness of Breath/Wheezing Albuterol/Ipratropium (Albuterol/Iprat 2.5/0.5mg 3 Ml Ampul.Neb) 3 ml INHALE RQ4H WHILE AWAKE [facility] Last Admin: 12/03/24 16:00 Dose: 3 ml Documented By: KELY Aspirin (Aspirin Enteric Coated 81 Mg Tablet.) 81 mg PO DAILY [facility] Last Admin: 12/03/24 10:42 Dose: 81 mg Documented By: BILLY Atorvastatin Calcium (Atorvastatin Calcium 80 Mg Tablet) 80 mg PO DAILY [facility] Last Admin: 12/03/24 10:42 Dose: 80 mg Documented By: BILLY Benzonatate (Benzonatate 100 Mg Capsule) 100 mg PO TID PRN PRN Reason: Cough Calcium Carbonate (Calcium Carbonate 750 Mg Tab.Chew) 750 mg PO Q4H PRN PRN Reason: Heartburn Donepezil HCl (Donepezil Hcl 10 Mg Tablet) 10 mg PO BEDTIME ARIANNA Enoxaparin Sodium (Enoxaparin Sodium 40 Mg/0.4 Ml Syringe) 40 mg SUBCUT BEDTIME [facility] Last Admin: 12/02/24 23:40 Dose: 40 mg Documented By: BLAINE Magnesium Hydroxide (Milk Of Magnesia 30 Ml Oral.Susp) 30 ml PO DAILY PRN PRN Reason: Constipation Melatonin (Melatonin 3 Mg Tablet) 6 mg PO BEDTIME PRN PRN Reason: Insomnia Methylprednisolone Sodium Succinate (Methylprednisolone Sod Succ 40 Mg/Ml Vial) 40 mg IVPUSH Q12H [facility] Last Admin: 12/03/24 08:57 Dose: 40 mg Documented By: BILLY Ondansetron HCl (Ondansetron Hcl 4 Mg/2 Ml Vial) 4 mg IVPUSH Q8H PRN PRN Reason: Nausea and Vomiting Oxycodone HCl (Oxycodone Hcl Immed Release 5 Mg Tablet) 20 mg PO TID PRN PRN Reason: Pain, Moderate(Pain Scale 4-6) Last Admin: 12/03/24 14:05 Dose: 20 mg Documented By: BRIA Sodium Chloride (0.9 % Sodium Chloride Flush 3 Ml Syringe) 3 ml IVFLUSH QSHIFT [facility] Last Admin: 12/03/24 08:58 Dose: 3 ml Documented By: BILLY Labs 12/03/24 03:32 12/03/24 03:32 Labs: Laboratory Results - last 24 hr 12/02/24 12/02/24 12/03/24 18:30 18:44 01:15 MCV 98.1 H MCH 32.5 MCHC 33.1 RDW 13.7 Plt Count 123 L MPV 10.4 Immature Gran % (Auto) 0.3 Neut % (Auto) 78.4 H Lymph % (Auto) 13.8 L [place] % (Auto) 7.0 Eos % (Auto) 0.2 Baso % (Auto) 0.3 Lymph # (Auto) 0.9 L [place] # (Auto) 0.5 Eos # (Auto) 0.0 Baso # (Auto) 0.0 Abs Immat Gran (auto) 0.02 Absolute Neuts (auto) 5.1 Absolute Nucleated RBC 0.000 Nucleated RBC % (auto) 0.0 VBG pH 7.42 VBG pCO2 37 VBG pO2 91 VBG HCO3 24 VBG O2 Saturation 88.0 VBG Base Excess 0.8 Anion Gap 13 Estim Creat Clear Calc 85.6 Estimated GFR > 60 Random Glucose 111 Estimat Average Glucose Hemoglobin A1c % Lactic Acid 1.4 Calcium 8.3 L D Magnesium 1.9 Total Bilirubin 0.6 Direct Bilirubin 0.2 AST 27 ALT 22 Alkaline Phosphatase 63 C-Reactive Protein < 0.10 B-Natriuretic Peptide 26 Total Protein 5.9 L Albumin 3.7 Lipase 14 Procalcitonin 0.02 TSH 0.63 Urine Color Yellow Urine Appearance Clear Urine pH 7.0 Ur Specific [place] >= 1.030 H Urine Protein Negative Urine Glucose (UA) 250 H Urine Ketones Negative Urine Blood Negative Urine Nitrite Negative Ur Leukocyte Esterase Negative Influenza Type A (PCR) NEGATIVE Influenza Type B (PCR) NEGATIVE RSV RNA Qual (PCR) NEGATIVE SARS-CoV-2 RNA (RT-PCR) NEGATIVE 12/03/24 03:32 MCV 96.2 MCH 32.6 MCHC 33.9 RDW 13.6 Plt Count 127 L MPV 10.3 Immature Gran % (Auto) 0.4 Neut % (Auto) 89.9 H Lymph % (Auto) 6.7 L [place] % (Auto) 3.0 Eos % (Auto) 0.0 Baso % (Auto) 0.0 Lymph # (Auto) 0.4 L [place] # (Auto) 0.2 Eos # (Auto) 0.0 Baso # (Auto) 0.0 Abs Immat Gran (auto) 0.02 Absolute Neuts (auto) 4.9 Absolute Nucleated RBC 0.000 Nucleated RBC % (auto) 0.0 VBG pH VBG pCO2 VBG pO2 VBG HCO3 VBG O2 Saturation VBG Base Excess Anion Gap 12 Estim Creat Clear Calc 96.1 Estimated GFR > 60 Random Glucose 183 H Estimat Average Glucose 114 Hemoglobin A1c % 5.6 Lactic Acid Calcium 8.4 Magnesium Total Bilirubin Direct Bilirubin AST ALT Alkaline Phosphatase C-Reactive Protein B-Natriuretic Peptide Total Protein Albumin Lipase Procalcitonin TSH Urine Color Urine Appearance Urine pH Ur Specific [place] Urine Protein Urine Glucose (UA) Urine Ketones Urine Blood Urine Nitrite Ur Leukocyte Esterase Influenza Type A (PCR) Influenza Type B (PCR) RSV RNA Qual (PCR) SARS-CoV-2 RNA (RT-PCR) Assessment and Plan (1) COPD exacerbation: Status: Acute (2) Benign essential hypertension: Status: Acute Plan This has a 84-year-old male with pertinent history of chronic hypoxemic respiratory failure due to COPD on p.r.n. supplemental oxygen, tobacco use disorder, coronary artery disease, distal AA, cognitive impairment, mood disorder who was brought to the emergency department for evaluation of dyspnea. 1.Acute on chronic hypoxemic respiratory failure/acute exacerbation of COPD -methylprednisolone 60 mg IV q.6 -doxycycline 100 mg IV q.12 -supplemental O2 to maintain sats greater than equal 90% -DuoNebs Q 4 hours while awake 2.Coronary artery disease -stable and well compensated -continue current therapies 3. Dementia -stable on current therapies Lovenox Full code. Patient will require ongoing hospitalization for IV steroids and IV antibiotics to treat COPD exacerbation Quality Stroke Does the patient have a stroke diagnosis?: No VTE Prior VTE?: No VTE Risk Level:: Medical - moderate - high VTE Device Contraindication: Treatment Not Indicated VTE Drug Contraindication: N/A - Med Ordered
--- NOTE | 2024-12-03 17:23 | MHC.EDTECH ---
Pt transferred to hospital bed
--- NOTE | 2024-12-03 17:45 | PC.NURSE ---
Addendum entered by Vee White RN 12/03/24 20:17: Pt became extremely agitated and began physically threatening staff, shaking fists and taking off oxygen and monitors. Pt intermittently responsive to verbal deescalation. Staff transferred pt to hospital bed, moved room from ED26 to ED23, bed alarm on. aware, awaiting PO medication orders. Addendum entered by Vee White RN 12/03/24 19:45: Pt became extremely agitated and began physically threatening staff, shaking fists and taking off oxygen and monitors. Pt intermittently responsive to verbal deescalation. aware, awaiting PO medication orders. Original Note: Pt became extremely agitated and began physically threatening staff, shaking fists and taking off oxygen and monitors. aware, awaiting PO medication orders.
--- NOTE | 2024-12-03 19:10 | PC.NURSE ---
Addendum entered by Vee White RN 12/03/24 19:53: Pt once again became extremely agitated, not responding to verbal deescalation. Pt is waving his fists at staff and saying he will kill whoever stops him from leaving. Pt also states well then I'll just shoot myself in the head with a gun, or slit my wrists . Pt seems very concerned about his An, and staff assisted pt in calling which improved his agitation momentarily. However pt is forgetful and does not trust staff at this time, leading to him attempting to rip out his IV and oxygen again. aware, awaiting IM/IV medication orders. Original Note: Pt once again became extremely agitated, not responding to verbal deescalation. Pt is waving his fists at staff and saying he will kill whoever stops him from leaving. Pt also states well then I'll just shoot myself in the head with a gun, or slit my wrists . aware, awaiting IM/IV medication orders.
[2024-12-03] MEDS: diazePAM 10 MG/2 ML CARTRIDGE 5 MG IVPUSH (19:25)
[2024-12-03] MEDS: OLANZapine 10 MG VIAL IM (19:25)
[2024-12-03] MEDS: Lidocaine HCl 2 % Urojet 10 ML JEL.PF.APP TOPICAL (21:10)
--- NOTE | 2024-12-03 21:20 | PC.NURSE ---
Pharmacy contacted for 10mg Aricept PO dose. Awaiting medication arrival.
--- NOTE | 2024-12-03 23:33 | PC.NURSE ---
Report received and care assumed at 2300. The pt is alert, awake, oriented for the most part with intermittent episodes/periods of forgetfulness and/or confusion, conversing freely in full/complete sentences with bedside sitter. laboratory director and previous RN expressed the pt's increasing confusion and bed exiting behavior as the night progresses. The bed alarm is in place as well as the bedside sitter. The pt offers no complaints at this time, denies the presence of pain/discomfort and/or shortness of breath. Pt requested something to eat, RN offered to provide the pt with a sandwich which he was initially agreeable to but when provided with the options stated That's fine I'll eat when I get home . RN reminded the patient of the time and that breakfast would not be arriving for another 8 hours or so and he verbalized understanding stating that he would eat with his when he gets home. The pt had reported the need to use the restroom, asked to get up OOB and was agreeable to urinal use however had great difficulty managing in the bed. The pt was OOB with EDT beside him to stand and use the urinal and was noted to desat down to the 60s with O2 via NC in place; levels returned to WNL upon returning to the bed.
[2024-12-04] VITALS (8 sets, daily range): BP systolic 119–139; BP diastolic 69–86; PULSE 66–88; RESP 16–20; TEMP 36.4–36.7; O2SAT 96–100; BMI 20.2
--- NOTE | 2024-12-04 00:30 | PC.NURSE ---
Pt conversing freely with bedside visitor, who alerted this RN of the pt's desires to leave and his request to check in on his . This RN went to bedside and attempted to redirect the pt who was sitting at the edge of the bed with lines and cords pulled taughtly as he states he needs to drive home to go check in on his , stating that is imperative that he get home and ensure her safety. This RN called the pt's and spoke with her, making her aware and allowed her to speak with the patient to provide reassurance that all was well at the home. The also reported that the pt experiences anxiety at times for which she gives PO Diazepam and asked if we could provide him with that for the night. HOspitalist made aware and new orders to be obtained
[2024-12-04] MEDS: diazePAM 10 MG/2 ML CARTRIDGE 5 MG IVPUSH (00:42)
--- NOTE | 2024-12-04 07:20 | PC.NURSE ---
pt standing up, insisting on going outside, requiring redirection every 10 seconds, attempting to displace lines and tubes.
[2024-12-04] MEDS: oxyCODONE HCl Immed Release 5 MG TABLET 20 MG PO ×2 (07:33→15:05)
[2024-12-04] MEDS: Aspirin Enteric Coated 81 MG TABLET.DR PO (07:33)
[2024-12-04] MEDS: Albuterol/Iprat 2.5/0.5MG 3 ML AMPUL.NEB INHALE ×4 (08:03→20:15)
--- NOTE | 2024-12-04 08:03 | PC.NURSE ---
Pt removed his IV despite 2:1 attention from staff. MD felipe aware.
--- NOTE | 2024-12-04 08:56 | PC.NURSE ---
Pt continues to attempt to elope off unit, requires frequent redirection, having difficulty following directions
--- NOTE | 2024-12-04 09:40 | PC.NURSE ---
Pt's at bedside, pt much more calm, conversing calmly with .
--- NOTE | 2024-12-04 13:30 | PC.NURSE ---
SNEHA Lorenzo notified via [employer] text : Hey can you order [facility] some PO zofran? his lunch just came back up but it seems like he is spitting it up more than anything. he may also benefit from a ground diet
[2024-12-04] MEDS: 0.9 % Sodium Chloride Flush 3 ML SYRINGE IVFLUSH ×2 (16:17→20:34)
--- NOTE | 2024-12-04 16:31 | P.PNIM_ITS ---
Subjective Subjective Date of Service: 12/04/24 Interval History: Behavior remains an issue. Breathing somewhat improved Review of Systems Unable to obtain Physical Exam 2 Vital Signs: Vital Signs: Last Vital Signs Temp 97.5 F 12/04/24 16:17 Pulse 79 12/04/24 16:17 Resp 18 12/04/24 16:17 BP 122/69 12/04/24 16:17 Pulse Ox 96 12/04/24 16:17 O2 Del Method Room Air 12/04/24 16:17 O2 Flow Rate 2 12/04/24 14:00 Oxygen Flow Rate 2 12/02/24 18:11 BMI result Body Mass Index 20.2 Const: Other: Awake alert no acute distress Resp: Other: Diminished at bases with scattered expiratory wheezes Cardio: Other: No S4; positive S1-S2; no S3 murmurs rubs or gallops GI: Other: Soft nontender nondistended normoactive bowel sounds Extrem: Other: No edema bilaterally Objective Data Active Medications Acetaminophen (Acetaminophen 325 Mg Tablet) 650 mg PO Q6H PRN PRN Reason: Pain, Mild 1-3,fever,headache Albuterol/Ipratropium (Albuterol/Iprat 2.5/0.5mg 3 Ml Ampul.Neb) 3 ml INHALE Q4H PRN PRN Reason: Shortness of Breath/Wheezing Albuterol/Ipratropium (Albuterol/Iprat 2.5/0.5mg 3 Ml Ampul.Neb) 3 ml INHALE RQ4H WHILE [facility]KE [facility] Last Admin: 12/04/24 15:49 Dose: 3 ml Documented By: KARIME Aspirin (Aspirin Enteric Coated 81 Mg Tablet.) 81 mg PO DAILY [facility] Last Admin: 12/04/24 07:33 Dose: 81 mg Documented By: CAROLE Atorvastatin Calcium (Atorvastatin Calcium 80 Mg Tablet) 80 mg PO DAILY [facility] Last Admin: 12/04/24 07:53 Dose: 80 mg Documented By: CAROLE Benzonatate (Benzonatate 100 Mg Capsule) 100 mg PO TID PRN PRN Reason: Cough Calcium Carbonate (Calcium Carbonate 750 Mg Tab.Chew) 750 mg PO Q4H PRN PRN Reason: Heartburn Diazepam (Diazepam 5 Mg Tablet) 5 mg PO TID PRN PRN Reason: Anxiety Last Admin: 12/04/24 11:30 Dose: 5 mg Documented By: CAROLE Donepezil HCl (Donepezil Hcl 10 Mg Tablet) 10 mg PO BEDTIME [facility] Last Admin: 12/03/24 23:01 Dose: 10 mg Documented By: N-JASON Enoxaparin Sodium (Enoxaparin Sodium 40 Mg/0.4 Ml Syringe) 40 mg SUBCUT BEDTIME [facility] Last Admin: 12/03/24 23:02 Dose: 40 mg Documented By: CASSI-JASON Hydroxyzine HCl (Hydroxyzine Hcl 50 Mg Tablet) 50 mg PO Q6H PRN PRN Reason: agitation Last Admin: 12/04/24 07:52 Dose: 50 mg Documented By: CAROLE Doxycycline Hyclate 100 mg/ (Sodium Chloride) 250 mls @ 166.67 mls/hr IV Q12H [facility] Last Admin: 12/04/24 16:17 Dose: 166.67 mls/hr Documented By: CLOVER Magnesium Hydroxide (Milk Of Magnesia 30 Ml Oral.Susp) 30 ml PO DAILY PRN PRN Reason: Constipation Melatonin (Melatonin 3 Mg Tablet) 6 mg PO BEDTIME PRN PRN Reason: Insomnia Last Admin: 12/04/24 00:42 Dose: 6 mg Documented By: SAMANTHA Methylprednisolone Sodium Succinate (Methylprednisolone Sod Succ 40 Mg/Ml Vial) 40 mg IVPUSH Q12H [facility] Ondansetron HCl (Ondansetron Hcl 4 Mg/2 Ml Vial) 4 mg IVPUSH Q8H PRN PRN Reason: Nausea and Vomiting Ondansetron HCl (Ondansetron Hcl 4 Mg/2 Ml Vial) 4 mg IVPUSH Q4H PRN PRN Reason: Nausea and Vomiting Oxycodone HCl (Oxycodone Hcl Immed Release 5 Mg Tablet) 20 mg PO TID PRN PRN Reason: Pain, Moderate(Pain Scale 4-6) Last Admin: 12/04/24 15:05 Dose: 20 mg Documented By: CRYSTAL Quetiapine Fumarate (Quetiapine Fumarate 25 Mg Tablet) 25 mg PO BID [facility] Last Admin: 12/04/24 08:53 Dose: 25 mg Documented By: CAROLE Sodium Chloride (0.9 % Sodium Chloride Flush 3 Ml Syringe) 3 ml IVFLUSH QSHIFT [facility] Last Admin: 12/04/24 16:17 Dose: 3 ml Documented By: CLOVER Labs 12/03/24 03:32 12/03/24 03:32 Microbiology Microbiology Results: Microbiology 12/02/24 18:32 Blood Culture - Preliminary Blood - Venous No growth after 24 hours. 12/02/24 18:32 Blood Culture - Preliminary Blood - Venous No growth after 24 hours. Assessment and Plan (1) Mild cognitive impairment: Status: Acute Plan This has a 84-year-old male with pertinent history of chronic hypoxemic respiratory failure due to COPD on p.r.n. supplemental oxygen, tobacco use disorder, coronary artery disease, distal AA, cognitive impairment, mood disorder who was brought to the emergency department for evaluation of dyspnea. 1.Acute on chronic hypoxemic respiratory failure/acute exacerbation of COPD -methylprednisolone decreased to 40 q.12 given confusion -doxycycline 100 mg IV q.12 (2) -supplemental O2 to maintain sats greater than equal 90% -DuoNebs Q 4 hours while awake 2.Coronary artery disease -stable and well compensated -continue current therapies 3. Dementia -confused and agitated at times -multiple PRNs utilize -responding somewhat to Seroquel; we will adjust as indicated -psych consult Lovenox Full code. Patient will require ongoing hospitalization for IV steroids and IV antibiotics to treat COPD exacerbation Quality Stroke Does the patient have a stroke diagnosis?: No VTE Prior VTE?: No VTE Risk Level:: Medical - moderate - high VTE Device Contraindication: Treatment Not Indicated VTE Drug Contraindication: N/A - Med Ordered
[2024-12-05] VITALS (12 sets, daily range): BP systolic 112–132; BP diastolic 65–79; PULSE 69–92; RESP 16–95; TEMP 36.1–36.7; O2SAT 95–100
[2024-12-05] MEDS: Aspirin Enteric Coated 81 MG TABLET.DR PO (08:50)
[2024-12-05] MEDS: oxyCODONE HCl Immed Release 5 MG TABLET 20 MG PO ×3 (08:50→20:09)
--- NOTE | 2024-12-05 09:41 | PC.NURSE ---
Addendum entered by Colt Treadwell RN 12/05/24 17:36: pt bladder scanned for 470. str cath'd for 300 Addendum entered by Colt Treadwell RN 12/05/24 12:17: 400cc out from str cath Addendum entered by Colt Treadwell RN 12/05/24 12:12: pt stated he feels bladder pressure and is unable to void. bladder scan >600. md informed and pt str cath'ed Addendum entered by Colt Treadwell RN 12/05/24 09:41: was informed of event previously stated Original Note: had near syncope event while ambulating. began to close eyes and stated he felt like he was going to pass out and started to fall backwards and side to side. orthos to be obtaiend soon
[2024-12-05] MEDS: Albuterol/Iprat 2.5/0.5MG 3 ML AMPUL.NEB INHALE ×3 (11:12→20:25)
--- NOTE | 2024-12-05 14:07 | HO.PM.IMPN ---
Subjective Subjective Date of Service: 12/05/24 Interval History: Much clear. Oriented to person and place Review of Systems Unable to obtain Physical Exam Vital Signs: Vital Signs: Last Vital Signs Temp 97.7 F 12/05/24 11:33 Pulse 92 12/05/24 12:25 Resp 20 12/05/24 11:33 BP 115/72 12/05/24 12:25 Pulse Ox 97 12/05/24 11:33 O2 Del Method Room Air 12/05/24 11:33 O2 Flow Rate 2 12/04/24 14:00 Oxygen Flow Rate 2 12/02/24 18:11 BMI result Body Mass Index 20.2 Const: Other: Awake alert no acute distress Resp: Other: Diminished at bases with scattered expiratory wheezes Cardio: Other: No S4; positive S1-S2; no S3 murmurs rubs or gallops GI: Other: Soft nontender nondistended normoactive bowel sounds Extrem: Other: No edema bilaterally Objective Data Active Medications Acetaminophen (Acetaminophen 325 Mg Tablet) 650 mg PO Q6H PRN PRN Reason: Pain, Mild 1-3,fever,headache Last Admin: 12/05/24 11:36 Dose: 650 mg Documented By: BEATRIZ Albuterol/Ipratropium (Albuterol/Iprat 2.5/0.5mg 3 Ml Ampul.Neb) 3 ml INHALE Q4H PRN PRN Reason: Shortness of Breath/Wheezing Albuterol/Ipratropium (Albuterol/Iprat 2.5/0.5mg 3 Ml Ampul.Neb) 3 ml INHALE RQ4H WHILE AWAKE [facility] Last Admin: 12/05/24 11:12 Dose: 3 ml Documented By: KELY Aspirin (Aspirin Enteric Coated 81 Mg Tablet.) 81 mg PO DAILY [facility] Last Admin: 12/05/24 08:50 Dose: 81 mg Documented By: JAEMS Atorvastatin Calcium (Atorvastatin Calcium 80 Mg Tablet) 80 mg PO DAILY [facility] Last Admin: 12/05/24 08:50 Dose: 80 mg Documented By: JAMES Benzonatate (Benzonatate 100 Mg Capsule) 100 mg PO TID PRN PRN Reason: Cough Calcium Carbonate (Calcium Carbonate 750 Mg Tab.Chew) 750 mg PO Q4H PRN PRN Reason: Heartburn Diazepam (Diazepam 5 Mg Tablet) 5 mg PO TID PRN PRN Reason: Anxiety Last Admin: 12/04/24 11:30 Dose: 5 mg Documented By: CAROLE Donepezil HCl (Donepezil Hcl 10 Mg Tablet) 10 mg PO BEDTIME [facility] Last Admin: 12/04/24 20:30 Dose: 10 mg Documented By: RACHEL Enoxaparin Sodium (Enoxaparin Sodium 40 Mg/0.4 Ml Syringe) 40 mg SUBCUT BEDTIME [facility] Last Admin: 12/04/24 20:32 Dose: 40 mg Documented By: RACHEL Hydroxyzine HCl (Hydroxyzine Hcl 50 Mg Tablet) 50 mg PO Q6H PRN PRN Reason: agitation Last Admin: 12/04/24 07:52 Dose: 50 mg Documented By: CAROLE Doxycycline Hyclate 100 mg/ (Sodium Chloride) 250 mls @ 166.67 mls/hr IV Q12H [facility] Last Infusion: 12/05/24 05:45 Dose: Infused Documented By: RACHEL Magnesium Hydroxide (Milk Of Magnesia 30 Ml Oral.Susp) 30 ml PO DAILY PRN PRN Reason: Constipation Melatonin (Melatonin 3 Mg Tablet) 6 mg PO BEDTIME PRN PRN Reason: Insomnia Last Admin: 12/04/24 20:30 Dose: 6 mg Documented By: RACHEL Methylprednisolone Sodium Succinate (Methylprednisolone Sod Succ 40 Mg/Ml Vial) 40 mg IVPUSH Q12H [facility] Last Admin: 12/05/24 05:45 Dose: 40 mg Documented By: RACHEL Ondansetron HCl (Ondansetron Hcl 4 Mg/2 Ml Vial) 4 mg IVPUSH Q8H PRN PRN Reason: Nausea and Vomiting Ondansetron HCl (Ondansetron Hcl 4 Mg/2 Ml Vial) 4 mg IVPUSH Q4H PRN PRN Reason: Nausea and Vomiting Oxycodone HCl (Oxycodone Hcl Immed Release 5 Mg Tablet) 20 mg PO TID PRN PRN Reason: Pain, Moderate(Pain Scale 4-6) Last Admin: 12/05/24 12:02 Dose: 20 mg Documented By: SOFFAMalachi Quetiapine Fumarate (Quetiapine Fumarate 25 Mg Tablet) 25 mg PO BID [facility] Last Admin: 12/05/24 08:50 Dose: 25 mg Documented By: JAMES Sodium Chloride (0.9 % Sodium Chloride Flush 3 Ml Syringe) 3 ml IVFLUSH QSHIFT [facility] Last Admin: 12/05/24 07:10 Dose: Not Given Documented By: BEATRIZ Non-Admin Reason: Previously Administered Labs 12/03/24 03:32 12/03/24 03:32 Microbiology Microbiology Results: Microbiology 12/02/24 18:32 Blood Culture - Preliminary Blood - Venous No growth after 48 hours. 12/02/24 18:32 Blood Culture - Preliminary Blood - Venous No growth after 48 hours. Assessment and Plan (1) Chronic respiratory failure: Status: Acute (2) COPD exacerbation: Status: Acute Plan This has a 84-year-old male with pertinent history of chronic hypoxemic respiratory failure due to COPD on p.r.n. supplemental oxygen, tobacco use disorder, coronary artery disease, distal AA, cognitive impairment, mood disorder who was brought to the emergency department for evaluation of dyspnea. 1.Acute on chronic hypoxemic respiratory failure/acute exacerbation of COPD -methylprednisolone decreased to 40 q.12 given confusion -doxycycline 100 mg IV q.12 (3) -supplemental O2 to maintain sats greater than equal 90% -DuoNebs Q 4 hours while awake 2.Coronary artery disease -stable and well compensated -continue current therapies 3. Dementia -confused and agitated at times -multiple PRNs utilize -responding somewhat to Seroquel; we will adjust as indicated -psych consult Lovenox Full code. Patient will require ongoing hospitalization for IV steroids and IV antibiotics to treat COPD exacerbation Quality Stroke Does the patient have a stroke diagnosis?: No VTE Prior VTE?: No VTE Risk Level:: Medical - moderate - high VTE Device Contraindication: Treatment Not Indicated VTE Drug Contraindication: N/A - Med Ordered
[2024-12-05] MEDS: 0.9 % Sodium Chloride Flush 3 ML SYRINGE IVFLUSH (20:14)
--- NOTE | 2024-12-06 03:27 | PC.NURSE ---
0100-patient due to void/monitor between 3465-[address] catheterization. Patient still unable to void by 0100, bladder scanned for 742ml, stating to feel bladder pressure. Hospitalist on duty alerted and order to st cath obtained, 900ml yellow urine obtained, tolerated well and now due to void/monitor between 9315-2550. sitter at bedside, able to nap afterwards, will continue to monitor.
[2024-12-06 03:49] VITALS: BP 97/54; PULSE 76; RESP 18; TEMP 36.4; O2SAT 94
[2024-12-06 07:26] VITALS: BP 137/67; PULSE 78; RESP 14; TEMP 36.3; O2SAT 97
[2024-12-06 07:53] VITALS: PULSE 74; RESP 15; O2SAT 96
[2024-12-06] MEDS: Albuterol/Iprat 2.5/0.5MG 3 ML AMPUL.NEB INHALE ×2 (07:53→12:08)
[2024-12-06] MEDS: oxyCODONE HCl Immed Release 5 MG TABLET 20 MG PO ×2 (09:09→13:51)
[2024-12-06] MEDS: Aspirin Enteric Coated 81 MG TABLET.DR PO (09:09)
[2024-12-06] MEDS: 0.9 % Sodium Chloride Flush 3 ML SYRINGE IVFLUSH ×3 (09:10→20:40)
--- NOTE | 2024-12-06 10:56 | PC.NURSE ---
Addendum entered by Breonna Robertson RN 12/06/24 15:15: Pt voided 400cc. Bladder scanned for PVR 322. Original Note: Pt voided in BR unmeasured. Bladder scanned for PVR 308. No complaints of discomfort at this time.
[2024-12-06 12:09] VITALS: PULSE 79; RESP 17; O2SAT 95
--- NOTE | 2024-12-06 14:37 | HO.PM.IMPN ---
Subjective Subjective Date of Service: 12/06/24 Interval History: No acute issues overnight. Remains confused but cooperative somewhat clearer since admission Review of Systems Unable to obtain Physical Exam Vital Signs: Vital Signs: Last Vital Signs Temp 97.3 F 12/06/24 07:26 Pulse 79 12/06/24 12:09 Resp 17 12/06/24 12:09 BP 137/67 12/06/24 07:26 Pulse Ox 97 12/06/24 07:26 O2 Del Method Room Air 12/06/24 07:26 O2 Flow Rate 2 12/04/24 14:00 Oxygen Flow Rate 2 12/02/24 18:11 BMI result Body Mass Index 20.2 Const: Other: Awake alert no acute distress Resp: Other: Diminished at bases with scattered expiratory wheezes Cardio: Other: No S4; positive S1-S2; no S3 murmurs rubs or gallops GI: Other: Soft nontender nondistended normoactive bowel sounds Extrem: Other: No edema bilaterally Objective Data Active Medications Acetaminophen (Acetaminophen 325 Mg Tablet) 650 mg PO Q6H PRN PRN Reason: Pain, Mild 1-3,fever,headache Last Admin: 12/06/24 13:53 Dose: 650 mg Documented By: DIANA Albuterol/Ipratropium (Albuterol/Iprat 2.5/0.5mg 3 Ml Ampul.Neb) 3 ml INHALE Q4H PRN PRN Reason: Shortness of Breath/Wheezing Albuterol/Ipratropium (Albuterol/Iprat 2.5/0.5mg 3 Ml Ampul.Neb) 3 ml INHALE RQ4H WHILE AWAKE [facility] Last Admin: 12/06/24 12:08 Dose: 3 ml Documented By: IVÁN Aspirin (Aspirin Enteric Coated 81 Mg Tablet.) 81 mg PO DAILY [facility] Last Admin: 12/06/24 09:09 Dose: 81 mg Documented By: DIANA Atorvastatin Calcium (Atorvastatin Calcium 80 Mg Tablet) 80 mg PO DAILY [facility] Last Admin: 12/06/24 09:08 Dose: 80 mg Documented By: DIANA Benzonatate (Benzonatate 100 Mg Capsule) 100 mg PO TID PRN PRN Reason: Cough Calcium Carbonate (Calcium Carbonate 750 Mg Tab.Chew) 750 mg PO Q4H PRN PRN Reason: Heartburn Diazepam (Diazepam 5 Mg Tablet) 5 mg PO TID PRN PRN Reason: Anxiety Last Admin: 12/04/24 11:30 Dose: 5 mg Documented By: CAROLE Donepezil HCl (Donepezil Hcl 10 Mg Tablet) 10 mg PO BEDTIME [facility] Last Admin: 12/05/24 20:08 Dose: 10 mg Documented By: JAZMYNE Doxycycline Monohydrate (Doxycycline Monohydrate 100 Mg Capsule) 100 mg PO Q12H [facility] Enoxaparin Sodium (Enoxaparin Sodium 40 Mg/0.4 Ml Syringe) 40 mg SUBCUT BEDTIME [facility] Last Admin: 12/05/24 20:11 Dose: 40 mg Documented By: JAZMYNE Hydroxyzine HCl (Hydroxyzine Hcl 50 Mg Tablet) 50 mg PO Q6H PRN PRN Reason: agitation Last Admin: 12/04/24 07:52 Dose: 50 mg Documented By: CAROLE Magnesium Hydroxide (Milk Of Magnesia 30 Ml Oral.Susp) 30 ml PO DAILY PRN PRN Reason: Constipation Melatonin (Melatonin 3 Mg Tablet) 6 mg PO BEDTIME PRN PRN Reason: Insomnia Last Admin: 12/04/24 20:30 Dose: 6 mg Documented By: RACHEL Methylprednisolone Sodium Succinate (Methylprednisolone Sod Succ 40 Mg/Ml Vial) 40 mg IVPUSH Q12H [facility] Last Admin: 12/06/24 06:22 Dose: 40 mg Documented By: JAZMYNE Ondansetron HCl (Ondansetron Hcl 4 Mg/2 Ml Vial) 4 mg IVPUSH Q8H PRN PRN Reason: Nausea and Vomiting Ondansetron HCl (Ondansetron Hcl 4 Mg/2 Ml Vial) 4 mg IVPUSH Q4H PRN PRN Reason: Nausea and Vomiting Oxycodone HCl (Oxycodone Hcl Immed Release 5 Mg Tablet) 20 mg PO TID PRN PRN Reason: Pain, Moderate(Pain Scale 4-6) Last Admin: 12/06/24 13:51 Dose: 20 mg Documented By: DIANA Comments: ok to give early per dr felipe. Quetiapine Fumarate (Quetiapine Fumarate 25 Mg Tablet) 25 mg PO BID [facility] Last Admin: 12/06/24 09:08 Dose: 25 mg Documented By: DIANA Sodium Chloride (0.9 % Sodium Chloride Flush 3 Ml Syringe) 3 ml IVFLUSH QSHIFT [facility] Last Admin: 12/06/24 09:10 Dose: 3 ml Documented By: DIANA Labs 12/03/24 03:32 12/03/24 03:32 Assessment and Plan (1) Nocturnal leg cramps: Status: Acute (2) Mild cognitive impairment: Status: Acute Plan This has a 84-year-old male with pertinent history of chronic hypoxemic respiratory failure due to COPD on p.r.n. supplemental oxygen, tobacco use disorder, coronary artery disease, distal AA, cognitive impairment, mood disorder who was brought to the emergency department for evaluation of dyspnea. 1.Acute on chronic hypoxemic respiratory failure/acute exacerbation of COPD -methylprednisolone decreased to 40 q.12 given confusion -doxycycline 100 mg IV q.12 (4) -supplemental O2 to maintain sats greater than equal 90% -DuoNebs Q 4 hours while awake 2.Coronary artery disease -stable and well compensated -continue current therapies 3. Dementia -improved with Seroquel -psych consult Lovenox Full code. Patient will require ongoing hospitalization for IV steroids and IV antibiotics to treat COPD exacerbation Quality Stroke Does the patient have a stroke diagnosis?: No VTE Prior VTE?: No VTE Risk Level:: Medical - moderate - high VTE Device Contraindication: Treatment Not Indicated VTE Drug Contraindication: N/A - Med Ordered
[2024-12-06 16:00] VITALS: BP 129/60; PULSE 91; RESP 18; TEMP 36.8; O2SAT 94
[2024-12-06 19:14] VITALS: BP 128/71; PULSE 84; RESP 18; TEMP 36.7; O2SAT 96
--- NOTE | 2024-12-06 19:16 | PC.NURSE ---
Pt becoming more impulsive. Insisting on going home to his to help her with things around the house. Very anxious, wanting to put his clothes on, restless. Difficult to redirect. Medicated with diazepam po, called and spoke to but unable to speak to patient. Pt behavior improved after diazepam given.
[2024-12-07 04:00] VITALS: BP 143/88; PULSE 74; RESP 16; TEMP 36.9; O2SAT 97
[2024-12-07 08:00] VITALS: BP 157/75; PULSE 78; RESP 18; TEMP 36.5; O2SAT 95
[2024-12-07] MEDS: Aspirin Enteric Coated 81 MG TABLET.DR PO (08:11)
[2024-12-07] MEDS: 0.9 % Sodium Chloride Flush 3 ML SYRINGE IVFLUSH ×3 (08:12→20:41)
[2024-12-07] MEDS: oxyCODONE HCl Immed Release 5 MG TABLET 20 MG PO ×3 (08:18→23:03)
--- NOTE | 2024-12-07 13:27 | HO.PM.IMPN ---
Subjective Subjective Date of Service: 12/07/24 Interval History: No acute issues overnight. Confused but redirectable Review of Systems Denies chest pain Denies shortness of breath Denies nausea vomiting diarrhea Denies fever chills Physical Exam Vital Signs: Vital Signs: Last Vital Signs Temp 97.7 F 12/07/24 08:00 Pulse 78 12/07/24 08:00 Resp 18 12/07/24 08:00 BP 157/75 H 12/07/24 08:00 Pulse Ox 95 12/07/24 08:00 O2 Del Method Room Air 12/07/24 08:00 O2 Flow Rate 2 12/04/24 14:00 Oxygen Flow Rate 2 12/02/24 18:11 BMI result Body Mass Index 20.2 Const: Other: Awake alert no acute distress Resp: Other: Diminished at bases with scattered expiratory wheezes Cardio: Other: No S4; positive S1-S2; no S3 murmurs rubs or gallops GI: Other: Soft nontender nondistended normoactive bowel sounds Extrem: Other: No edema bilaterally Objective Data Active Medications Acetaminophen (Acetaminophen 325 Mg Tablet) 650 mg PO Q6H PRN PRN Reason: Pain, Mild 1-3,fever,headache Last Admin: 12/06/24 13:53 Dose: 650 mg Documented By: DIANA Albuterol/Ipratropium (Albuterol/Iprat 2.5/0.5mg 3 Ml Ampul.Neb) 3 ml INHALE Q4H PRN PRN Reason: Shortness of Breath/Wheezing Aspirin (Aspirin Enteric Coated 81 Mg Tablet.) 81 mg PO DAILY [facility] Last Admin: 12/07/24 08:11 Dose: 81 mg Documented By: DIANA Atorvastatin Calcium (Atorvastatin Calcium 80 Mg Tablet) 80 mg PO DAILY [facility] Last Admin: 12/07/24 08:11 Dose: 80 mg Documented By: DIANA Benzonatate (Benzonatate 100 Mg Capsule) 100 mg PO TID PRN PRN Reason: Cough Calcium Carbonate (Calcium Carbonate 750 Mg Tab.Chew) 750 mg PO Q4H PRN PRN Reason: Heartburn Diazepam (Diazepam 5 Mg Tablet) 5 mg PO TID PRN PRN Reason: Anxiety Last Admin: 12/07/24 11:52 Dose: 5 mg Documented By: DIANA Donepezil HCl (Donepezil Hcl 10 Mg Tablet) 10 mg PO BEDTIME [facility] Last Admin: 12/06/24 20:31 Dose: 10 mg Documented By: JAZMYNE Doxycycline Monohydrate (Doxycycline Monohydrate 100 Mg Capsule) 100 mg PO Q12H [facility] Last Admin: 12/07/24 05:51 Dose: 100 mg Documented By: JAZMYNE Enoxaparin Sodium (Enoxaparin Sodium 40 Mg/0.4 Ml Syringe) 40 mg SUBCUT BEDTIME [facility] Last Admin: 12/06/24 20:32 Dose: 40 mg Documented By: JAZMYNE Hydroxyzine HCl (Hydroxyzine Hcl 50 Mg Tablet) 50 mg PO Q6H PRN PRN Reason: agitation Last Admin: 12/04/24 07:52 Dose: 50 mg Documented By: CAROLE Magnesium Hydroxide (Milk Of Magnesia 30 Ml Oral.Susp) 30 ml PO DAILY PRN PRN Reason: Constipation Melatonin (Melatonin 3 Mg Tablet) 6 mg PO BEDTIME PRN PRN Reason: Insomnia Last Admin: 12/04/24 20:30 Dose: 6 mg Documented By: RACHEL Methylprednisolone Sodium Succinate (Methylprednisolone Sod Succ 40 Mg/Ml Vial) 40 mg IVPUSH Q12H [facility] Last Admin: 12/07/24 05:51 Dose: 40 mg Documented By: JAZMYNE Ondansetron HCl (Ondansetron Hcl 4 Mg/2 Ml Vial) 4 mg IVPUSH Q8H PRN PRN Reason: Nausea and Vomiting Ondansetron HCl (Ondansetron Hcl 4 Mg/2 Ml Vial) 4 mg IVPUSH Q4H PRN PRN Reason: Nausea and Vomiting Oxycodone HCl (Oxycodone Hcl Immed Release 5 Mg Tablet) 20 mg PO TID PRN PRN Reason: Pain, Moderate(Pain Scale 4-6) Last Admin: 12/07/24 08:18 Dose: 20 mg Documented By: DIANA Quetiapine Fumarate (Quetiapine Fumarate 25 Mg Tablet) 25 mg PO BID [facility] Last Admin: 12/07/24 08:12 Dose: 25 mg Documented By: DIANA Sodium Chloride (0.9 % Sodium Chloride Flush 3 Ml Syringe) 3 ml IVFLUSH QSHIFT [facility] Last Admin: 12/07/24 08:12 Dose: 3 ml Documented By: DIANA Labs 12/03/24 03:32 12/03/24 03:32 Assessment and Plan (1) COPD exacerbation: Status: Acute (2) Chronic respiratory failure: Status: Acute (3) Mild cognitive impairment: Status: Acute Plan This has a 84-year-old male with pertinent history of chronic hypoxemic respiratory failure due to COPD on p.r.n. supplemental oxygen, tobacco use disorder, coronary artery disease, distal AA, cognitive impairment, mood disorder who was brought to the emergency department for evaluation of dyspnea. 1.Acute on chronic hypoxemic respiratory failure/acute exacerbation of COPD -switch to PO steroids -doxycycline 100 mg IV q.12 (5) -supplemental O2 to maintain sats greater than equal 90%...now on room air -DuoNebs Q 4 hours while awake 2.Coronary artery disease -stable and well compensated -continue current therapies 3. Dementia -improved with Seroquel -psych consult Lovenox Full code. Patient will require ongoing hospitalization for IV steroids and IV antibiotics to treat COPD exacerbation Quality Stroke Does the patient have a stroke diagnosis?: No VTE Prior VTE?: No VTE Risk Level:: Medical - moderate - high VTE Device Contraindication: Treatment Not Indicated VTE Drug Contraindication: N/A - Med Ordered
[2024-12-07 15:24] VITALS: BP 130/80; PULSE 65; RESP 18; TEMP 36.7; O2SAT 96
[2024-12-07 19:19] VITALS: BP 130/86; PULSE 82; RESP 18; TEMP 36.7; O2SAT 95
--- NOTE | 2024-12-07 19:21 | PC.NURSE ---
Pt confused but cooperative. Impulsive at times but easily redirectable. Anxious, restless, and complaining of pain to left shoulder. Reassured pt that he was safe. Medicated with prn diazepam and oxycodone with good effect.
[2024-12-08 04:00] VITALS: BP 122/95; PULSE 70; RESP 17; TEMP 36.4; O2SAT 96
[2024-12-08] MEDS: oxyCODONE HCl Immed Release 5 MG TABLET 20 MG PO (06:55)
[2024-12-08] MEDS: Aspirin Enteric Coated 81 MG TABLET.DR PO (06:55)
[2024-12-08] MEDS: 0.9 % Sodium Chloride Flush 3 ML SYRINGE IVFLUSH (06:55)
[2024-12-08 07:00] LABS: Hematocrit 44.7 % (42.0-52.0); Hemoglobin 14.5 g/dl (14.0-18.0); Imm Gran Abs Auto 0.10 X10*3/uL (0.00-0.03); Imm Gran Pct Auto 1.0 % (0.0-0.4); Lymphocytes Absolute Auto 1.0 X10*3/uL (1.2-4.9); MANUAL DIFF FLAG SCAN; Mean Corpuscular HGB Conc 32.4 g/dl (31.0-36.0); Mean Corpuscular Hemoglobin 32.3 pg (27.0-33.0); Mean Corpuscular Volume 99.6 fL (80.0-98.0); NRBC Abs Auto 0.000 X10*3/uL (0.0-0.012); NRBC Pct Auto 0.0 /100WBC (0.0-0.2); PLT CLUMP 1; Red Blood Count 4.49 X10*6/uL (4.60-5.80); SCAN SMEAR FLAG 1
[2024-12-08 07:30] LABS: Platelet Count 116 X10*3/uL (160-400); White Blood Count 9.6 X10*3/uL (4.8-10.8)
[2024-12-08 07:49] VITALS: BP 128/82; PULSE 69; RESP 16; TEMP 36.7; O2SAT 96
[2024-12-08 09:43] LABS: Alanine Aminotransferase 68 U/L (0-40); Albumin Level 3.9 g/dL (3.5-5.0); Alkaline Phosphatase 67 U/L (39-117); Anion Gap 12 (12-20); Aspartate Amino Transferase 31 U/L (5-37); Blood Urea Nitrogen 24 mg/dL (9-16); Calcium 9.0 mg/dL (8.4-10.2); Carbon Dioxide 29 mmol/L (22-29); Chloride 106 mmol/L (96-108); Creatinine Clr Calc Pharmacy 68.1; Estimated Glomerular Filt Rate > 60; Potassium 4.2 mmol/L (3.3-5.1); Sodium 143 mmol/L (135-145); Total Protein 6.0 g/dL (6.5-8.0)
--- NOTE | 2024-12-08 09:49 | PC.NURSE ---
Morning assessment: Pt alert and oriented however forgetful as to exact setting. No behavior issues reported from industrial recruiter. Pt conversed easily this morning with no complaints other than some pain to his shoulder. He is cooperative, and easily redirected.
--- NOTE | 2024-12-08 11:45 | PC.NURSE ---
Pt voided 800 10:55 in toilet. Bladder scan afterwards showed 319. Pt denies pain or feelings of fullness. Provider notified and no st cath ordered, no cath protocol in place.
[2024-12-08] MEDS: oxyCODONE HCl Immed Release 5 MG TABLET 10 MG PO (12:04)
--- NOTE | 2024-12-08 12:44 | PM.DS ---
DS: Providers Provider Date of Service: 12/08/24 Date of admission: 12/02/24 22:52 Date of discharge: 12/08/24 Primary care physician: Tai Cavazos MD DS: Diagnosis Discharge Diagnosis (1) COPD exacerbation: Status: Acute (2) Chronic respiratory failure: Status: Acute (3) Mild cognitive impairment: Status: Acute DS: Summary Hospital Course Hospital Course: History and physical as per admitting provider. This has a 84-year-old male with pertinent history of chronic hypoxemic respiratory failure due to COPD on p.r.n. supplemental oxygen, tobacco use disorder, coronary artery disease, distal AA, cognitive impairment, mood disorder who was brought to the emergency department for evaluation of dyspnea. Patient states he has been having dyspnea which has been ongoing for the last few days and worse with exertion. Denies orthopnea or PND. Also endorses malaise and easy fatigability. Patient is a poor historian and is unclear on details. States he recently lost weight without trying to do so, unable to specify details. Does have associated cough but no sputum production. Denies fever or chills. Admits poor p.o. intake. No chest pain, palpitations, abdominal pain, changes in urinary or bowel habits. Patient states he only uses oxygen as needed. In the emergency department, patient requiring 2 L supplemental oxygen and wheezing despite multiple DuoNeb treatments and IV steroids. 84-year-old man treated for acute on chronic hypoxemic respiratory failure and COPD exacerbation. Treated with IV doxycycline, initially IV steroids and switch to p.o. steroids. He had supplemental oxygen but at this time now on room air. Treated with DuoNebs every 4 hours while awake. At this time patient is stable, not hypoxic. He will continue his baseline steroids and doxycycline at short-term rehab. History of coronary artery disease. Stable and well compensated. Continue current therapies History of chronic pain. Diffuse. Continue baseline oxycodone. Dementia. Treated with Seroquel, on Valium at baseline for anxiety p.r.n.. Time Attestation Discharge Coordination Time (in mins): 40 Quality: Safe Use of Opioids Does Pt have an Active Cancer Diagnosis on the Problem List?: No Quality: Stroke Does the patient have a stroke diagnosis?: No Physical Exam Exam: Exam: Appearing in no acute distress head is normocephalic atraumatic eyes pupils are PERRLA sclera is anicteric mouth throat mucous membranes are intact and moist neck is supple no lymphadenopathy, no JVD noted lung sounds are clear to auscultation heart regular rate rhythm, clear S1, S2 positive bowel sounds, abdomen is soft, nontender neuro patient is alert x3, no focal deficits Vital Signs: Vital Signs: Last Vital Signs Temp 98.1 F 12/08/24 07:49 Pulse 69 12/08/24 07:49 Resp 16 12/08/24 07:49 BP 128/82 12/08/24 07:49 Pulse Ox 96 12/08/24 07:49 O2 Del Method Room Air 12/08/24 07:49 O2 Flow Rate 2 12/04/24 14:00 Oxygen Flow Rate 2 12/02/24 18:11 BMI result Body Mass Index 20.2 DS: Data Data Completed and Pending Labs on day of discharge: Laboratory Results - last 24 hr 12/08/24 12/08/24 05:13 09:10 WBC 9.6 RBC 4.49 L Hgb 14.5 Hct 44.7 MCV 99.6 H MCH 32.3 MCHC 32.4 RDW 13.8 Plt Count 116 L MPV 11.7 Immature Gran % (Auto) 1.0 H Neut % (Auto) 81.6 H Lymph % (Auto) 10.3 L [place] % (Auto) 6.9 Eos % (Auto) 0.1 Baso % (Auto) 0.1 Lymph # (Auto) 1.0 L [place] # (Auto) 0.7 Eos # (Auto) 0.0 Baso # (Auto) 0.0 Abs Immat Gran (auto) 0.10 H Absolute Neuts (auto) 7.8 Absolute Nucleated RBC 0.000 Nucleated RBC % (auto) 0.0 Smear Tech's Comments VERIFIED Sodium 143 Potassium 4.2 Chloride 106 Carbon Dioxide 29 Anion Gap 12 BUN 24 H Creatinine 0.80 Estim Creat Clear Calc 68.1 Estimated GFR > 60 Fasting Glucose 109 H Calcium 9.0 D Total Bilirubin 0.4 AST 31 ALT 68 H Alkaline Phosphatase 67 Total Protein 6.0 L Albumin 3.9 Discharge Plan Discharge Anticipated Discharge Date/Time: 12/08/24 12:30 Patient Disposition: Xfer SNF Discharge Diagnosis: Acute on chronic hypoxemic respiratory failure Acute COPD exacerbation Referrals: Tai Cavazos MD [Primary Care Provider, Internal Medicine] - 1 Week Discharge Medications: New quetiapine 25 mg Tablet 25 mg PO BID Qty: 60 0RF Continued fluticasone propionate 50 mcg/actuation spray,suspension 1 spray intranasal DAILY PRN (Reason: allergy symptoms) Qty: 16 1RF prednisone 10 mg tablet 10 mg PO DAILY 30 Days Qty: 30 3RF Patient Comments: 3 times a week albuterol sulfate [Ventolin HFA] 90 mcg/actuation HFA aerosol inhaler 2 puff PO Q6H PRN (Reason: for dyspnea) Qty: 18 11RF ipratropium-albuterol 0.5 mg-3 mg(2.5 mg base)/3 mL solution for nebulization 1 ml inhalation TID Qty: 270 11RF atorvastatin 80 mg tablet 80 mg PO DAILY Qty: 90 3RF doxycycline monohydrate 100 mg tablet 100 mg PO DAILY Qty: 30 1RF donepezil 10 mg tablet 10 mg PO BEDTIME multivitamin Tablet 1 tab PO DAILY acetaminophen 325 mg Tablet 650 mg PO Q6H PRN (Reason: Pain, Mild) diazepam 5 mg tablet 5 mg PO TID PRN (Reason: Anxiety) 28 Days Qty: 84 0RF Rx Instructions: Take ONLY NEEDED for anxiety oxycodone 20 mg tablet 20 mg PO TID PRN (Reason: pain) 28 Days Qty: 84 0RF Rx Instructions: Partial Fill upon patient request (DME) nebulizers Misc See Rx Instructions .Route Rx Instructions: As directed aspirin [Ecotrin Low Strength] 81 mg tablet,delayed release (DR/EC) 81 mg PO DAILY Qty: 30 6RF Discharge Orders: Discharge Order (Routine); Ordered 12/08/24 Ordered By: Elza Kaiser Diet: Advance to usual diet Activity on Discharge: As tolerated Stand Alone Forms: Patient Portal Discharge page Print Language: Pashto Care Plan Goals: Transfer to short-term rehab for physical therapy Health Concerns: Acute on chronic hypoxemic respiratory failure Acute COPD exacerbation Plan of Treatment: Follow up with primary care provider as needed Take all medications as prescribed Assessment: See discharge summary Patient Instructions: COPD (Chronic Obstructive Pulmonary Disease) (DC)
--- NOTE | 2024-12-08 12:47 | MHC.CM.PN ---
Patient medically cleared for dc to [facility]. Met with patient/ to discuss bed offers, [facility] B[facility] transport scheduled for 2pm. LIVESTOCK INSPECTOR, RN, patient/ aware. IMM delivered.
[2024-12-08 13:32] VITALS: BP 128/72; PULSE 86; RESP 18; TEMP 36.9; O2SAT 95
== END 2024-12-08 14:06 | disposition skilled nursing facility (03) | DRG 190 ==
LOC: HO.ED 22:51 → HO.EDOVER 22:55 → HO.S3 12-04 12:56
PROVIDERS: Hospitalist; Admitting Provider Student in an Organized Health Care Education/Training Program; Emergency Provider Emergency Medicine; PCP Internal Medicine; Visit Provider Nurse Practitioner Acute Care
DX: J44.1 Chronic obstructive pulmonary disease with (acute) exacerbation (principal); J96.21 Acute and chronic respiratory failure with hypoxia; Z99.81 Dependence on supplemental oxygen; I25.10 Atherosclerotic heart disease of native coronary artery without angina pectoris; F17.210 Nicotine dependence, cigarettes, uncomplicated; F03.90 Unspecified dementia, unspecified severity, without behavioral disturbance, psychotic disturbance, mood disturbance, and anxiety; Z71.6 Tobacco abuse counseling; Z20.822 Contact with and (suspected) exposure to COVID-19; Z79.52 Long term (current) use of systemic steroids; Z79.82 Long term (current) use of aspirin; Z79.899 Other long term (current) drug therapy
CPT/HCPCS: 36415; 71250; 74177; 80048; 80053; 80076; 81003; 82803; 83036; 83605; 83690; 83735; 83880; 84145; 84443; 84484; 85025; 86140; 87040; 87637; 93005; 94640; 97162; 99285; J0456; J1171; J1271; J1650; J2359; J2919; J3360; J3475; J7120; Q9967

== ENCOUNTER → 2024-12-02 18:14 | Outpatient (BNV) | payer MEDICARE, SELFPAY | PROVIDERS: Admitting Provider Student in an Organized Health Care Education/Training Program; Emergency Provider Emergency Medicine; PCP Internal Medicine; Visit Provider Internal Medicine Cardiovascular Disease | DX: R06.00 Dyspnea, unspecified (principal) | CPT/HCPCS: 93010 ==

== ENCOUNTER → 2024-12-02 18:15 | Outpatient (BNV) | payer MEDICARE, MEDICAID, SELFPAY | PROVIDERS: Emergency Provider Emergency Medicine; PCP Internal Medicine; Visit Provider Student in an Organized Health Care Education/Training Program | DX: I71.43 Infrarenal abdominal aortic aneurysm, without rupture (principal); J43.2 Centrilobular emphysema | CPT/HCPCS: 71250; 74177 ==

== ENCOUNTER → 2024-12-02 22:52 | Outpatient (BNV) | payer MEDICARE, MEDICAID, SELFPAY | PROVIDERS: Admitting Provider Student in an Organized Health Care Education/Training Program; Emergency Provider Emergency Medicine; PCP Internal Medicine; Visit Provider Student in an Organized Health Care Education/Training Program | DX: R09.02 Hypoxemia (principal); J44.1 Chronic obstructive pulmonary disease with (acute) exacerbation; I10 Essential (primary) hypertension | CPT/HCPCS: 99223; 99231; 99233 ==

== ENCOUNTER 2024-12-22 17:23 | Emergency (ER) | payer MEDICARE, MEDICAID, SELFPAY ==
--- NOTE | 2024-12-22 | ECG_ITS ---
Test Reason : FALL Blood Pressure : */* mmHG Vent. Rate : 68 BPM Atrial Rate : 68 BPM P-R Int : 136 ms QRS Dur : 90 ms QT Int : 410 ms P-R-T Axes : 79 50 62 degrees QTcB Int : 435 ms Normal sinus rhythm Normal ECG When compared with ECG of 02-Dec-2024 18:25, No significant change was found Referred By: Generic ED Physician Electronically Signed By: DEBRA BERGMAN MD
--- NOTE | ~2024-12-22 | CT_ITS ---
CLINICAL HISTORY: fall, head injury, pain CT cervical spine without contrast Comparison: CT cervical spine 08/10/2023 Findings: Straightening of normal cervical spine lordosis. Trace grade 1 C3 on C4 anterolisthesis along with grade 1 C6 on C7 retrolisthesis. No acute cervical spine fracture or subluxation. Stable extensive multilevel cervical spine arthropathy most significant and severe at C4-C5 and C5-C6 levels. No acute findings within visualized soft tissues within limitation of this noncontrast exam. Moderate bilateral carotid bulb calcifications. Emphysematous changes within visualized lung apices. Impression: 1. No acute cervical spine fracture or subluxation. 2. Additional findings as above. This document has been electronically signed by: Alma Kendall MD on 12/22/2024 21:10:04
--- NOTE | ~2024-12-22 | CT_ITS ---
CLINICAL HISTORY: trauma CT chest with contrast Comparison: Prior chest CTs and chest radiographs most recently on 12/02/2024 Findings: Background of moderate COPD/emphysema. No dense focal airspace consolidation. No pleural effusion. No pneumothorax. No contusion. Small amount of layering debris/mucous within the distal trachea. Normal heart size. No pericardial effusion. Moderate multivessel coronary artery calcifications. Ascending thoracic aorta measuring 3.8 cm in maximum transverse dimension. Normal caliber central pulmonary arteries. No central filling defects. Unremarkable esophagus. No definite pathologically enlarged lymph nodes. No acute findings within visualized lower neck. Abdominal findings are described in separate accompanying report. No acute osseous abnormality. No lytic or sclerotic osseous lesions. Impression: 1. No acute or traumatic findings identified in the chest. 2. Stable chronic/nonacute findings as above. This document has been electronically signed by: Alma Kendall MD on 12/23/2024 01:01:40
--- NOTE | ~2024-12-22 | XR_ITS ---
CLINICAL HISTORY: pain, injury 3 view left elbow Comparison: None provided Findings: No acute fractures or dislocations. [id number] left elbow osteoarthritis. No joint effusion. No radiopaque foreign body. IMPRESSION: 1. No acute fracture or subluxation. This document has been electronically signed by: Alma Kendall MD on 12/22/2024 19:41:16
--- NOTE | ~2024-12-22 | CT_ITS ---
CLINICAL HISTORY: fall, head injury, pain CT head without contrast Comparison: Brain MRI 03/22/2024, CT head 08/10/2023 Findings: No intra-axial mass, midline shift, hydrocephalus, or acute hemorrhage. Moderate atrophy-like change and white matter disease. Postoperative changes status post left-sided craniotomy with chronic appearing left temporal region volume loss/encephalomalacia. There is no sinus or mastoid fluid. The orbits are unremarkable. No skull fracture. IMPRESSION: 1. No acute intracranial findings. 2. Chronic/nonacute findings as above. This document has been electronically signed by: Alma Kendall MD on 12/22/2024 21:11:46
--- NOTE | ~2024-12-22 | CT_ITS ---
CLINICAL HISTORY: trauma CT abdomen and pelvis with contrast Comparison: CT abdomen pelvis 12/02/2024 Findings: Lung findings are described in detail in the separate accompanying report. Liver, spleen, adrenal glands, pancreas, and kidneys are unremarkable. No free air or free fluid. Stable appearance of infrarenal abdominal aortic aneurysm measuring up to 3.8 cm in size. Moderately distended urinary bladder. Mildly enlarged prostate gland. Stomach is unremarkable. Small bowel is normal caliber. No obstruction. Extensive rectal and colonic stool burden. There is moderate wall thickening of the sigmoid colon. No definite pathologically enlarged lymph nodes. No acute osseous abnormality. No lytic or sclerotic osseous lesions. Impression: 1. No acute or traumatic findings identified in the abdomen or pelvis. 2. Substantial wall thickening throughout sigmoid colon concerning for colitis likely of infectious/inflammatory etiology. Ischemic colitis is thought to be less likely however should be correlated with patient's clinical history and symptoms. Correlation with colonoscopy after treatment and resolution of current acute symptoms may also be considered. 3. Stable additional chronic/nonacute findings as above. This document has been electronically signed by: Alma Kendall MD on 12/23/2024 00:56:10
[2024-12-22 17:44] VITALS: BP 134/78; BP 95/59; PULSE 66; PULSE 71; RESP 16; TEMP 36.5; O2SAT 97; O2SAT 98; BMI 22.5
[2024-12-22 18:03] LABS: Hematocrit 38.2 % (42.0-52.0); Hemoglobin 12.9 g/dl (14.0-18.0); Imm Gran Abs Auto 0.02 X10*3/uL (0.00-0.03); Imm Gran Pct Auto 0.3 % (0.0-0.4); Lymphocytes Absolute Auto 0.6 X10*3/uL (1.2-4.9); MANUAL DIFF FLAG NO; Mean Corpuscular HGB Conc 33.8 g/dl (31.0-36.0); Mean Corpuscular Hemoglobin 32.7 pg (27.0-33.0); Mean Corpuscular Volume 96.7 fL (80.0-98.0); NRBC Abs Auto 0.000 X10*3/uL (0.0-0.012); NRBC Pct Auto 0.0 /100WBC (0.0-0.2); Platelet Count 143 X10*3/uL (160-400); Red Blood Count 3.95 X10*6/uL (4.60-5.80); White Blood Count 6.6 X10*3/uL (4.8-10.8)
[2024-12-22 18:09] LABS: INTERNATIONAL NORM RATIO 0.9 (0.9-1.1); Prothrombin Time 10.5 SEC (10.9-12.4)
[2024-12-22 18:12] LABS: Partial Thromboplastin Time 25.9 SEC (26.7-34.1)
[2024-12-22 18:39] LABS: Troponin-I High Sensitivity < 2.7 ng/L (<3.5-35.0)
[2024-12-22 18:55] LABS: Alanine Aminotransferase 36 U/L (0-40); Albumin Level 3.5 g/dL (3.5-5.0); Alkaline Phosphatase 58 U/L (39-117); Anion Gap 14 (12-20); Aspartate Amino Transferase 30 U/L (5-37); Blood Urea Nitrogen 13 mg/dL (9-16); Calcium 8.4 mg/dL (8.4-10.2); Carbon Dioxide 25 mmol/L (22-29); Chloride 108 mmol/L (96-108); Creatinine Clr Calc Pharmacy 96.1; Estimated Glomerular Filt Rate > 60; Magnesium 1.9 mg/dL (1.6-2.6); Potassium 4.8 mmol/L (3.3-5.1); Sodium 142 mmol/L (135-145); Total Protein 5.9 g/dL (6.5-8.0)
--- OUTSIDE RECORDS SUMMARY | 2024-12-22 18:59 | XMS_ITS | Encounter Summary ---
Author Organization [facility] Address [address] [place] [address] Care Team Providers Care Milking System Installer Name Role Phone Tai Cavazos MD Primary Care Provider [phone] Encounter Details Date Type Department Care Team (Late st Contact Info) Description 12/12/[address] [facility] [address] [facility] [place] [address] Gilda Le MD [address] [id number] Chronic obstructive pulmonary disease, unspecified (CMS/HCC V24, CMS/HCC V28); Chronic respiratory failure, unspecified whether with hypoxia or hypercapnia (CMS/HCC V24, CMS/HCC V28) Social History Tobacco Use Types Packs/Day Years Used Date Smoking Tobacco: Never Assessed Sex and Gender Information Value Date Recorded Sex Assigned at Not on file Legal Sex Male 5:26 AM EST Gender Identity Not on file Sexual Orientation Not on file documented as of this encounter Plan of Treatment Not on file documented as of this encounter Procedures Procedure Name Priority Date/Time Associated Diagnosis Comments COMPLETE BLOOD COUNT Routine 12/16/2024 8:38 AM EDT Chronic obstructive pulmonary disease, unspecified (CMS/HCC V24, CMS/HCC V28) Chronic respiratory failure, unspecified whether with hypoxia or hypercapnia (CMS/HCC V24, CMS/HCC V28) COMPREHENSIVE METABOLIC PANEL Routine 12/16/2024 8:38 AM EDT Chronic obstructive pulmonary disease, unspecified (CMS/HCC V24, CMS/HCC V28) Chronic respiratory failure, unspecified whether with hypoxia or hypercapnia (CMS/HCC V24, CMS/HCC V28) documented in this encounter Results * (ABNORMAL) Comprehensive metabolic panel (12/16/2024 8:38 AM EDT) Sodium 143 133 - 145 mmol/L LAB CHEMISTRY METHOD 12/16/2024 7:20 PM [facility] Potassium 4.0 3.5 - 5.5 mmol/L LAB CHEMISTRY METHOD 12/16/2024 7:20 PM [facility] Chloride 107 96 - 110 mmol/L LAB CHEMISTRY METHOD 12/16/2024 7:20 PM [facility] CO2 28 21 - 32 mmol/L LAB CHEMISTRY METHOD 12/16/2024 7:20 PM [facility] Anion Gap 8 3 - 11 LAB CHEMISTRY METHOD 12/16/2024 7:20 PM [facility] Glucose 66(L) 70 - 100 mg/dL LAB CHEMISTRY METHOD 12/16/2024 7:20 PM [facility] BUN 13 5 - 25 mg/dL LAB CHEMISTRY METHOD 12/16/2024 7:20 PM [facility] Creatinine 0.84 0.70 - 1.30 mg/dL LAB CHEMISTRY METHOD 12/16/2024 7:20 PM [facility] eGFR 87 >=60 mL/min/1. 73m2 LAB CHEMISTRY METHOD 12/16/2024 7:20 PM [facility] Comment:Calculation based on the Chronic Kidney Disease Epidemiology Collaboration (CKD-EPI) equation refit without adjustment for race. BUN/Creatinine Ratio 15.5 LAB CHEMISTRY METHOD 12/16/2024 7:20 PM [facility] Calcium 8.0(L) 8.5 - 10.5 mg/dL LAB CHEMISTRY METHOD 12/16/2024 7:20 PM [facility] AST (SGOT) 33 10 - 42 unit/L LAB CHEMISTRY METHOD 12/16/2024 7:20 PM [facility] ALT (SGPT) 53 10 - 60 unit/L LAB CHEMISTRY METHOD 12/16/2024 7:20 PM EDT [facility] Alkaline Phosphatase 69 42 - 121 unit/L LAB CHEMISTRY METHOD 12/16/2024 7:20 PM EDT [facility] Total Protein 5.8(L) 6.0 - 8.0 g/dL LAB CHEMISTRY METHOD 12/16/2024 7:20 PM EDT [facility] Albumin 3.1(L) 3.2 - 5.0 g/dL LAB CHEMISTRY METHOD 12/16/2024 7:20 PM EDT [facility] Total Bilirubin 0.4 0.0 - 1.4 mg/dL LAB CHEMISTRY METHOD 12/16/2024 7:20 PM EDT [facility] Blood Venous blood specimen / Unknown Venipuncture / Unknown 12/16/2024 8:38 AM EDT 12/16/2024 12:24 PM EDT us Gilda Le MD LAB BLOOD ORDERABLES Fin al Result [facility] [address] [place] [address], * (ABNORMAL) Complete blood count (12/16/2024 8:38 AM EDT) WBC 8.6 4.8 - 10.8 K/mcL LAB HEMETOLOGY METHOD 12/16/2024 1:22 PM EDT [facility] RBC 4.20(L) 4.50 - 5.50 M/mcL LAB HEMETOLOGY METHOD 12/16/2024 1:22 PM EDT [facility] Hemoglobin 13.9 13.5 - 17.5 g/dL LAB HEMETOLOGY METHOD 12/16/2024 1:22 PM EDT [facility] Hematocrit 42.6 42.0 - 54.0 % LAB HEMETOLOGY METHOD 12/16/2024 1:22 PM EDT [facility] MCV 100.5(H) 79.0 - 98.0 FL LAB HEMETOLOGY METHOD 12/16/2024 1:22 PM EDT [facility] MCH 32.8(H) 27.0 - 32.0 pcg LAB HEMETOLOGY METHOD 12/16/2024 1:22 PM EDT [facility] MCHC 32.6 32.0 - 37.0 g/dL LAB HEMETOLOGY METHOD 12/16/2024 1:22 PM EDT [facility] RDW 13.8 11.0 - 15.0 % LAB HEMETOLOGY METHOD 12/16/2024 1:22 PM EDT [facility] Platelets 187 130 - 400 K/mcL LAB HEMETOLOGY METHOD 12/16/2024 1:22 PM EDT [facility] MPV 10.2 7.0 - 11.0 FL LAB HEMETOLOGY METHOD 12/16/2024 1:22 PM EDT [facility] NRBC 0.0 <1.0 % LAB HEMETOLOGY METHOD 12/16/2024 1:22 PM EDT [facility] NRBC Absolute 0.00 <0.10 K/mcL LAB HEMETOLOGY METHOD 12/16/2024 1:22 PM EDT [facility] Blood Venous blood specimen / Unknown Venipuncture / Unknown 12/16/2024 8:38 AM EDT 12/16/2024 12:24 PM EDT us Gilda Le MD LAB BLOOD ORDERABLES Fin al Result [facility] [address] [place] [address], documented in this encounter Visit Diagnoses Diagnosis Chronic obstructive pulmonary disease, unspecified (CMS/HCC V24, CMS/HCC V28) Chronic respiratory failure, unspecified whether with hypoxia or hypercapnia ([facility] V24, [facility] V28) documented in this encounter Care Teams Milking System Installer Relationship Specialty Start Date End Date Tai Cavazos MD [address] [place] [address] [address] LYDIA Serrato PCP - General Internal Medicine 03/03/11 documented as of this encounter
--- OUTSIDE RECORDS SUMMARY | 2024-12-22 18:59 | XMS_ITS | Encounter Summary ---
Author Organization [facility] Address [address] [place] [address] Care Team Providers Care Limnology Teacher Name Role Phone Tai Cavazos MD Primary Care Provider [phone]- [phone] Encounter Details Date Type Department Care Team (Late st Contact Info) Description 12/20/2024 Lab Requisition [facility] - Main Lab [address] [facility] [place] [address] Gilda Le MD [address] [phone] Chronic obstructive pulmonary disease, unspecified (CMS/HCC V24, [...] Associated Diagnosis Comments COMPLETE BLOOD COUNT Routine 12/22/2024 7:47 AM EDT Chronic obstructive pulmonary disease, unspecified (CMS/HCC V24, CMS/HCC V28) Chronic respiratory failure, unspecified whether with hypoxia or hypercapnia (CMS/HCC V24, CMS/HCC V28) COMPREHENSIVE METABOLIC PANEL Routine 12/22/2024 7:47 AM EDT Chronic obstructive pulmonary disease, unspecified (CMS/HCC V24, CMS/HCC V28) Chronic respiratory failure, unspecified whether with hypoxia or hypercapnia (CMS/HCC V24, CMS/HCC V28) documented in this encounter Results * (ABNORMAL) Comprehensive metabolic panel (12/22/2024 7:47 AM EDT) Sodium 142 133 - 145 mmol/L LAB CHEMISTRY METHOD 12/22/2024 1:17 PM [facility] Potassium 3.9 3.5 - 5.5 mmol/L LAB CHEMISTRY METHOD 12/22/2024 1:17 PM [facility] Chloride 109 96 - 110 mmol/L LAB CHEMISTRY METHOD 12/22/2024 1:17 PM [facility] CO2 28 21 - 32 mmol/L LAB CHEMISTRY METHOD 12/22/2024 1:17 PM [facility] Anion Gap 5 3 - 11 LAB CHEMISTRY METHOD 12/22/2024 1:17 PM [facility] Glucose 72 70 - 100 mg/dL LAB CHEMISTRY METHOD 12/22/2024 1:17 PM [facility] BUN 13 5 - 25 mg/dL LAB CHEMISTRY METHOD 12/22/2024 1:17 PM [facility] Creatinine 0.62(L) 0.70 - 1.30 mg/dL LAB CHEMISTRY METHOD 12/22/2024 1:17 PM [facility] eGFR 95 >=60 mL/min/1. 73m2 LAB CHEMISTRY METHOD 12/22/2024 1:17 PM [facility] Comment:Calculation based on the Chronic Kidney Disease Epidemiology Collaboration (CKD-EPI) equation refit without adjustment for race. BUN/Creatinine Ratio 21.0 LAB CHEMISTRY METHOD 12/22/2024 1:17 PM [facility] Calcium 8.2(L) 8.5 - 10.5 mg/dL LAB CHEMISTRY METHOD 12/22/2024 1:17 PM [facility] AST (SGOT) 24 10 - 42 unit/L LAB CHEMISTRY METHOD 12/22/2024 1:17 PM [facility] ALT (SGPT) 38 10 - 60 unit/L LAB CHEMISTRY METHOD 12/22/2024 1:17 PM EDT [facility] Alkaline Phosphatase 59 42 - 121 unit/L LAB CHEMISTRY METHOD 12/22/2024 1:17 PM EDT [facility] Total Protein 5.4(L) 6.0 - 8.0 g/dL LAB CHEMISTRY METHOD 12/22/2024 1:17 PM EDT [facility] Albumin 2.9(L) 3.2 - 5.0 g/dL LAB CHEMISTRY METHOD 12/22/2024 1:17 PM EDT [facility] Total Bilirubin 0.6 0.0 - 1.4 mg/dL LAB CHEMISTRY METHOD 12/22/2024 1:17 PM EDT [facility] Blood Venous blood specimen / Unknown Venipuncture / Unknown 12/22/2024 7:47 AM EDT 12/22/2024 12:04 PM EDT us Gilda Le MD LAB BLOOD ORDERABLES Fin al Result [facility] [address] [place] [address], * (ABNORMAL) Complete blood count (12/22/2024 7:47 AM EDT) WBC 7.1 4.8 - 10.8 K/mcL LAB HEMETOLOGY METHOD 12/22/2024 1:08 PM EDT [facility] RBC 3.90(L) 4.50 - 5.50 M/mcL LAB HEMETOLOGY METHOD 12/22/2024 1:08 PM EDT [facility] Hemoglobin 12.7(L) 13.5 - 17.5 g/dL LAB HEMETOLOGY METHOD 12/22/2024 1:08 PM EDT [facility] Hematocrit 39.7(L) 42.0 - 54.0 % LAB HEMETOLOGY METHOD 12/22/2024 1:08 PM EDT [facility] MCV 101.0(H) 79.0 - 98.0 FL LAB HEMETOLOGY METHOD 12/22/2024 1:08 PM EDT [facility] MCH 32.3(H) 27.0 - 32.0 pcg LAB HEMETOLOGY METHOD 12/22/2024 1:08 PM EDT [facility] MCHC 32.0 32.0 - 37.0 g/dL LAB HEMETOLOGY METHOD 12/22/2024 1:08 PM EDT [facility] RDW 14.5 11.0 - 15.0 % LAB HEMETOLOGY METHOD 12/22/2024 1:08 PM EDT [facility] Platelets 132 130 - 400 K/mcL LAB HEMETOLOGY METHOD 12/22/2024 1:08 PM EDT [facility] MPV 10.1 7.0 - 11.0 FL LAB HEMETOLOGY METHOD 12/22/2024 1:08 PM EDT [facility] NRBC 0.0 <1.0 % LAB HEMETOLOGY METHOD 12/22/2024 1:08 PM EDT [facility] NRBC Absolute 0.00 <0.10 K/mcL LAB HEMETOLOGY METHOD 12/22/2024 1:08 PM EDT [facility] Blood Venous blood specimen / Unknown Venipuncture / Unknown 12/22/2024 7:47 AM EDT 12/22/2024 12:04 PM EDT us Gilda Le MD LAB BLOOD ORDERABLES Fin al Result [facility] [address] [place] [address], documented in this encounter Visit Diagnoses Diagnosis Chronic obstructive pulmonary disease, unspecified (CMS/HCC V24, [facility] V28) Chronic respiratory failure, unspecified whether with hypoxia or hypercapnia ([facility] V24, [facility] V28) documented in this encounter Care Teams Limnology Teacher Relationship Specialty Start Date End Date Tai Cavazos MD [address] [place] [address] [address] [place] Serrato PCP - General Internal Medicine 03/03/11 documented as of this encounter
--- OUTSIDE RECORDS SUMMARY | 2024-12-22 18:59 | XMS_ITS | Clinical Summary ---
Author Organization [address] [facility] Address [address] [place] [address] Phone Care Team Providers Care Research Archaeologist Name Role Phone Tai Cavazos MD Primary Care Provider Encounters Date Type Department Care Team Description 12/20/2024 Lab Requisition [facility] Lab [address] [place] [id number] Gilda Le MD Chronic obstructive pulmonary disease, unspecified (CMS/HCC V24, CMS/HCC V28); Chronic respiratory failure, unspecified whether with hypoxia or hypercapnia (CMS/HCC V24, CMS/HCC V28) 12/12/2024 Lab Requisition [facility] Lab [address] [place] [address] Gilda Le MD Chronic obstructive pulmonary disease, unspecified (CMS/HCC V24, CMS/HCC V28); Chronic respiratory failure, unspecified whether with hypoxia or hypercapnia (CMS/HCC V24, CMS/HCC V28) 12/09/2024 Lab Requisition [facility] Lab [address] [place] [address] Gilda Le MD Chronic obstructive pulmonary disease with (acute) exacerbation (CMS/HCC V24, CMS/HCC V28); Hypoxemia; Chronic respiratory failure, unspecified whether with hypoxia or hypercapnia (CMS/HCC V24, CMS/HCC V28) from Last 3 Months Social History Tobacco Use Types Packs/Day Years Used Date Smoking Tobacco: Never Assessed Sex and Gender Information Value Date Recorded Sex Assigned at Not on file Legal Sex Male 5:26 AM EST Gender Identity Not on file Sexual Orientation Not on file Plan of Treatment Health Maintenance Due Date Last Done Comments DTaP,Tdap,and Td Vaccines (1 - Tdap) 1961 Pneumococcal Vaccine: 50+ Ye ars (1 of 2 - PCV) 1961 Zoster Vaccines (1 of 2) 1992 RSV Immunization Adult Patie nts (1 - 1-dose 75+ series) 2017 Depression Screening 04/16/2024 Cholesterol Screening (Lipid Panel) 12/09/2024 Falls Risk Assessment 12/09/2024 Medicare Annual Wellness Visit 12/09/2024 Social Influencers of Health Screening 12/09/2024 COVID-19 Vaccine (1 - 2023-2 5 season) 2024 Influenza Vaccine (#1) 2024 HIB Vaccines Aged Out No longer eligi ble based on patient's age to complete this topic HPV Vaccines Aged Out No longer eligi ble based on patient's age to complete this topic Hepatitis A Vaccines Aged Out No long er eligible based on patient's age to complete this topic Hepatitis B Vaccines Aged Out No long er eligible based on patient's age to complete this topic IPV Vaccines Aged Out No longer eligi ble based on patient's age to complete this topic MMR Vaccines Aged Out No longer eligi ble based on patient's age to complete this topic Meningococcal ACWY Vaccine Aged Out N o longer eligible based on patient's age to complete this topic Meningococcal B Vaccine Aged Out No l onger eligible based on patient's age to complete this topic RSV Immunization Patients Un sonu 20 months Aged Out No longer eligible b ased on patient's age to complete this topic Varicella Vaccines Aged Out No longer eligible based on patient's age to complete this topic Procedures Procedure Name Priority Date/Time Associated Diagnosis Comments COMPREHENSIVE METABOLIC PANEL Routine 12/22/2024 7:47 AM EDT Chronic obstructive pulmonary disease, unspecified (CMS/HCC V24, CMS/HCC V28) Chronic respiratory failure, unspecified whether with hypoxia or hypercapnia (CMS/HCC V24, CMS/HCC V28) COMPLETE BLOOD COUNT Routine 12/22/2024 7:47 AM EDT Chronic obstructive pulmonary disease, unspecified (CMS/HCC V24, CMS/HCC V28) Chronic respiratory failure, unspecified whether with hypoxia or hypercapnia (CMS/HCC V24, CMS/HCC V28) COMPREHENSIVE METABOLIC PANEL Routine 12/16/2024 8:38 AM EDT Chronic obstructive pulmonary disease, unspecified (CMS/HCC V24, CMS/HCC V28) Chronic respiratory failure, unspecified whether with hypoxia or hypercapnia (CMS/HCC V24, CMS/HCC V28) COMPLETE BLOOD COUNT Routine 12/16/2024 8:38 AM EDT Chronic obstructive pulmonary disease, unspecified (CMS/HCC V24, CMS/HCC V28) Chronic respiratory failure, unspecified whether with hypoxia or hypercapnia (CMS/HCC V24, CMS/HCC V28) MAGNESIUM Routine 12/09/2024 5:00 AM EDT Chronic obstructive pulmonary disease with (acute) exacerbation (CMS/HCC V24, CMS/HCC V28) Hypoxemia Chronic respiratory failure, unspecified whether with hypoxia or hypercapnia (CMS/HCC V24, CMS/HCC V28) THYROID STIMULATING HORMONE Routine 12/09/2024 5:00 AM EDT Chronic obstructive pulmonary disease with (acute) exacerbation (CMS/HCC V24, CMS/HCC V28) Hypoxemia Chronic respiratory failure, unspecified whether with hypoxia or hypercapnia (CMS/HCC V24, CMS/HCC V28) FOLATE Routine 12/09/2024 5:00 AM EDT Chronic obstructive pulmonary disease with (acute) exacerbation (CMS/HCC V24, CMS/HCC V28) Hypoxemia Chronic respiratory failure, unspecified whether with hypoxia or hypercapnia (CMS/HCC V24, CMS/HCC V28) COMPREHENSIVE METABOLIC PANEL Routine 12/09/2024 5:00 AM EDT Chronic obstructive pulmonary disease with (acute) exacerbation (CMS/HCC V24, CMS/HCC V28) Hypoxemia Chronic respiratory failure, unspecified whether with hypoxia or hypercapnia (CMS/HCC V24, CMS/HCC V28) COMPLETE BLOOD COUNT Routine 12/09/2024 5:00 AM EDT Chronic obstructive pulmonary disease with (acute) exacerbation (CMS/HCC V24, CMS/HCC V28) Hypoxemia Chronic respiratory failure, unspecified whether with hypoxia or hypercapnia ([facility] V24, [facility] V28) from Last 3 Months Results * (ABNORMAL) Complete blood count (12/22/2024 7:47 AM EDT) Only the most recent of3 resultswithin the time period is included. [facility] Signature WBC 7.1 4.8 - 10.8 K/mcL LAB HEMETOLOGY METHOD 12/22/2024 1:08 PM [facility] RBC 3.90(L) 4.50 - 5.50 M/mcL LAB HEMETOLOGY METHOD 12/22/2024 1:08 PM [facility] Hemoglobin 12.7(L) 13.5 - 17.5 g/dL LAB HEMETOLOGY METHOD 12/22/2024 1:08 PM [facility] Hematocrit 39.7(L) 42.0 - 54.0 % LAB HEMETOLOGY METHOD 12/22/2024 1:08 PM [facility] MCV 101.0(H) 79.0 - 98.0 FL LAB HEMETOLOGY METHOD 12/22/2024 1:08 PM [facility] MCH 32.3(H) 27.0 - 32.0 pcg LAB HEMETOLOGY METHOD 12/22/2024 1:08 PM [facility] MCHC 32.0 32.0 - 37.0 g/dL LAB HEMETOLOGY METHOD 12/22/2024 1:08 PM [facility] RDW 14.5 11.0 - 15.0 % LAB HEMETOLOGY METHOD 12/22/2024 1:08 PM [facility] Platelets 132 130 - 400 K/mcL LAB HEMETOLOGY METHOD 12/22/2024 1:08 PM [facility] MPV 10.1 7.0 - 11.0 FL LAB HEMETOLOGY METHOD 12/22/2024 1:08 PM EDT [facility] NRBC 0.0 <1.0 % LAB HEMETOLOGY METHOD 12/22/2024 1:08 PM EDT [facility] NRBC Absolute 0.00 <0.10 K/mcL LAB HEMETOLOGY METHOD 12/22/2024 1:08 PM EDT [facility] Blood Venous blood specimen / Unknown Venipuncture / Unknown 12/22/2024 7:47 AM EDT 12/22/2024 12:04 PM EDT us Gilda Le MD LAB BLOOD ORDERABLES Fin al Result [facility] [address] [place] [address], [place] [phone] * (ABNORMAL) Comprehensive metabolic panel (12/22/2024 7:47 AM EDT) Only the most recent of3 resultswithin the time period is included. Sodium 142 133 - 145 mmol/L LAB CHEMISTRY METHOD 12/22/2024 1:17 PM [facility] Potassium 3.9 3.5 - 5.5 mmol/L LAB CHEMISTRY METHOD 12/22/2024 1:17 PM [facility] Chloride 109 96 - 110 mmol/L LAB CHEMISTRY METHOD 12/22/2024 1:17 PM [facility] CO2 28 21 - 32 mmol/L LAB CHEMISTRY METHOD 12/22/2024 1:17 PM [facility] Anion Gap 5 3 - 11 LAB CHEMISTRY METHOD 12/22/2024 1:17 PM [facility] Glucose 72 70 - 100 mg/dL LAB CHEMISTRY METHOD 12/22/2024 1:17 PM [facility] BUN 13 5 - 25 mg/dL LAB CHEMISTRY METHOD 12/22/2024 1:17 PM [facility] Creatinine 0.62(L) 0.70 - 1.30 mg/dL LAB CHEMISTRY METHOD 12/22/2024 1:17 PM [facility] eGFR 95 >=60 mL/min/1. 73m2 LAB CHEMISTRY METHOD 12/22/2024 1:17 PM [facility] Comment:Calculation based on the Chronic Kidney Disease Epidemiology Collaboration (CKD-EPI) equation refit without adjustment for race. BUN/Creatinine Ratio 21.0 LAB CHEMISTRY METHOD 12/22/2024 1:17 PM [facility] Calcium 8.2(L) 8.5 - 10.5 mg/dL LAB CHEMISTRY METHOD 12/22/2024 1:17 PM [facility] AST (SGOT) 24 10 - 42 unit/L LAB CHEMISTRY METHOD 12/22/2024 1:17 PM [facility] ALT (SGPT) 38 10 - 60 unit/L LAB CHEMISTRY METHOD 12/22/2024 1:17 PM [facility] Alkaline Phosphatase 59 42 - 121 unit/L LAB CHEMISTRY METHOD 12/22/2024 1:17 PM [facility] Total Protein 5.4(L) 6.0 - 8.0 g/dL LAB CHEMISTRY METHOD 12/22/2024 1:17 PM [facility] Albumin 2.9(L) 3.2 - 5.0 g/dL LAB CHEMISTRY METHOD 12/22/2024 1:17 PM [facility] Total Bilirubin 0.6 0.0 - 1.4 mg/dL LAB CHEMISTRY METHOD 12/22/2024 1:17 PM [facility] Blood Venous blood specimen / Unknown Venipuncture / Unknown 12/22/2024 7:47 AM EDT 12/22/2024 12:04 PM EDT us Gilda Le MD LAB BLOOD ORDERABLES Fin al Result Performing Organization Address City/[facility]/ZIP Co de Phone Number [facility] [address] [place] [address], * (ABNORMAL) Thyroid stimulating hormone (12/09/2024 5:00 AM EDT) TSH 4.40(H) 0.40 - 4.00 mcIU/mL LAB CHEMISTRY METHOD 12/09/2024 11:06 AM EDT [facility] Blood Venous blood specimen / Unknown Venipuncture / Unknown 12/09/2024 5:00 AM EDT 12/09/2024 8:49 AM EDT Gilda Le MD LAB BLOOD ORDERABLES Fin al Result Performing Organization Address [facility]/[place] Co de Phone Number [facility] [address] [place] [address], * Magnesium (12/09/2024 5:00 AM EDT) [facility] Magnesium 2.1 1.9 - 2.6 mg/dL LAB CHEMISTRY METHOD 12/09/2024 9:47 AM EDT [facility] Blood Venous blood specimen / Unknown Venipuncture / Unknown 12/09/2024 5:00 AM EDT 12/09/2024 8:49 AM EDT Gilda Le MD LAB BLOOD ORDERABLES Fin al Result Performing Organization Address City/[facility]/ZIP Co de Phone Number [facility] [address] [place] [address], * Folate (12/09/2024 5:00 AM EDT) Folate 5.5 2.8 - 17.0 ng/ml LAB CHEMISTRY METHOD 12/09/2024 9:58 AM EDT [facility] Blood Venous blood specimen / Unknown Venipuncture / Unknown 12/09/2024 5:00 AM EDT 12/09/2024 8:49 AM EDT Gilda Le MD LAB BLOOD ORDERABLES Fin al Result [facility] ([facility]) [facility] [address] [place] [address], from Last 3 Months Insurance MEDICAID - [place] MEDICARE Care Teams Research Archaeologist Relationship Specialty Start Date End Date Tai Cavazos MD [address] [place] [address] [address] [place] PCP - General Internal Medicine 03/03/11
--- OUTSIDE RECORDS SUMMARY | 2024-12-22 18:59 | XMS_ITS | Encounter Summary ---
Author Organization [facility] Address [address] [place] [address] Care Team Providers Care Regulatory Affairs Intern Name Role Phone Tai Cavazos MD Primary Care Provider [phone]- [phone] Encounter Details Date Type Department Care Team (Late st Contact Info) Description 12/09/2024 Lab Requisition [facility] - Main Lab [address] [facility] [place] [address] Gilda Le MD [address] [phone] Chronic obstructive pulmonary disease with (acute) exacerbation [...] Associated Diagnosis Comments COMPLETE BLOOD COUNT Routine 12/09/2024 5:00 AM [...] V28) documented in this encounter Results * Magnesium (12/09/2024 5:00 AM EDT) Pathologist [facility] Magnesium 2.1 1.9 - 2.6 mg/dL LAB CHEMISTRY METHOD 12/09/2024 9:47 AM EDT [facility] Blood Venous blood specimen / Unknown Venipuncture / Unknown 12/09/2024 5:00 AM EDT 12/09/2024 8:49 AM EDT us Gilda Le MD LAB BLOOD ORDERABLES Fin al Result [facility] [address] [place] [address], * (ABNORMAL) Thyroid stimulating hormone (12/09/2024 5:00 AM EDT) Pathologist [facility] TSH 4.40(H) 0.40 - 4.00 mcIU/mL LAB CHEMISTRY METHOD 12/09[facility]2024 11:[facility] Blood Venous blood specimen / Unknown Venipuncture / Unknown 12/09/2024 5:00 AM EDT 12/09/2024 8:49 AM EDT Gilda Le MD LAB BLOOD ORDERABLES Fin al Result Performing Organization Address [facility]/ZIP Co de Phone Number [facility] [address] [place] [address], [place] [phone] * Folate (12/09/2024 5:00 AM EDT) Pathologist [facility] Folate 5.5 2.8 - 17.0 ng/ml LAB CHEMISTRY METHOD 12/09/2024 9:58 AM EDT [facility] Blood Venous blood specimen / Unknown Venipuncture / Unknown 12/09/2024 5:00 AM EDT 12/09/2024 8:49 AM EDT Gilda Le MD LAB BLOOD ORDERABLES Fin al Result Performing Organization Address City/[facility]/ZIP Co de Phone Number [facility] [address] [place] [address], [place] [phone] * (ABNORMAL) Comprehensive metabolic panel (12/09/2024 5:00 AM EDT) [facility] Sodium 143 133 - 145 mmol/L LAB CHEMISTRY METHOD 12/09/2024 9:47 AM EDT [facility] Potassium 3.6 3.5 - 5.5 mmol/L LAB CHEMISTRY METHOD 12/09/2024 9:47 AM [facility] Chloride 108 96 - 110 mmol/L LAB CHEMISTRY METHOD 12/09/2024 9:47 AM EDT [facility] CO2 30 21 - 32 mmol/L LAB CHEMISTRY METHOD 12/09/2024 9:47 AM EDT [facility] Anion Gap 5 3 - 11 LAB CHEMISTRY METHOD 12/09/2024 9:47 AM [facility] Glucose 78 70 - 100 mg/dL LAB CHEMISTRY METHOD 12/09/2024 9:47 AM [facility] BUN 25 5 - 25 mg/dL LAB CHEMISTRY METHOD 12/09/2024 9:47 AM [facility] Creatinine 0.75 0.70 - 1.30 mg/dL LAB CHEMISTRY METHOD 12/09/2024 9:47 AM [facility] eGFR 90 >=60 mL/min/1. 73m2 LAB CHEMISTRY METHOD 12/09/2024 9:47 AM [facility] Comment:Calculation based on the Chronic Kidney Disease Epidemiology Collaboration (CKD-EPI) equation refit without adjustment for race. BUN/Creatinine Ratio 33.3 LAB CHEMISTRY METHOD 12/09/2024 9:47 AM [facility] Calcium 8.3(L) 8.5 - 10.5 mg/dL LAB CHEMISTRY METHOD 12/09/2024 9:47 AM [facility] AST (SGOT) 26 10 - 42 unit/L LAB CHEMISTRY METHOD 12/09/2024 9:47 AM [facility] ALT (SGPT) 60 10 - 60 unit/L LAB CHEMISTRY METHOD 12/09/2024 9:47 AM [facility] Alkaline Phosphatase 67 42 - 121 unit/L LAB CHEMISTRY METHOD 12/09/2024 9:47 AM [facility] Total Protein 5.3(L) 6.0 - 8.0 g/dL LAB CHEMISTRY METHOD 12/09/2024 9:47 AM [facility] Albumin 2.9(L) 3.2 - 5.0 g/dL LAB CHEMISTRY METHOD 12/09/2024 9:47 AM [facility] Total Bilirubin 0.4 0.0 - 1.4 mg/dL LAB CHEMISTRY METHOD 12/09/2024 9:47 AM [facility] Blood Venous blood specimen / Unknown Venipuncture / Unknown 12/09/2024 5:00 AM EDT 12/09/2024 8:49 AM EDT Gilda Le MD LAB BLOOD ORDERABLES Fin al Result [facility] [address] [place] [address], * (ABNORMAL) Complete blood count (12/09/2024 5:00 AM EDT) WBC 12.2(H) 4.8 - 10.8 K/mcL LAB HEMETOLOGY METHOD 12/09/2024 9:16 AM EDT [facility] RBC 4.60 4.50 - 5.50 M/mcL LAB HEMETOLOGY METHOD 12/09/2024 9:16 AM EDT [facility] Hemoglobin 14.7 13.5 - 17.5 g/dL LAB HEMETOLOGY METHOD 12/09/2024 9:16 AM [facility] Hematocrit 44.2 42.0 - 54.0 % LAB HEMETOLOGY METHOD 12/09/2024 9:16 AM [facility] MCV 96.7 79.0 - 98.0 FL LAB HEMETOLOGY METHOD 12/09/2024 9:16 AM EDT [facility] MCH 32.2(H) 27.0 - 32.0 pcg LAB HEMETOLOGY METHOD 12/09/2024 9:16 AM [facility] MCHC 33.3 32.0 - 37.0 g/dL LAB HEMETOLOGY METHOD 12/09/2024 9:16 AM [facility] RDW 13.7 11.0 - 15.0 % LAB HEMETOLOGY METHOD 12/09/2024 9:16 AM T [facility] Platelets 144 130 - 400 K/mcL LAB HEMETOLOGY METHOD 12/09/2024 9:16 AM EDT [facility] MPV 10.7 7.0 - 11.0 FL LAB HEMETOLOGY METHOD 12/09/2024 9:16 AM EDT [facility] NRBC 0.0 <1.0 % LAB HEMETOLOGY METHOD 12/09/2024 9:16 AM EDT [facility] NRBC Absolute 0.00 <0.10 K/mcL LAB HEMETOLOGY METHOD 12/09/2024 9:16 AM EDT [facility] Blood Venous blood specimen / Unknown Venipuncture / Unknown 12/09/2024 5:00 AM EDT 12/09/2024 8:49 AM EDT us Gilda Le MD LAB BLOOD ORDERABLES Fin al Result [facility] [address] [place] [address], documented in this encounter Visit Diagnoses Diagnosis Chronic obstructive pulmonary disease with (acute) exacerbation (CMS/HCC V24, CMS/HCC V28) Hypoxemia Chronic respiratory failure, unspecified whether with hypoxia or hypercapnia (CMS/HCC V24, CMS/HCC V28) documented in this encounter Care Teams Regulatory Affairs Intern Relationship Specialty Start Date End Date Tai Cavazos MD [address] [place] [address] Dr [address] [place] [address] [place] PCP - General Internal Medicine 03/03/11 documented as of this encounter
[2024-12-22 19:23] VITALS: BP 104/56; PULSE 62; RESP 18; O2SAT 98
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
[2024-12-22 20:24] VITALS: BP 96/58; PULSE 61; RESP 17
[2024-12-22] MEDS: oxyCODONE HCl Immed Release 15 MG TABLET 30 MG PO (22:28)
--- NOTE | 2024-12-22 23:37 | PC.NURSE ---
delays in care r/t patient pulling out line and throwing full urinal
[2024-12-22] MEDS: iohexoL 350 MG/ML 100 ML INFUS..BTL 85 ML IV (23:53)
--- NOTE | 2024-12-23 00:21 | PC.NURSE ---
straight cathing now. previous incont void of urine in brief
[2024-12-23 01:41] VITALS: BP 117/68; PULSE 58
[2024-12-23 01:42] VITALS: BP 104/63; BP 109/60; BP 118/64; PULSE 65; PULSE 66; PULSE 71; RESP 20; TEMP 36.3; O2SAT 95
[2024-12-23 02:18] VITALS: BP 118/64; PULSE 66; RESP 20; TEMP 36.3; O2SAT 95
--- NOTE | 2024-12-23 02:19 | PC.NURSE ---
[facility] 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
== END 2024-12-23 03:58 | disposition home or self-care (01) ==
PROVIDERS: Emergency Provider Emergency Medicine Emergency Medical Services; PCP Internal Medicine
DX: S30.1XXA Contusion of abdominal wall, initial encounter (principal); S09.90XA Unspecified injury of head, initial encounter; X58.XXXA Exposure to other specified factors, initial encounter; Y93.9 Activity, unspecified; Y92.9 Unspecified place or not applicable; Y99.9 Unspecified external cause status; M25.552 Pain in left hip; M25.522 Pain in left elbow; R41.3 Other amnesia; J44.9 Chronic obstructive pulmonary disease, unspecified; E11.22 Type 2 diabetes mellitus with diabetic chronic kidney disease; I12.9 Hypertensive chronic kidney disease with stage 1 through stage 4 chronic kidney disease, or unspecified chronic kidney disease; N18.9 Chronic kidney disease, unspecified; Z79.899 Other long term (current) drug therapy
CPT/HCPCS: 36415; 51701; 70450; 71260; 72125; 73080; 74177; 80053; 83735; 84484; 85025; 85610; 85730; 93005; 96360; 96361; 99285; Q9967

== ENCOUNTER → 2024-12-22 18:37 | Outpatient (BNV) | payer MEDICARE, MEDICAID, SELFPAY | PROVIDERS: PCP Internal Medicine; Visit Provider Radiology Diagnostic Radiology | DX: M54.2 Cervicalgia (principal); S09.90XA Unspecified injury of head, initial encounter; M25.522 Pain in left elbow; W19.XXXA Unspecified fall, initial encounter | CPT/HCPCS: 70450; 71260; 72125; 73080; 74177 ==

== ENCOUNTER → 2024-12-22 18:45 | Outpatient (BNV) | payer MEDICARE, MEDICAID, SELFPAY | PROVIDERS: Emergency Provider Emergency Medicine Emergency Medical Services; PCP Internal Medicine; Visit Provider Internal Medicine Cardiovascular Disease | DX: Z04.3 Encounter for examination and observation following other accident (principal) | CPT/HCPCS: 93010 ==

== ENCOUNTER 2025-01-21 13:47 | Outpatient (AMB) | payer MEDICARE, MEDICAID, SELFPAY ==
[2025-01-21 13:59] VITALS: BP 120/54; PULSE 79; RESP 18; TEMP 36.3; O2SAT 95; BMI 21.9
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
== END 2025-01-21 16:30 | disposition home or self-care (01) ==
LOC: HO.HMCH 13:48
PROVIDERS: PCP Internal Medicine
DX: J44.0 Chronic obstructive pulmonary disease with (acute) lower respiratory infection (principal); M51.360 Other intervertebral disc degeneration, lumbar region with discogenic back pain only; M47.892 Other spondylosis, cervical region; N40.1 Benign prostatic hyperplasia with lower urinary tract symptoms; N13.8 Other obstructive and reflux uropathy; N18.2 Chronic kidney disease, stage 2 (mild); K21.9 Gastro-esophageal reflux disease without esophagitis; I25.10 Atherosclerotic heart disease of native coronary artery without angina pectoris

== ENCOUNTER → 2025-01-21 13:47 | Outpatient (BNVA) | payer MEDICARE, MEDICAID, SELFPAY | PROVIDERS: PCP Internal Medicine | DX: J44.0 Chronic obstructive pulmonary disease with (acute) lower respiratory infection (principal); M51.360 Other intervertebral disc degeneration, lumbar region with discogenic back pain only; M47.892 Other spondylosis, cervical region; N40.1 Benign prostatic hyperplasia with lower urinary tract symptoms; N13.8 Other obstructive and reflux uropathy; N18.2 Chronic kidney disease, stage 2 (mild); K21.9 Gastro-esophageal reflux disease without esophagitis; I25.10 Atherosclerotic heart disease of native coronary artery without angina pectoris | CPT/HCPCS: 96127; 99212 ==

== ENCOUNTER 2025-01-22 10:13 | Outpatient (REF) | payer MEDICARE, MEDICAID, SELFPAY | END 2025-01-22 10:14 | disposition home or self-care (01) | LOC: HO.LAB 10:13 | PROVIDERS: PCP Internal Medicine; Visit Provider Hospitalist | DX: J44.0 Chronic obstructive pulmonary disease with (acute) lower respiratory infection (principal); J96.11 Chronic respiratory failure with hypoxia; K21.9 Gastro-esophageal reflux disease without esophagitis; J98.09 Other diseases of bronchus, not elsewhere classified; F17.210 Nicotine dependence, cigarettes, uncomplicated; Z99.81 Dependence on supplemental oxygen | CPT/HCPCS: 87070; 87185; 87205; 99212 ==

== ENCOUNTER 2025-01-22 10:13 | Outpatient (AMB) | payer MEDICARE, MEDICAID, SELFPAY ==
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
[2025-01-22 10:19] VITALS: BP 90/50; PULSE 71; O2SAT 95
== END 2025-01-22 10:41 | disposition home or self-care (01) ==
LOC: HO.HPS 10:14
PROVIDERS: PCP Internal Medicine; Visit Provider Hospitalist
DX: J96.11 Chronic respiratory failure with hypoxia (principal); J44.0 Chronic obstructive pulmonary disease with (acute) lower respiratory infection; K21.9 Gastro-esophageal reflux disease without esophagitis; J98.09 Other diseases of bronchus, not elsewhere classified
CPT/HCPCS: 99214; G2211

== ENCOUNTER 2025-03-19 12:56 | Outpatient (REF) | payer MEDICARE, MEDICAID, SELFPAY ==
--- NOTE | ~2025-03-19 | XR_ITS ---
EXAMINATION: XR CHEST CLINICAL INFORMATION: J98.8 - Other specified respiratory disorders COMPARISON: 09/25/2023 TECHNIQUE: 2 views of the chest were obtained. FINDINGS: Mildly coarse interstitial markings are chronic. There is no pneumothorax. There is no pleural effusion. There is no airspace opacity. Mild degenerative changes are present in the thoracic spine. XR/XR chest 2V IMPRESSION: No acute disease. Electronically signed by: Jason Reveles MD 03/19/2025 01:49 PM EST
--- NOTE | ~2025-03-19 | XR_ITS ---
Exam: X-ray, bilateral knees.XR KNEE 4 VIEWS BILATERAL TECHNIQUE: Four views lower extremity joint, bilateral knees INDICATION: AP COMPARISON: None available. FINDINGS: RIGHT KNEE: There is moderate narrowing of the medial compartment. There is mild medial subluxation of distal femur. There is faint calcific density in the medial meniscal body. There are tricompartmental marginal osteophytes. Small volume of joint fluid is visible. There is dense calcification in the vasculature with suspected aneurysm at the junction of distal femoral artery and popliteal artery measuring up to 3 cm anterior posterior. LEFT KNEE: Total knee arthroplasty has been performed. There is no sign of hardware loosening. No joint effusion is identified. There is dense vascular calcification in the distal femoral and popliteal artery. 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 Moderate osteoarthritis. Left knee: Total knee arthroplasty. Electronically signed by: Jason Reveles MD 03/19/2025 01:48 PM KEVIN
== END 2025-03-19 12:57 | disposition home or self-care (01) ==
LOC: HO.XRAY 12:56
PROVIDERS: PCP Internal Medicine; Visit Provider Internal Medicine
DX: J98.8 Other specified respiratory disorders (principal); M25.562 Pain in left knee; M25.561 Pain in right knee; J44.0 Chronic obstructive pulmonary disease with (acute) lower respiratory infection; J98.09 Other diseases of bronchus, not elsewhere classified; F17.210 Nicotine dependence, cigarettes, uncomplicated
CPT/HCPCS: 71046; 73564; 99212

== ENCOUNTER → 2025-03-19 13:02 | Outpatient (BNV) | payer MEDICARE, MEDICAID, SELFPAY | PROVIDERS: PCP Internal Medicine; Visit Provider Radiology Diagnostic Radiology | DX: M17.11 Unilateral primary osteoarthritis, right knee (principal); Z96.652 Presence of left artificial knee joint; J98.8 Other specified respiratory disorders | CPT/HCPCS: 71046; 73564 ==

== ENCOUNTER 2025-03-19 13:46 | Outpatient (AMB) | payer MEDICARE, MEDICAID, SELFPAY ==
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
[2025-03-19 13:58] VITALS: BP 102/56; PULSE 59; RESP 18; O2SAT 94; BMI 21.7
== END 2025-03-19 14:53 | disposition home or self-care (01) ==
LOC: HO.HMCH 13:47
PROVIDERS: PCP Internal Medicine
DX: J44.0 Chronic obstructive pulmonary disease with (acute) lower respiratory infection (principal); J98.09 Other diseases of bronchus, not elsewhere classified; F17.200 Nicotine dependence, unspecified, uncomplicated

== ENCOUNTER 2025-03-24 13:44 | Outpatient (AMB) | payer MEDICARE, MEDICAID, SELFPAY ==
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
[2025-03-24 13:50] VITALS: BMI 21.7
--- OUTSIDE RECORDS SUMMARY | 2025-03-24 19:48 | XMS_ITS | Encounter Summary ---
Author Organization [facility] Address [address] [place] [address] Care Team Providers Care Brim Flexer Name Role Phone Tai Cavazos MD Primary Care Provider [phone]- [phone] Encounter Details Date Type Department Care Team (Late st Contact Info) Description 12/12/2024 Lab Requisition [facility] - Main Lab [address] [facility] [place] [address] Gilda Le MD [address] [phone] Chronic obstructive pulmonary disease, unspecified (CMS/HCC V24, [...] mmol/L LAB CHEMISTRY METHOD 12/16/2024 7:20 PM [facility] Potassium 4.0 3.5 - 5.5 mmol/L LAB CHEMISTRY METHOD 12/16/2024 7:20 PM [facility] Chloride 107 96 - 110 mmol/L LAB CHEMISTRY METHOD 12/16/2024 7:20 PM [facility] CO2 28 21 - 32 mmol/L LAB CHEMISTRY METHOD 12/16/2024 7:20 PM [facility] Anion Gap 8 3 - 11 LAB CHEMISTRY METHOD 12/16/2024 7:20 PM [facility] Glucose 66(L) 70 - 100 mg/dL LAB CHEMISTRY METHOD 12/16/2024 7:20 PM [facility] BUN 13 5 - 25 mg/dL LAB CHEMISTRY METHOD 12/16/2024 7:20 PM [facility] Creatinine 0.84 0.70 - 1.30 mg/dL LAB CHEMISTRY METHOD 12/16/2024 7:20 PM [facility] eGFR 87 >=60 mL/min/1. 73m2 LAB CHEMISTRY METHOD 12/16/2024 7:20 PM [facility] Comment:Calculation based on the Chronic Kidney Disease Epidemiology Collaboration (CKD-EPI) equation refit without adjustment for race. BUN/Creatinine Ratio 15.5 LAB CHEMISTRY METHOD 12/16/2024 7:20 PM [facility] Calcium 8.0(L) 8.5 - 10.5 mg/dL LAB CHEMISTRY METHOD 12/16/2024 7:20 PM [facility] AST (SGOT) 33 10 - 42 unit/L LAB CHEMISTRY METHOD 12/16/2024 7:20 PM EDT [facility] ALT (SGPT) 53 10 - 60 unit/L LAB CHEMISTRY METHOD 12/16/2024 7:20 PM EDT [facility] Alkaline Phosphatase 69 42 - 121 unit/L LAB CHEMISTRY METHOD 12/16/2024 7:20 PM EDT [facility] Total Protein 5.8(L) 6.0 - 8.0 g/dL LAB CHEMISTRY METHOD 12/16/2024 7:20 PM EDT [facility] Albumin 3.1(L) 3.2 - 5.0 g/dL LAB CHEMISTRY METHOD 12/16/2024 7:20 PM EDT [facility] Total Bilirubin 0.4 0.0 - 1.4 mg/dL LAB CHEMISTRY METHOD 12/16/2024 7:20 PM T [facility] Blood Venous blood specimen / Unknown Venipuncture / Unknown 12/16/2024 8:38 AM EDT 12/16/2024 12:24 PM EDT us Gilda Le MD LAB BLOOD ORDERABLES Fin al Result [facility] [address] [place] [address], * (ABNORMAL) Complete blood count (12/16/2024 8:38 AM EDT) WBC 8.6 4.8 - 10.8 K/mcL LAB HEMETOLOGY METHOD 12/16/2024 1:22 PM EDT [facility] RBC 4.20(L) 4.50 - 5.50 M/mcL LAB HEMETOLOGY METHOD 12/16/2024 1:22 PM EDT [facility] Hemoglobin 13.9 13.5 - 17.5 g/dL LAB HEMETOLOGY METHOD 12/16/2024 1:22 PM EDT [facility] Hematocrit 42.6 42.0 - 54.0 % LAB HEMETOLOGY METHOD 12/16/2024 1:22 PM EDT [facility] MCV 100.5(H) 79.0 - 98.0 FL LAB HEMETOLOGY METHOD 12/16/2024 1:22 PM EDT [facility] MCH 32.8(H) 27.0 - 32.0 pcg LAB HEMETOLOGY METHOD 12/16/2024 1:22 PM EDT [facility] MCHC 32.6 32.0 - 37.0 g/dL LAB HEMETOLOGY METHOD 12/16/2024 1:22 PM EDT [facility] RDW 13.8 11.0 - 15.0 % LAB HEMETOLOGY METHOD 12/16/2024 1:22 PM EDT [facility] Platelets 187 130 - 400 K/mcL LAB HEMETOLOGY METHOD 12/16/2024 1:22 PM EDT [facility] MPV 10.2 7.0 - 11.0 FL LAB HEMETOLOGY METHOD 12/16/2024 1:22 PM EDT [facility] NRBC 0.0 <1.0 % LAB HEMETOLOGY METHOD 12/16/2024 1:22 PM EDT [facility] NRBC Absolute 0.00 <0.10 K/mcL LAB HEMETOLOGY METHOD 12/16/2024 1:22 PM EDT [facility] Blood Venous blood specimen / Unknown Venipuncture / Unknown 12/16/2024 8:38 AM EDT 12/16/2024 12:24 PM EDT us Gilda Le MD LAB BLOOD ORDERABLES Fin al Result [facility] [address] [place] [address], documented in this encounter Visit Diagnoses Diagnosis Chronic obstructive pulmonary disease, unspecified (CMS/HCC V24, [facility] V28) Chronic respiratory failure, unspecified whether with hypoxia or hypercapnia ([facility] V24, [facility] V28) documented in this encounter Care Teams Brim Flexer Relationship Specialty Start Date End Date Tai Cavazos MD [address] [place] [address] [address] LYDIA Serrato PCP - General Internal Medicine 03/03/11 documented as of this encounter
--- OUTSIDE RECORDS SUMMARY | 2025-03-24 19:49 | XMS_ITS | Encounter Summary ---
Author Organization [facility] Address [address] [place] [address] Care Team Providers Care Braider Setter Name Role Phone Tai Cavazos MD Primary Care Provider [phone]- [phone] Encounter Details Date Type Department Care Team (Late st Contact Info) Description 01/10/2025 Lab Requisition [facility] - Main Lab [address] [facility] [place] [address] Gilda Le MD [address] [phone] Chronic obstructive pulmonary disease, unspecified (CMS/HCC V24, [...] Associated Diagnosis Comments COMPLETE BLOOD COUNT Routine 01/12/2025 6:25 AM EDT Chronic obstructive pulmonary disease, unspecified (CMS/HCC V24, CMS/HCC V28) Chronic respiratory failure, unspecified whether with hypoxia or hypercapnia (CMS/HCC V24, CMS/HCC V28) COMPREHENSIVE METABOLIC PANEL Routine 01/12/2025 6:25 AM EDT Chronic obstructive pulmonary disease, unspecified (CMS/HCC V24, CMS/HCC V28) Chronic respiratory failure, unspecified whether with hypoxia or hypercapnia (CMS/HCC V24, CMS/HCC V28) documented in this encounter Results * Comprehensive metabolic panel (01/12/2025 6:25 AM EDT) Sodium 141 133 - 145 mmol/L LAB CHEMISTRY METHOD 01/12/2025 11:41 AM [facility] Potassium 4.0 3.5 - 5.5 mmol/L LAB CHEMISTRY METHOD 01/12/2025 11:41 AM [facility] Chloride 105 96 - 110 mmol/L LAB CHEMISTRY METHOD 01/12/2025 11:41 AM [facility] CO2 29 21 - 32 mmol/L LAB CHEMISTRY METHOD 01/12/2025 11:41 AM [facility] Anion Gap 7 3 - 11 LAB CHEMISTRY METHOD 01/12/2025 11:41 AM [facility] Glucose 90 70 - 100 mg/dL LAB CHEMISTRY METHOD 01/12/2025 11:41 AM [facility] BUN 14 5 - 25 mg/dL LAB CHEMISTRY METHOD 01/12/2025 11:41 AM [facility] Creatinine 0.83 0.70 - 1.30 mg/dL LAB CHEMISTRY METHOD 01/12/2025 11:41 AM [facility] eGFR 87 >=60 mL/min/1. 73m2 LAB CHEMISTRY METHOD 01/12/2025 11:41 AM [facility] Comment:Calculation based on the Chronic Kidney Disease Epidemiology Collaboration (CKD-EPI) equation refit without adjustment for race. BUN/Creatinine Ratio 16.9 LAB CHEMISTRY METHOD 01/12/2025 11:41 AM [facility] Calcium 9.0 8.5 - 10.5 mg/dL LAB CHEMISTRY METHOD 01/12/2025 11:41 AM [facility] AST (SGOT) 33 10 - 42 unit/L LAB CHEMISTRY METHOD 01/12/2025 11:41 AM [facility] ALT (SGPT) 39 10 - 60 unit/L LAB CHEMISTRY METHOD 01/12/2025 11:41 AM EDT [facility] Alkaline Phosphatase 92 42 - 121 unit/L LAB CHEMISTRY METHOD 01/12/2025 11:41 AM EDT [facility] Total Protein 6.7 6.0 - 8.0 g/dL LAB CHEMISTRY METHOD 01/12/2025 11:41 AM EDT [facility] Albumin 3.4 3.2 - 5.0 g/dL LAB CHEMISTRY METHOD 01/12/2025 11:41 AM EDT [facility] Total Bilirubin 0.6 0.0 - 1.4 mg/dL LAB CHEMISTRY METHOD 01/12/2025 11:41 AM EDT [facility] Blood Venous blood specimen / Unknown Venipuncture / Unknown 01/12/2025 6:25 AM EDT 01/12/2025 10:53 AM EDT us Gilda Le MD LAB BLOOD ORDERABLES Fin al Result [facility] [address] [place] [address], * (ABNORMAL) Complete blood count (01/12/2025 6:25 AM EDT) WBC 8.3 4.8 - 10.8 K/mcL LAB HEMETOLOGY METHOD 01/12/2025 12:13 PM EDT [facility] RBC 4.70 4.50 - 5.50 M/mcL LAB HEMETOLOGY METHOD 01/12/2025 12:13 PM EDT [facility] Hemoglobin 15.2 13.5 - 17.5 g/dL LAB HEMETOLOGY METHOD 01/12/2025 12:13 PM EDT [facility] Hematocrit 46.6 42.0 - 54.0 % LAB HEMETOLOGY METHOD 01/12/2025 12:13 PM EDT [facility] MCV 98.5(H) 79.0 - 98.0 FL LAB HEMETOLOGY METHOD 01/12/2025 12:13 PM EDT [facility] MCH 32.1(H) 27.0 - 32.0 pcg LAB HEMETOLOGY METHOD 01/12/2025 12:13 PM EDT [facility] MCHC 32.6 32.0 - 37.0 g/dL LAB HEMETOLOGY METHOD 01/12/2025 12:13 PM EDT [facility] RDW 13.4 11.0 - 15.0 % LAB HEMETOLOGY METHOD 01/12/2025 12:13 PM EDT [facility] Platelets 217 130 - 400 K/mcL LAB HEMETOLOGY METHOD 01/12/2025 12:13 PM EDT [facility] MPV 9.6 7.0 - 11.0 FL LAB HEMETOLOGY METHOD 01/12/2025 12:13 PM EDT [facility] NRBC 0.0 <1.0 % LAB HEMETOLOGY METHOD 01/12/2025 12:13 PM EDT [facility] NRBC Absolute 0.00 <0.10 K/mcL LAB HEMETOLOGY METHOD 01/12/2025 12:13 PM EDT [facility] Blood Venous blood specimen / Unknown Venipuncture / Unknown 01/12/2025 6:25 AM EDT 01/12/2025 10:53 AM EDT us Gilda Le MD LAB BLOOD ORDERABLES Fin al Result [facility] [address] [place] [address], documented in this encounter Visit Diagnoses Diagnosis Chronic obstructive pulmonary disease, unspecified (CMS/HCC V24, CMS/HCC V28) Chronic respiratory failure, unspecified whether with hypoxia or hypercapnia (CMS/HCC V24, CMS/HCC V28) documented in this encounter Care Teams Braider Setter Relationship Specialty Start Date End Date Tai Cavazos MD [address] [place] [address] [address] LYDIA Serrato PCP - General Internal Medicine 03/03/11 documented as of this encounter
--- OUTSIDE RECORDS SUMMARY | 2025-03-24 19:49 | XMS_ITS | Encounter Summary ---
Author Organization [facility] Address [address] [place] [address] Care Team Providers Care Mission Assessment Specialist Name Role Phone Tai Cavazos MD Primary Care Provider [phone]- [phone] Encounter Details Date Type Department Care Team (Late st Contact Info) Description 01/16/2025 Lab Requisition [facility] - Main Lab [address] [facility] [place] [address] Gilda Le MD [address] [phone] Chronic obstructive pulmonary disease, unspecified (CMS/HCC V24, [...] on file documented as of this encounter Visit Diagnoses Diagnosis Chronic obstructive pulmonary disease, unspecified (CMS/HCC V24, CMS/HCC V28) Chronic respiratory failure, unspecified whether with hypoxia or hypercapnia (CMS/HCC V24, CMS/HCC V28) documented in this encounter Care Teams Mission Assessment Specialist Relationship Specialty Start Date End Date Tai Cavazos MD [address] [place] [address] Dr Isauro Serrato [place] PCP - General Internal Medicine 03/03/11 documented as of this encounter
--- OUTSIDE RECORDS SUMMARY | 2025-03-24 19:49 | XMS_ITS | Clinical Summary ---
Author Organization [address] [facility] Address [address] [place] [address] Phone Care Team Providers Care Hardware Installation Coordinator Name Role Phone Tai Cavazos MD Primary Care Provider Encounters Date Type Department Care Team Description 01/16/2025 Lab Requisition [facility] Lab [address] [place] [phone] Gilda Le MD Chronic obstructive pulmonary disease, unspecified (CMS/HCC V24, [facility] V28); Chronic respiratory failure, unspecified whether with hypoxia or hypercapnia ([facility] V24, CMS/HCC V28) 01/10/2025 Lab Requisition [facility] Lab [address] [place] [address] Gilda Le MD Chronic obstructive pulmonary disease, unspecified ([facility] V24, CMS/HCC V28); Chronic respiratory failure, unspecified whether with hypoxia or hypercapnia (CMS/HCC V24, CMS/HCC V28) 01/08/2025 Lab Requisition [facility] Lab [address] [place] [phone] Gilda Le MD Chronic obstructive pulmonary disease, unspecified (CMS/HCC V24, CMS/HCC V28) 01/04/2025 Lab Requisition [facility] Lab [address] [place] [phone] Gilda Le MD Chronic obstructive pulmonary disease, unspecified (CMS/HCC V24, CMS/HCC V28); Chronic respiratory failure, unspecified whether with hypoxia or hypercapnia ([facility] V24, CMS/HCC V28) 12/28/2024 Lab Requisition [facility] Lab [address] [facility] [employer] [place] [address] Gilda Le MD Chronic obstructive pulmonary disease, unspecified ([facility] V24, [facility] V28); Chronic respiratory failure, unspecified whether with hypoxia or hypercapnia ([facility] V24, [facility] V28) from Last 3 Months Social History [...] Health Screening 12/09/2024 COVID-19 Vaccine (1 - 2024-2 6 season) 2024 Influenza Vaccine (#1) 2024 HIB [...] Associated Diagnosis Comments COMPREHENSIVE METABOLIC PANEL Routine 01/12/2025 6:25 AM EDT Chronic obstructive pulmonary disease, unspecified (CMS/HCC V24, CMS/HCC V28) Chronic respiratory failure, unspecified whether with hypoxia or hypercapnia (CMS/HCC V24, CMS/HCC V28) COMPLETE BLOOD COUNT Routine 01/12/2025 6:25 AM EDT Chronic obstructive pulmonary disease, unspecified (CMS/HCC V24, CMS/HCC V28) Chronic respiratory failure, unspecified whether with hypoxia or hypercapnia (CMS/HCC V24, CMS/HCC V28) CBC WITH AUTO DIFFERENTIAL Routine 01/08/2025 5:09 AM EDT Chronic obstructive pulmonary disease, unspecified (CMS/HCC V24, CMS/HCC V28) COMPREHENSIVE METABOLIC PANEL Routine 01/08/2025 5:09 AM EDT Chronic obstructive pulmonary disease, unspecified (CMS/HCC V24, CMS/HCC V28) CBC AND DIFFERENTIAL Routine 01/08/2025 5:09 AM EDT Chronic obstructive pulmonary disease, unspecified (CMS/HCC V24, CMS/HCC V28) COMPREHENSIVE METABOLIC PANEL Routine 01/05/2025 6:19 AM EDT Chronic obstructive pulmonary disease, unspecified (CMS/HCC V24, CMS/HCC V28) Chronic respiratory failure, unspecified whether with hypoxia or hypercapnia (CMS/HCC V24, CMS/HCC V28) COMPLETE BLOOD COUNT Routine 01/05/2025 6:19 AM EDT Chronic obstructive pulmonary disease, unspecified (CMS/HCC V24, CMS/HCC V28) Chronic respiratory failure, unspecified whether with hypoxia or hypercapnia (CMS/HCC V24, CMS/HCC V28) COMPREHENSIVE METABOLIC PANEL Routine 12/29/2024 8:21 AM EDT Chronic obstructive pulmonary disease, unspecified (CMS/HCC V24, CMS/HCC V28) Chronic respiratory failure, unspecified whether with hypoxia or hypercapnia (CMS/HCC V24, CMS/HCC V28) COMPLETE BLOOD COUNT Routine 12/29/2024 8:21 AM EDT Chronic obstructive pulmonary disease, unspecified (CMS/HCC V24, CMS/HCC V28) Chronic respiratory failure, unspecified whether with hypoxia or hypercapnia (CMS/HCC V24, CMS/HCC V28) from Last 3 Months Results * (ABNORMAL) Complete blood count (01/12/2025 6:25 AM EDT) Only the most recent of3 resultswithin the time period is included. WBC 8.3 4.8 - 10.8 K/mcL LAB HEMETOLOGY METHOD 01/12/2025 12:13 PM [facility] RBC 4.70 4.50 - 5.50 M/mcL LAB HEMETOLOGY METHOD 01/12/2025 12:13 PM [facility] Hemoglobin 15.2 13.5 - 17.5 g/dL LAB HEMETOLOGY METHOD 01/12/2025 12:13 PM [facility] Hematocrit 46.6 42.0 - 54.0 % LAB HEMETOLOGY METHOD 01/12/2025 12:13 PM [facility] MCV 98.5(H) 79.0 - 98.0 FL LAB HEMETOLOGY METHOD 01/12/2025 12:13 PM [facility] MCH 32.1(H) 27.0 - 32.0 pcg LAB HEMETOLOGY METHOD 01/12/2025 12:13 PM [facility] MCHC 32.6 32.0 - 37.0 g/dL LAB HEMETOLOGY METHOD 01/12/2025 12:13 PM [facility] RDW 13.4 11.0 - 15.0 % LAB HEMETOLOGY METHOD 01/12/2025 12:13 PM EDT [facility] Platelets 217 130 - 400 K/mcL LAB HEMETOLOGY METHOD 01/12/2025 12:13 PM EDT [facility] MPV 9.6 7.0 - 11.0 FL LAB HEMETOLOGY METHOD 01/12/2025 12:13 PM EDT [facility] NRBC 0.0 <1.0 % LAB HEMETOLOGY METHOD 01/12/2025 12:13 PM EDT [facility] NRBC Absolute 0.00 <0.10 K/mcL LAB HEMETOLOGY METHOD 01/12/2025 12:13 PM [facility] Blood Venous blood specimen / Unknown Venipuncture / Unknown 01/12/2025 6:25 AM EDT 01/12/2025 10:53 AM EDT Gilda Le MD LAB BLOOD ORDERABLES Fin al Result [facility] LAB [address] [place] [address], * Comprehensive metabolic panel (01/12/2025 6:25 AM EDT) Only the most recent of4 resultswithin the time period is included. Sodium 141 133 - 145 mmol/L LAB CHEMISTRY METHOD 01/12/2025 11:41 AM [facility] Potassium 4.0 3.5 - 5.5 mmol/L LAB CHEMISTRY METHOD 01/12/2025 11:41 AM [facility] Chloride 105 96 - 110 mmol/L LAB CHEMISTRY METHOD 01/12/2025 11:41 AM [facility] CO2 29 21 - 32 mmol/L LAB CHEMISTRY METHOD 01/12/2025 11:41 AM [facility] Anion Gap 7 3 - 11 LAB CHEMISTRY METHOD 01/12/2025 11:41 AM [facility] Glucose 90 70 - 100 mg/dL LAB CHEMISTRY METHOD 01/12/2025 11:41 AM [facility] BUN 14 5 - 25 mg/dL LAB CHEMISTRY METHOD 01/12/2025 11:41 AM [facility] Creatinine 0.83 0.70 - 1.30 mg/dL LAB CHEMISTRY METHOD 01/12/2025 11:41 AM [facility] eGFR 87 >=60 mL/min/1. 73m2 LAB CHEMISTRY METHOD 01/12/2025 11:41 AM [facility] Comment:Calculation based on the Chronic Kidney Disease Epidemiology Collaboration (CKD-EPI) equation refit without adjustment for race. BUN/Creatinine Ratio 16.9 LAB CHEMISTRY METHOD 01/12/2025 11:41 AM [facility] Calcium 9.0 8.5 - 10.5 mg/dL LAB CHEMISTRY METHOD 01/12/2025 11:41 AM [facility] AST (SGOT) 33 10 - 42 unit/L LAB CHEMISTRY METHOD 01/12/2025 11:41 AM [facility] ALT (SGPT) 39 10 - 60 unit/L LAB CHEMISTRY METHOD 01/12/2025 11:41 AM [facility] Alkaline Phosphatase 92 42 - 121 unit/L LAB CHEMISTRY METHOD 01/12/2025 11:41 AM [facility] Total Protein 6.7 6.0 - 8.0 g/dL LAB CHEMISTRY METHOD 01/12/2025 11:41 AM [facility] Albumin 3.4 3.2 - 5.0 g/dL LAB CHEMISTRY METHOD 01/12/2025 11:41 AM [facility] Total Bilirubin 0.6 0.0 - 1.4 mg/dL LAB CHEMISTRY METHOD 01/12/2025 11:41 AM [facility] Blood Venous blood specimen / Unknown Venipuncture / Unknown 01/12/2025 6:25 AM EDT 01/12/2025 10:53 AM EDT us Gilda Le MD LAB BLOOD ORDERABLES Fin al Result [facility] LAB [address] [place] [address], * (ABNORMAL) CBC auto differential (01/08/2025 5:09 AM EDT) [facility] WBC 7.7 4.8 - 10.8 K/mcL LAB HEMETOLOGY METHOD 01/08/2025 11:16 AM EDT [facility] RBC 3.80(L) 4.50 - 5.50 M/mcL LAB HEMETOLOGY METHOD 01/[facility]25 [facility] Hemoglobin 11.9(L) 13.5 - 17.5 g/dL LAB HEMETOLOGY METHOD 01/08/2025 11:16 AM T [facility] Hematocrit 37.2(L) 42.0 - 54.0 % LAB HEMETOLOGY METHOD 01/08/2025 11:16 AM [facility] MCV 99.2(H) 79.0 - 98.0 FL LAB HEMETOLOGY METHOD 01/08/2025 11:16 AM EDT [facility] MCH 31.7 27.0 - 32.0 pcg LAB HEMETOLOGY METHOD 01/08/2025 11:16 AM T [facility] LAB MCHC 32.0 32.0 - 37.0 g/dL LAB HEMETOLOGY METHOD 01/08/2025 11:16 AM [facility] RDW 13.5 11.0 - 15.0 % LAB HEMETOLOGY METHOD 01/08/2025 11:16 AM [facility] Platelets 185 130 - 400 K/mcL LAB HEMETOLOGY METHOD 01/08/2025 11:16 AM [facility] MPV 9.7 7.0 - 11.0 FL LAB HEMETOLOGY METHOD 01/08/2025 11:16 AM [facility] NRBC 0.0 <1.0 % LAB HEMETOLOGY METHOD 01/08/2025 11:16 AM [facility] NRBC Absolute 0.00 <0.10 K/[facility] LAB HEMETOLOGY METHOD 01/08/2025 11:16 AM [facility] Neutrophils Relative 62.9 % LAB HEMETOLOGY METHOD 01/08/2025 11:16 AM [facility] Lymphocytes Relative 25.0 % LAB HEMETOLOGY METHOD 01/08/2025 11:16 AM [facility] Monocytes Relative 9.4 % LAB HEMETOLOGY METHOD 01/08/2025 11:16 AM [facility] Eosinophils Relative 1.8 % LAB HEMETOLOGY METHOD 01/08/2025 11:16 AM [facility] Basophils Relative 0.5 % LAB HEMETOLOGY METHOD 01/08/2025 11:16 AM [facility] Immature Granulocytes Relative 0.4 % LAB HEMETOLOGY METHOD 01/08/2025 11:16 AM [facility] Neutrophils Absolute 4.86 1.50 - 7.00 K/mcL LAB HEMETOLOGY METHOD 01/08/2025 11:16 AM [facility] Lymphocytes Absolute 1.93 1.00 - 5.00 K/mcL LAB HEMETOLOGY METHOD 01/08/2025 11:16 AM [facility] Monocytes Absolute 0.73 0.20 - 1.00 K/mcL LAB HEMETOLOGY METHOD 01/08/2025 11:16 AM [facility] Eosinophils Absolute 0.14 0.00 - 0.50 K/mcL LAB HEMETOLOGY METHOD 01/08/2025 11:16 AM EDT [facility] Basophils Absolute 0.04 0.00 - 0.20 K/[facility] LAB HEMETOLOGY METHOD 01/08/2025 11:16 AM EDT [facility] Immature Granulocytes Absolute 0.03 0.00 - 0.03 K/[facility] LAB HEMETOLOGY METHOD 01/08/2025 11:16 AM EDT [facility] Blood Venous blood specimen / Unknown Venipuncture / Unknown 01/08/2025 5:09 AM EDT 01/08/2025 10:36 AM EDT Gilda Le MD LAB BLOOD ORDERABLES Fin al Result [facility] LAB [address] [place] [address], from Last 3 Months Insurance MEDICAID - [place] MEDICARE Care Teams Hardware Installation Coordinator Relationship Specialty Start Date End Date Tai Cavazos MD [address] [place] [address] Dr [address] LYDIA Serrato PCP - General Internal Medicine 03/03/11
--- OUTSIDE RECORDS SUMMARY | 2025-03-24 19:49 | XMS_ITS | Encounter Summary ---
Author Organization [facility] Address [address] [place] [address] Care Team Providers Care Public Safety Officer Name Role Phone Tai Cavazos MD Primary Care Provider [phone] Encounter Details Date Type Department Care Team (Late st Contact Info) Description 12/09/2024 Lab Requisition [facility] - Main Lab [address] [facility] [place] [address] Gilda Le MD [address] [phone] Chronic obstructive pulmonary disease with (acute) exacerbation [...] * Magnesium (12/09/2024 5:00 AM EDT) Pathologist [facility] Magnesium 2.1 1.9 - 2.6 mg/dL LAB CHEMISTRY METHOD 12/09/2024 9:47 AM EDT [facility] Blood Venous blood specimen / Unknown Venipuncture / Unknown 12/09/2024 5:00 AM EDT 12/09/2024 8:49 AM EDT us Gilda Le MD LAB BLOOD ORDERABLES Fin al Result [facility] LAB [address] [place] [address], * (ABNORMAL) Thyroid stimulating hormone (12/09/2024 5:00 AM EDT) Pathologist [facility] TSH 4.40(H) 0.40 - 4.00 mcIU/mL LAB CHEMISTRY METHOD 12/09/2024 11:06 AM EDT [facility] LAB Blood Venous blood specimen / Unknown Venipuncture / Unknown 12/09/2024 5:00 AM EDT 12/09/2024 8:49 AM EDT Gilda Le MD LAB BLOOD ORDERABLES Fin al Result Performing Organization Address City/[facility]/ZIP Co de Phone Number [facility] LAB [address] [place] [address], [place] [phone] * Folate (12/09/2024 5:00 AM EDT) Pathologist [facility] Folate 5.5 2.8 - 17.0 ng/ml LAB CHEMISTRY METHOD 12/09/2024 9:58 AM EDT [facility] Blood Venous blood specimen / Unknown Venipuncture / Unknown 12/09/2024 5:00 AM EDT 12/09/2024 8:49 AM EDT Gilda Le MD LAB BLOOD ORDERABLES Fin al Result Performing Organization Address City/[facility]/ZIP Co de Phone Number [facility] [address] [place] [address], [place] [phone] * (ABNORMAL) Comprehensive metabolic panel (12/09/2024 5:00 AM EDT) Pathologist [facility] Sodium 143 133 - 145 mmol/L LAB CHEMISTRY METHOD 12/09/2024 9:47 AM EDT [facility] Potassium 3.6 3.5 - 5.5 mmol/L LAB CHEMISTRY METHOD 12/09/2024 9:47 AM EDT [facility] Chloride 108 96 - 110 mmol/L LAB CHEMISTRY METHOD 12/09/2024 9:47 AM EDT [facility] CO2 30 21 - 32 mmol/L LAB CHEMISTRY METHOD 12/09/2024 9:47 AM EDT [facility] Anion Gap 5 3 - 11 LAB CHEMISTRY METHOD 12/09/2024 9:47 AM [facility] Glucose 78 70 - 100 mg/dL LAB CHEMISTRY METHOD 12/09/2024 9:47 AM [facility] BUN 25 5 - 25 mg/dL LAB CHEMISTRY METHOD 12/09/2024 9:47 AM [facility] Creatinine 0.75 0.70 - 1.30 mg/dL LAB CHEMISTRY METHOD 12/09/2024 9:47 AM [facility] LAB eGFR 90 >=60 mL/min/1. 73m2 LAB CHEMISTRY METHOD 12/09/2024 9:47 AM [facility] LAB Comment:Calculation based on the Chronic Kidney Disease Epidemiology Collaboration (CKD-EPI) equation refit without adjustment for race. BUN/Creatinine Ratio 33.3 LAB CHEMISTRY METHOD 12/09/2024 9:47 AM [facility] Calcium 8.3(L) 8.5 - 10.5 mg/dL LAB CHEMISTRY METHOD 12/09/2024 9:47 AM [facility] AST (SGOT) 26 10 - 42 unit/L LAB CHEMISTRY METHOD 12/09/2024 9:47 AM [facility] ALT (SGPT) 60 10 - 60 unit/L LAB CHEMISTRY METHOD 12/09/2024 9:47 AM [facility] Alkaline Phosphatase 67 42 - 121 unit/L LAB CHEMISTRY METHOD 12/09/2024 9:47 AM [facility] Total Protein 5.3(L) 6.0 - 8.0 g/dL LAB CHEMISTRY METHOD 12/09/2024 9:47 AM [facility] Albumin 2.9(L) 3.2 - 5.0 g/dL LAB CHEMISTRY METHOD 12/09/2024 9:47 AM [facility] Total Bilirubin 0.4 0.0 - 1.4 mg/dL LAB CHEMISTRY METHOD 12/09/2024 9:47 AM [facility] Blood Venous blood specimen / Unknown Venipuncture / Unknown 12/09/2024 5:00 AM EDT 12/09/2024 8:49 AM EDT us Gilda Le MD LAB BLOOD ORDERABLES Fin al Result [facility] [address] [place] [address], * (ABNORMAL) Complete blood count (12/09/2024 5:00 AM EDT) WBC 12.2(H) 4.8 - 10.8 K/mcL LAB HEMETOLOGY METHOD 12/09/2024 9:16 AM EDT [facility] RBC 4.60 4.50 - 5.50 M/mcL LAB HEMETOLOGY METHOD 12/09/2024 9:16 AM EDT [facility] Hemoglobin 14.7 13.5 - 17.5 g/dL LAB HEMETOLOGY METHOD 12/09/2024 9:16 AM EDT [facility] Hematocrit 44.2 42.0 - 54.0 % LAB HEMETOLOGY METHOD 12/09/2024 9:16 AM EDT [facility] MCV 96.7 79.0 - 98.0 FL LAB HEMETOLOGY METHOD 12/09/2024 9:16 AM EDT [facility] MCH 32.2(H) 27.0 - 32.0 pcg LAB HEMETOLOGY METHOD 12/09/2024 9:16 AM EDT [facility] MCHC 33.3 32.0 - 37.0 g/dL LAB HEMETOLOGY METHOD 12/09/2024 9:16 AM EDT [facility] RDW 13.7 11.0 - 15.0 % LAB HEMETOLOGY METHOD 12/09/2024 9:16 AM EDT [facility] Platelets 144 130 - 400 K/mcL LAB HEMETOLOGY METHOD 12/09/2024 9:16 AM EDT [facility] MPV 10.7 7.0 - 11.0 FL LAB HEMETOLOGY METHOD 12/09/2024 9:16 AM EDT [facility] NRBC 0.0 <1.0 % LAB HEMETOLOGY METHOD 12/09/2024 9:16 AM EDT [facility] NRBC Absolute 0.00 <0.10 K/mcL LAB HEMETOLOGY METHOD 12/09/2024 9:16 AM EDT [facility] Blood Venous blood specimen / Unknown Venipuncture / Unknown 12/09/2024 5:00 AM EDT 12/09/2024 8:49 AM EDT Gilda Le MD LAB BLOOD ORDERABLES Fin al Result [facility] [address] [place] [address], documented in this encounter Visit Diagnoses Diagnosis Chronic obstructive pulmonary disease with (acute) exacerbation (CMS/HCC V24, CMS/HCC V28) Hypoxemia Chronic respiratory failure, unspecified whether with hypoxia or hypercapnia (CMS/HCC V24, CMS/HCC V28) documented in this encounter Care Teams Public Safety Officer Relationship Specialty Start Date End Date Tai Cavazos MD [address] [place] [address] Dr [address] [place] [address] [place] PCP - General Internal Medicine 03/03/11 documented as of this encounter
--- OUTSIDE RECORDS SUMMARY | 2025-03-24 19:50 | XMS_ITS | Encounter Summary ---
Author Organization [facility] Address [address] [place] [address] Care Team Providers Care Tire Stripper Name Role Phone Tai Cavazos MD Primary Care Provider [phone]- [phone] Encounter Details Date Type Department Care Team (Late st Contact Info) Description 01/04/[address] [facility] - Main Lab [address] [facility] [place] [address] Gilda Le MD [address] [phone] Chronic obstructive pulmonary disease, unspecified (CMS/HCC V24, [...] Associated Diagnosis Comments COMPLETE BLOOD COUNT Routine 01/05/2025 6:19 AM [...] encounter Results * (ABNORMAL) Comprehensive metabolic panel (01/05/2025 6:19 AM EDT) Sodium 141 133 - 145 mmol/L LAB CHEMISTRY METHOD 01/05/2025 12:25 PM [facility] Potassium 3.8 3.5 - 5.5 mmol/L LAB CHEMISTRY METHOD 01/05/2025 12:25 PM [facility] Chloride 107 96 - 110 mmol/L LAB CHEMISTRY METHOD 01/05/2025 12:25 PM [facility] CO2 28 21 - 32 mmol/L LAB CHEMISTRY METHOD 01/05/2025 12:25 PM [facility] Anion Gap 6 3 - 11 LAB CHEMISTRY METHOD 01/05/2025 12:25 PM [facility] Glucose 81 70 - 100 mg/dL LAB CHEMISTRY METHOD 01/05/2025 12:25 PM [facility] BUN 11 5 - 25 mg/dL LAB CHEMISTRY METHOD 01/05/2025 12:25 PM [facility] Creatinine 0.67(L) 0.70 - 1.30 mg/dL LAB CHEMISTRY METHOD 01/05/2025 12:25 PM [facility] LAB eGFR 93 >=60 mL/min/1. 73m2 LAB CHEMISTRY METHOD 01/05/2025 12:25 PM [facility] LAB Comment:Calculation based on the Chronic Kidney Disease Epidemiology Collaboration (CKD-EPI) equation refit without adjustment for race. BUN/Creatinine Ratio 16.4 LAB CHEMISTRY METHOD 01/05/2025 12:25 PM [facility] Calcium 8.8 8.5 - 10.5 mg/dL LAB CHEMISTRY METHOD 01/05/2025 12:25 PM [facility] AST (SGOT) 29 10 - 42 unit/L LAB CHEMISTRY [facility] ([facility]PT[facility] 47 10 - 60 unit/L LAB CHEMISTRY METHOD 01/05/2025 12:25 PM EDT [facility] Alkaline Phosphatase 81 42 - 121 unit/L LAB CHEMISTRY METHOD 01/05/2025 12:25 PM EDT [facility] Total Protein 6.1 6.0 - 8.0 g/dL LAB CHEMISTRY METHOD 01/05/2025 12:25 PM EDT [facility] Albumin 3.2 3.2 - 5.0 g/dL LAB CHEMISTRY METHOD [facility]2025 [facility] Total Bilirubin 0.6 0.0 - 1.4 mg/dL LAB CHEMISTRY METHOD 01/05/2025 12[facility] Blood Venous blood specimen / Unknown Venipuncture / Unknown 01/05/2025 6:19 AM EDT 01/05/2025 11:02 AM EDT us Gilda Le MD LAB BLOOD ORDERABLES Fin al Result [facility] [address] [place] [address], * (ABNORMAL) Complete blood count (01/05/2025 6:19 AM EDT) WBC 8.7 4.8 - 10.8 K/mcL LAB HEMETOLOGY METHOD 01/05/2025 12:50 PM EDT [facility] RBC 4.30(L) 4.50 - 5.50 M/mcL LAB HEMETOLOGY METHOD 01/05/2025 12:50 PM EDT [facility] Hemoglobin 13.5 13.5 - 17.5 g/dL LAB HEMETOLOGY METHOD 01/05/2025 12:50 PM EDT [facility] Hematocrit 42.8 42.0 - 54.0 % LAB HEMETOLOGY METHOD 01/05/2025 12:50 PM EDT [facility] MCV 99.8(H) 79.0 - 98.0 FL LAB HEMETOLOGY METHOD 01/05/2025 12:50 PM EDT [facility] MCH 31.5 27.0 - 32.0 pcg LAB HEMETOLOGY METHOD 01/05/2025 12:50 PM EDT [facility] MCHC 31.5(L) 32.0 - 37.0 g/dL LAB HEMETOLOGY METHOD 01/05/2025 12:50 PM EDT [facility] RDW 13.9 11.0 - 15.0 % LAB HEMETOLOGY METHOD 01/05/2025 12:50 PM EDT [facility] Platelets 197 130 - 400 K/mcL LAB HEMETOLOGY METHOD 01/05/2025 12:50 PM EDT [facility] MPV 10.0 7.0 - 11.0 FL LAB HEMETOLOGY METHOD 01/05/2025 12:50 PM EDT [facility] NRBC 0.0 <1.0 % LAB HEMETOLOGY METHOD 01/05/2025 12:50 PM EDT [facility] NRBC Absolute 0.00 <0.10 K/mcL LAB HEMETOLOGY METHOD 01/05/2025 12:50 PM T [facility] Blood Venous blood specimen / Unknown Venipuncture / Unknown 01/05/2025 6:19 AM EDT 01/05/2025 11:03 AM EDT us Gilda Le MD LAB BLOOD ORDERABLES Fin al Result [facility] [address] [place] [address], documented in this encounter Visit Diagnoses Diagnosis Chronic obstructive pulmonary disease, unspecified (CMS/HCC V24, CMS/HCC V28) Chronic respiratory failure, unspecified whether with hypoxia or hypercapnia (CMS/[facility] V24, CMS/[facility] V28) documented in this encounter Care Teams Tire Stripper Relationship Specialty Start Date End Date Tai Cavazos MD [address] [place] [address] Dr [address] LYDIA Serrato PCP - General Internal Medicine 03/03/11 documented as of this encounter
--- OUTSIDE RECORDS SUMMARY | 2025-03-24 19:50 | XMS_ITS | Encounter Summary ---
Author Organization [facility] Address [address] [place] [address] Care Team Providers Care Public Service Administrator Name Role Phone Tai Cavazos MD Primary Care Provider [phone] Encounter Details Date Type Department Care Team (Late st Contact Info) Description 12/20/2024 Lab Requisition [facility] - Main Lab [address] [facility] [place] [address] Gilda Le MD [address] [phone] Chronic obstructive pulmonary disease, unspecified (CMS/HCC V24, [...] mmol/L LAB CHEMISTRY METHOD 12/22/2024 1:17 PM [facility] Potassium 3.9 3.5 - 5.5 mmol/L LAB CHEMISTRY METHOD 12/22/2024 1:17 PM [facility] Chloride 109 96 - 110 mmol/L LAB CHEMISTRY METHOD 12/22/2024 1:17 PM [facility] CO2 28 21 - 32 mmol/L LAB CHEMISTRY METHOD 12/22/2024 1:17 PM [facility] Anion Gap 5 3 - 11 LAB CHEMISTRY METHOD 12/22/2024 1:17 PM [facility] Glucose 72 70 - 100 mg/dL LAB CHEMISTRY METHOD 12/22/2024 1:17 PM [facility] BUN 13 5 - 25 mg/dL LAB CHEMISTRY METHOD 12/22/2024 1:17 PM [facility] Creatinine 0.62(L) 0.70 - 1.30 mg/dL LAB CHEMISTRY METHOD 12/22/2024 1:17 PM [facility] eGFR 95 >=60 mL/min/1. 73m2 LAB CHEMISTRY METHOD 12/22/2024 1:17 PM [facility] Comment:Calculation based on the Chronic Kidney Disease Epidemiology Collaboration (CKD-EPI) equation refit without adjustment for race. BUN/Creatinine Ratio 21.0 LAB CHEMISTRY METHOD 12/22/2024 1:17 PM [facility] Calcium 8.2(L) 8.5 - 10.5 mg/dL LAB CHEMISTRY METHOD 12/22/2024 1:17 PM [facility] AST (SGOT) 24 10 - 42 unit/L LAB CHEMISTRY METHOD 12/22/2024 1:17 PM EDT [facility] ALT (SGPT) 38 10 - 60 unit/L LAB CHEMISTRY METHOD 12/22/2024 1:17 PM EDT [facility] Alkaline Phosphatase 59 42 - 121 unit/L LAB CHEMISTRY METHOD 12/22/2024 1:17 PM EDT [facility] Total Protein 5.4(L) 6.0 - 8.0 g/dL LAB CHEMISTRY METHOD 12/22/2024 1:17 PM EDT [facility] Albumin 2.9(L) 3.2 - 5.0 g/dL LAB CHEMISTRY METHOD 12/22/2024 1:17 PM EDT [facility] Total Bilirubin 0.6 0.0 - 1.4 mg/dL LAB CHEMISTRY METHOD 12/22/2024 1:17 PM EDT [facility] Blood Venous blood specimen / Unknown Venipuncture / Unknown 12/22/2024 7:47 AM EDT 12/22/2024 12:04 PM EDT us Gilda Le MD LAB BLOOD ORDERABLES Fin al Result [facility] [address] [place] [address], [place] [phone] * (ABNORMAL) Complete blood count (12/22/2024 7:47 AM EDT) WBC 7.1 4.8 - 10.8 K/mcL LAB HEMETOLOGY METHOD 12/22/2024 1:08 PM EDT [facility] RBC 3.90(L) 4.50 - 5.50 M/mcL LAB HEMETOLOGY METHOD 12/22/2024 1:08 PM EDT [facility] Hemoglobin 12.7(L) 13.5 - 17.5 g/dL LAB HEMETOLOGY METHOD 12/22/2024 1:08 PM EDT [facility] Hematocrit 39.7(L) 42.0 - 54.0 % LAB HEMETOLOGY METHOD 12/22/2024 1:08 PM EDT [facility] MCV 101.0(H) 79.0 - 98.0 FL LAB HEMETOLOGY METHOD 12/22/2024 1:08 PM EDT [facility] MCH 32.3(H) 27.0 - 32.0 pcg LAB HEMETOLOGY METHOD 12/22/2024 1:08 PM EDT [facility] MCHC 32.0 32.0 - 37.0 g/dL LAB HEMETOLOGY METHOD 12/22/2024 1:08 PM EDT [facility] RDW 14.5 11.0 - 15.0 % LAB HEMETOLOGY METHOD 12/22/2024 1:08 PM EDT [facility] Platelets 132 130 - 400 K/mcL LAB HEMETOLOGY METHOD 12/22/2024 1:08 PM EDT [facility] MPV 10.1 7.0 - 11.0 FL LAB HEMETOLOGY METHOD 12/22/2024 1:08 PM EDT [facility] NRBC 0.0 <1.0 % LAB HEMETOLOGY METHOD 12/22/2024 1:08 PM EDT [facility] NRBC Absolute 0.00 <0.10 K/mcL LAB HEMETOLOGY METHOD 12/22/2024 1:08 PM EDT [facility] Blood Venous blood specimen / Unknown Venipuncture / Unknown 12/22/2024 7:47 AM EDT 12/22/2024 12:04 PM EDT us Gilda Le MD LAB BLOOD ORDERABLES Fin al Result [facility] [address] [place] [address], documented in this encounter Visit Diagnoses Diagnosis Chronic obstructive pulmonary disease, unspecified ([facility] V24, [facility] V28) Chronic respiratory failure, unspecified whether with hypoxia or hypercapnia ([facility] V24, [facility] V28) documented in this encounter Care Teams Public Service Administrator Relationship Specialty Start Date End Date Tai Cavazos MD [address] [place] [address] [address] [place], [place] PCP - General Internal Medicine 03/03/11 documented as of this encounter
--- OUTSIDE RECORDS SUMMARY | 2025-03-24 19:50 | XMS_ITS | Encounter Summary ---
Author Organization [facility] Address [address] [place] [address] Care Team Providers Care Card Processing Clerk Name Role Phone Tai Cavazos MD Primary Care Provider [phone]- [phone] Encounter Details Date Type Department Care Team (Late st Contact Info) Description 12/28/2024 Lab Requisition [facility] - Main Lab [address] [facility] [place] [address] Gilda Le MD [address] [phone] Chronic obstructive pulmonary disease, unspecified (CMS/HCC V24, [...] Associated Diagnosis Comments COMPLETE BLOOD COUNT Routine 12/29/2024 8:21 AM [...] encounter Results * (ABNORMAL) Comprehensive metabolic panel (12/29/2024 8:21 AM EDT) Sodium 143 133 - 145 mmol/L LAB CHEMISTRY METHOD 12/29/2024 2:09 PM [facility] Potassium 3.6 3.5 - 5.5 mmol/L LAB CHEMISTRY METHOD 12/29/2024 2:09 PM [facility] Chloride 107 96 - 110 mmol/L LAB CHEMISTRY METHOD 12/29/2024 2:09 PM [facility] CO2 25 21 - 32 mmol/L LAB CHEMISTRY METHOD 12/29/2024 2:09 PM [facility] Anion Gap 11 3 - 11 LAB CHEMISTRY METHOD 12/29/2024 2:09 PM [facility] Glucose 141(H) 70 - 100 mg/dL LAB CHEMISTRY METHOD 12/29/2024 2:09 PM [facility] BUN 12 5 - 25 mg/dL LAB CHEMISTRY METHOD 12/29/2024 2:09 PM [facility] Creatinine 1.06 0.70 - 1.30 mg/dL LAB CHEMISTRY METHOD 12/29/2024 2:09 PM [facility] eGFR 70 >=60 mL/min/1. 73m2 LAB CHEMISTRY METHOD 12/29/2024 2:09 PM [facility] Comment:Calculation based on the Chronic Kidney Disease Epidemiology Collaboration (CKD-EPI) equation refit without adjustment for race. BUN/Creatinine Ratio 11.3 LAB CHEMISTRY METHOD 12/29/2024 2:09 PM [facility] Calcium 8.7 8.5 - 10.5 mg/dL LAB CHEMISTRY METHOD 12/29/2024 2:09 PM [facility] AST (SGOT) 44(H) 10 - 42 unit/L LAB CHEMISTRY METHOD 12/29/2024 2:09 PM EDT [facility] ALT (SGPT) 39 10 - 60 unit/L LAB CHEMISTRY METHOD 12/29/2024 2:09 PM EDT [facility] Alkaline Phosphatase 71 42 - 121 unit/L LAB CHEMISTRY METHOD 12/29/2024 2:09 PM [facility] Total Protein 5.9(L) 6.0 - 8.0 g/dL LAB CHEMISTRY METHOD 12/29/2024 2:09 PM EDT [facility] Albumin 3.3 3.2 - 5.0 g/dL LAB CHEMISTRY METHOD 12/29/2024 2:09 PM EDT [facility] Total Bilirubin 0.9 0.0 - 1.4 mg/dL LAB CHEMISTRY METHOD 12/29/2024 2:09 PM [facility] Blood Venous blood specimen / Unknown Venipuncture / Unknown 12/29/2024 8:21 AM EDT 12/29/2024 11:45 AM EDT us Gilda Le MD LAB BLOOD ORDERABLES Fin al Result [facility] [address] [place] [address], [place] [phone] * (ABNORMAL) Complete blood count (12/29/2024 8:21 AM EDT) WBC 6.2 4.8 - 10.8 K/mcL LAB HEMETOLOGY METHOD 12/29/2024 1:53 PM EDT [facility] RBC 4.30(L) 4.50 - 5.50 M/mcL LAB HEMETOLOGY METHOD 12/29/2024 1:53 PM EDT [facility] Hemoglobin 13.9 13.5 - 17.5 g/dL LAB HEMETOLOGY METHOD 12/29/2024 1:53 PM EDT [facility] Hematocrit 42.9 42.0 - 54.0 % LAB HEMETOLOGY METHOD 12/29/2024 1:53 PM EDT [facility] MCV 100.2(H) 79.0 - 98.0 FL LAB HEMETOLOGY METHOD 12/29/2024 1:53 PM EDT [facility] MCH 32.5(H) 27.0 - 32.0 pcg LAB HEMETOLOGY METHOD 12/29/2024 1:53 PM EDT [facility] MCHC 32.4 32.0 - 37.0 g/dL LAB HEMETOLOGY METHOD 12/29/2024 1:53 PM EDT [facility] RDW 14.1 11.0 - 15.0 % LAB HEMETOLOGY METHOD 12/29/2024 1:53 PM EDT [facility] Platelets 187 130 - 400 K/mcL LAB HEMETOLOGY METHOD 12/29/2024 1:53 PM EDT [facility] MPV 10.0 7.0 - 11.0 FL LAB HEMETOLOGY METHOD 12/29/2024 1:53 PM EDT [facility] NRBC 0.0 <1.0 % LAB HEMETOLOGY METHOD 12/29/2024 1:53 PM EDT [facility] NRBC Absolute 0.00 <0.10 K/mcL LAB HEMETOLOGY METHOD 12/29/2024 1:53 PM EDT [facility] Blood Venous blood specimen / Unknown Venipuncture / Unknown 12/29/2024 8:21 AM EDT 12/29/2024 11:45 AM EDT us Gilda Le MD LAB BLOOD ORDERABLES Fin al Result [facility] [address] [place] [address], documented in this encounter Visit Diagnoses Diagnosis Chronic obstructive pulmonary disease, unspecified (CMS/HCC V24, CMS/[facility] V28) Chronic respiratory failure, unspecified whether with hypoxia or hypercapnia ([facility] V24, [facility] V28) documented in this encounter Care Teams Card Processing Clerk Relationship Specialty Start Date End Date Tai Cavaozs MD [address] [place] [address] [address] LYDIA Serrato PCP - General Internal Medicine 03/03/11 documented as of this encounter
--- OUTSIDE RECORDS SUMMARY | 2025-03-24 19:50 | XMS_ITS | Encounter Summary ---
Author Organization [facility] Address [address] [place] [address] Care Team Providers Care Aco Coordinator Name Role Phone Tai Cavazos MD Primary Care Provider [phone]- [phone] Encounter Details Date Type Department Care Team (Late st Contact Info) Description 01/08/2025 Lab Requisition [facility] - Main Lab [address] [facility] [place] [address] Gilda Le MD [address] [phone] Chronic obstructive pulmonary disease, unspecified (CMS/HCC V24, CMS/HCC V28) Social History Tobacco [...] Procedure Name Priority Date/Time Associated Diagnosis Comments CBC WITH AUTO DIFFERENTIAL Routine 01/08/2025 5:09 AM EDT Chronic obstructive pulmonary disease, unspecified (CMS/HCC V24, CMS/HCC V28) CBC AND DIFFERENTIAL Routine 01/08/2025 5:09 AM EDT Chronic obstructive pulmonary disease, unspecified (CMS/HCC V24, CMS/HCC V28) COMPREHENSIVE METABOLIC PANEL Routine 01/08/2025 5:09 AM EDT Chronic obstructive pulmonary disease, unspecified (CMS/HCC V24, CMS/HCC V28) documented in this encounter Results * (ABNORMAL) CBC auto differential (01/08/2025 5:09 AM EDT) [facility] WBC 7.7 4.8 - 10.8 K/mcL LAB HEMETOLOGY METHOD 01/08/2025 11:16 AM [facility] RBC 3.80(L) 4.50 - 5.50 M/mcL LAB HEMETOLOGY METHOD 01/08/2025 11:16 AM [facility] Hemoglobin 11.9(L) 13.5 - 17.5 g/dL LAB HEMETOLOGY METHOD 01/08/2025 11:16 AM [facility] Hematocrit 37.2(L) 42.0 - 54.0 % LAB HEMETOLOGY METHOD 01/08/2025 11:16 AM [facility] MCV 99.2(H) 79.0 - 98.0 FL LAB HEMETOLOGY METHOD 01/08/2025 11:16 AM [facility] MCH 31.7 27.0 - 32.0 pcg LAB HEMETOLOGY METHOD 01/08/2025 11:16 AM [facility] MCHC 32.0 32.0 - 37.0 g/dL LAB HEMETOLOGY METHOD 01/08/2025 11:16 AM [facility] RDW 13.5 11.0 - 15.0 % LAB HEMETOLOGY METHOD 01/08/2025 11:16 AM [facility] Platelets 185 130 - 400 K/mcL LAB HEMETOLOGY METHOD 01/08/2025 11:16 AM [facility] MPV 9.7 7.0 - 11.0 FL LAB HEMETOLOGY METHOD 01/08/2025 11:16 AM [facility] NRBC 0.0 <1.0 % LAB HEMETOLOGY METHOD 01/08/2025 11:16 AM [facility] NRBC Absolute 0.00 <0.10 K/mcL LAB HEMETOLOGY METHOD 01/08/2025 11:16 AM [facility] Neutrophils Relative 62.9 % LAB HEMETOLOGY METHOD 01/08/2025 11:16 AM [facility] Lymphocytes Relative 25.0 % LAB HEMETOLOGY METHOD 01/08/2025 11:16 AM [facility] Monocytes Relative 9.4 % LAB HEMETOLOGY METHOD 01/08/2025 11:16 AM [facility] Eosinophils Relative 1.8 % LAB HEMETOLOGY METHOD 01/08/2025 11:16 AM [facility] Basophils Relative 0.5 % LAB HEMETOLOGY METHOD 01/08/2025 11:16 AM [facility] Immature Granulocytes Relative 0.4 % LAB HEMETOLOGY METHOD 01/08/2025 11:16 AM [facility] Neutrophils Absolute 4.86 1.50 - 7.00 K/mcL LAB HEMETOLOGY METHOD 01/08/2025 11:16 AM [facility] Lymphocytes Absolute 1.93 1.00 - 5.00 K/mcL LAB HEMETOLOGY METHOD 01/08/2025 11:16 AM [facility] Monocytes Absolute 0.73 0.20 - 1.00 K/mcL LAB HEMETOLOGY METHOD 01/08/2025 11:16 AM [facility] Eosinophils Absolute 0.14 0.00 - 0.50 K/mcL LAB HEMETOLOGY METHOD 01/08/2025 11:16 AM [facility] Basophils Absolute 0.04 0.00 - 0.20 K/mcL LAB HEMETOLOGY METHOD 01/08/2025 11:16 AM [facility] Immature Granulocytes Absolute 0.03 0.00 - 0.03 K/mcL LAB HEMETOLOGY [facility] Blood Venous blood specimen / Unknown Venipuncture / Unknown 01/08/2025 5:09 AM EDT 01/08/2025 10:36 AM EDT us Gilda Le MD LAB BLOOD ORDERABLES Fin al Result [facility] [address] [place] [address], * (ABNORMAL) Comprehensive metabolic panel (01/08/2025 5:09 AM EDT) Sodium 144 133 - 145 mmol/L LAB CHEMISTRY METHOD 01/08/2025 12:17 PM [facility] Potassium 3.5 3.5 - 5.5 mmol/L LAB CHEMISTRY METHOD 01/08/2025 12:17 PM [facility] Chloride 107 96 - 110 mmol/L LAB CHEMISTRY METHOD 01/08/2025 12:17 PM [facility] CO2 30 21 - 32 mmol/L LAB CHEMISTRY METHOD 01/08/2025 12:17 PM [facility] Anion Gap 7 3 - 11 LAB CHEMISTRY METHOD 01/08/2025 12:17 PM [facility] Glucose 111(H) 70 - 100 mg/dL LAB CHEMISTRY METHOD 01/08/2025 12:17 PM [facility] BUN 18 5 - 25 mg/dL LAB CHEMISTRY METHOD 01/08/2025 12:17 PM [facility] Creatinine 0.76 0.70 - 1.30 mg/dL LAB CHEMISTRY METHOD 01/08/2025 12:17 PM [facility] eGFR 90 >=60 mL/min/1. 73m2 LAB CHEMISTRY METHOD 01/08/2025 12:17 PM [facility] Comment:Calculation based on the Chronic Kidney Disease Epidemiology Collaboration (CKD-EPI) equation refit without adjustment for race. BUN/Creatinine Ratio 23.7 LAB CHEMISTRY METHOD 01/08/2025 12:17 PM [facility] Calcium 8.3(L) 8.5 - 10.5 mg/dL LAB CHEMISTRY METHOD 01/08/2025 12:17 PM [facility] AST (SGOT) 24 10 - 42 unit/L LAB CHEMISTRY METHOD 01/08/2025 12:17 PM [facility] ALT (SGPT) 32 10 - 60 unit/L LAB CHEMISTRY METHOD 01/08/2025 12:17 PM [facility] Alkaline Phosphatase 72 42 - 121 unit/L LAB CHEMISTRY METHOD 01/08/2025 12:17 PM [facility] Total Protein 5.2(L) 6.0 - 8.0 g/dL LAB CHEMISTRY METHOD 01/08/2025 12:17 PM [facility] Albumin 2.6(L) 3.2 - 5.0 g/dL LAB CHEMISTRY METHOD 01/08/2025 12:17 PM [facility] Total Bilirubin 0.3 0.0 - 1.4 mg/dL LAB CHEMISTRY METHOD 01/08/2025 12:17 PM [facility] Blood Venous blood specimen / Unknown Venipuncture / Unknown 01/08/2025 5:09 AM EDT 01/08/2025 10:36 AM EDT us Gilda Le MD LAB BLOOD ORDERABLES Fin al Result [facility] [address] [place] [address], documented in this encounter Visit Diagnoses Diagnosis Chronic obstructive pulmonary disease, unspecified (CMS/HCC V24, CMS/HCC V28) documented in this encounter Care Teams Aco Coordinator Relationship Specialty Start Date End Date Tai Cavazos MD [address] [place] [address] Dr Isauro Serrato [place] PCP - General Internal Medicine 03/03/11 documented as of this encounter
== END 2025-03-24 14:09 | disposition home or self-care (01) ==
LOC: HO.HOS 13:45
PROVIDERS: PCP Internal Medicine; Visit Provider Orthopaedic Surgery
DX: M25.561 Pain in right knee (principal); M17.11 Unilateral primary osteoarthritis, right knee
CPT/HCPCS: 99203; G2211

== ENCOUNTER → 2025-03-24 13:44 | Outpatient (BNVA) | payer MEDICARE, MEDICAID, SELFPAY | PROVIDERS: PCP Internal Medicine; Visit Provider Orthopaedic Surgery | DX: M25.561 Pain in right knee (principal); M17.11 Unilateral primary osteoarthritis, right knee; Z96.652 Presence of left artificial knee joint | CPT/HCPCS: 99202 ==